=== PATIENT | male | born 1955 | race Caucasian/White ===

== ENCOUNTER 2017-08-03 10:38 | Emergency (ER) | payer MEDICARE ==
[2017-08-03] VITALS (7 sets, daily range): BP systolic 84–105; BP diastolic 52–64; PULSE 83–90; RESP 16–19; TEMP 98.4; O2SAT 90–99
[~2017-08-03] VITALS: Ht 177.8 cm; Wt 100.0 kg
[~2017-08-03 10:38] MED LIST: ALBU0.086 INH; ALBU17I INH; AMIT100T6 PO; ASPI81 PO; FISH300C2 PO; LASI20TA PO; LEVA750T PO; POTA-243 PO; PRED20 PO; PROT40TA PO; TAB-TAB PO; ULTR50TA PO
[2017-08-03] MEDS ORDERED: SODIUM CHLORIDE 0.9% FLUSH 10 ML FLUSH IVF PRN (11:15)
[2017-08-03] MEDS ORDERED: methylPREDNISolone SOD SUCC 125 MG/2 ML VIAL IV PUSH ONE (11:15)
[2017-08-03] MEDS ORDERED: SODIUM CHLORID 0.9% 500 ML INJ 500 ML IV ONE ×2 (11:15→12:30)
[2017-08-03] MEDS: RESP: ALBUTEROL 2.5 MG/IPRATROPIUM 0.5 MG NEB (SCH) INH (11:19)
[2017-08-03 11:30] LABS: AUTOMATED NEUTROPHIL # 9.1 TH/MM3 (1.8-7.7); BASOPHIL # 0.5 TH/MM3 (0-0.2); EOSINOPHIL # 0.1 TH/MM3 (0-0.4); EOSINOPHIL % 0.8 % (0.0-4.0); HEMATOCRIT 39.3 % (39.0-51.0); HEMO FLAGS DIFF FINAL; LYMPH % 7.1 % (9.0-44.0); LYMPHOCYTE # 0.8 TH/MM3 (1.0-4.8); MEAN CELL VOLUME 84.6 FL (80.0-100.0); MEAN CORPUSCULAR HGB CONC 31.9 % (32.0-36.0); MONO % 7.2 % (0.0-8.0); NEUT % 80.9 % (16.0-70.0); PLATELET COUNT 387 TH/MM3 (150-450); RED BLOOD COUNT 4.65 MIL/MM3 (4.50-5.90); RED CELL DISTRIBUTION WIDTH 15.5 % (11.6-17.2); WHITE BLOOD COUNT 11.3 TH/MM3 (4.0-11.0)
--- NOTE | 2017-08-03 11:50 | PD ---
HPI Chief Complaint: General Weakness Time Seen by Provider: 10:54 Travel History International Travel<30 days: No Contact w/Intl Traveler<30days: No Traveled to known affect area: No History of Present Illness HPI This is a 62-year-old male who presents to the emergency department with increasing shortness of breath that he says this been going on for months but has gotten worse over the past week associated with a productive cough with green and yellow sputum, constant, moderate severity, worse with exertion. The patient reports that he completed an antibiotic prescribed by his primary care provider one week ago but his symptoms have not improved. He has a history of significant lung infections that subsequently resulted in lobectomy. PFSH Past Medical History Cancer: No Cardiovascular Problems: Yes (DEXTROCARDIA) High Cholesterol: Yes COPD: Yes Diminished Hearing: No Endocrine: Yes Genitourinary: No Immune Disorder: No Implanted Vascular Access Dvce: Yes Musculoskeletal: Yes (back problems) Neurologic: Yes Psychiatric: No Reproductive: No Respiratory: Yes Immunizations Current: Yes Myocardial Infarction: Yes (1994) Pneumonia: Yes (2006) Seizures: Yes (X1 1993) Sleep Apnea: Yes Influenza Vaccination: Yes Past Surgical History Abdominal Surgery: No Cardiac Surgery: No Ear Surgery: No Endocrine Surgery: No Eye Surgery: Yes (BILATERAL CATARACTS) Genitourinary Surgery: No Gynecologic Surgery: No Joint Replacement: Yes (right knee) Neurologic Surgery: Yes (BRAIN ANEURYSM WITH SHUNT INFANT, 3 cervical spine surgeries) Oral Surgery: No Thoracic Surgery: Yes (BILATERAL LOBECTOMY) Other Surgery: Yes (BILAT CARPAL TUNNEL REPAIR) Social History Alcohol Use: No Tobacco Use: No Substance Use: No Allergies-Medications (Allergen,Severity, Reaction): Coded Allergies: No Known Allergies (Verified , 08/03/17) Reported Meds & Prescriptions Reported Meds & Active Scripts Active Deltasone 20 Mg Tab (Prednisone) 20 Mg Tab 20 Mg PO DAILY Deltasone 20 Mg Tab (Prednisone) 20 Mg Tab 20 Mg PO DAILY Reported Levaquin 750 Mg Tab (Levofloxacin) 750 Mg Tab 750 Mg PO DAILY Ultram (Tramadol HCl) 50 Mg Tab Unknown Dose PO Q4H PRN Proventil Ud 0.083% (2.5 Mg/3 Ml) (Albuterol Sulfate) 2.5 Mg/3 Ml Inha 2.5 Mg INH Q4HPRN Proventil Mdi (Albuterol Sulfate) 17 Gm Aero 2 Puff INH Q4HPRN Protonix (Pantoprazole Sodium) 40 Mg Tabdr 40 Mg PO BID Lasix (Furosemide) 20 Mg Tab 20 Mg PO DAILY K-Dur (Potassium Chloride) 10 Meq Tabcr 10 Meq PO DAILY Multivitamin (Multivitamins) 1 Tab Tab 1 Tab PO DAILY Fish Oil 300 Mg Cap 2 Gm PO BID Aspirin 81 Mg Tab 81 Mg PO DAILY Elavil (Amitriptyline HCl) 100 Mg Tab 100 Mg PO HS Review of Systems Except as stated in HPI: all other systems reviewed are Neg Physical Exam Narrative GENERAL:Well appearing, no acute distress SKIN: Focused skin assessment warm and dry. HEAD: Atraumatic. Normocephalic. EYES: Pupils equal and round. No injection or drainage. ENT: Moist mucous membranes NECK: Trachea midline. CARDIOVASCULAR: Regular rate and rhythm. No murmur appreciated. 2+ edema bilateral lower extremities. RESPIRATORY: Diffuse wheezing bilaterally. GASTROINTESTINAL: Abdomen soft, non-tender, nondistended. MUSCULOSKELETAL: No obvious deformities. NEUROLOGICAL: Awake and alert. No obvious cranial nerve deficits. Moving all extremities PSYCHIATRIC: Appropriate mood and affect; insight and judgment normal. Data Data Last Documented VS Vital Signs Date Time Temp Pulse Resp B/P (MAP) Pulse Ox O2 Delivery O2 Flow Rate FiO2 08/03/17 12:22 95 2.00 08/03/17 12:20 90 18 Room Air 08/03/17 10:48 98.4 Orders Orders Complete Blood Count With Diff (08/03/17 11:07) Comprehensive Metabolic Panel (08/03/17 11:07) B-Type Natriuretic Peptide (08/03/17 11:07) Troponin I (08/03/17 11:07) Iv Access Insert/Monitor (08/03/17 11:07) Electrocardiogram (08/03/17 11:07) Ecg Monitoring (08/03/17 11:07) Oximetry (08/03/17 11:07) Oxygen Administration (08/03/17 11:07) Chest, Pa & Lat (08/03/17 11:07) Sodium Chloride 0.9% Flush (Ns Flush) (08/03/17 11:15) Methylprednisolone So Succ Inj (Solumedr (08/03/17 11:15) Albuterol-Ipratropium Neb (Duoneb Neb) (08/03/17 11:15) Sodium Chlorid 0.9% 500 Ml Inj (Ns 500 M (08/03/17 11:15) Labs Laboratory Tests Test 08/03/17 11:15 White Blood Count 11.3 TH/MM3 Red Blood Count 4.65 MIL/MM3 Hemoglobin 12.6 GM/DL Hematocrit 39.3 % Mean Corpuscular Volume 84.6 FL Mean Corpuscular Hemoglobin 27.0 PG Mean Corpuscular Hemoglobin Concent 31.9 % Red Cell Distribution Width 15.5 % Platelet Count 387 TH/MM3 Mean Platelet Volume 6.6 FL Neutrophils (%) (Auto) 80.9 % Lymphocytes (%) (Auto) 7.1 % Monocytes (%) (Auto) 7.2 % Eosinophils (%) (Auto) 0.8 % Basophils (%) (Auto) 4.0 % Neutrophils # (Auto) 9.1 TH/MM3 Lymphocytes # (Auto) 0.8 TH/MM3 Monocytes # (Auto) 0.8 TH/MM3 Eosinophils # (Auto) 0.1 TH/MM3 Basophils # (Auto) 0.5 TH/MM3 CBC Comment DIFF FINAL Differential Comment Blood Urea Nitrogen 36 MG/DL Creatinine 1.50 MG/DL Random Glucose 112 MG/DL Total Protein 7.3 GM/DL Albumin 3.2 GM/DL Calcium Level 8.4 MG/DL Alkaline Phosphatase 160 U/L Aspartate Amino Transf (AST/SGOT) 22 U/L Alanine Aminotransferase (ALT/SGPT) 27 U/L Total Bilirubin 0.4 MG/DL Sodium Level 134 MEQ/L Potassium Level 2.8 MEQ/L Chloride Level 92 MEQ/L Carbon Dioxide Level 33.3 MEQ/L Anion Gap 9 MEQ/L Estimat Glomerular Filtration Rate 47 ML/MIN Troponin I LESS THAN 0.02 NG/ML B-Type Natriuretic Peptide 96 PG/ML [facility] Medical Decision Making Medical Screen Exam Complete: Yes Emergency Medical Condition: Yes Medical Record Reviewed: Yes (patient was admitted in 2009 and had empyema and a lobectomy) Interpretation(s) Mild leukocytosis Moderate hypokalemia Renal insufficiency Troponin is normal BNP is normal Chest x-ray: Mild compensated cardiomegaly Differential Diagnosis COPD exacerbation, empyema, pleural effusion, pneumonia Narrative Course This is a 62-year-old male who presents to the emergency department with trouble breathing that's been going on for months but has gotten worse over the past several days. He feels generally weak. He is placed in a monitor and an IV was established. Labs are obtained which demonstrate hypokalemia and renal insufficiency. He was mildly hypotensive here in the emergency Department which improved with IV fluids. I think the patient is volume depleted and overdiuresed. He was given a liter of IV fluid in the emergency department and potassium replacement. . Patient was advised to hold his Lasix for 3 days and to double his potassium for 3 days. In addition he was given steroids and bronchodilators and his breathing improved. I suspect this reflects a COPD exacerbation and electrolyte derangement. I think he is appropriate for outpatient management and he says he has a very responsive primary care physician is going to look into augmenting his home health care services. I think the patient can be discharged home. Diagnosis Primary Impression: COPD with acute exacerbation Additional Impression: Hypokalemia Patient Instructions: General Instructions Additional Instructions: If you develop severe shortness of breath, chest pain, or difficulty breathing return to the emergency department. Use albuterol every 4 hours for the next 2 days. Then use as needed for wheezing. Complete your course of steroids. Complete your course of antibiotics. DO NOT TAKE YOUR LASIX (FUROSEMIDE) FOR THE NEXT THREE DAYS. TAKE 40 mEq INSTEAD OF 20 mEQ (TWO TABLETS INSTEAD OF ONE TABLET) OF YOUR POTASSIUM FOR THE NEXT THREE DAYS. Follow up with your primary care physician in 2-3 days if your symptoms have not improved. Med/Other Pt SpecificInfo: Prescription(s) given Scripts Levofloxacin (Levaquin) 500 Mg Tablet 500 MG PO DAILY for Infection for 7 Days, #7 TAB 0 Refills Prov: Katelyn Reich MD 08/03/17 Prednisone (Prednisone) 20 Mg Tab 40 MG PO DAILY for 5 Days, #10 TAB 0 Refills Prov: Katelyn Reich MD 08/03/17 Disposition: 01 DISCHARGE HOME Condition: Stable Katelyn Reich MD Aug 03, 2017 11:50
--- NOTE | 2017-08-03 12:14 | RADRPT ---
EXAM DATE/TIME: 08/03/2017 11:20 [facility] COMPARISON: CHEST SINGLE AP, August 02, 2016, 3:28. INDICATIONS : Short of breath, dizziness, lower extremity swelling. Per prior CT report 11/24/2013, the patient demon strates situs inversus. MEDICAL HISTORY : Myocardial infarction. Hypercholesterolemia. Chronic obstructive pulmonary disease. Pneumonia. De xtrocardia. Sleep apnea.Seizures. Brain aneurysm. SURGICAL HISTORY : Lobectomy. Total knee replacement, right. Fusion, cervical. Cranial shunt as infant. Partial left kne e repalcement. Lumbar surgery. ENCOUNTER: Initial ACUITY: 1 week PAIN SCORE: 0/10 LOCATION: chest FINDINGS: Again seen is the dextrocardia with mild complete cardiomegaly. Lungs are clear. The portion of the bony skeleton visualized is unremarkable. CONCLUSION: Mild compensated cardiomegaly. Edis Navarro MD FACR on August 03, 2017 at 12:11 Board Certified Radiologist. This report was verified electronically.
[2017-08-03 12:15] LABS: ALKALINE PHOSPHATASE 160 U/L (45-117); ALT (GPT) 27 U/L (12-78); ANION GAP 9 MEQ/L (5-15); AST (GOT) 22 U/L (15-37); BICARBONATE 33.3 MEQ/L (21.0-32.0); BLOOD UREA NITROGEN 36 MG/DL (7-18); CHLORIDE 92 MEQ/L (98-107); GLOMERULAR FILTRATION RATE 47 ML/MIN (>89); SODIUM (NA) 134 MEQ/L (136-145); TOTAL BILIRUBIN ADULT 0.4 MG/DL (0.2-1.0)
[2017-08-03 12:16] LABS: POTASSIUM 2.8 MEQ/L (3.5-5.1)
[2017-08-03] MEDS ORDERED: POTASSIUM CHLORIDE 20 MEQ CONTROLLED RELEASE TAB PO ONE (12:30)
[2017-08-03] MEDS ORDERED: TRAM50TA PO (12:41)
[2017-08-03] MEDS ORDERED: PROT40TA PO (12:41)
[2017-08-03] MEDS ORDERED: ALBU.5I NEB (12:41)
[2017-08-03] MEDS ORDERED: LEVA500T20 PO (12:42)
[2017-08-03] MEDS ORDERED: PRED20 PO (12:42)
[2017-08-03] MEDS ORDERED: OMEGCAP PO (12:49)
[2017-08-03] MEDS ORDERED: FERR325T8 PO (12:49)
[2017-08-03] MEDS ORDERED: AMIT100T2 PO (12:49)
[2017-08-03] MEDS ORDERED: ASPI81CH CHEW (12:49)
[2017-08-03] MEDS ORDERED: PRED5TAB PO (12:49)
[2017-08-03] MEDS ORDERED: MULT-65 PO (12:49)
[2017-08-03] MEDS ORDERED: FURO1TAB62 PO (12:49)
[2017-08-03] MEDS ORDERED: ATOR40TA16 PO (12:50)
--- NOTE | 2017-08-04 13:42 | EKG ---
Date Performed: 08/03/2017 Time Performed: 11:38:20 PTAGE: 62 years EKG: Sinus rhythm ARM LEADS REVERSED LATERAL ST SEGMENT CHANGES ATYPICAL ECG Compared to PREVIOUS TRACING , the lateral ST segment changes are new. The prior tracing also suggest s that limb leads were reversed so it is not clear that there is a technical error in the tracings. I would advise a repeat tracing with careful attention to lead placement to establish the patients bas rosio EKG. The only serial change from the prior tracing is the developement of the lateral ST segmen t changes. PREVIOUS TRACIN08/02/2016 03.12 DOCTOR: Diane Martin Interpretating Date/Time 08/04/2017 13:42:04
== END 2017-08-03 13:40 | disposition home or self-care (01) ==
LOC: PHED 10:38
DX: J44.1 Chronic obstructive pulmonary disease with (acute) exacerbation (principal); E87.6 Hypokalemia; E78.00 Pure hypercholesterolemia, unspecified; I25.2 Old myocardial infarction; Q24.0 Dextrocardia
CPT/HCPCS: 71020; 80053; 83880; 84484; 85025; 93005; 94640; 94664; 96361; 96374; 99285; J2930; J7040

== ENCOUNTER → 2017-12-05 | Outpatient (CLI) | payer MEDICARE ==
[~2017-12-05] MED LIST changes: +ALBU.5I NEB; -ALBU0.086 INH; -ALBU17I INH; +AMIT100T2 PO; -AMIT100T6 PO; +ASPI-516 CHEW; -ASPI81 PO; +ATOR40TA16 PO; +ATOR80TA45 PO; +BUME2TAB PO; +DIAZ5TAB PO; +FERR325T18 PO; -FISH300C2 PO; +FURO1TAB62 PO; +FURO80TA PO; -LASI20TA PO; +LEVA500T33 PO; -LEVA750T PO; +METO5TAB3 PO; +MULT-65 PO; +OMEGCAP PO; -POTA-243 PO; +PRED5TAB PO; -TAB-TAB PO; +TRAM50TA PO; -ULTR50TA PO
--- NOTE | 2017-12-05 11:07 | RADRPT ---
EXAM DATE/TIME: 12/05/2017 10:16 [facility] COMPARISON: No previous studies available for comparison. INDICATIONS : Left leg edema and pain. MEDICAL HISTORY : Seizures. [place]. COPD. Hypercholesterol. Diabetic. SURGICAL HISTORY : Brain aneurysm with shunts as an . Neck and back surgery. Right and left lobectomy. Bilatera l carpal tunnel. ENCOUNTER: Initial ACUITY: >1 year PAIN SCORE: 10/10 LOCATION: Left leg. TECHNIQUE: Venous ultrasound of the leg was performed from the inguinal ligament to the proximal calf. Real-len e, color Doppler and spectral tracing, compression and augmentation techniques were used. FINDINGS: There is normal compressibility of the deep venous system from the inguinal region to the proximal ca lf. No echogenic clot is seen in the lumen of the common femoral, femoral, popliteal, and posterior tibial veins. There is a normal response of the venous system to proximal and distal augmentation an d respiration. CONCLUSION: Negative for deep venous thrombosis. . Edis Navarro MD FACR on December 05, 2017 at 11:05 Board Certified Radiologist. This report was verified electronically.
== END ==
LOC: HRAD 09:28
DX: I82.402 Acute embolism and thrombosis of unspecified deep veins of left lower extremity (principal)
CPT/HCPCS: 93971

== ENCOUNTER 2017-12-06 23:52 | Inpatient (IN) | payer MEDICARE, MEDICAID ==
[~2017-12-06] VITALS: Ht 177.8 cm; Wt 100.0 kg
[~2017-12-06 23:52] MED LIST changes: -ATOR80TA45 PO; -BUME2TAB PO; -DIAZ5TAB PO; -FURO80TA PO; -METO5TAB3 PO
[2017-12-06 23:59] VITALS: BP 132/60; PULSE 95; RESP 20; O2SAT 97
[2017-12-07] VITALS (13 sets, daily range): BP systolic 105–122; BP diastolic 60–68; PULSE 75–98; RESP 16–22; TEMP 97.6–99.5; O2SAT 92–100
--- NOTE | 2017-12-07 00:16 | PD ---
HPI Chief Complaint: Respiratory Symptoms Time Seen by Provider: 00:06 Travel History International Travel<30 days: No Contact w/Intl Traveler<30days: No Traveled to known affect area: No History of Present Illness HPI The patient is a 62 year old male who presents to the [facility] emergency department with a history of worsening shortness of breath that began today. He reports that he has chronic shortness of breath, however today his shortness of breath has been worse with rest and with lying flat. The patient also has lower extremity edema, however he reports that this is chronic and no worse than usual. He reports that he has had this for years. He reports that he does have a history of congestive heart failure. He is on a diuretic daily. He is unsure of the dose of his Lasix. The patient denies having any chest pain other than with coughing. He does report having a prior history of myocardial infarction in 1993. He cannot recall the name of his primary care physician. He reports that he does have a history of dextrocardia. He reports that he has a chronic cough that is productive of green sputum. He denies having any known recent fevers, neck pain, abdominal pain, vomiting, diarrhea, urinary symptoms, or neurologic symptoms. [facility] Past Medical History Narrative Medical The patient's past medical history is significant for dextrocardia, hyperlipidemia, obesity, iron deficiency, hypertension, congestive heart failure , coronary artery disease, history of bilateral lower extremity edema, history of seizure, history of pneumonia Cancer: No Cardiovascular Problems: Yes (DEXTROCARDIA; BLE edema) High Cholesterol: Yes COPD: Yes Diminished Hearing: No Endocrine: Yes Genitourinary: No Immune Disorder: No Implanted Vascular Access Dvce: Yes Musculoskeletal: Yes (back problems) Neurologic: Yes Psychiatric: No Reproductive: No Respiratory: Yes (Jose Rafael lower lobectomy ( & '); chronic cough w/green sputum ) Immunizations Current: Yes Myocardial Infarction: Yes (1994) Pneumonia: Yes (2006) Seizures: Yes (1993) Sleep Apnea: Yes Past Surgical History Narrative Surgical The patient's past surgical history is significant for four cervical spine surgeries, one lumbar spinal surgery, aneurysm surgery as a child, 3 knee surgeries, reported history of bilateral lower lobes of his lungs being removed related to "smoke and infection in his lungs". Abdominal Surgery: No Cardiac Surgery: No Ear Surgery: No Endocrine Surgery: No Eye Surgery: Yes (BILATERAL CATARACTS) Genitourinary Surgery: No Gynecologic Surgery: No Joint Replacement: Yes (right knee) Neurologic Surgery: Yes (BRAIN ANEURYSM WITH SHUNT INFANT, 3 cervical spine surgeries) Oral Surgery: No Thoracic Surgery: Yes (BILATERAL LOBECTOMY) Other Surgery: Yes (BILAT CARPAL TUNNEL REPAIR) Social History Alcohol Use: No Tobacco Use: No Substance Use: No Allergies-Medications (Allergen,Severity, Reaction): Coded Allergies: No Known Allergies (Verified Allergy, Unknown, 12/07/17) Reported Meds & Prescriptions Reported Meds & Active Scripts Active Reported Bumetanide 2 Mg Tab 1 Tab PO DAILY Furosemide 80 Mg Tab 1 Tab PO BID Metolazone 5 Mg Tab 1 Tab PO DAILY Diazepam 5 Mg Tab 1 Tab PO HS PRN Atorvastatin (Atorvastatin Calcium) 80 Mg Tab 80 Mg PO HS [place]-3 Fish Oil/Vitamin (Fish Oil-Cholecalciferol) 1,000-1,000 Mg Cap 1 Cap PO DAILY Ferrous Sulfate 325 Mg (65 Mg Iron) Tablet 325 Mg PO DAILY Aspirin 81 Mg Chew 81 Mg CHEW DAILY Multi-Vitamin Daily (Multiple Vitamin) 1 Tab Tab 1 Tab PO DAILY Amitriptyline (Amitriptyline HCl) 100 Mg Tab 100 Mg PO HS Protonix (Pantoprazole Sodium) 40 Mg Tab 40 Mg PO BID Albuterol Neb (Albuterol Sulfate) 2.5 Mg/0.5 Ml Neb 2.5 Mg NEB Q4HR NEB PRN Note: The Albuterol Sulfate Inhalation Solution is concentrated and must be diluted. Read complete instructions carefully before using. Review of Systems Except as stated in HPI: all other systems reviewed are Neg General / Constitutional: No: Fever Eyes: No: Visual changes HENT: Positive: Congestion, No: Headaches Cardiovascular: Positive: Chest Pain or Discomfort (With cough), Dyspnea on exertion, Edema Respiratory: Positive: Cough, Shortness of Breath Gastrointestinal: No: Nausea, Vomiting, Diarrhea, Abdominal Pain Genitourinary: No: Dysuria Musculoskeletal: No: Pain Skin: No Rash Neurologic: No: Weakness, Focal Abnormalities, Change in Mentation, Slurred Speech, Sensory Disturbance Psychiatric: No: Depression Endocrine: No: Polydipsia Hematologic/Lymphatic: No: Easy Bruising Physical Exam Narrative General: The patient is a well-developed well-nourished male in no acute distress, O2 saturation on room air is noted to be 91%. Head and Neck exam: Head is normocephalic atraumatic. Eyes: EOMI, pupils are equal round and reactive to light. Nose: Midline septum with pink mucous membranes Mouth: Dentition unremarkable. Moist mucus membranes. Posterior oropharynx is not erythematous. No tonsillar hypertrophy. Uvula midline. Airway patent. Neck: No palpable lymphadenopathy. No nuchal rigidity. No thyromegaly. Cardiovascular: Regular rate and rhythm without murmurs, gallops, or rubs. Lungs: The patient has decreased breath sounds in bilateral lung bases, worse on the left compared to the right, no wheezes, rhonchi, or crackles. Abdomen: Soft, without tenderness to palpation in all 4 quadrants of the abdomen. No guarding, rebound, or rigidity. Normal bowel sounds are audible. Extremities: No clubbing or cyanosis. The patient has 2+ edema bilateral lower extremities. No calf tenderness on palpation. 2+ pulses in all 4 extremities. Back: No spinous process tenderness to palpation. No costovertebral angle tenderness to palpation. Neurologic Exam: Grossly nonfocal. Skin Exam: No rash noted. Intact skin that is warm and dry. Data Data Last Documented VS Vital Signs Date Time Temp Pulse Resp B/P (MAP) Pulse Ox O2 Delivery O2 Flow Rate FiO2 12/07/17 02:30 87 20 120/65 (83) 100 Room Air 2.00 Orders Orders Electrocardiogram (12/07/17 00:06) Complete Blood Count With Diff (12/07/17 00:06) Comprehensive Metabolic Panel (12/07/17 00:06) Creatine Kinase (Cpk) (12/07/17 00:06) Ckmb (Isoenzyme) Profile (12/07/17 00:06) Troponin I (12/07/17 00:06) B-Type Natriuretic Peptide (12/07/17 00:06) Prothrombin Time / Inr (Pt) (12/07/17 00:06) Act Partial Throm Time (Ptt) (12/07/17 00:06) Blood Culture (12/07/17 00:06) C-Reactive Protein (Crp) (12/07/17 00:06) Lipase (12/07/17 00:06) Urinalysis - C+S If Indicated (12/07/17 00:06) Magnesium (Mg) (12/07/17 00:06) Influenzae A/B Antigen (12/07/17 00:06) Chest, Single Ap (12/07/17 00:06) Iv Access Insert/Monitor (12/07/17 00:06) Ecg Monitoring (12/07/17 00:06) Oximetry (12/07/17 00:06) Lactic Acid Sepsis Protocol (12/07/17 00:06) D-Dimer (12/07/17 00:06) CKMB (12/07/17 00:18) CKMB% (12/07/17 00:18) Sodium Chlorid 0.9% 500 Ml Inj (Ns 500 M (12/07/17 02:00) Ceftriaxone Inj (Rocephin Inj) (12/07/17 02:00) Azithromycin Inj (Zithromax Inj) (12/07/17 02:00) Ct Pulmonary Angiogram (12/07/17 01:56) Iohexol 350 Inj (Omnipaque 350 Inj) (12/07/17 02:15) Admit Order (Ed Use Only) (12/07/17 03:21) Labs Laboratory Tests Test 12/07/17 00:18 White Blood Count 10.9 TH/MM3 Red Blood Count 3.98 MIL/MM3 Hemoglobin 11.7 GM/DL Hematocrit 34.6 % Mean Corpuscular Volume 86.9 FL Mean Corpuscular Hemoglobin 29.5 PG Mean Corpuscular Hemoglobin Concent 34.0 % Red Cell Distribution Width 14.4 % Platelet Count 403 TH/MM3 Mean Platelet Volume 6.1 FL Neutrophils (%) (Auto) 80.5 % Lymphocytes (%) (Auto) 9.6 % Monocytes (%) (Auto) 8.6 % Eosinophils (%) (Auto) 0.8 % Basophils (%) (Auto) 0.5 % Neutrophils # (Auto) 8.7 TH/MM3 Lymphocytes # (Auto) 1.0 TH/MM3 Monocytes # (Auto) 0.9 TH/MM3 Eosinophils # (Auto) 0.1 TH/MM3 Basophils # (Auto) 0.1 TH/MM3 CBC Comment DIFF FINAL Differential Comment Prothrombin Time 10.2 SEC Prothromb Time International Ratio 1.0 RATIO Activated Partial Thromboplast Time 28.7 SEC D-Dimer Quantitative (PE/DVT) 2.20 MG/L FEU Blood Urea Nitrogen 19 MG/DL Creatinine 1.15 MG/DL Random Glucose 105 MG/DL Total Protein 7.3 GM/DL Albumin 2.9 GM/DL Calcium Level 8.4 MG/DL Magnesium Level 2.2 MG/DL Alkaline Phosphatase 104 U/L Aspartate Amino Transf (AST/SGOT) 15 U/L Alanine Aminotransferase (ALT/SGPT) 20 U/L Total Bilirubin 0.2 MG/DL Sodium Level 139 MEQ/L Potassium Level 4.1 MEQ/L Chloride Level 101 MEQ/L Carbon Dioxide Level 32.0 MEQ/L Anion Gap 6 MEQ/L Estimat Glomerular Filtration Rate 64 ML/MIN Lactic Acid Level 1.7 mmol/L Total Creatine Kinase 125 U/L Creatine Kinase MB 1.4 NG/ML Troponin I LESS THAN 0.02 NG/ML C-Reactive Protein 9.48 MG/DL B-Type Natriuretic Peptide 76 PG/ML Lipase 119 U/L [facility] Medical Decision Making Medical Screen Exam Complete: Yes Emergency Medical Condition: Yes Medical Record Reviewed: Yes Interpretation(s) Last Impressions CT Angiography 12/07/17 0156 Signed Impressions: Service Date/Time: Thursday, December 07, 2017 02:11 - CONCLUSION: There is no evidence for pulmonary embolism. Bronchiectasis, mucous plugging, consolidation and bilateral reticular nodular infiltrates are identified. There is also a cavitary focus of masslike consolidation in the right upper lobe. Atypical infectious processes, fungal or mycobacterial should be entertained. Followup is recommended after appropriate clinical therapy to ensure resolution of these findings particularly the cavitary right upper lobe focus. Jesus Taylor MD Chest X-Ray 12/07/17 [id number] Signed Impressions: Service Date/Time: Thursday, December 07, 2017 00:24 - CONCLUSION: Basilar airspace disease is identified. Jesus Taylor MD Differential Diagnosis Pulmonary embolism, versus congestive heart failure exacerbation, versus pneumonia Narrative Course During the course of the patient's emergency department visit, the patient's history, examination, and differential diagnosis were reviewed with the patient. The patient was placed on a battery vent plug inserter with oximetry and frequent blood pressure monitoring. The patient had IV access obtained and blood work sent for analysis. The patient has an EKG that was done on arrival that shows a sinus rhythm no acute ST segment elevation. QRS duration is 81 ms, QTC 386 ms. The patient's laboratory studies were reviewed and remarkable for a white count of 10.9, hemoglobin 11.7, platelets 403 with 80.5 neutrophils. CMP is remarkable for BUN of 19, GFR of 64, calcium 8.4, cardiac enzymes within normal limits, C-reactive protein elevated at 9.48 suggestive of infection, BNP 76 ruling out congestive heart failure, lipase 119. Due to a concern about pneumonia, the patient was given Rocephin 1 g IV, Zithromax 500 IV. Patient was also started on normal saline 500 mL bolus 1. PT 10.2, PTT 28.7, d-dimer 2.20 therefore a CTA to rule out PE was ordered. Urinalysis showed no acute abnormality. CTA showed evidence of bronchiectasis, infiltrates, cavitary-like mass. The patient's results were discussed with the patient, including the plan of care. I explained that further testing and/ or monitoring is indicated based on the patient's history, examination, and/ or laboratory findings. Therefore, I recommended admission for additional evaluation. The patient expressed understanding and was agreeable with this plan. The patient was admitted to the hospital in stable condition and [facility] Phys[facility] Communication Physician Communication The patient's case including history, pertinent physical examination findings, and laboratory studies were discussed with Dr. Dacosta. It was agreed that the patient would be admitted to the [facility] service. Diagnosis Primary Impression: Pneumonia Qualified Codes: J18.9 - Pneumonia, unspecified organism Additional Impressions: Cavitary lesion of lung Situs inversus Admitting Information Admitting Physician Requests: Admit Dena Beavers MD Dec 07, 2017 00:16
[2017-12-07 00:33] LABS: AUTOMATED NEUTROPHIL # 8.7 TH/MM3 (1.8-7.7); BASOPHIL # 0.1 TH/MM3 (0-0.2); BASOPHIL % 0.5 % (0.0-2.0); EOSINOPHIL # 0.1 TH/MM3 (0-0.4); EOSINOPHIL % 0.8 % (0.0-4.0); HEMATOCRIT 34.6 % (39.0-51.0); HEMOGLOBIN 11.7 GM/DL (13.0-17.0); LYMPH % 9.6 % (9.0-44.0); MEAN CELL VOLUME 86.9 FL (80.0-100.0); MEAN CORPUSCULAR HEMOGLOBIN 29.5 PG (27.0-34.0); MEAN PLATELET VOLUME 6.1 FL (7.0-11.0); MONO % 8.6 % (0.0-8.0); MONOCYTE # 0.9 TH/MM3 (0-0.9); NEUT % 80.5 % (16.0-70.0); PLATELET COUNT 403 TH/MM3 (150-450); RED BLOOD COUNT 3.98 MIL/MM3 (4.50-5.90); RED CELL DISTRIBUTION WIDTH 14.4 % (11.6-17.2); WHITE BLOOD COUNT 10.9 TH/MM3 (4.0-11.0)
--- NOTE | 2017-12-07 00:34 | RADRPT ---
EXAM DATE/TIME: 12/07/2017 00:24 [facility] COMPARISON: CHEST PA & LAT, August 03, 2017, 11:20. CHEST SINGLE AP, August 02, 2016, 3:28. INDICATIONS : Short of breath. MEDICAL HISTORY : Myocardial infarction. Hypercholesterolemia. Chronic obstructive pulmonary disease. SURGICAL HISTORY : Lobectomy. Total knee replacement, right. Fusion, cervical. Cranial shunt as infant. ENCOUNTER: Initial ACUITY: 1 day PAIN SCORE: 0/10 LOCATION: Bilateral chest FINDINGS: There is patchy bilateral basilar airspace disease and dextrocardia again noted. Osseous structures a re intact. CONCLUSION: Basilar airspace disease is identified. Jesus Taylor MD on December 07, 2017 at 0:31 Board Certified Radiologist. This report was verified electronically.
[2017-12-07 00:44] LABS: ALBUMIN 2.9 GM/DL (3.4-5.0); ALT (GPT) 20 U/L (12-78); AST (GOT) 15 U/L (15-37); BLOOD UREA NITROGEN 19 MG/DL (7-18); C-REACTIVE PROTEIN 9.48 MG/DL (0.00-0.30); CALCIUM 8.4 MG/DL (8.5-10.1); CHLORIDE 101 MEQ/L (98-107); CREATININE 1.15 MG/DL (0.60-1.30); D-DIMER 2.2 MG/L FEU (0.00-0.50); GLOMERULAR FILTRATION RATE 64 ML/MIN (>89); GLUCOSE,RANDOM 105 MG/DL (74-106); MAGNESIUM 2.2 MG/DL (1.5-2.5); PROTHROMBIN TIME - PATIENT 10.2 SEC (9.8-11.6); SODIUM (NA) 139 MEQ/L (136-145)
[2017-12-07 00:46] LABS: ALKALINE PHOSPHATASE 104 U/L (45-117); TOTAL BILIRUBIN ADULT 0.2 MG/DL (0.2-1.0); TOTAL PROTEIN 7.3 GM/DL (6.4-8.2); TROPONIN I LESS THAN 0.02 NG/ML (0.02-0.05)
[2017-12-07] MEDS ORDERED: FURO80TA PO (01:28)
[2017-12-07] MEDS ORDERED: METO5TAB3 PO (01:28)
[2017-12-07] MEDS ORDERED: ATOR80TA45 PO (01:28)
[2017-12-07] MEDS ORDERED: DIAZ5TAB PO (01:28)
[2017-12-07] MEDS ORDERED: BUME2TAB PO (01:28)
[2017-12-07] MEDS ORDERED: AZITHROMYCIN INJ 500 MG in SODIUM CHLOR 0.9% 250 ML INJ 250 ML IV ONE (02:00)
[2017-12-07] MEDS ORDERED: cefTRIAXone INJ 1,000 MG in SODIUM CHLORIDE 0.9% INJ 100 ML IV ONE (02:00)
[2017-12-07] MEDS ORDERED: SODIUM CHLORID 0.9% 500 ML INJ 500 ML IV ONE (02:00)
[2017-12-07] MEDS ORDERED: IOHEXOL 350 MG/ML 10 ML VIAL (for RAD DIAG) IVCONTRAST ONE (02:15)
--- NOTE | 2017-12-07 02:25 | RADRPT ---
EXAM DATE/TIME: 12/07/2017 02:11 [facility] COMPARISON: CHEST SINGLE AP, December 07, 2017, 0:24. INDICATIONS : Shortness of breath. IV CONTRAST: 75 cc Omnipaque 350 (iohexol) IV RADIATION DOSE: 9.8 CTDIvol (mGy) MEDICAL HISTORY : Myocardial infarction. Chronic obstructive pulmonary disease. Congestive heart failure. SURGICAL HISTORY : Bilateral lobectomy. ENCOUNTER: Initial ACUITY: 2 days PAIN SCALE: 0/10 LOCATION: chest TECHNIQUE: Volumetric scanning of the chest was performed using a pulmonary embolism protocol MIP images were re constructed. Using automated exposure control and adjustment of the mA and/or kV according to patien t size, radiation dose was kept as low as reasonably achievable to obtain optimal diagnostic quality images. DICOM format image data is available electronically for review and comparison. Follow-up recommendations for detected pulmonary nodules are based at a minimum on nodule size and pa tient risk factors according to Fleischner Society Guidelines. FINDINGS: There is focal bronchiectasis in the lingula with consolidative opacity seen, scattered nodular infil trates in the lower lobes with bilateral bronchiectasis and mucous plugging, consolidation and bronch iectasis within the right middle lobe, and a masslike area with cavitation in the right upper lobe me asuring 6 x 3.1 cm in transverse and AP dimension. Right sided aortic arch is noted. There is right h ilar adenopathy and subcarinal adenopathy up to 1.4 cm. Calcified left hilar lymph nodes are seen. Sm all pericardial effusion. 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 CONCLUSION: There is no evidence for pulmonary embolism. Bronchiectasis, mucous plugging, consolidation and bilat eral reticular nodular infiltrates are identified. There is also a cavitary focus of masslike consoli dation in the right upper lobe. Atypical infectious processes, fungal or mycobacterial should be ente rtained. Followup is recommended after appropriate clinical therapy to ensure resolution of these fin dings particularly the cavitary right upper lobe focus. Jesus Taylor MD on December 07, 2017 at 2:20 Board Certified Radiologist. This report was verified electronically.
[2017-12-07] MEDS ORDERED: NALOXONE HCL 0.4 MG/ML AMP IV PUSH PRN (04:00)
[2017-12-07] MEDS: RESP: ALBUTEROL 2.5 MG/IPRATROPIUM 0.5 MG NEB (SCH) NEB ×4 (04:10→20:03)
[2017-12-07] MEDS: SODIUM CHLORIDE 0.9% FLUSH 10 ML FLUSH IV FLUSH PRN (06:18)
[2017-12-07] MEDS: CLINDAMYCIN 900 MG/NS PREMIX 50 ML IV SCH ×3 (06:18→23:33)
[2017-12-07 07:34] LABS: BILIRUBIN, URINE NEG (NEG); BLOOD, URINE NEG (NEG); GLUCOSE,URINE NEG (NEG); KETONE, URINE NEG (NEG); NITRITE,URINE NEG (NEG); PH, URINE 6.5 (5.0-8.5); SQUAMOUS EPITHELIAL CELL URINE <1 /hpf (0-5); URINE COLOR YELLOW (YELLW/STRAW); URINE LEUKOCYTE ESTERASE NEG (NEG)
[2017-12-07] MEDS: LACTOBACILLUS ACIDOPHILUS TAB PO SCH ×3 (09:00→18:08)
[2017-12-07] MEDS: SODIUM CHLORIDE 0.9% FLUSH 10 ML FLUSH IV FLUSH SCH ×2 (09:15→23:34)
[2017-12-07] MEDS: RESP: ALBUTEROL 2.5 MG/IPRATROPIUM 0.5 MG NEB (PRN) NEB (13:45)
--- NOTE | 2017-12-07 15:39 | HHI.HP ---
[facility] Primary Care Physician Unknown Admission Diagnosis Pneumonia, Cavitary Lesion Diagnoses: (1) Pneumonia Travel History International Travel<30 Days: No Contact w/Intl Traveler <30 Da: No Traveled to Known Affected Are: No History of Present Illness 62M who was a poor historian during our visit due to an insistence that we should lift TB precautions after a cavitary lesion was seen on x-ray. He insisted that he did not have TB. I attempted to explain that we need records to show this, otherwise we could place staff and other patient's at risk. He threatened to leave AMA. I made an attempt to convince him to stay. By ER record, he presented overnight after a day of shortness of breath. He has COPD and takes scheduled nebulizer treatments at home, but the shortness of breath was out of the norm for him. Worse with recumbence. He also complained of Edema in his bilateral LE's, has a history of CHF, on daily diuretics. Work up, as described above, showed infectious appearing right upper lobe cavitary lesion on chest CT. Review of Systems Constitutional: COMPLAINS OF: Fatigue, DENIES: Diaphoretic episodes, Fever, Chills, Night Sweats Eyes: DENIES: Diplopia, Eye inflammation, Eye pain, Vision loss Respiratory: COMPLAINS OF: Cough, Sputum production, Shortness of breath, DENIES: Hemoptysis Cardiovascular: COMPLAINS OF: Dyspnea on Exertion, Lower Extremity Edema, Orthopnea, DENIES: Chest pain, Palpitations, Syncope Gastrointestinal: DENIES: Abdominal pain, Black stools, Bloody stools, Constipation, Diarrhea, Nausea, Vomiting, Difficulty Swallowing Musculoskeletal: DENIES: Joint pain, Muscle aches, Stiffness Neurologic: DENIES: Abnormal gait, Seizures, Speech Problems, Poor Balance Psychiatric: COMPLAINS OF: Agitation, DENIES: Confusion, Hallucinations Past Family Social History Past Medical History Dextrocardia CHF w/ BLE Edema COPD Dyslipidemia Lumbago Myocardial Infarction 1994 Seizure 1993 Obstructive sleep Apnea Pneumonia 2007 Past Surgical History Bilateral Lower Lobectomy Brain Aneurysm with shunt as infant Bilateral cataracts Bilateral carpal tunnel repair Allergies: Coded Allergies: No Known Allergies (Verified Allergy, Unknown, 12/07/17) Family History Unknown Social History No tobacco use, no alcohol use Physical Exam Vital Signs Vital Signs Date Time Temp Pulse Resp B/P (MAP) Pulse Ox O2 Delivery O2 Flow Rate FiO2 12/07/17 14:31 97.6 79 17 106/61 (76) 94 12/07/17 13:46 92 12/07/17 12:25 12/07/17 09:34 95 21 12/07/17 07:26 78 18 110/68 (82) 92 Room Air 12/07/17 05:00 98.3 80 20 105/60 (75) 97 Nasal Cannula 2.00 12/07/17 04:10 98 Nasal Cannula 2.00 12/07/17 02:30 87 20 120/65 (83) 100 Room Air 2.00 12/07/17 01:30 92 20 116/67 (83) 98 Room Air 2.00 12/07/17 00:35 98 20 115/67 (83) 97 Room Air 2.00 12/07/17 00:14 96 22 122/62 (82) 98 Nasal Cannula 2.00 12/07/17 00:06 95 98 Nasal Cannula 2.00 12/06/17 23:59 95 20 132/60 (84) 97 Physical Exam GENERAL: This is a well-nourished, well-developed patient, upset about isolation precautions SKIN: No rashes, ecchymoses or lesions. Cool and dry. HEAD: Atraumatic. Normocephalic. No temporal or scalp tenderness. EYES: Pupils equal round and reactive. Extraocular motions intact. No scleral icterus. No injection or drainage. ENT: Nose without bleeding, purulent drainage or septal hematoma. Throat without erythema, tonsillar hypertrophy or exudate. Uvula midline. Airway patent. NECK: Trachea midline. No JVD or lymphadenopathy. Supple, nontender, no meningeal signs. CARDIOVASCULAR: Regular rate and rhythm without murmurs, gallops, or rubs. RESPIRATORY: R>L basilar crackles with clear airways anteriorly, no obvious wheezing or ronchi GASTROINTESTINAL: Abdomen soft, non-tender, nondistended. No hepato-splenomegaly , or palpable masses. No guarding. MUSCULOSKELETAL: Extremities without clubbing, cyanosis, trace edema bilaterally. No joint tenderness, effusion, or edema noted. No calf tenderness. NEUROLOGICAL: Awake and alert. Cranial nerves II through XII intact. Motor and sensory grossly within normal limits. Normal speech. Laboratory Laboratory Tests Test 12/07/17 00:18 12/07/17 06:40 12/07/17 07:14 White Blood Count 10.9 Red Blood Count 3.98 Hemoglobin 11.7 Hematocrit 34.6 Mean Corpuscular Volume 86.9 Mean Corpuscular Hemoglobin 29.5 Mean Corpuscular Hemoglobin Concent 34.0 Red Cell Distribution Width 14.4 Platelet Count 403 Mean Platelet Volume 6.1 Neutrophils (%) (Auto) 80.5 Lymphocytes (%) (Auto) 9.6 Monocytes (%) (Auto) 8.6 Eosinophils (%) (Auto) 0.8 Basophils (%) (Auto) 0.5 Neutrophils # (Auto) 8.7 Lymphocytes # (Auto) 1.0 Monocytes # (Auto) 0.9 Eosinophils # (Auto) 0.1 Basophils # (Auto) 0.1 CBC Comment DIFF FINAL Differential Comment Prothrombin Time 10.2 Prothromb Time International Ratio 1.0 Activated Partial Thromboplast Time 28.7 D-Dimer Quantitative (PE/DVT) 2.20 Blood Urea Nitrogen 19 Creatinine 1.15 Random Glucose 105 Total Protein 7.3 Albumin 2.9 Calcium Level 8.4 Magnesium Level 2.2 Alkaline Phosphatase 104 Aspartate Amino Transf (AST/SGOT) 15 Alanine Aminotransferase (ALT/SGPT) 20 Total Bilirubin 0.2 Sodium Level 139 Potassium Level 4.1 Chloride Level 101 Carbon Dioxide Level 32.0 Anion Gap 6 Estimat Glomerular Filtration Rate 64 Lactic Acid Level 1.7 Total Creatine Kinase 125 Creatine Kinase MB 1.4 Troponin I LESS THAN 0.02 C-Reactive Protein 9.48 B-Type Natriuretic Peptide 76 Lipase 119 Urine Color YELLOW Urine Turbidity CLEAR Urine pH 6.5 Urine Specific [place] GREATER THAN 1.050 Urine Protein TRACE Urine Glucose (UA) NEG Urine Ketones NEG Urine Occult Blood NEG Urine Nitrite NEG Urine Bilirubin NEG Urine Urobilinogen LESS THAN 2.0 Urine Leukocyte Esterase NEG Urine RBC 2 Urine WBC 1 Urine Squamous Epithelial Cells <1 Microscopic Urinalysis Comment CULT NOT INDICATED Date/Time Source Procedure Growth Status 12/07/17 00:18 Blood Peripheral Aerobic Blood Culture Pending Received 12/07/17 00:18 Blood Peripheral Anaerobic Blood Culture Pending Received 12/07/17 00:18 Nasal Aspirate Influenza Types A,B Antigen (LILIANA) - Final NEGATIVE FOR FLU A AND B ANTIGEN.... Complete Result Diagram: 12/07/17 0018 12/07/17 0018 Imaging Last [address] Angiography 12/07/17 0156 Signed Impressions: Service Date/Time: Thursday, December 07, 2017 02:11 - CONCLUSION: There is no evidence for pulmonary embolism. Bronchiectasis, mucous plugging, consolidation and bilateral reticular nodular infiltrates are identified. There is also a cavitary focus of masslike consolidation in the right upper lobe. Atypical infectious processes, fungal or mycobacterial should be entertained. Followup is recommended after appropriate clinical therapy to ensure resolution of these findings particularly the cavitary right upper lobe focus. Jesus Taylor MD Chest X-Ray 12/07/17 0006 Signed Impressions: Service Date/Time: Thursday, December 07, 2017 00:24 - CONCLUSION: Basilar airspace disease is identified. Jesus Taylor MD Caprini VTE Risk Assessment Caprini VTE Risk Assessment: Mod/High Risk (score >= 2) Caprini Risk Assessment Model Point Value = 1 Point Value = 2 Point Value = 3 Point Value = 5 Age 41-60 Minor surgery BMI > 25 kg/m2 Swollen legs Varicose veins or History of unexplained or recurrent spontaneous Oral contraceptives or hormone replacement Sepsis (< 1 month) Serious lung disease, including pneumonia (< 1 month) Abnormal pulmonary function Acute myocardial infarction Congestive heart failure (< 1 month) History of inflammatory bowel disease Medical patient at bed rest Age 61-74 Arthroscopic surgery Major open surgery (> 45 min) Laparoscopic surgery (> 45 min) Malignancy Confined to bed (> 72 hours) Immobilizing plaster cast Central venous access Age >= 75 History of VTE Family history of VTE Factor V Leiden Prothrombin [id number] Lupus anticoagulant Anticardiolipin antibodies Elevated serum homocysteine Heparin-induced thrombocytopenia Other congenital or acquired thrombophilia Stroke (< 1 month) Elective arthroplasty Hip, pelvis, or leg fracture Acute spinal cord injury (< 1 month) Prophylaxis Regimen Total Risk Factor Score Risk Level Prophylaxis Regimen 0-1 Low Early ambulation 2 Moderate Order ONE of the following: *Sequential Compression Device (SCD) *Heparin 5000 units SQ BID 3-4 Higher Order ONE of the following medications: *Heparin 5000 units SQ TID *Enoxaparin/Lovenox 40 mg SQ daily (WT < 150 kg, CrCl > 30 mL/min) *Enoxaparin/Lovenox 30 mg SQ daily (WT < 150 kg, CrCl > 10-29 mL/min) *Enoxaparin/Lovenox 30 mg SQ BID (WT < 150 kg, CrCl > 30 mL/min) AND/OR *Sequential Compression Device (SCD) 5 or more Highest Order ONE of the following medications: *Heparin 5000 units SQ TID (Preferred with Epidurals) *Enoxaparin/Lovenox 40 mg SQ daily (WT < 150 kg, CrCl > 30 mL/min) *Enoxaparin/Lovenox 30 mg SQ daily (WT < 150 kg, CrCl > 10-29 mL/min) *Enoxaparin/Lovenox 30 mg SQ BID (WT < 150 kg, CrCl > 30 mL/min) AND *Sequential Compression Device (SCD) Assessment and Plan Problem List: (1) Cavitary lesion of lung ICD Code: J98.4 - Other disorders of lung (2) Dyspnea ICD Code: R06.00 - Dyspnea, unspecified Assessment and Plan Shortness of Breath Covered for infectious causes with IV antibiotics Continue Clindamycin Consider CHF and/or COPD as alternate causes of dyspnea (both in history) Follow CBC and level of edema Cavitary Lesion of Right upper lobe He staunchly denies TB, claims previous work up was negative Mycoplasma PCR ordered STAT to rule out TB Isolation can be lifted if PCR is negative Continue IV antibiotics for now and consider consulting Pulm or ID based on clinical progress h/o CHF Dyspnea, but level of edema is not very impressive Continue home meds h/o COPD Scheduled DuoNebs, plus home meds DVT Prophylaxis Lovenox Physician Certification 2 Midnight Certification Type: Admission for Inpatient Services Order for Inpatient Services The services are ordered in accordance with Medicare regulations or non- Medicare payer requirements, as applicable. In the case of services not specified as inpatient-only, they are appropriately provided as inpatient services in accordance with the 2-midnight benchmark. Estimated LOS (days): 3 days is the estimated time the patient will need to remain in the hospital, assuming treatment plan goals are met and no additional complications. Post-Hospital Plan: Home Antoine Rodas MD Dec 07, 2017 15:39
[2017-12-07] MEDS: BENZONATATE 100 MG CAP PO PRN (18:07)
[2017-12-07] MEDS: traMADol HCL 50 MG TAB PO PRN (18:07)
[2017-12-07] MEDS: FUROSEMIDE 40 MG/4 ML VIAL IV PUSH SCH (18:08)
--- NOTE | 2017-12-07 21:24 | EKG ---
Date Performed: 12/07/2017 Time Performed: 00:08:02 PTAGE: 62 years EKG: Sinus rhythm PREVIOUS TRACING : 08/03/2017 11.38 Since the prior tracing, there has been no significan t change DOCTOR: Naveen Cueto Interpretating Date/Time 12/07/2017 21:22:08
--- NOTE | 2017-12-07 22:37 | MB ---
cc: LEONA DELGADILLO DATE OF CONSULTATION: 12/07/2017 REASON FOR CONSULTATION: Cavitary density right upper lung. Patient with known COPD. HISTORY OF PRESENT ILLNESS Mr. Crockett is a 62-year-old male with known history of COPD, obstructive sleep apnea, noncompliant with C-PAP, congestive heart failure, who comes to the emergency room complaining of increasing shortness of breath, chest x-ray and CT scan of the chest done, underlying bronchiectatic change noted as well as a cavitary density, right upper lung of unknown significance, not seen by chest x-ray. The patient is improved as far as his shortness of breath is concerned. He tells me he did have previous CT scan of the chest done by his primary care physician, the name of which he does not recall and he was told previously that he does not have an infectious process. However, it is not possible to locate his previous records at this time. The patient has no hemoptysis, history of TB, or history of previous industrial exposure. PAST MEDICAL HISTORY: 1. COPD. 2. Congestive heart failure. 3. Dextrocardia. 4. Hyperlipidemia. 5. Coronary artery disease by previous myocardial infarction. 6. History of seizure disorder. 7. Previous bilateral lower lung lobectomies in 1993 and subsequently in 1995. 8. Cerebral aneurysm. 9. Bilateral cataract surgery. 10. Carpal tunnel surgery. ALLERGIES: None known to medication. FAMILY HISTORY: Noncontributory. PRESENT MEDICATIONS: 1. Lasix. 2. Tramadol. 3. Ipratropium Albuterol nebulizer. 4. Clindamycin. SYSTEM REVIEW: 12-point review of systems as per HPI and past history otherwise negative. PHYSICAL EXAMINATION: On exam temperature 99, pulse 75, respirations 18, blood pressure 110/64. Oxygen saturation 96% on room air. HEENT: Exam unremarkable. Eyes without icterus. Neck: Without adenopathy or thyroid enlargement. Central trachea. Chest: Few scattered rhonchi at bases. Cardiac exam: PMI not appreciated. S1-S2 audible. No murmur or rub. Abdomen: Lax, bowel sounds audible. Extremities: No clubbing, cyanosis, 3+ edema, suspect lymphedema as well. LABORATORY DATA: White count 10,000, hemoglobin 12, hematocrit 34, platelets are 403,000, sodium 139, potassium 4.1, BUN 19, creatinine 1.1. IMAGING STUDIES: CT scan of the chest without pulmonary embolization, bronchiectasis, bilateral reticular nodular infiltrate noted, cavitary focus in the right upper lung lobe is noted, suspicious for infectious process. IMPRESSION 1. Abnormal CT scan as described above with cavitary change and bronchiectasis. 2. COPD. 3. Congestive heart failure. 4. Chronic lower extremity edema. 5. Obstructive sleep apnea. PLAN: The patient's shortness of breath is improved. He is to continue bronchodilator therapy and antibiotic therapy. Will attempt to obtain previous CT scan of the chest would be appropriate to ascertain stability of the findings on CT scan. C-PAP therapy has been discussed with the patient, however, he is adamant about not using it. I do thank you for asking me to partake in Mr. Crockett's care. Leona Delgadillo MD WWW/AISHA /7:31 PM /10:23 PM
--- NOTE | 2017-12-07 23:08 | RADRPT ---
EXAM DATE/TIME: 12/07/2017 22:21 [facility] COMPARISON: No previous studies available for comparison. INDICATIONS : Right leg swelling. MEDICAL HISTORY : Chronic obstructive pulmonary disease. Myocardial infarction. Hypercholesterolemia. Dextrocardia. Pneumonia. Sleep apnea. Diabetes. Blood transfusion. SURGICAL HISTORY : Bilateral lobectomy. Brain aneurysm with shunt. Multiple cervical spine surgeries. Bilateral knee thiago geries. Bilateral carpal tunnel release. ENCOUNTER: Subsequent ACUITY: >1 year PAIN SCORE: 0/10 LOCATION: Right leg. TECHNIQUE: Venous ultrasound of the leg was performed from the inguinal ligament to the proximal calf. Real-len e, color Doppler and spectral tracing, compression and augmentation techniques were used. FINDINGS: There is normal compressibility of the deep venous system from the inguinal region to the proximal ca lf. No echogenic clot is seen in the lumen of the common femoral, femoral, popliteal, and posterior tibial veins. There is a normal response of the venous system to proximal and distal augmentation an d respiration. CONCLUSION: Normal examination. Jesus Taylor MD on December 07, 2017 at 23:06 Board Certified Radiologist. This report was verified electronically.
[2017-12-08] VITALS (8 sets, daily range): BP systolic 90–102; BP diastolic 52–57; PULSE 69–79; RESP 16–20; TEMP 96.1–100.3; O2SAT 92–97
[2017-12-08] MEDS: traMADol HCL 50 MG TAB PO PRN ×2 (02:06→21:59)
[2017-12-08] MEDS: BENZONATATE 100 MG CAP PO PRN ×2 (02:06→15:19)
[2017-12-08] MEDS: RESP: ALBUTEROL 2.5 MG/IPRATROPIUM 0.5 MG NEB (SCH) NEB ×4 (03:33→20:38)
[2017-12-08] MEDS: CLINDAMYCIN 900 MG/NS PREMIX 50 ML IV SCH ×3 (04:29→22:00)
[2017-12-08] MEDS: LACTOBACILLUS ACIDOPHILUS TAB PO SCH ×3 (09:01→18:33)
[2017-12-08] MEDS: FUROSEMIDE 40 MG/4 ML VIAL IV PUSH SCH ×3 (09:02→18:30)
[2017-12-08] MEDS: SODIUM CHLORIDE 0.9% FLUSH 10 ML FLUSH IV FLUSH SCH ×2 (09:02→22:00)
[2017-12-08 13:37] LABS: AUTOMATED NEUTROPHIL # 8.7 TH/MM3 (1.8-7.7); BASOPHIL % 0.3 % (0.0-2.0); EOSINOPHIL # 0.1 TH/MM3 (0-0.4); EOSINOPHIL % 1.2 % (0.0-4.0); HEMOGLOBIN 10.8 GM/DL (13.0-17.0); LYMPH % 7.8 % (9.0-44.0); LYMPHOCYTE # 0.8 TH/MM3 (1.0-4.8); MEAN CELL VOLUME 86.6 FL (80.0-100.0); MEAN CORPUSCULAR HEMOGLOBIN 30.2 PG (27.0-34.0); MEAN CORPUSCULAR HGB CONC 34.9 % (32.0-36.0); MEAN PLATELET VOLUME 6.1 FL (7.0-11.0); MONO % 9.3 % (0.0-8.0); NEUT % 81.4 % (16.0-70.0); PLATELET COUNT 376 TH/MM3 (150-450); RED BLOOD COUNT 3.58 MIL/MM3 (4.50-5.90); RED CELL DISTRIBUTION WIDTH 14.3 % (11.6-17.2); WHITE BLOOD COUNT 10.6 TH/MM3 (4.0-11.0)
[2017-12-08 13:49] LABS: BICARBONATE 29.9 MEQ/L (21.0-32.0); CALCIUM 8.7 MG/DL (8.5-10.1); CREATININE 1.23 MG/DL (0.60-1.30)
--- NOTE | 2017-12-08 15:03 | HHI.PR ---
Subjective Remarks Mr. Crockett is feeling slightly better today, he is happy to be off of isolation status. He still has some shortness of breath mostly related to the edema in his ankles it seems. He reports generous urination following iv doses of Lasix. Objective Vitals Vital Signs Date Time Temp Pulse Resp B/P (MAP) Pulse Ox O2 Delivery O2 Flow Rate FiO2 12/08/17 12:00 97.0 71 20 90/57 (68) 95 12/08/17 09:29 93 Nasal Cannula 2.00 12/08/17 08:00 97.2 70 18 97/54 (68) 96 12/08/17 04:00 96.1 79 16 98/54 (69) 95 12/08/17 00:00 100.3 77 16 98/52 (67) 95 12/07/17 20:06 96 Nasal Cannula 2.00 12/07/17 20:00 98.6 77 16 114/64 (81) 97 12/07/17 16:00 99.5 75 17 106/60 (75) 96 I/O 12/07/17 12/07/17 12/07/17 12/08/17 12/08/17 12/08/17 07:00 15:00 23:00 07:00 15:00 23:00 Intake Total 850 ml 500 ml 50 ml Balance 850 ml 500 ml 50 ml Intake Oral 500 ml IV Total 850 ml 50 ml # Voids 1 3 Result Diagram: 12/08/17 1235 12/08/17 1235 Objective Remarks GENERAL: Well-nourished, well-developed patient. SKIN: Warm and dry. HEAD: Normocephalic. EYES: No scleral icterus. No injection or drainage. NECK: Supple, trachea midline. No JVD or lymphadenopathy. CARDIOVASCULAR: Regular rate and rhythm without murmurs, gallops, or rubs. RESPIRATORY: Breath sounds absent in bilateral bases (history of bilateral lobectomy). No accessory muscle use. GASTROINTESTINAL: Abdomen soft, non-tender, nondistended. EXTREMITIES: 3+ edema to bilateral ankles (lymphedema) NEUROLOGICAL: Awake, alert, and oriented x 3. Non-focal. A/P Problem List: (1) Cavitary lesion of lung ICD Code: J98.4 - Other disorders of lung (2) Dyspnea ICD Code: R06.00 - Dyspnea, unspecified Assessment and Plan Shortness of Breath Continue IV clindamycin Consider CHF and/or COPD as alternate causes of dyspnea (both in history) Lasix increased to 40 mg IV 3 times daily We will follow BMP for potassium level Appreciate pulmonology consult Cavitary Lesion of Right upper lobe TB report is negative Pulmonology attempting to obtain and compare old CT h/o CHF Dyspnea, 3+ pitting edema of bilateral lower extremities Will obtain echocardiogram h/o COPD Scheduled DuoNebs, plus home meds DVT Prophylaxis Lovenox Antoine Rodas MD Dec 08, 2017 15:03
--- NOTE | 2017-12-08 17:18 | HHI.PR ---
Subjective Remarks ALERT NO SOB OOB Objective GENERAL: SKIN: Warm and dry. HEAD: Atraumatic. Normocephalic. EYES: Pupils equal and round. No scleral icterus. No injection or drainage. ENT: No nasal bleeding or discharge. Mucous membranes pink and moist. NECK: Trachea midline. No JVD. CARDIOVASCULAR: Regular rate and rhythm. RESPIRATORY: No accessory muscle use. Clear to auscultation. Breath sounds equal bilaterally. GASTROINTESTINAL: Abdomen soft, non-tender, nondistended. Hepatic and splenic margins not palpable. MUSCULOSKELETAL: Extremities without clubbing, cyanosis, or edema. No obvious deformities. NEUROLOGICAL: Awake and alert. No obvious cranial nerve deficits. Motor grossly within normal limits. Five out of 5 muscle strength in the arms and legs. Normal speech. PSYCHIATRIC: Appropriate mood and affect; insight and judgment normal. Vital Signs Date Time Temp Pulse Resp B/P (MAP) Pulse Ox O2 Delivery O2 Flow Rate FiO2 12/08/17 16:00 97.4 74 18 92/53 (66) 92 12/08/17 12:00 97.0 71 20 90/57 (68) 95 12/08/17 09:29 93 Nasal Cannula 2.00 12/08/17 08:00 97.2 70 18 97/54 (68) 96 12/08/17 04:00 96.1 79 16 98/54 (69) 95 12/08/17 00:00 100.3 77 16 98/52 (67) 95 12/07/17 20:06 96 Nasal Cannula 2.00 12/07/17 20:00 98.6 77 16 114/64 (81) 97 I/O 12/07/17 12/07/17 12/07/17 12/08/17 12/08/17 12/08/17 07:00 15:00 23:00 07:00 15:00 23:00 Intake Total 850 ml 500 ml 50 ml Balance 850 ml 500 ml 50 ml Intake Oral 500 ml IV Total 850 ml 50 ml # Voids 1 3 Result Diagram: 12/08/17 1235 12/08/17 1235 Objective Remarks GENERAL: SKIN: Warm and dry. HEAD: Atraumatic. Normocephalic. EYES: Pupils equal and round. No scleral icterus. No injection or drainage. ENT: No nasal bleeding or discharge. Mucous membranes pink and moist. NECK: Trachea midline. No JVD. CARDIOVASCULAR: Regular rate and rhythm. RESPIRATORY: No accessory muscle use. Clear to auscultation. Breath sounds equal bilaterally. GASTROINTESTINAL: Abdomen soft, non-tender, nondistended. Hepatic and splenic margins not palpable. MUSCULOSKELETAL: Extremities without clubbing, cyanosis, or edema. No obvious deformities. NEUROLOGICAL: Awake and alert. No obvious cranial nerve deficits. Motor grossly within normal limits. Five out of 5 muscle strength in the arms and legs. Normal speech. PSYCHIATRIC: Appropriate mood and affect; insight and judgment normal. Assessment and Plan Assessment and Plan ASSESSMENT COPD CHF ABNORMAL CHEST CT PLAN O2 NEEDED BRONCHODILATOR THERAPY ANTIBX OLD RECORDS IF POSSIBLE Leona Delgadillo MD Dec 08, 2017 17:18
[2017-12-08] MEDS: POTASSIUM CHLORIDE 10 MEQ CONTROLLED RELEASE TAB PO SCH (22:00)
[2017-12-09] VITALS (8 sets, daily range): BP systolic 90–105; BP diastolic 50–58; PULSE 60–73; RESP 18–20; TEMP 95.6–98.1; O2SAT 93–100
[2017-12-09] MEDS: SODIUM CHLORIDE 0.9% FLUSH 10 ML FLUSH IV FLUSH PRN (04:12)
[2017-12-09] MEDS: CLINDAMYCIN 900 MG/NS PREMIX 50 ML IV SCH ×2 (04:12→11:50)
[2017-12-09] MEDS: RESP: ALBUTEROL 2.5 MG/IPRATROPIUM 0.5 MG NEB (SCH) NEB ×4 (04:38→19:58)
[2017-12-09] MEDS ORDERED: ACETAMINOPHEN/HYDROcodone 325 MG/5 MG TAB PO ONE (05:15)
[2017-12-09] MEDS: BENZONATATE 100 MG CAP PO PRN (06:03)
[2017-12-09 07:22] LABS: AUTOMATED NEUTROPHIL # 8.8 TH/MM3 (1.8-7.7); BASOPHIL # 0.1 TH/MM3 (0-0.2); BASOPHIL % 0.6 % (0.0-2.0); EOSINOPHIL # 0.2 TH/MM3 (0-0.4); EOSINOPHIL % 2.2 % (0.0-4.0); HEMATOCRIT 33.4 % (39.0-51.0); HEMOGLOBIN 11.5 GM/DL (13.0-17.0); LYMPH % 7.9 % (9.0-44.0); LYMPHOCYTE # 0.9 TH/MM3 (1.0-4.8); MEAN CELL VOLUME 87.3 FL (80.0-100.0); MEAN CORPUSCULAR HEMOGLOBIN 30.2 PG (27.0-34.0); MEAN CORPUSCULAR HGB CONC 34.5 % (32.0-36.0); MEAN PLATELET VOLUME 6.1 FL (7.0-11.0); MONO % 7.8 % (0.0-8.0); MONOCYTE # 0.8 TH/MM3 (0-0.9); NEUT % 81.5 % (16.0-70.0); PLATELET COUNT 405 TH/MM3 (150-450); RED BLOOD COUNT 3.83 MIL/MM3 (4.50-5.90); RED CELL DISTRIBUTION WIDTH 13.9 % (11.6-17.2); WHITE BLOOD COUNT 10.8 TH/MM3 (4.0-11.0)
[2017-12-09 07:40] LABS: BICARBONATE 29.3 MEQ/L (21.0-32.0); CREATININE 1.21 MG/DL (0.60-1.30)
[2017-12-09] MEDS: FUROSEMIDE 40 MG/4 ML VIAL IV PUSH SCH ×3 (08:29→18:06)
[2017-12-09] MEDS: SODIUM CHLORIDE 0.9% FLUSH 10 ML FLUSH IV FLUSH SCH ×2 (08:31→22:54)
[2017-12-09] MEDS: POTASSIUM CHLORIDE 10 MEQ CONTROLLED RELEASE TAB PO SCH ×2 (08:31→22:49)
[2017-12-09] MEDS: LACTOBACILLUS ACIDOPHILUS TAB PO SCH ×3 (08:31→18:06)
--- NOTE | 2017-12-09 17:15 | HHI.PR ---
Subjective Remarks Patient's breathing has improved today he is up and ambulating the hallways. With only mild shortness of breath. He has no other complaints. Denies chest pain. Objective Vitals Vital Signs Date Time Temp Pulse Resp B/P (MAP) Pulse Ox O2 Delivery O2 Flow Rate FiO2 12/09/17 16:00 96.6 62 18 90/51 (64) 98 12/09/17 12:00 96.4 71 18 95/52 (66) 93 12/09/17 08:43 97 Nasal Cannula 2.00 12/09/17 08:00 95.6 64 19 91/51 (64) 95 12/09/17 04:00 96.3 63 20 96/58 (71) 100 12/09/17 00:00 97.1 62 20 94/50 (65) 97 12/08/17 20:39 97 2.00 12/08/17 20:00 98.2 69 20 102/57 (72) 94 I/O 12/08/17 12/08/17 12/08/17 12/09/17 12/09/17 12/09/17 07:00 15:00 23:00 07:00 15:00 23:00 Intake Total 50 ml 620 ml Balance 50 ml 620 ml Intake Oral 620 ml IV Total 50 ml # Voids 3 3 # Bowel Movements 1 Result Diagram: 12/09/17 0558 12/09/17 0558 Objective Remarks GENERAL: Well-nourished, well-developed patient with mild dyspnea SKIN: Warm and dry. HEAD: Normocephalic. EYES: No scleral icterus. No injection or drainage. NECK: Supple, trachea midline. No JVD or lymphadenopathy. CARDIOVASCULAR: Regular rate and rhythm without murmurs, gallops, or rubs. RESPIRATORY: Breath sounds absent in bilateral bases (history of bilateral lobectomy). No accessory muscle use. GASTROINTESTINAL: Abdomen soft, non-tender, nondistended. EXTREMITIES: 3+ edema to bilateral ankles (lymphedema) NEUROLOGICAL: Awake, alert, and oriented x 3. Non-focal. A/P Problem List: (1) Cavitary lesion of lung ICD Code: J98.4 - Other disorders of lung (2) Dyspnea ICD Code: R06.00 - Dyspnea, unspecified Assessment and Plan Shortness of Breath Continue IV clindamycin Consider CHF and/or COPD as alternate causes of dyspnea (both in history) Lasix increased to 40 mg IV 3 times daily as tolerated (hypotensive episodes) Echocardiogram is pending Appreciate cardiology consult Appreciate pulmonology consult Cavitary Lesion of Right upper lobe TB report is negative h/o CHF Dyspnea, 3+ pitting edema of bilateral lower extremities Echocardiogram report is pending h/o COPD Continue DuoNebs, plus home meds DVT Prophylaxis Lovenox Spoke with patient's at his request Antoine Rodas MD Dec 09, 2017 17:15
--- NOTE | 2017-12-09 18:40 | HHI.PR ---
Subjective Remarks ALERT NO SOB AT REST OOB Objective Vital Signs Date Time Temp Pulse Resp B/P (MAP) Pulse Ox O2 Delivery O2 Flow Rate FiO2 12/09/17 16:00 96.6 62 18 90/51 (64) 98 12/09/17 12:00 96.4 71 18 95/52 (66) 93 12/09/17 08:43 97 Nasal Cannula 2.00 12/09/17 08:00 95.6 64 19 91/51 (64) 95 12/09/17 04:00 96.3 63 20 96/58 (71) 100 12/09/17 00:00 97.1 62 20 94/50 (65) 97 12/08/17 20:39 97 2.00 12/08/17 20:00 98.2 69 20 102/57 (72) 94 I/O 12/08/17 12/08/17 12/08/17 12/09/17 12/09/17 12/09/17 07:00 15:00 23:00 07:00 15:00 23:00 Intake Total 50 ml 620 ml 960 ml Balance 50 ml 620 ml 960 ml Intake Oral 620 ml 960 ml IV Total 50 ml # Voids 3 3 3 # Bowel Movements 1 2 Result Diagram: 12/09/17 0558 12/09/17 0558 Objective Remarks GENERAL: SKIN: Warm and dry. HEAD: Atraumatic. Normocephalic. EYES: Pupils equal and round. No scleral icterus. No injection or drainage. ENT: No nasal bleeding or discharge. Mucous membranes pink and moist. NECK: Trachea midline. No JVD. CARDIOVASCULAR: Regular rate and rhythm. RESPIRATORY: No accessory muscle use. Clear to auscultation. Breath sounds equal bilaterally. GASTROINTESTINAL: Abdomen soft, non-tender, nondistended. Hepatic and splenic margins not palpable. MUSCULOSKELETAL: Extremities without clubbing, cyanosis, or edema. No obvious deformities. NEUROLOGICAL: Awake and alert. No obvious cranial nerve deficits. Motor grossly within normal limits. Five out of 5 muscle strength in the arms and legs. Normal speech. PSYCHIATRIC: Appropriate mood and affect; insight and judgment normal. Assessment and Plan Assessment and Plan ASSESSMENT COPD CHF ABNORMAL CHEST CT PLAN O2 NEEDED BRONCHODILATOR THERAPY ANTIBX OLD RECORDS IF POSSIBLE CHECK PFT Leona Delgadillo MD Dec 09, 2017 18:40
[2017-12-09] MEDS: traMADol HCL 50 MG TAB PO PRN (22:47)
[2017-12-10] VITALS (10 sets, daily range): BP systolic 93–107; BP diastolic 55–63; PULSE 60–82; RESP 17–20; TEMP 96.2–98.1; O2SAT 94–98
[2017-12-10] MEDS: CLINDAMYCIN 900 MG/NS PREMIX 50 ML IV SCH ×3 (00:08→12:27)
[2017-12-10] MEDS: RESP: ALBUTEROL 2.5 MG/IPRATROPIUM 0.5 MG NEB (SCH) NEB ×4 (03:08→21:23)
--- NOTE | 2017-12-10 08:44 | ECHRPT ---
Indication: HEART FAILURE CONCLUSIONS Pt has situs inversus Normal left ventricular size. Wall thickness is normal. The left ventricular systolic function is normal with an estimated ejection fraction of 55%. There is a small pericardial effusion present. BP: 96 / 58 HR: 63 Rhythm: MEASUREMENTS (Male / Female) Normal Values Technical Quality:Good 2D ECHO LV Diastolic Diameter PLAX 4.8 cm 4.2 - 5.9 / 3.9 - 5.3 cm LV Systolic Diameter PLAX 3.2 cm IVS Diastolic Thickness 0.9 cm 0.6 - 1.0 / 0.6 - 0.9 cm LVPW Diastolic Thickness 0.9 cm 0.6 - 1.0 / 0.6 - 0.9 cm LV Relative Wall Thickness 0.4 RV Internal Dim ED PLAX 3.6 cm LVOT Diameter 2.1 cm Aortic Root Diameter 3.5 cm M-MODE AV Cusp Separation MM 2.2 cm DOPPLER AV Peak Velocity 131.0 cm/s AV Peak Gradient 6.9 mmHg AV Mean Gradient 3.0 mmHg AV Velocity Time Integral 25.8 cm LVOT Peak Velocity 72.2 cm/s LVOT Peak Gradient 2.1 mmHg LVOT Velocity Time Integral 18.2 cm LVOT Cardiac Index 1756.1 cm/minm AV Area Cont Eq vti 2.4 cm AV Area Cont Eq pk 1.9 cm Mitral E Point Velocity 88.8 cm/s Mitral A Point Velocity 82.4 cm/s Mitral E to A Ratio 1.1 LV E' Lateral Velocity 13.4 cm/s Mitral E to LV E' Lateral Ratio 6.6 LV E' Septal Velocity 10.4 cm/s Mitral E to LV E' Septal Ratio 8.5 TR Peak Velocity 258.0 cm/s TR Peak Gradient 26.6 mmHg Right Atrial Pressure 10.0 mmHg Pulmonary Artery Systolic Pressu 36.6 mmHg Right Ventricular Systolic Press 36.6 mmHg PV Peak Velocity 65.4 cm/s PV Peak Gradient 1.7 mmHg FINDINGS LEFT VENTRICLE Pt has situs inversus Normal left ventricular size. Wall thickness is normal. The left ventricular systolic function is normal with an estimated ejection fraction of 55%. RIGHT VENTRICLE Normal right ventricular size and systolic function. LEFT ATRIUM The left atrial size is normal. RIGHT ATRIUM The right atrial size is normal. ATRIAL SEPTUM Normal atrial septal thickness without atrial level shunting by limited color doppler interrogation. AORTA The aortic root and proximal ascending aorta are normal in size on limited imaging. MITRAL VALVE Structurally normal mitral valve. No mitral valve stenosis or regurgitation. AORTIC VALVE Trileaflet aortic valve. No aortic valve stenosis or regurgitation. TRICUSPID VALVE Structurally normal tricuspid valve. No tricuspid valve stenosis or regurgitation. PULMONARY VALVE The pulmonary valve is not well visualized. VESSELS The inferior vena cava is normal in size. PERICARDIUM There is a small pericardial effusion present. Ramon Shanks MD, FACC (Electronically Signed) Final Date:10 December 2017 08:44
[2017-12-10] MEDS: LACTOBACILLUS ACIDOPHILUS TAB PO SCH ×3 (09:00→16:59)
[2017-12-10] MEDS: POTASSIUM CHLORIDE 10 MEQ CONTROLLED RELEASE TAB PO SCH ×2 (09:16→19:37)
[2017-12-10] MEDS: FUROSEMIDE 40 MG/4 ML VIAL IV PUSH SCH ×3 (09:16→16:56)
[2017-12-10] MEDS: SODIUM CHLORIDE 0.9% FLUSH 10 ML FLUSH IV FLUSH SCH ×2 (09:17→19:44)
--- NOTE | 2017-12-10 11:14 | MB ---
cc: PAT BANEGAS DATE OF CONSULTATION: 12/09/2017. HISTORY OF PRESENT ILLNESS: Mr. Crockett is a 62-year-old white male with a history of congestive heart failure, lower extremity edema and COPD. He presented with increased shortness of breath and lower extremity edema. He has not had any chest discomfort. He was found to have right upper lobe cavitary lesion on the chest CT. PAST MEDICAL HISTORY: His past medical history is positive for: 1. Dextrocardia. 2. Congestive heart failure. 3. Bilateral lower extremity edema. 4. COPD. 5. Dyslipidemia. 6. Myocardial infarction in 1994. 7. Seizure disorder. 8. Sleep apnea. 9. Pneumonia. 10. History of bilateral lower lobectomy. 11. Brain aneurysm with shunt as an . 12. Cataract surgery. 13. Carpal tunnel release surgery. MEDICATIONS: Medications at home include: 1. Albuterol. 2. Iron. 3. Atorvastatin. 4. Fish oil. 5. Cholecalciferol. 6. Aspirin. 7. Amitriptyline. 8. Diazepam. 9. Bumex. 10. Furosemide. 11. Metolazone. 12. Pantoprazole. 13. A multivitamin. ALLERGIES: NO KNOWN MEDICAL ALLERGIES. SOCIAL HISTORY: The patient does not smoke but has been exposed to secondary smoke. He does not drink alcohol. FAMILY HISTORY: Family history is negative for heart disease. REVIEW OF SYSTEMS: Review of systems is otherwise negative. PHYSICAL EXAMINATION: VITAL SIGNS: Blood pressure 90/51, pulse 62 and regular. HEAD, EYES, EARS, NOSE, THROAT: Negative. NECK: 2+ carotid upstrokes, no bruits. LUNGS: With a few rhonchi. HEART: Regular with no murmurs, rubs or gallops. ABDOMEN: Abdomen soft. No bruits. EXTREMITIES: With 3+ bilateral edema with minimal pitting. Diminished pulses. NEUROLOGIC: Grossly nonfocal. EKGS: EKG was reviewed and showed normal sinus rhythm, indeterminate axis. This can be consistent with dextrocardia. LABORATORY DATA: Hemoglobin 11.5. Potassium 3.8, creatinine 1.2. Troponin less than 0.02. C-reactive protein 9.5. BNP 76. DIAGNOSIS: 1. COPD. 2. Bronchiectasis and cavitary on the CT scan. 3. Congestive heart failure, chronic. 4. Chronic lower extremity edema. 5. Sleep apnea. DISPOSITION: Mr. Crockett will be monitored on telemetry. Will continue therapy for COPD. He is undergoing pulmonary evaluation for his cavitary lesion and bronchiectasis. His BNP is low and it is not consistent with acute congestive heart failure exacerbation. Recommend to continue diuresis for his lower extremity edema which is likely significant lymphedema. I will follow him for cardiology during his hospitalization. MD SYDNIE Curtis/STEPAN /8:21 PM /10:58 AM
--- NOTE | 2017-12-10 16:31 | HHI.PR ---
Subjective Remarks Pt seen and examined. AFVSS. No acute events overnight. Breathing has improved. Still c/o some shortness of breath with exertion along with productive cough of green-tinged sputum. Off of oxygen since this morning. No chest pain. Tolerating PO without nausea or vomiting. Ambulating with walker. Biggest concern is lymphedema in legs which has been ongoing for 10 years. is very concerned and doesn't want him coming back "without answers." Has been to lymphedema clinic once. Objective Vitals Vital Signs Date Time Temp Pulse Resp B/P (MAP) Pulse Ox O2 Delivery O2 Flow Rate FiO2 12/10/17 16:00 96.8 78 17 106/63 (77) 95 12/10/17 15:51 94 21 12/10/17 12:00 97.9 82 19 107/58 (74) 95 12/10/17 10:02 94 12/10/17 08:00 97.4 60 17 93/57 (69) 98 12/10/17 04:00 96.2 63 20 94/55 (68) 94 12/10/17 00:10 18 12/10/17 00:00 98.1 69 20 96/55 (69) 96 12/09/17 20:00 98.1 73 20 105/55 (72) 94 12/09/17 20:00 60 12/09/17 19:58 98 Nasal Cannula 2.00 I/O 12/09/17 12/09/17 12/09/17 12/10/17 12/10/17 12/10/17 07:00 15:00 23:00 07:00 15:00 23:00 Intake Total 960 ml 50 ml Balance 960 ml 50 ml Intake Oral 960 ml IV Total 50 ml # Voids 3 # Bowel Movements 2 Result Diagram: 12/09/17 0558 12/09/17 0558 Objective Remarks GENERAL: WN, WD male sitting up in chair. SKIN: Warm and dry. HEENT: Pupils equal and round. MMM. NECK: Supple no tender LAD or JVD. HEART: RRR no m/r/g. LUNGS: CTAB without wheezes or crackles. ABDOMEN: Soft, NT, ND. EXTREMITIES: Significant lymphedema in bilateral LE. NEURO: Awake and alert. PSYCH: Appropriate mood and affect. A/P Problem List: (1) Cavitary lesion of lung ICD Code: J98.4 - Other disorders of lung (2) Dyspnea ICD Code: R06.00 - Dyspnea, unspecified Assessment and Plan Shortness of Breath Likely secondary to COPD Lasix being held for hypotension Echocardiogram showing situs invertus with normal EF Appreciate cardiology consult Appreciate pulmonology consult DuoNeb Q6H Cavitary Lesion of Right upper lobe TB report is negative Change IV clindamycin to Augmentin for coverage of cavitary lesion by possible aspiration h/o COPD Continue DuoNebs, plus home meds DVT Prophylaxis Lovenox Discharge Planning Anticipate D/C tomorrow Dena Ahmadi MD Dec 10, 2017 16:31
[2017-12-10] MEDS: AMOXICILLIN/CLAVULANATE K 875 MG TAB PO SCH (19:36)
[2017-12-10] MEDS: BENZONATATE 100 MG CAP PO PRN (19:37)
--- NOTE | 2017-12-10 19:58 | PD.CARD.PN ---
Subjective Subjective Remarks No CP, SOB responds to nebulizers Objective Medications Current Medications Medications (Trade) Dose Ordered Sig/Al Route Start Time Stop Time Status Last Admin (NS Flush) 2 ml UNSCH PRN IV FLUSH 12/07/17 04:00 12/09/17 04:12 (NS Flush) 2 ml BID IV FLUSH 12/07/17 09:00 12/10/17 19:44 (Narcan Inj) 0.4 mg UNSCH PRN IV PUSH 12/07/17 04:00 (Duoneb Neb) 1 ampule Q6HR NEB NEB 12/07/17 04:00 12/10/17 15:51 (Duoneb Neb) 1 ampule Q2HR NEB PRN NEB 12/07/17 04:00 12/07/17 13:45 (Lactinex) 1 tab TID PO 12/07/17 09:00 12/10/17 16:59 (Ultram) 50 mg Q8H PRN PO 12/07/17 17:15 12/09/17 22:47 (Tessalon) 200 mg TID PRN PO 12/07/17 18:00 12/10/17 19:37 (Lasix Inj) 40 mg TIDPC IV PUSH 12/08/17 13:30 12/08/17 12:38 (KCl) 10 meq Q12HR PO 12/08/17 21:00 12/10/17 19:37 (Augmentin) 875 mg Q12HR PO 12/10/17 21:00 12/10/17 19:36 Vital Signs / I&O Vital Signs Date Time Temp Pulse Resp B/P (MAP) Pulse Ox O2 Delivery O2 Flow Rate FiO2 12/10/17 16:00 96.8 78 17 106/63 (77) 95 12/10/17 15:51 94 21 12/10/17 12:00 97.9 82 19 107/58 (74) 95 12/10/17 10:02 94 12/10/17 08:00 97.4 60 17 93/57 (69) 98 12/10/17 04:00 96.2 63 20 94/55 (68) 94 12/10/17 00:10 18 12/10/17 00:00 98.1 69 20 96/55 (69) 96 12/09/17 20:00 98.1 73 20 105/55 (72) 94 12/09/17 20:00 60 12/09/17 19:58 98 Nasal Cannula 2.00 I/O 12/09/17 12/09/17 12/09/17 12/10/17 12/10/17 12/10/17 07:00 15:00 23:00 07:00 15:00 23:00 Intake Total 960 ml 50 ml 720 ml Balance 960 ml 50 ml 720 ml Intake Oral 960 ml 720 ml IV Total 50 ml # Voids 3 4 # Bowel Movements 2 2 Physical Exam GENERAL: In NAD SKIN: Warm and dry. HEAD: Normocephalic. EYES: No scleral icterus. No injection or drainage. NECK: Supple, trachea midline. No JVD or lymphadenopathy. CARDIOVASCULAR: Regular rate and rhythm without murmurs, gallops, or rubs. RESPIRATORY: Breath sounds equal bilaterally. No accessory muscle use. Bilat rhonchi. GASTROINTESTINAL: Abdomen soft, non-tender, nondistended. MUSCULOSKELETAL: No cyanosis, or edema. 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 Continue tx for chronic CHF. Continue diuresis for LE edema. Increase activity, PT. Pulm derrick in progress. Ramon Shanks MD Dec 10, 2017 19:58
--- NOTE | 2017-12-10 22:52 | HHI.PR ---
Subjective Remarks ALERT NO SOB AT REST OOB Objective Vital Signs Date Time Temp Pulse Resp B/P (MAP) Pulse Ox O2 Delivery O2 Flow Rate FiO2 12/10/17 20:02 63 12/10/17 20:00 97.0 67 20 101/57 (72) 96 12/10/17 16:00 96.8 78 17 106/63 (77) 95 12/10/17 15:51 94 21 12/10/17 12:00 97.9 82 19 107/58 (74) 95 12/10/17 10:02 94 12/10/17 08:00 97.4 60 17 93/57 (69) 98 12/10/17 04:00 96.2 63 20 94/55 (68) 94 12/10/17 00:10 18 12/10/17 00:00 98.1 69 20 96/55 (69) 96 I/O 12/09/17 12/09/17 12/09/17 12/10/17 12/10/17 12/10/17 07:00 15:00 23:00 07:00 15:00 23:00 Intake Total 960 ml 50 ml 720 ml Balance 960 ml 50 ml 720 ml Intake Oral 960 ml 720 ml IV Total 50 ml # Voids 3 4 # Bowel Movements 2 2 Result Diagram: 12/09/17 0558 12/09/17 0558 Objective Remarks GENERAL: SKIN: Warm and dry. HEAD: Atraumatic. Normocephalic. EYES: Pupils equal and round. No scleral icterus. No injection or drainage. ENT: No nasal bleeding or discharge. Mucous membranes pink and moist. NECK: Trachea midline. No JVD. CARDIOVASCULAR: Regular rate and rhythm. RESPIRATORY: No accessory muscle use. Clear to auscultation. Breath sounds equal bilaterally. GASTROINTESTINAL: Abdomen soft, non-tender, nondistended. Hepatic and splenic margins not palpable. MUSCULOSKELETAL: Extremities without clubbing, cyanosis, or edema. No obvious deformities. NEUROLOGICAL: Awake and alert. No obvious cranial nerve deficits. Motor grossly within normal limits. Five out of 5 muscle strength in the arms and legs. Normal speech. PSYCHIATRIC: Appropriate mood and affect; insight and judgment normal. Assessment and Plan Assessment and Plan ASSESSMENT COPD CHF ABNORMAL CHEST CT PLAN O2 NEEDED BRONCHODILATOR THERAPY ANTIBX CHECK PFT Leona Delgadillo MD Dec 10, 2017 22:52
[2017-12-11] VITALS (7 sets, daily range): BP systolic 97–106; BP diastolic 55–73; PULSE 62–68; RESP 17–20; TEMP 96.4–97.9; O2SAT 94–96
[2017-12-11] MEDS: POTASSIUM CHLORIDE 10 MEQ CONTROLLED RELEASE TAB PO SCH ×2 (08:28→20:26)
[2017-12-11] MEDS: LACTOBACILLUS ACIDOPHILUS TAB PO SCH ×3 (08:28→18:10)
[2017-12-11] MEDS: AMOXICILLIN/CLAVULANATE K 875 MG TAB PO SCH ×2 (08:29→20:25)
[2017-12-11] MEDS: FUROSEMIDE 40 MG/4 ML VIAL IV PUSH SCH ×3 (08:29→18:10)
[2017-12-11] MEDS: SODIUM CHLORIDE 0.9% FLUSH 10 ML FLUSH IV FLUSH SCH ×2 (08:29→20:26)
--- NOTE | 2017-12-11 09:34 | RADRPT ---
EXAM DATE/TIME: 12/11/2017 08:44 [facility] COMPARISON: CHEST PA & LAT, August 03, 2017, 11:20. INDICATIONS : Shortness of breath. MEDICAL HISTORY : Myocardial infarction. Hypercholesterolemia. Chronic obstructive pulmonary disease. SURGICAL HISTORY : Lobectomy. Total knee replacement, right. Fusion, cervical. Cranial shunt as . ENCOUNTER: Subsequent ACUITY: 1 day PAIN SCORE: 0/10 LOCATION: Bilateral chest FINDINGS: Dextrocardia and cardiomegaly. There is a new focal ill-defined opacity in the lower right lung. Th e left lung is similar in appearance to prior examination with stable opacity about the anastomosis s uture in the left lower lung. The mid and upper lungs are clear. No evidence of pleural effusion. CONCLUSION: New small non-consolidative opacity. Chance Nunez MD on December 11, 2017 at 9:29 Board Certified Radiologist. This report was verified electronically.
--- NOTE | 2017-12-11 12:18 | HHI.PR ---
Subjective Remarks Pt seen and examined. AFVSS. No acute events overnight. Refusing labs. Patient upset because he feels like no one is doing anything about his bilateral LE lymphedema which he states has been ongoing for 10 years. Echo and BNP not suggestive of acute CHF. From a breathing standpoint he feels like he has improved and he is breathig much better. Not on O2. Ambulating with walker secondary to lymphedema. Voiding well. Tolerating PO. Objective Vitals Vital Signs Date Time Temp Pulse Resp B/P (MAP) Pulse Ox O2 Delivery O2 Flow Rate FiO2 12/11/17 12:00 96.8 65 17 103/73 (83) 96 12/11/17 11:43 95 12/11/17 08:00 97.9 62 17 97/57 (70) 95 12/11/17 03:42 96.4 64 18 100/55 (70) 94 12/11/17 00:00 97.1 67 20 103/59 (74) 94 12/10/17 23:59 64 12/10/17 20:02 63 12/10/17 20:00 97.0 67 20 101/57 (72) 96 12/10/17 16:00 96.8 78 17 106/63 (77) 95 12/10/17 15:51 94 21 I/O 12/10/17 12/10/17 12/10/17 12/11/17 12/11/17 12/11/17 07:00 15:00 23:00 07:00 15:00 23:00 Intake Total 50 ml 720 ml 480 ml Balance 50 ml 720 ml 480 ml Intake Oral 720 ml 480 ml IV Total 50 ml # Voids 4 3 # Bowel Movements 2 1 Result Diagram: 12/09/1758 12/09/17 0558 Objective Remarks GENERAL: WN, WD male sitting up in chair. SKIN: Warm and dry. HEENT: Pupils equal and round. MMM. NECK: Supple no tender LAD or JVD. HEART: RRR no m/r/g. LUNGS: CTAB without wheezes or crackles. ABDOMEN: Soft, NT, ND. EXTREMITIES: Significant lymphedema of bilateral LE. NEURO: Awake and alert. PSYCH: Appropriate mood and affect. A/P Problem List: (1) Cavitary lesion of lung ICD Code: J98.4 - Other disorders of lung (2) Dyspnea ICD Code: R06.00 - Dyspnea, unspecified Assessment and Plan Shortness of Breath Likely secondary to COPD Lasix being held for hypotension Echocardiogram showing situs invertus with normal EF Appreciate cardiology consult Appreciate pulmonology consult DuoNeb Q6H Cavitary Lesion of Right upper lobe TB report is negative Change IV clindamycin to Augmentin for coverage of cavitary lesion by possible aspiration ID consulted for further evaluation and abx reccs Repeat CXR ordered for tomorrow h/o COPD Continue DuoNebs, plus home meds DVT Prophylaxis Lovenox Discharge Planning Pending further evaluation from specialists Dena Ahmadi MD Dec 11, 2017 12:18
[2017-12-11] MEDS: RESP: ALBUTEROL 2.5 MG/IPRATROPIUM 0.5 MG NEB (PRN) NEB (14:29)
--- NOTE | 2017-12-11 14:39 | PD.CARD.PN ---
Subjective Subjective Remarks No CP, mild SOB, responds to nebulizers, wants to go home Objective Medications Current Medications Medications (Trade) Dose Ordered Sig/Al Route Start Time Stop Time Status Last Admin (NS Flush) 2 ml UNSCH PRN IV FLUSH 12/07/17 04:00 12/09/17 04:12 (NS Flush) 2 ml BID IV FLUSH 12/07/17 09:00 12/11/17 08:29 (Narcan Inj) 0.4 mg UNSCH PRN IV PUSH 12/07/17 04:00 (Duoneb Neb) 1 ampule Q2HR NEB PRN NEB 12/07/17 04:00 12/11/17 14:29 (Lactinex) 1 tab TID PO 12/07/17 09:00 12/11/17 13:00 (Ultram) 50 mg Q8H PRN PO 12/07/17 17:15 12/09/17 22:47 (Tessalon) 200 mg TID PRN PO 12/07/17 18:00 12/10/17 19:37 (Lasix Inj) 40 mg TIDPC IV PUSH 12/08/17 13:30 12/08/17 12:38 (KCl) 10 meq Q12HR PO 12/08/17 21:00 12/11/17 08:28 (Augmentin) 875 mg Q12HR PO 12/10/17 21:00 12/11/17 08:29 Vital Signs / I&O Vital Signs Date Time Temp Pulse Resp B/P (MAP) Pulse Ox O2 Delivery O2 Flow Rate FiO2 12/11/17 12:00 96.8 65 17 103/73 (83) 96 12/11/17 11:43 95 12/11/17 08:00 97.9 62 17 97/57 (70) 95 12/11/17 03:42 96.4 64 18 100/55 (70) 94 12/11/17 00:00 97.1 67 20 103/59 (74) 94 12/10/17 23:59 64 12/10/17 20:02 63 12/10/17 20:00 97.0 67 20 101/57 (72) 96 12/10/17 16:00 96.8 78 17 106/63 (77) 95 12/10/17 15:51 94 21 I/O 12/10/17 12/10/17 12/10/17 12/11/17 12/11/17 12/11/17 07:00 15:00 23:00 07:00 15:00 23:00 Intake Total 50 ml 720 ml 480 ml Balance 50 ml 720 ml 480 ml Intake Oral 720 ml 480 ml IV Total 50 ml # Voids 4 3 # Bowel Movements 2 1 Physical Exam GENERAL: In NAD SKIN: Warm and dry. HEAD: Normocephalic. EYES: No scleral icterus. No injection or drainage. NECK: Supple, trachea midline. No JVD or lymphadenopathy. CARDIOVASCULAR: Regular rate and rhythm without murmurs, gallops, or rubs. RESPIRATORY: Breath sounds equal bilaterally. No accessory muscle use. Bilat rhonchi. GASTROINTESTINAL: Abdomen soft, non-tender, nondistended. MUSCULOSKELETAL: No cyanosis, bilat LE lymphedema. Imaging Last 24 hours Impressions Chest X-Ray 12/11/17 0000 Signed Impressions: Service Date/Time: Monday, December 11, 2017 08:44 - CONCLUSION: New small non-consolidative opacity. 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 Continue tx for COPD exacerbation. Continue tx for chronic CHF. Continue diuresis for LE edema (mostly lymphedema). Increase activity, PT. Pulm and ID eval. Ramon Shanks MD Dec 11, 2017 14:39
[2017-12-11 15:01] LABS: AUTOMATED NEUTROPHIL # 5.1 TH/MM3 (1.8-7.7); BASOPHIL # 0.1 TH/MM3 (0-0.2); EOSINOPHIL # 0.2 TH/MM3 (0-0.4); EOSINOPHIL % 3.1 % (0.0-4.0); HEMATOCRIT 31.5 % (39.0-51.0); LYMPHOCYTE # 1.1 TH/MM3 (1.0-4.8); MEAN CELL VOLUME 86.3 FL (80.0-100.0); MEAN CORPUSCULAR HGB CONC 34.8 % (32.0-36.0); MONOCYTE # 0.6 TH/MM3 (0-0.9); NEUT % 72.9 % (16.0-70.0); PLATELET COUNT 426 TH/MM3 (150-450); RED BLOOD COUNT 3.65 MIL/MM3 (4.50-5.90); RED CELL DISTRIBUTION WIDTH 14.1 % (11.6-17.2)
[2017-12-11 15:30] LABS: BICARBONATE 26.7 MEQ/L (21.0-32.0); CALCIUM 8.3 MG/DL (8.5-10.1)
--- NOTE | 2017-12-11 16:36 | HHI.PR ---
Subjective Remarks ALERT NO SOB AT REST OOB Objective Vital Signs Date Time Temp Pulse Resp B/P (MAP) Pulse Ox O2 Delivery O2 Flow Rate FiO2 12/11/17 12:00 96.8 65 17 103/73 (83) 96 12/11/17 11:43 95 12/11/17 08:00 97.9 62 17 97/57 (70) 95 12/11/17 03:42 96.4 64 18 100/55 (70) 94 12/11/17 00:00 97.1 67 20 103/59 (74) 94 12/10/17 23:59 64 12/10/17 20:02 63 12/10/17 20:00 97.0 67 20 101/57 (72) 96 I/O 12/10/17 12/10/17 12/10/17 12/11/17 12/11/17 12/11/17 07:00 15:00 23:00 07:00 15:00 23:00 Intake Total 50 ml 720 ml 480 ml Balance 50 ml 720 ml 480 ml Intake Oral 720 ml 480 ml IV Total 50 ml # Voids 4 3 # Bowel Movements 2 1 Result Diagram: 12/11/17 1445 12/11/17 1445 Objective Remarks GENERAL: SKIN: Warm and dry. HEAD: Atraumatic. Normocephalic. EYES: Pupils equal and round. No scleral icterus. No injection or drainage. ENT: No nasal bleeding or discharge. Mucous membranes pink and moist. NECK: Trachea midline. No JVD. CARDIOVASCULAR: Regular rate and rhythm. RESPIRATORY: No accessory muscle use. Clear to auscultation. Breath sounds equal bilaterally. GASTROINTESTINAL: Abdomen soft, non-tender, nondistended. Hepatic and splenic margins not palpable. MUSCULOSKELETAL: Extremities without clubbing, cyanosis, or edema. No obvious deformities. NEUROLOGICAL: Awake and alert. No obvious cranial nerve deficits. Motor grossly within normal limits. Five out of 5 muscle strength in the arms and legs. Normal speech. PSYCHIATRIC: Appropriate mood and affect; insight and judgment normal. Assessment and Plan Assessment and Plan ASSESSMENT COPD CHF ABNORMAL CHEST CT PLAN O2 NEEDED BRONCHODILATOR THERAPY ANTIBX F/U CXRAY Leona Delgadillo MD Dec 11, 2017 16:35
[2017-12-11] MEDS: BENZONATATE 100 MG CAP PO PRN (20:26)
--- NOTE | 2017-12-11 23:07 | PD.ID.CON ---
History of Present Illness Service ID Consult Requested By Dr Solis Reason for Consult cavitary PNA Primary Care Physician Unknown Diagnoses: History of Present Illness 62 yo male presented with cough, productive with yellow sputum, BLE edema x 10 days Afebrile, except 1 occasdion up to 100 WBC normal, lymphocytes slightluy ow CT showed Bronchiectasis, mucous plugging, consolidation and bilateral reticular nodular infiltrates are identified. There is also a cavitary focus of masslike consolidation in the right upper lobe. Atypical infectious processes, fungal or mycobacterial should be entertained. Followup is recommended after appropriate clinical therapy to ensure resolution of these findings particularly the cavitary right upper lobe focus FLu negative TB PCR negative Qunatiferron P Past Family Social History Allergies: Coded Allergies: No Known Allergies (Verified Allergy, Unknown, 12/07/17) Active Ordered Medications Medications where reviewed in EMR Antibiotics Include: Am/clav Physical Exam Vital Signs Vital Signs Date Time Temp Pulse Resp B/P (MAP) Pulse Ox O2 Delivery O2 Flow Rate FiO2 12/11/17 20:00 97.9 64 20 106/56 (73) 95 12/11/17 19:59 68 12/11/17 12:00 96.8 65 17 103/73 (83) 96 12/11/17 11:43 95 12/11/17 08:00 97.9 62 17 97/57 (70) 95 12/11/17 03:42 96.4 64 18 100/55 (70) 94 12/11/17 00:00 97.1 67 20 103/59 (74) 94 12/10/17 23:59 64 Physical Exam CONSTITUTIONAL/GENERAL: This is an adequately nourished patient, in no apparent distress. TUBES/LINES/DRAINS: SKIN: No jaundice, rashes, or lesions. Skin temperature appropriate. Not diaphoretic. HEAD: Atraumatic. Normocephalic. EYES: Pupils equal and round and reactive. Extraocular motions intact. No scleral icterus. No injection or drainage. Fundi not examined. ENT: Hearing grossly normal. Nose without bleeding or purulent drainage. Throat without visible erythema, exudates, masses, or lesions. NECK: Trachea midline. Supple, nontender. No palpable thyroid enlargement or nodularity. CARDIOVASCULAR: Regular rate and rhythm without murmurs, gallops, or rubs. No JVD. Peripheral pulses symmetric. RESPIRATORY/CHEST: Symmetric, unlabored respirations. Clear to auscultation. Breath sounds equal bilaterally. No wheezes, rales, or rhonchi. GASTROINTESTINAL: Abdomen soft, non-tender, nondistended. No hepato-splenomegaly , or palpable masses. No guarding. Bowel sounds present. GENITOURINARY: Without palpable bladder distension. MUSCULOSKELETAL: Extremities without clubbing, cyanosis, 4+ pitting BLE edema. No joint tenderness or effusion noted. No calf tenderness. No mottling or clubbing. LYMPHATICS: No palpable cervical or supraclavicular adenopathy. NEUROLOGICAL: Awake and alert. Motor and sensory grossly within normal limits. Follows commands. Colear speechp. Moves all extremities. PSYCHIATRIC: No obvious anxiety/depression. no apparent hallucinations or other psychotic thought process. Laboratory Laboratory Tests Test 12/11/17 14:45 White Blood Count 7.0 Red Blood Count 3.65 Hemoglobin 11.0 Hematocrit 31.5 Mean Corpuscular Volume 86.3 Mean Corpuscular Hemoglobin 30.0 Mean Corpuscular Hemoglobin Concent 34.8 Red Cell Distribution Width 14.1 Platelet Count 426 Mean Platelet Volume 6.0 Neutrophils (%) (Auto) 72.9 Lymphocytes (%) (Auto) 15.0 Monocytes (%) (Auto) 8.0 Eosinophils (%) (Auto) 3.1 Basophils (%) (Auto) 1.0 Neutrophils # (Auto) 5.1 Lymphocytes # (Auto) 1.1 Monocytes # (Auto) 0.6 Eosinophils # (Auto) 0.2 Basophils # (Auto) 0.1 CBC Comment DIFF FINAL Differential Comment Blood Urea Nitrogen 14 Creatinine 1.00 Random Glucose 113 Calcium Level 8.3 Sodium Level 133 Potassium Level 4.1 Chloride Level 100 Carbon Dioxide Level 26.7 Anion Gap 6 Estimat Glomerular Filtration Rate 76 Date/Time Source Procedure Growth Status 12/07/17 00:18 Blood Peripheral Aerobic Blood Culture - Preliminary NO GROWTH IN 4 DAYS Resulted 12/07/17 00:18 Blood Peripheral Anaerobic Blood Culture - Preliminary NO GROWTH IN 4 DAYS Resulted 12/07/17 14:42 Sputum Expectorated Sputum Acid Fast Stain - Final NO ACID FAST BACILLI SEEN Resulted 12/07/17 14:42 Sputum Expectorated Sputum Mycobacterial Culture Pending Resulted Result Diagram: 12/11/17 1445 12/11/17 1445 Imaging Last Impressions Chest X-Ray 12/11/17 0000 Signed Impressions: Service Date/Time: Monday, December 11, 2017 08:44 - CONCLUSION: New small non-consolidative opacity. Chance Nunez MD CT Angiography 12/07/17 0156 Signed Impressions: Service Date/Time: Thursday, December 07, 2017 02:11 - CONCLUSION: There is no evidence for pulmonary embolism. Bronchiectasis, mucous plugging, consolidation and bilateral reticular nodular infiltrates are identified. There is also a cavitary focus of masslike consolidation in the right upper lobe. Atypical infectious processes, fungal or mycobacterial should be entertained. Followup is recommended after appropriate clinical therapy to ensure resolution of these findings particularly the cavitary right upper lobe focus. Jesus Taylor MD Lower Extremity Ultrasound 12/07/17 0000 Signed Impressions: Service Date/Time: Thursday, December 07, 2017 22:21 - CONCLUSION: Normal examination. Jesus Taylor MD Assessment and Plan Assessment and Plan Atypical cavitary PNA. Differential include bacterial vs mycobacterial vs fungal ethiology cont current abx fu routin [employer], fungal clx Felicity Jones MD Dec 11, 2017 23:07
[2017-12-12] VITALS (9 sets, daily range): BP systolic 96–115; BP diastolic 55–65; PULSE 56–70; RESP 18–20; TEMP 96.9–97.8; O2SAT 94–97
[2017-12-12] MEDS: traMADol HCL 50 MG TAB PO PRN (01:44)
[2017-12-12] MEDS: RESP: ALBUTEROL 2.5 MG/IPRATROPIUM 0.5 MG NEB (PRN) NEB ×3 (01:53→19:38)
[2017-12-12] MEDS: AMOXICILLIN/CLAVULANATE K 875 MG TAB PO SCH ×2 (08:34→22:21)
[2017-12-12] MEDS: LACTOBACILLUS ACIDOPHILUS TAB PO SCH ×3 (08:34→16:47)
[2017-12-12] MEDS: SODIUM CHLORIDE 0.9% FLUSH 10 ML FLUSH IV FLUSH SCH ×2 (08:34→21:00)
[2017-12-12] MEDS: FUROSEMIDE 40 MG/4 ML VIAL IV PUSH SCH (08:34)
[2017-12-12] MEDS: POTASSIUM CHLORIDE 10 MEQ CONTROLLED RELEASE TAB PO SCH ×2 (08:34→22:21)
--- NOTE | 2017-12-12 09:52 | RADRPT ---
EXAM DATE/TIME: 12/12/2017 09:37 [facility] COMPARISON: CHEST PA & LAT, December 11, 2017, 8:44. INDICATIONS : Dyspnea. MEDICAL HISTORY : Chronic obstructive pulmonary disease. Myocardial infarction. SURGICAL HISTORY : Bilateral lobectomy. Brain aneurysm with shunt. Multiple cervical spine ENCOUNTER: Subsequent ACUITY: 4 - 6 days PAIN SCORE: 0/10 LOCATION: Bilateral upper chest FINDINGS: Persistent, slightly larger CT of the lower right lung characteristic of a consolidative infiltrate. Left lung is clear. Remaining findings are stable including dextrocardia, cardiomegaly, and surgica l anastomosis in the left lower chest. CONCLUSION: Mild increase size in right lower lung infiltrate. Chance Nunez MD on December 12, 2017 at 9:48 Board Certified Radiologist. This report was verified electronically.
--- NOTE | 2017-12-12 11:29 | HHI.PR ---
Subjective Remarks Pt seen and examined. AFVSS. No acute events overnight. Reports he is feeling well. Breathing has much improved and he has been off oxygen. Denies CP, SOB, or significant coughing. Tolerating PO without N/V. Requests referral on discharge to lymphedema clinic in [place]. Objective Vitals Vital Signs Date Time Temp Pulse Resp B/P (MAP) Pulse Ox O2 Delivery O2 Flow Rate FiO2 12/12/17 08:00 96.9 58 19 110/62 (78) 95 12/12/17 03:53 97.0 66 18 102/59 (73) 95 12/12/17 01:56 96 12/12/17 00:00 97.7 56 20 96/55 (69) 97 12/11/17 20:00 97.9 64 20 106/56 (73) 95 12/11/17 19:59 68 12/11/17 12:00 96.8 65 17 103/73 (83) 96 12/11/17 11:43 95 I/O 12/11/17 12/11/17 12/11/17 12/12/17 12/12/17 12/12/17 07:00 15:00 23:00 07:00 15:00 23:00 Intake Total 480 ml 480 ml 720 ml 240 ml Balance 480 ml 480 ml 720 ml 240 ml Intake Oral 480 ml 480 ml 720 ml 240 ml # Voids 3 7 4 # Bowel Movements 1 2 2 Result Diagram: 12/11/17 1445 12/11/17 1445 Imaging Last 72 hours Impressions Chest X-Ray 12/12/17 0000 Signed Impressions: Service Date/Time: Tuesday, December 12, 2017 09:37 - CONCLUSION: Mild increase size in right lower lung infiltrate. Chance Nunez MD Chest X-Ray 12/11/17 0000 Signed Impressions: Service Date/Time: Monday, December 11, 2017 08:44 - CONCLUSION: New small non-consolidative opacity. Chance Nunez MD Objective Remarks GENERAL: WN, WD male sitting up in chair. SKIN: Warm and dry. HEENT: Pupils equal and round. MMM. NECK: Supple no tender LAD or JVD. HEART: RRR no m/r/g. LUNGS: Bibasilar crackles otherwise clear with normal respiratory effort. ABDOMEN: Soft, NT, ND. EXTREMITIES: Significant lymphedema of bilateral LE. NEURO: Awake and alert. PSYCH: Appropriate mood and affect. A/P Problem List: (1) Cavitary lesion of lung ICD Code: J98.4 - Other disorders of lung (2) Dyspnea ICD Code: R06.00 - Dyspnea, unspecified Assessment and Plan 62 YOWM presented with shortness of breath and found to have a right upper lobe cavitary lesion on CTA. Cavitary Lesion of right upper lobe/atypical PNA TB PCR negative; QF pending On Augmentin for anaerobic coverage of possible PNA secondary to aspiration given cavitary lesion Sputum cultures pending for mycobacteria ID consulted for further evaluation and abx reccs; recommend awaiting final culture Pulm also following and monitoring daily CXRs; today there is a mild increase in size int he right lower lung infiltrate Dyspnea Improved and patient off oxygen for few days now CTA on admission negative for PE See plans above Lymphedema Lasix 20 mg PO BID Echocardiogram showing situs invertus with normal EF Appreciate cardiology consult To f/u as outpatient in lymphedema clinic COPD Continue DuoNebs, plus home meds DVT Prophylaxis Lovenox Discharge Planning Likely discharge once all cultures are negative Dena Ahmadi MD Dec 12, 2017 11:29
--- NOTE | 2017-12-12 15:38 | PD.CARD.PN ---
Subjective Subjective Remarks No CP, SOB improved, feels better Objective Medications Current Medications Medications (Trade) Dose Ordered Sig/Al Route Start Time Stop Time Status Last Admin (NS Flush) 2 ml UNSCH PRN IV FLUSH 12/07/17 04:00 12/09/17 04:12 (NS Flush) 2 ml BID IV FLUSH 12/07/17 09:00 12/12/17 08:34 (Narcan Inj) 0.4 mg UNSCH PRN IV PUSH 12/07/17 04:00 (Duoneb Neb) 1 ampule Q2HR NEB PRN NEB 12/07/17 04:00 12/12/17 12:08 (Lactinex) 1 tab TID PO 12/07/17 09:00 12/12/17 08:34 (Ultram) 50 mg Q8H PRN PO 12/07/17 17:15 12/12/17 01:44 (Tessalon) 200 mg TID PRN PO 12/07/17 18:00 12/11/17 20:26 (KCl) 10 meq Q12HR PO 12/08/17 21:00 12/12/17 08:34 (Augmentin) 875 mg Q12HR PO 12/10/17 21:00 12/12/17 08:34 (Lasix) 20 mg BID@09,18 PO 12/12/17 18:00 Vital Signs / I&O Vital Signs Date Time Temp Pulse Resp B/P (MAP) Pulse Ox O2 Delivery O2 Flow Rate FiO2 12/12/17 12:08 94 12/12/17 12:00 96.9 61 20 104/62 (76) 95 12/12/17 08:00 96.9 58 19 110/62 (78) 95 12/12/17 03:53 97.0 66 18 102/59 (73) 95 12/12/17 01:56 96 12/12/17 00:00 97.7 56 20 96/55 (69) 97 12/11/17 20:00 97.9 64 20 106/56 (73) 95 12/11/17 19:59 68 I/O 12/11/17 12/11/17 12/11/17 12/12/17 12/12/17 12/12/17 06:59 14:59 22:59 06:59 14:59 22:59 Intake Total 480 ml 480 ml 720 ml 240 ml Balance 480 ml 480 ml 720 ml 240 ml Intake Oral 480 ml 480 ml 720 ml 240 ml # Voids 3 7 4 # Bowel Movements 1 2 2 Physical Exam GENERAL: In NAD SKIN: Warm and dry. HEAD: Normocephalic. EYES: No scleral icterus. No injection or drainage. NECK: Supple, trachea midline. No JVD or lymphadenopathy. CARDIOVASCULAR: Regular rate and rhythm without murmurs, gallops, or rubs. RESPIRATORY: Breath sounds equal bilaterally. No accessory muscle use. Bilat rhonchi. GASTROINTESTINAL: Abdomen soft, non-tender, nondistended. MUSCULOSKELETAL: No cyanosis, bilat LE lymphedema. Imaging Last 24 hours Impressions Chest X-Ray 12/12/17 0000 Signed Impressions: Service Date/Time: Tuesday, December 12, 2017 09:37 - CONCLUSION: Mild increase size in right lower lung infiltrate. 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 Overall improvement. Continue tx for COPD exacerbation. Continue tx for chronic CHF. Continue diuresis for LE edema (mostly lymphedema, seen in LE clinic in the past). Increase activity, PT. Pulm and ID eval in progress. Ramon Shanks MD Dec 12, 2017 15:38
--- NOTE | 2017-12-12 16:31 | HHI.PR ---
Subjective Remarks ALERT NO SOB AT REST OOB Objective Vital Signs Date Time Temp Pulse Resp B/P (MAP) Pulse Ox O2 Delivery O2 Flow Rate FiO2 12/12/17 12:08 94 12/12/17 12:00 96.9 61 20 104/62 (76) 95 12/12/17 08:00 96.9 58 19 110/62 (78) 95 12/12/17 03:53 97.0 66 18 102/59 (73) 95 12/12/17 01:56 96 12/12/17 00:00 97.7 56 20 96/55 (69) 97 12/11/17 20:00 97.9 64 20 106/56 (73) 95 12/11/17 19:59 68 I/O 12/11/17 12/11/17 12/11/17 12/12/17 12/12/17 12/12/17 07:00 15:00 23:00 07:00 15:00 23:00 Intake Total 480 ml 480 ml 720 ml 240 ml Balance 480 ml 480 ml 720 ml 240 ml Intake Oral 480 ml 480 ml 720 ml 240 ml # Voids 3 7 4 # Bowel Movements 1 2 2 Result Diagram: 12/11/17 1445 12/11/17 1445 Objective Remarks GENERAL: SKIN: Warm and dry. HEAD: Atraumatic. Normocephalic. EYES: Pupils equal and round. No scleral icterus. No injection or drainage. ENT: No nasal bleeding or discharge. Mucous membranes pink and moist. NECK: Trachea midline. No JVD. CARDIOVASCULAR: Regular rate and rhythm. RESPIRATORY: No accessory muscle use. Clear to auscultation. Breath sounds equal bilaterally. GASTROINTESTINAL: Abdomen soft, non-tender, nondistended. Hepatic and splenic margins not palpable. MUSCULOSKELETAL: Extremities without clubbing, cyanosis, or edema. No obvious deformities. NEUROLOGICAL: Awake and alert. No obvious cranial nerve deficits. Motor grossly within normal limits. Five out of 5 muscle strength in the arms and legs. Normal speech. PSYCHIATRIC: Appropriate mood and affect; insight and judgment normal. Assessment and Plan Assessment and Plan ASSESSMENT COPD CHF PLAN O2 NEEDED BRONCHODILATOR THERAPY ANTIBX F/U CXRAY Leona Delgadillo MD Dec 12, 2017 16:31
[2017-12-12] MEDS: FUROSEMIDE 20 MG TAB PO SCH (16:47)
--- NOTE | 2017-12-12 17:13 | HHI.IDPN ---
Subjective Subjective Remarks no new co Antibiotics augmentin Allergies: Coded Allergies: No Known Allergies (Verified Allergy, Unknown, 12/07/17) Objective . Vital Signs Date Time Temp Pulse Resp B/P (MAP) Pulse Ox O2 Delivery O2 Flow Rate FiO2 12/12/17 16:00 97.8 61 19 102/59 (73) 96 12/12/17 12:08 94 12/12/17 12:00 96.9 61 20 104/62 (76) 95 12/12/17 08:00 96.9 58 19 110/62 (78) 95 12/12/17 03:53 97.0 66 18 102/59 (73) 95 12/12/17 01:56 96 12/12/17 00:00 97.7 56 20 96/55 (69) 97 12/11/17 20:00 97.9 64 20 106/56 (73) 95 12/11/17 19:59 68 12/12/17 12/12/17 12/13/17 15:00 23:00 07:00 Intake Total 240 ml Balance 240 ml Intake Oral 240 ml . Laboratory Tests Test 12/11/17 14:45 White Blood Count 7.0 TH/MM3 Red Blood Count 3.65 MIL/MM3 Hemoglobin 11.0 GM/DL Hematocrit 31.5 % Mean Corpuscular Volume 86.3 FL Mean Corpuscular Hemoglobin 30.0 PG Mean Corpuscular Hemoglobin Concent 34.8 % Red Cell Distribution Width 14.1 % Platelet Count 426 TH/MM3 Mean Platelet Volume 6.0 FL Neutrophils (%) (Auto) 72.9 % Lymphocytes (%) (Auto) 15.0 % Monocytes (%) (Auto) 8.0 % Eosinophils (%) (Auto) 3.1 % Basophils (%) (Auto) 1.0 % Neutrophils # (Auto) 5.1 TH/MM3 Lymphocytes # (Auto) 1.1 TH/MM3 Monocytes # (Auto) 0.6 TH/MM3 Eosinophils # (Auto) 0.2 TH/MM3 Basophils # (Auto) 0.1 TH/MM3 CBC Comment DIFF FINAL Differential Comment Laboratory Tests Test 12/11/17 14:45 Blood Urea Nitrogen 14 MG/DL Creatinine 1.00 MG/DL Random Glucose 113 MG/DL Calcium Level 8.3 MG/DL Sodium Level 133 MEQ/L Potassium Level 4.1 MEQ/L Chloride Level 100 MEQ/L Carbon Dioxide Level 26.7 MEQ/L Anion Gap 6 MEQ/L Estimat Glomerular Filtration Rate 76 ML/MIN Imaging Last Impressions Chest X-Ray 12/12/17 0000 Signed Impressions: Service Date/Time: Tuesday, December 12, 2017 09:37 - CONCLUSION: Mild increase size in right lower lung infiltrate. Chance Nunez MD CT Angiography 12/07/17 0156 Signed Impressions: Service Date/Time: Thursday, December 07, 2017 02:11 - CONCLUSION: There is no evidence for pulmonary embolism. Bronchiectasis, mucous plugging, consolidation and bilateral reticular nodular infiltrates are identified. There is also a cavitary focus of masslike consolidation in the right upper lobe. Atypical infectious processes, fungal or mycobacterial should be entertained. Followup is recommended after appropriate clinical therapy to ensure resolution of these findings particularly the cavitary right upper lobe focus. Jesus Taylor MD Lower Extremity Ultrasound 12/07/17 0000 Signed Impressions: Service Date/Time: Thursday, December 07, 2017 22:21 - CONCLUSION: Normal examination. Jesus Taylor MD Physical Exam CONSTITUTIONAL/GENERAL: This is an adequately nourished patient, in no apparent distress. SKIN: No jaundice, rashes, or lesions. Skin temperature appropriate. Not diaphoretic. CARDIOVASCULAR: Regular rate and rhythm without murmurs, gallops, or rubs. No JVD. Peripheral pulses symmetric. RESPIRATORY/CHEST: Symmetric, unlabored respirations. Clear to auscultation. Breath sounds equal bilaterally. No wheezes, rales, or rhonchi. GASTROINTESTINAL: Abdomen soft, non-tender, nondistended. No hepato-splenomegaly , or palpable masses. No guarding. Bowel sounds present. MUSCULOSKELETAL: Extremities without clubbing, cyanosis, 4+ pitting BLE edema. No joint tenderness or effusion noted. No calf tenderness. No mottling or clubbing. NEUROLOGICAL: Awake and alert. Motor and sensory grossly within normal limits. Follows commands. Colear speechp. Moves all extremities. PSYCHIATRIC: No obvious anxiety/depression. no apparent hallucinations or other psychotic thought process. Assessment & Plan Remarks Assessment and Plan Assessment and Plan Atypical cavitary PNA. Differential include bacterial vs mycobacterial vs fungal ethiology cont current abx fu routin AFB, fungal clx repeat AFB If negative cultures will need bronch case was dw Dr Delgadillo. Apparently he has the lung lesion for years. - per pt. Felicity Jones MD Dec 12, 2017 17:13
[2017-12-12] MEDS: BENZONATATE 100 MG CAP PO PRN (22:21)
[2017-12-13] VITALS (7 sets, daily range): BP systolic 107–120; BP diastolic 64–69; PULSE 57–72; RESP 19–20; TEMP 96.9–98.1; O2SAT 93–98
[2017-12-13] MEDS: RESP: ALBUTEROL 2.5 MG/IPRATROPIUM 0.5 MG NEB (PRN) NEB ×2 (03:55→20:58)
[2017-12-13] MEDS: traMADol HCL 50 MG TAB PO PRN (06:41)
[2017-12-13] MEDS: SODIUM CHLORIDE 0.9% FLUSH 10 ML FLUSH IV FLUSH SCH ×2 (09:00→22:32)
--- NOTE | 2017-12-13 09:17 | HHI.PR ---
Subjective Remarks ALERT NO SOB AT REST OOB Objective Vital Signs Date Time Temp Pulse Resp B/P (MAP) Pulse Ox O2 Delivery O2 Flow Rate FiO2 12/13/17 08:00 96.9 72 20 110/66 (81) 95 12/13/17 04:00 97.2 64 20 113/65 (81) 98 12/13/17 00:00 65 12/13/17 00:00 98.1 66 20 107/64 (78) 93 12/12/17 20:00 97.3 65 18 115/65 (82) 95 12/12/17 20:00 70 12/12/17 19:38 95 Nasal Cannula 21 12/12/17 16:00 97.8 61 19 102/59 (73) 96 12/12/17 12:08 94 12/12/17 12:00 96.9 61 20 104/62 (76) 95 I/O 12/12/17 12/12/17 12/12/17 12/13/17 12/13/17 12/13/17 07:00 15:00 23:00 07:00 15:00 23:00 Intake Total 720 ml 240 ml 900 ml 240 ml Output Total 800 ml Balance 720 ml 240 ml 100 ml 240 ml Intake Oral 720 ml 240 ml 900 ml 240 ml Output Urine Total 800 ml # Voids 4 # Bowel Movements 2 1 Result Diagram: 12/11/17 1445 12/11/17 1445 Objective Remarks GENERAL: SKIN: Warm and dry. HEAD: Atraumatic. Normocephalic. EYES: Pupils equal and round. No scleral icterus. No injection or drainage. ENT: No nasal bleeding or discharge. Mucous membranes pink and moist. NECK: Trachea midline. No JVD. CARDIOVASCULAR: Regular rate and rhythm. RESPIRATORY: No accessory muscle use. Clear to auscultation. Breath sounds equal bilaterally. GASTROINTESTINAL: Abdomen soft, non-tender, nondistended. Hepatic and splenic margins not palpable. MUSCULOSKELETAL: Extremities without clubbing, cyanosis, or edema. No obvious deformities. NEUROLOGICAL: Awake and alert. No obvious cranial nerve deficits. Motor grossly within normal limits. Five out of 5 muscle strength in the arms and legs. Normal speech. PSYCHIATRIC: Appropriate mood and affect; insight and judgment normal. Assessment and Plan Assessment and Plan ASSESSMENT COPD CHF PLAN O2 NEEDED BRONCHODILATOR THERAPY ANTIBXHAD CT CHEST 2009 AND WILL ASK RADIOLOGY FOR COMPARISON Leona Delgadillo MD Dec 13, 2017 09:17
[2017-12-13 09:55] LABS: MITOGEN MINUS NIL RESULT 8.88; NIL RESULT 0.01; QUANTIFERON TB GOLD + RESULT NEGATIVE
[2017-12-13] MEDS: LACTOBACILLUS ACIDOPHILUS TAB PO SCH ×3 (10:54→17:42)
[2017-12-13] MEDS: POTASSIUM CHLORIDE 10 MEQ CONTROLLED RELEASE TAB PO SCH ×2 (10:54→22:29)
[2017-12-13] MEDS: AMOXICILLIN/CLAVULANATE K 875 MG TAB PO SCH ×2 (10:54→22:27)
[2017-12-13] MEDS: FUROSEMIDE 20 MG TAB PO SCH ×2 (10:54→17:42)
--- NOTE | 2017-12-13 11:56 | PD.CARD.PN ---
Subjective Subjective Remarks No CP, SOB improved, no c/o Objective Medications Current Medications Medications (Trade) Dose Ordered Sig/Al Route Start Time Stop Time Status Last Admin (NS Flush) 2 ml UNSCH PRN IV FLUSH 12/07/17 04:00 12/09/17 04:12 (NS Flush) 2 ml BID IV FLUSH 12/07/17 09:00 12/13/17 09:00 (Narcan Inj) 0.4 mg UNSCH PRN IV PUSH 12/07/17 04:00 (Duoneb Neb) 1 ampule Q2HR NEB PRN NEB 12/07/17 04:00 12/13/17 03:55 (Lactinex) 1 tab TID PO 12/07/17 09:00 12/13/17 10:54 (Ultram) 50 mg Q8H PRN PO 12/07/17 17:15 12/13/17 06:41 (Tessalon) 200 mg TID PRN PO 12/07/17 18:00 12/12/17 22:21 (KCl) 10 meq Q12HR PO 12/08/17 21:00 12/13/17 10:54 (Augmentin) 875 mg Q12HR PO 12/10/17 21:00 12/13/17 10:54 (Lasix) 20 mg BID@18 PO 12/12/17 18:00 12/13/17 10:54 Vital Signs / I&O Vital Signs Date Time Temp Pulse Resp B/P (MAP) Pulse Ox O2 Delivery O2 Flow Rate FiO2 12/13/17 11:50 95 12/13/17 08:00 96.9 72 20 110/66 (81) 95 12/13/17 04:00 97.2 64 20 113/65 (81) 98 12/13/17 00:00 65 12/13/17 00:00 98.1 66 20 107/64 (78) 93 12/12/17 20:00 97.3 65 18 115/65 (82) 95 12/12/17 20:00 70 12/12/17 19:38 95 Nasal Cannula 21 12/12/17 16:00 97.8 61 19 102/59 (73) 96 12/12/17 12:08 94 12/12/17 12:00 96.9 61 20 104/62 (76) 95 I/O 12/12/17 12/12/17 12/12/17 12/13/17 12/13/17 12/13/17 07:00 15:00 23:00 07:00 15:00 23:00 Intake Total 720 ml 240 ml 900 ml 240 ml Output Total 800 ml Balance 720 ml 240 ml 100 ml 240 ml Intake Oral 720 ml 240 ml 900 ml 240 ml Output Urine Total 800 ml # Voids 4 # Bowel Movements 2 1 Physical Exam GENERAL: In NAD SKIN: Warm and dry. HEAD: Normocephalic. EYES: No scleral icterus. No injection or drainage. NECK: Supple, trachea midline. No JVD or lymphadenopathy. CARDIOVASCULAR: Regular rate and rhythm without murmurs, gallops, or rubs. RESPIRATORY: Breath sounds equal bilaterally. No accessory muscle use. Bilat rhonchi. GASTROINTESTINAL: Abdomen soft, non-tender, nondistended. MUSCULOSKELETAL: No cyanosis, bilat LE lymphedema. Assessment and Plan Problem List: (1) COPD with acute exacerbation ICD Codes: J44.1 - Chronic obstructive pulmonary disease with (acute) exacerbation Status: Acute (2) Cavitary lesion of lung ICD Codes: J98.4 - Other disorders of lung (3) Edema ICD Codes: R60.9 - Edema, unspecified (4) CHF (congestive heart failure) ICD Codes: I50.9 - Heart failure, unspecified (5) Situs inversus ICD Codes: Q89.3 - Situs inversus Status: Chronic Assessment and Plan Remains stable from cardiac standpoint. Continue tx for COPD exacerbation. Continue tx for chronic CHF. Continue diuresis for LE lymphedema. Increase activity, PT. Anticipate discharge soon. Ramon Shanks MD Dec 13, 2017 11:56
--- NOTE | 2017-12-13 16:25 | HHI.PR ---
Subjective Remarks Patient denies cp/sob. Patient has a good oxygen saturation on 2 L nasal cannula. 98% Afebrile. Objective Vitals Vital Signs Date Time Temp Pulse Resp B/P (MAP) Pulse Ox O2 Delivery O2 Flow Rate FiO2 12/13/17 16:00 96.9 57 19 120/69 (86) 98 12/13/17 12:00 96.9 62 19 107/64 (78) 97 12/13/17 11:50 95 12/13/17 08:00 96.9 72 20 110/66 (81) 95 12/13/17 04:00 97.2 64 20 113/65 (81) 98 12/13/17 00:00 65 12/13/17 00:00 98.1 66 20 107/64 (78) 93 12/12/17 20:00 97.3 65 18 115/65 (82) 95 12/12/17 20:00 70 12/12/17 19:38 95 Nasal Cannula 21 I/O 12/12/17 12/12/17 12/12/17 12/13/17 12/13/17 12/13/17 07:00 15:00 23:00 07:00 15:00 23:00 Intake Total 720 ml 240 ml 900 ml 240 ml Output Total 800 ml Balance 720 ml 240 ml 100 ml 240 ml Intake Oral 720 ml 240 ml 900 ml 240 ml Output Urine Total 800 ml # Voids 4 # Bowel Movements 2 1 Result Diagram: 12/11/17 1445 12/11/17 1445 Imaging Last Impressions Chest X-Ray 12/12/17 0000 Signed Impressions: Service Date/Time: Tuesday, December 12, 2017 09:37 - CONCLUSION: Mild increase size in right lower lung infiltrate. Chance Nunez MD CT Angiography 12/07/17 0156 Signed Impressions: Service Date/Time: Thursday, December 07, 2017 02:11 - CONCLUSION: There is no evidence for pulmonary embolism. Bronchiectasis, mucous plugging, consolidation and bilateral reticular nodular infiltrates are identified. There is also a cavitary focus of masslike consolidation in the right upper lobe. Atypical infectious processes, fungal or mycobacterial should be entertained. Followup is recommended after appropriate clinical therapy to ensure resolution of these findings particularly the cavitary right upper lobe focus. Jesus Taylor MD Lower Extremity Ultrasound 12/07/17 0000 Signed Impressions: Service Date/Time: Thursday, December 07, 2017 22:21 - CONCLUSION: Normal examination. Jesus Taylor MD Objective Remarks GENERAL: male sitting up in chair, NAD. SKIN: Warm and dry. HEENT: Pupils equal and round. MMM. NECK: Supple no tender LAD or JVD. HEART: RRR no m/r/g. LUNGS:Clear to auscultation BL. No wheezing, rhonchi or rales auscultated. ABDOMEN: Soft, NT, ND. EXTREMITIES: Significant lymphedema of bilateral LE. NEURO: Awake and alert. PSYCH: Appropriate mood and affect. Medications and IVs Current Medications Medications (Trade) Dose Ordered Sig/Al Route Start Time Stop Time Status Last Admin (NS Flush) 2 ml UNSCH PRN IV FLUSH 12/07/17 04:00 12/09/17 04:12 (NS Flush) 2 ml BID IV FLUSH 12/07/17 09:00 12/13/17 09:00 (Narcan Inj) 0.4 mg UNSCH PRN IV PUSH 12/07/17 04:00 (Duoneb Neb) 1 ampule Q2HR NEB PRN NEB 12/07/17 04:00 12/13/17 03:55 (Lactinex) 1 tab TID PO 12/07/17 09:00 12/13/17 13:00 (Ultram) 50 mg Q8H PRN PO 12/07/17 17:15 12/13/17 06:41 (Tessalon) 200 mg TID PRN PO 12/07/17 18:00 12/12/17 22:21 (KCl) 10 meq Q12HR PO 12/08/17 21:00 12/13/17 10:54 (Augmentin) 875 mg Q12HR PO 12/10/17 21:00 12/13/17 10:54 (Lasix) 20 mg BID@18 PO 12/12/17 18:00 12/13/17 10:54 A/P Problem List: (1) Cavitary lesion of lung ICD Code: J98.4 - Other disorders of lung (2) Dyspnea ICD Code: R06.00 - Dyspnea, unspecified (3) 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 Cavitary Lesion of right upper lobe/atypical PNA TB PCR negative; QF pending On Augmentin for anaerobic coverage of possible PNA secondary to aspiration given cavitary lesion Sputum cultures pending for mycobacteria ID consulted for further evaluation and abx reccs; recommend awaiting final culture Pulm also following and monitoring daily CXRs; today there is a mild increase in size int he right lower lung infiltrate 2/[address] Veliz is planning to do a bronchoscopy. Dyspnea Improved and patient off oxygen for few days now CTA on admission negative for PE See plans above Lymphedema Lasix 20 mg PO BID Echocardiogram showing situs invertus with normal EF Appreciate cardiology consult To f/u as outpatient in lymphedema clinic Patient had a 2D echo recently on December 09, 2017 which showed a normal ejection fraction 55% and situs inversus. Small pericardial effusion was present. COPD Continue DuoNebs, plus home meds Acute on chronic diastolic heart failure. Cardiology consulted. Echocardiogram as mentioned above. Continue diuresis. DVT Prophylaxis Lovenox Discharge Planning Pending cultures, ID and pulmonary clearance. Pulmonary to do bronchoscopy. Problem Qualifiers (1) CHF (congestive heart failure): Qualified Codes: I50.33 - Acute on chronic diastolic (congestive) heart failure (2) Edema: Qualified Codes: R60.9 - Edema, unspecified Joe Owens MD Dec 13, 2017 16:25
--- NOTE | 2017-12-13 16:36 | HHI.IDPN ---
Subjective Subjective Remarks no new co pt wants to go home dw pt dw Dr Delgadillo Pt has the lung lesion for years Pt [presented to hospital co BLE edema Antibiotics augmentin Allergies: Coded Allergies: No Known Allergies (Verified Allergy, Unknown, 12/07/17) Objective . Vital Signs Date Time Temp Pulse Resp B/P (MAP) Pulse Ox O2 Delivery O2 Flow Rate FiO2 12/13/17 16:00 96.9 57 19 120/69 (86) 98 12/13/17 12:00 96.9 62 19 107/64 (78) 97 12/13/17 11:50 95 12/13/17 08:00 96.9 72 20 110/66 (81) 95 12/13/17 04:00 97.2 64 20 113/65 (81) 98 12/13/17 00:00 65 12/13/17 00:00 98.1 66 20 107/64 (78) 93 12/12/17 20:00 97.3 65 18 115/65 (82) 95 12/12/17 20:00 70 12/12/17 19:38 95 Nasal Cannula 21 12/13/17 12/13/17 12/14/17 15:00 23:00 07:00 Intake Total 240 ml Balance 240 ml Intake Oral 240 ml . Microbiology Date/Time Source Procedure Growth Status 12/12/17 23:00 Sputum Expectorated Sputum Fungal Smear - Final NO FUNGAL ELEMENTS SEEN. Resulted 12/12/17 23:00 Sputum Expectorated Sputum Fungal Culture Pending Resulted 12/12/17 23:00 Sputum Expectorated Sputum Acid Fast Stain Pending Received 12/12/17 23:00 Sputum Expectorated Sputum Mycobacterial Culture Pending Received 12/12/17 23:00 Sputum Expectorated Sputum Gram Stain - Final Resulted 12/12/17 23:00 Sputum Expectorated Sputum Sputum Culture - Preliminary IMMATURE GROWTH - REINCUBATE Resulted Imaging Last Impressions Chest X-Ray 12/12/17 0000 Signed Impressions: Service Date/Time: Tuesday, December 12, 2017 09:37 - CONCLUSION: Mild increase size in right lower lung infiltrate. Chance Nunez MD CT Angiography 12/07/17 0156 Signed Impressions: Service Date/Time: Thursday, December 07, 2017 02:11 - CONCLUSION: There is no evidence for pulmonary embolism. Bronchiectasis, mucous plugging, consolidation and bilateral reticular nodular infiltrates are identified. There is also a cavitary focus of masslike consolidation in the right upper lobe. Atypical infectious processes, fungal or mycobacterial should be entertained. Followup is recommended after appropriate clinical therapy to ensure resolution of these findings particularly the cavitary right upper lobe focus. Jesus Taylor MD Lower Extremity Ultrasound 12/07/17 0000 Signed Impressions: Service Date/Time: Thursday, December 07, 2017 22:21 - CONCLUSION: Normal examination. Jesus Taylor MD Physical Exam CONSTITUTIONAL/GENERAL: This is an adequately nourished patient, in no apparent distress. SKIN: No jaundice, rashes, or lesions. Skin temperature appropriate. Not diaphoretic. CARDIOVASCULAR: Regular rate and rhythm without murmurs, gallops, or rubs. No JVD. Peripheral pulses symmetric. RESPIRATORY/CHEST: Symmetric, unlabored respirations. Clear to auscultation. Breath sounds equal bilaterally. No wheezes, rales, or rhonchi. GASTROINTESTINAL: Abdomen soft, non-tender, nondistended. No hepato-splenomegaly , or palpable masses. No guarding. Bowel sounds present. MUSCULOSKELETAL: Extremities without clubbing, cyanosis, 4+ pitting BLE edema. No joint tenderness or effusion noted. No calf tenderness. No mottling or clubbing. NEUROLOGICAL: Awake and alert. Motor and sensory grossly within normal limits. Follows commands. Colear speechp. Moves all extremities. PSYCHIATRIC: No obvious anxiety/depression. no apparent hallucinations or other psychotic thought process. Assessment & Plan Remarks Assessment and Plan Assessment and Plan Atypical cavitary PNA. Differential include bacterial vs mycobacterial vs fungal ethiology MTB probe and quantiferron negative CT from 2013 and 2017 compares: L lung changes appear chronic, RUL lesion is definetely new cont current abx fu routin [employer], fungal clx dw Dr Delgadillo: he is planning to do bronchoscopy Felicity Joens MD Dec 13, 2017 16:36
[2017-12-13] MEDS ORDERED: PANTOPRAZOLE SOD 40 MG DELAYED RELEASE TAB PO ONE (18:00)
[2017-12-13] MEDS: ALUMINUM/MAGNESIUM/SIMETH 30 ML CUP PO PRN (18:30)
[2017-12-14] VITALS (8 sets, daily range): BP systolic 100–122; BP diastolic 55–69; PULSE 53–75; RESP 14–20; TEMP 95.8–97.4; O2SAT 95–98
--- NOTE | 2017-12-14 08:34 | HHI.PR ---
Subjective Remarks ALERT NO SOB AT REST OOB Objective Vital Signs Date Time Temp Pulse Resp B/P (MAP) Pulse Ox O2 Delivery O2 Flow Rate FiO2 12/14/17 04:00 95.8 57 20 106/57 (73) 97 12/13/17 20:58 94 21 12/13/17 16:00 96.9 57 19 120/69 (86) 98 12/13/17 12:00 96.9 62 19 107/64 (78) 97 12/13/17 11:50 95 I/O 12/13/17 12/13/17 12/13/17 12/14/17 12/14/17 12/14/17 06:59 14:59 22:59 06:59 14:59 22:59 Intake Total 240 ml 900 ml 240 ml Output Total 1000 ml Balance 240 ml -100 ml 240 ml Intake Oral 240 ml 900 ml 240 ml Output Urine Total 1000 ml # Bowel Movements 1 Result Diagram: 12/11/17 1445 12/11/17 1445 Objective Remarks GENERAL: SKIN: Warm and dry. HEAD: Atraumatic. Normocephalic. EYES: Pupils equal and round. No scleral icterus. No injection or drainage. ENT: No nasal bleeding or discharge. Mucous membranes pink and moist. NECK: Trachea midline. No JVD. CARDIOVASCULAR: Regular rate and rhythm. RESPIRATORY: No accessory muscle use. Clear to auscultation. Breath sounds equal bilaterally. GASTROINTESTINAL: Abdomen soft, non-tender, nondistended. Hepatic and splenic margins not palpable. MUSCULOSKELETAL: Extremities without clubbing, cyanosis, or edema. No obvious deformities. NEUROLOGICAL: Awake and alert. No obvious cranial nerve deficits. Motor grossly within normal limits. Five out of 5 muscle strength in the arms and legs. Normal speech. PSYCHIATRIC: Appropriate mood and affect; insight and judgment normal. Assessment and Plan Assessment and Plan ASSESSMENT COPD CHF CAVITARY LESION RUL , NOT PRESENT IN OLD FILMS PLAN O2 NEEDED BRONCHODILATOR THERAPY ANTIBX HAD CT CHEST 2009 AND 14 WILL ASK RADIOLOGY FOR COMPARISON NEEDLE BX RUL LESION Leona Delgadillo MD Dec 14, 2017 08:33
[2017-12-14] MEDS: PANTOPRAZOLE SOD 40 MG DELAYED RELEASE TAB PO SCH (09:21)
[2017-12-14] MEDS: LACTOBACILLUS ACIDOPHILUS TAB PO SCH ×3 (09:21→17:47)
[2017-12-14] MEDS: AMOXICILLIN/CLAVULANATE K 875 MG TAB PO SCH ×2 (09:21→22:26)
[2017-12-14] MEDS: POTASSIUM CHLORIDE 10 MEQ CONTROLLED RELEASE TAB PO SCH ×2 (09:21→22:27)
[2017-12-14] MEDS: SODIUM CHLORIDE 0.9% FLUSH 10 ML FLUSH IV FLUSH SCH ×2 (09:21→22:27)
[2017-12-14] MEDS: FUROSEMIDE 20 MG TAB PO SCH ×2 (09:22→17:47)
[2017-12-14] MEDS: RESP: ALBUTEROL 2.5 MG/IPRATROPIUM 0.5 MG NEB (PRN) NEB ×2 (10:07→22:13)
--- NOTE | 2017-12-14 11:23 | PD.CARD.PN ---
Subjective Subjective Remarks No CP, minimal sob, feels better Objective Medications Current Medications Medications (Trade) Dose Ordered Sig/Al Route Start Time Stop Time Status Last Admin (NS Flush) 2 ml UNSCH PRN IV FLUSH 12/07/17 04:00 12/09/17 04:12 (NS Flush) 2 ml BID IV FLUSH 12/07/17 09:00 12/14/17 09:21 (Narcan Inj) 0.4 mg UNSCH PRN IV PUSH 12/07/17 04:00 (Duoneb Neb) 1 ampule Q2HR NEB PRN NEB 12/07/17 04:00 12/14/17 10:07 (Lactinex) 1 tab TID PO 12/07/17 09:00 12/14/17 09:21 (Ultram) 50 mg Q8H PRN PO 12/07/17 17:15 12/13/17 06:41 (Tessalon) 200 mg TID PRN PO 12/07/17 18:00 12/12/17 22:21 (KCl) 10 meq Q12HR PO 12/08/17 21:00 12/14/17 09:21 (Augmentin) 875 mg Q12HR PO 12/10/17 21:00 12/14/17 09:21 (Lasix) 20 mg BID@18 PO 12/12/17 18:00 12/14/17 09:22 (Protonix) 40 mg DAILY PO 12/14/17 09:00 12/14/17 09:21 (Mag-Al Plus Susp Liq) 30 ml Q6H PRN PO 12/13/17 18:00 12/13/17 18:30 Vital Signs / I&O Vital Signs Date Time Temp Pulse Resp B/P (MAP) Pulse Ox O2 Delivery O2 Flow Rate FiO2 12/14/17 08:00 53 12/14/17 08:00 97.4 61 18 114/69 (84) 96 12/14/17 04:00 95.8 57 20 106/57 (73) 97 12/13/17 20:58 94 21 12/13/17 16:00 96.9 57 19 120/69 (86) 98 12/13/17 12:00 96.9 62 19 107/64 (78) 97 12/13/17 11:50 95 I/O 12/13/17 12/13/17 12/13/17 12/14/17 12/14/17 12/14/17 07:00 15:00 23:00 07:00 15:00 23:00 Intake Total 240 ml 900 ml 240 ml Output Total 1000 ml Balance 240 ml -100 ml 240 ml Intake Oral 240 ml 900 ml 240 ml Output Urine Total 1000 ml # Bowel Movements 1 Physical Exam GENERAL: In NAD SKIN: Warm and dry. HEAD: Normocephalic. EYES: No scleral icterus. No injection or drainage. NECK: Supple, trachea midline. No JVD or lymphadenopathy. CARDIOVASCULAR: Regular rate and rhythm without murmurs, gallops, or rubs. RESPIRATORY: Breath sounds equal bilaterally. No accessory muscle use. Bilat rhonchi. GASTROINTESTINAL: Abdomen soft, non-tender, nondistended. MUSCULOSKELETAL: No cyanosis, bilat LE lymphedema. Assessment and Plan Problem List: (1) COPD with acute exacerbation ICD Codes: J44.1 - Chronic obstructive pulmonary disease with (acute) exacerbation Status: Acute (2) Cavitary lesion of lung ICD Codes: J98.4 - Other disorders of lung (3) Edema ICD Codes: R60.9 - Edema, unspecified Status: Acute (4) CHF (congestive heart failure) ICD Codes: I50.9 - Heart failure, unspecified Status: Chronic (5) Situs inversus ICD Codes: Q89.3 - Situs inversus Status: Chronic Assessment and Plan No new cardiac issues. Continue tx for COPD exacerbation. Continue tx for chronic CHF. Continue diuresis for LE lymphedema. Increase activity, PT. Lung bx today. Problem Qualifiers (1) Edema: Qualified Codes: R60.9 - Edema, unspecified (2) CHF (congestive heart failure): Qualified Codes: I50.33 - Acute on chronic diastolic (congestive) heart failure Ramon Shanks MD Dec 14, 2017 11:23
[2017-12-14 12:06] LABS: BASOPHIL # 0.2 TH/MM3 (0-0.2); BASOPHIL % 1.2 % (0.0-2.0); EOSINOPHIL # 0.6 TH/MM3 (0-0.4); EOSINOPHIL % 3.9 % (0.0-4.0); HEMATOCRIT 33.3 % (39.0-51.0); HEMOGLOBIN 11.4 GM/DL (13.0-17.0); LYMPH % 17.7 % (9.0-44.0); LYMPHOCYTE # 2.6 TH/MM3 (1.0-4.8); MEAN CELL VOLUME 86.6 FL (80.0-100.0); MEAN CORPUSCULAR HEMOGLOBIN 29.7 PG (27.0-34.0); MEAN CORPUSCULAR HGB CONC 34.3 % (32.0-36.0); MEAN PLATELET VOLUME 7.1 FL (7.0-11.0); MONO % 8.9 % (0.0-8.0); MONOCYTE # 1.3 TH/MM3 (0-0.9); NEUT % 68.3 % (16.0-70.0); PLATELET COUNT 538 TH/MM3 (150-450); RED BLOOD COUNT 3.85 MIL/MM3 (4.50-5.90); RED CELL DISTRIBUTION WIDTH 14.2 % (11.6-17.2); WHITE BLOOD COUNT 14.6 TH/MM3 (4.0-11.0)
[2017-12-14 12:41] LABS: BANDS 3 % (0-6); BASOPHILS 3 % (0-2); LYMPHOCYTES 18 % (9-44); MONOCYTES 6 % (0-8); NEUTROPHIL # MANUAL DIFF 10.2 TH/MM3 (1.8-7.7); POLYS (SEG NEUTROPHILS) 67 % (16-70)
[2017-12-14] MEDS ORDERED: fentaNYL CITRATE 250 MCG/5 ML AMP ONE (13:34)
[2017-12-14] MEDS ORDERED: MIDAZOLAM HCL 2 MG/2 ML VIAL ONE ×2 (13:34→14:08)
[2017-12-14] MEDS ORDERED: LIDOCAINE HCL 1% 20 ML VIAL ONE (13:35)
--- NOTE | 2017-12-14 14:32 | PD.RAD ---
Post Procedure Progress Note Pre Procedure Diagnosis: (1) Mass of right lung Post Procedure Diagnosis: (1) Mass of right lung Procedure Date: Dec 14, 2017 Supervising Radiologist: Juan Navarro Estimated blood loss: none Anesthesia: Local, Conscious Sedation Plan of Activity Patient to Unit: [facility] Patient Condition: Fair Additional Comments: CT guided biopsy of the right lung completed. Full dictated report to follow See PACS Report for procedural detail/treatment Juan Navarro MD Dec 14, 2017 14:32
[2017-12-14] MEDS: oxyCODONE/ACETAMINOPHEN 5 MG/325 MG TAB PO PRN (15:00)
--- NOTE | 2017-12-14 15:17 | RADRPT ---
EXAM DATE/TIME: 12/14/2017 13:59 [facility] COMPARISON: CT PULMONARY ANGIOGRAM, December 07, 2017, 2:11. INDICATIONS : Right lung lesion. SEDATION TIME: 30 minutes BIOPSY SITE: Right lung MEDICATION(S): 1.) 4 mg midazolam (Versed) IV 2.) 250 mcg fentanyl (Sublimaze) IV DEVICE(S): 1.) 18 gauge Olivera blunt needle 10cm 2.) 20 gauge Temno core biopsy needle 15cm MEDICAL HISTORY : Situs inversus SURGICAL HISTORY : Bilateral lobectomy ENCOUNTER: Initial ACUITY: 1 day PAIN SCORE: 0/10 LOCATION: Right chest A total of two core specimen(s) were obtained and sent to the laboratory for pathologic evaluation. PROCEDURE: 1. CT guided lung biopsy. 2. Conscious sedation with continuous EKG and oximetry monitoring. Prior to the procedure informed consent was obtained. Any appropriate prior imaging studies were rev iewed. Using automated exposure control and adjustment of the mA and/or kV according to patient size, radiation dose was kept as low as reasonably achievable to obtain optimal diagnostic quality images. DICOM format image data is available electronically for review and comparison. The site was prepped in a sterile fashion. Full sterile technique was used, including cap, mask, flip rile gloves and gown and a large sterile sheet. Hand hygiene and 2% chlorhexidine and/or betadine/al cohol prep was utilized per protocol for cutaneous antisepsis. The skin and subcutaneous tissues wer e infiltrated with local anesthetic solution. With CT guidance the previously identified target was localized. Biopsy was performed using the presc ribed needle as above. Adequate hemostasis was obtained with compression at the puncture site. Samples were sent for pathology as well as culture and sensitivity. Follow-up CT scan reveals no pneumothorax. Conscious sedation was performed with the prescribed dosages and duration as above in the presence of an independent trained radiology nurse to assist in the monitoring of the patient. EKG and oximetry remained stable throughout the procedure. The patient tolerated the procedure well and there were no complications. The patient was sent to Radiology Outpatient Unit in stable condition. CONCLUSION: Uncomplicated CT guided biopsy. Juan Navarro MD on December 14, 2017 at 15:15 Board Certified Radiologist. This report was verified electronically.
--- NOTE | 2017-12-14 15:52 | RADRPT ---
EXAM DATE/TIME: 12/14/2017 15:24 [facility] COMPARISON: CHEST PA & LAT, December 12, 2017, 9:37. INDICATIONS : Evaluate for pneumothorax. MEDICAL HISTORY : Chronic obstructive pulmonary disease. Myocardial infarction. SURGICAL HISTORY : Bilateral lobectomy. Brain aneurysm with shunt. Multiple cervical spine ENCOUNTER: Initial ACUITY: 1 day PAIN SCORE: 0/10 LOCATION: Bilateral chest FINDINGS: Expiratory view of the chest status post right lung biopsy demonstrates no evidence of pneumothorax. A new opacity in the lateral right midlung stable. Mild atelectasis at the right base, stable. Dex trocardia. CONCLUSION: No evidence of pneumothorax status post right lung biopsy. Chance Nunez MD on December 14, 2017 at 15:49 Board Certified Radiologist. This report was verified electronically.
--- NOTE | 2017-12-14 22:48 | HHI.PR ---
Subjective Remarks Deferred entry - patient seen earlier at 11 am Denies cp/sob. Afebrile Objective Vitals Vital Signs Date Time Temp Pulse Resp B/P (MAP) Pulse Ox O2 Delivery O2 Flow Rate FiO2 12/14/17 20:00 96.6 75 14 105/60 (75) 95 12/14/17 16:00 96.9 71 17 106/58 (74) 95 12/14/17 15:45 60 18 109/63 (78) 97 12/14/17 15:15 61 18 100/55 (70) 98 12/14/17 14:45 97.3 67 18 122/67 (85) 97 12/14/17 12:00 96.5 66 17 108/58 (75) 96 12/14/17 08:00 53 12/14/17 08:00 97.4 61 18 114/69 (84) 96 12/14/17 04:00 95.8 57 20 106/57 (73) 97 I/O 12/13/17 12/13/17 12/13/17 12/14/17 12/14/17 12/14/17 07:00 15:00 23:00 07:00 15:00 23:00 Intake Total 240 ml 900 ml 240 ml 1200 ml Output Total 1000 ml Balance 240 ml -100 ml 240 ml 1200 ml Intake Oral 240 ml 900 ml 240 ml 1200 ml Output Urine Total 1000 ml # Voids 9 # Bowel Movements 1 2 Result Diagram: 12/14/17 1125 12/11/17 1445 Objective Remarks GENERAL: male sitting up in chair, NAD. SKIN: Warm and dry. HEENT: Pupils equal and round. MMM. NECK: Supple no tender LAD or JVD. HEART: RRR no m/r/g. LUNGS:Clear to auscultation BL. No wheezing, rhonchi or rales auscultated. ABDOMEN: Soft, NT, ND. EXTREMITIES: Significant lymphedema of bilateral LE. NEURO: Awake and alert. PSYCH: Appropriate mood and affect. 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 Cavitary Lesion of right upper lobe/atypical PNA TB PCR negative; QF pending On Augmentin for anaerobic coverage of possible PNA secondary to aspiration given cavitary lesion Sputum cultures pending for mycobacteria ID consulted for further evaluation and abx reccs; recommend awaiting final culture Pulm also following and monitoring daily CXRs; today there is a mild increase in size int he right lower lung infiltrate 12/14 for lung biopsy later today. Antibiotics per ID. Dyspnea Improved and patient off oxygen for few days now CTA on admission negative for PE See plans above Lymphedema Lasix 20 mg PO BID Echocardiogram showing situs invertus with normal EF Appreciate cardiology consult To f/u as outpatient in lymphedema clinic Patient had a 2D echo recently on December 09, 2017 which showed a normal ejection fraction 55% and situs inversus. Small pericardial effusion was present. COPD Continue DuoNebs, plus home meds Acute on chronic diastolic heart failure. Cardiology consulted. Echocardiogram as mentioned above. Continue diuresis. DVT Prophylaxis Lovenox Discharge Planning Pending cultures, ID and pulmonary clearance. Pulmonary to do bronchoscopy. Problem Qualifiers (1) CHF (congestive heart failure): Qualified Codes: I50.33 - Acute on chronic diastolic (congestive) heart failure (2) Edema: Qualified Codes: R60.9 - Edema, unspecified Joe Owens MD Dec 14, 2017 22:48
[2017-12-15] VITALS (8 sets, daily range): BP systolic 101–114; BP diastolic 57–64; PULSE 55–88; RESP 14–20; TEMP 96.5–98.7; O2SAT 92–97
[2017-12-15] MEDS: RESP: ALBUTEROL 2.5 MG/IPRATROPIUM 0.5 MG NEB (PRN) NEB ×3 (09:02→20:09)
[2017-12-15] MEDS: POTASSIUM CHLORIDE 10 MEQ CONTROLLED RELEASE TAB PO SCH ×2 (09:29→23:04)
[2017-12-15] MEDS: AMOXICILLIN/CLAVULANATE K 875 MG TAB PO SCH ×2 (09:29→23:04)
[2017-12-15] MEDS: PANTOPRAZOLE SOD 40 MG DELAYED RELEASE TAB PO SCH (09:29)
[2017-12-15] MEDS: FUROSEMIDE 20 MG TAB PO SCH ×2 (09:29→17:50)
[2017-12-15] MEDS: LACTOBACILLUS ACIDOPHILUS TAB PO SCH ×3 (09:30→17:49)
[2017-12-15] MEDS: SODIUM CHLORIDE 0.9% FLUSH 10 ML FLUSH IV FLUSH SCH ×2 (09:30→23:04)
--- NOTE | 2017-12-15 13:20 | PD.CARD.PN ---
Subjective Subjective Remarks No CP, SOB this AM, had lung bx yest Objective Medications Current Medications Medications (Trade) Dose Ordered Sig/Al Route Start Time Stop Time Status Last Admin (NS Flush) 2 ml UNSCH PRN IV FLUSH 12/07/17 04:00 12/09/17 04:12 (NS Flush) 2 ml BID IV FLUSH 12/07/17 09:00 12/15/17 09:30 (Narcan Inj) 0.4 mg UNSCH PRN IV PUSH 12/07/17 04:00 (Duoneb Neb) 1 ampule Q2HR NEB PRN NEB 12/07/17 04:00 12/15/17 13:15 (Lactinex) 1 tab TID PO 12/07/17 09:00 12/15/17 12:15 (Ultram) 50 mg Q8H PRN PO 12/07/17 17:15 12/13/17 06:41 (Tessalon) 200 mg TID PRN PO 12/07/17 18:00 12/12/17 22:21 (KCl) 10 meq Q12HR PO 12/08/17 21:00 12/15/17 09:29 (Augmentin) 875 mg Q12HR PO 12/10/17 21:00 12/15/17 09:29 (Lasix) 20 mg BID@18 PO 12/12/17 18:00 12/15/17 09:29 (Protonix) 40 mg DAILY PO 12/14/17 09:00 12/15/17 09:29 (Mag-Al Plus Susp Liq) 30 ml Q6H PRN PO 12/13/17 18:00 12/13/17 18:30 (Percocet 5-325 Mg) 1 tab Q4H PRN PO 12/14/17 14:30 12/14/17 15:00 Vital Signs / I&O Vital Signs Date Time Temp Pulse Resp B/P (MAP) Pulse Ox O2 Delivery O2 Flow Rate FiO2 12/15/17 12:00 97.5 67 18 112/58 (76) 96 12/15/17 07:53 97.0 61 20 114/57 (76) 96 12/15/17 06:17 55 12/15/17 04:00 96.5 74 14 110/60 (77) 92 2/22/18 00:00 64 12/15/17 00:00 98.7 68 19 101/58 (72) 94 12/14/17 20:00 67 12/14/17 20:00 96.6 75 14 105/60 (75) 95 12/14/17 16:00 96.9 71 17 106/58 (74) 95 12/14/17 15:45 60 18 109/63 (78) 97 12/14/17 15:15 61 18 100/55 (70) 98 12/14/17 14:45 97.3 67 18 122/67 (85) 97 I/O 12/14/17 12/14/17 12/14/17 12/15/17 12/15/17 12/15/17 07:00 15:00 23:00 07:00 15:00 23:00 Intake Total 240 ml 1200 ml 240 ml Balance 240 ml 1200 ml 240 ml Intake Oral 240 ml 1200 ml 240 ml # Voids 9 2 # Bowel Movements 2 0 Physical Exam GENERAL: In NAD SKIN: Warm and dry. HEAD: Normocephalic. EYES: No scleral icterus. No injection or drainage. NECK: Supple, trachea midline. No JVD or lymphadenopathy. CARDIOVASCULAR: Regular rate and rhythm without murmurs, gallops, or rubs. RESPIRATORY: Breath sounds equal bilaterally. No accessory muscle use. Bilat rhonchi. GASTROINTESTINAL: Abdomen soft, non-tender, nondistended. MUSCULOSKELETAL: No cyanosis, bilat LE lymphedema. Assessment and Plan Problem List: (1) COPD with acute exacerbation ICD Codes: J44.1 - Chronic obstructive pulmonary disease with (acute) exacerbation Status: Acute (2) Cavitary lesion of lung ICD Codes: J98.4 - Other disorders of lung (3) Edema ICD Codes: R60.9 - Edema, unspecified Status: Acute (4) CHF (congestive heart failure) ICD Codes: I50.9 - Heart failure, unspecified Status: Chronic (5) Situs inversus ICD Codes: Q89.3 - Situs inversus Status: Chronic Assessment and Plan Remains stable from cardiac standpoint. Still SOB, continue tx for COPD exacerbation. Continue tx for chronic CHF. Continue diuresis for LE lymphedema, will need f/u in lymphedema clinic as outpt. Increase activity, PT. Problem Qualifiers (1) Edema: Qualified Codes: R60.9 - Edema, unspecified (2) CHF (congestive heart failure): Qualified Codes: I50.33 - Acute on chronic diastolic (congestive) heart failure Ramon Shanks MD Dec 15, 2017 13:20
--- NOTE | 2017-12-15 14:54 | HHI.PR ---
Subjective Remarks Denies cp/sob. Objective Vitals Vital Signs Date Time Temp Pulse Resp B/P (MAP) Pulse Ox O2 Delivery O2 Flow Rate FiO2 12/15/17 12:00 97.5 67 18 112/58 (76) 96 12/15/17 07:53 97.0 61 20 114/57 (76) 96 12/15/17 06:17 55 12/15/17 04:00 96.5 74 14 110/60 (77) 92 12/15/17 00:00 64 12/15/17 00:00 98.7 68 19 101/58 (72) 94 12/14/17 20:00 67 12/14/17 20:00 96.6 75 14 105/60 (75) 95 12/14/17 16:00 96.9 71 17 106/58 (74) 95 12/14/17 15:45 60 18 109/63 (78) 97 12/14/17 15:15 61 18 100/55 (70) 98 I/O 12/14/17 12/14/17 12/14/17 12/15/17 12/15/17 12/15/17 06:59 14:59 22:59 06:59 14:59 22:59 Intake Total 240 ml 1200 ml 240 ml Balance 240 ml 1200 ml 240 ml Intake Oral 240 ml 1200 ml 240 ml # Voids 9 2 # Bowel Movements 2 0 Result Diagram: 12/14/17 1125 12/11/17 1445 Imaging Last 72 hours Impressions Lung Biopsy CT 12/14/17 0000 Signed Impressions: Service Date/Time: Thursday, December 14, 2017 13:59 - CONCLUSION: Uncomplicated CT guided biopsy. Juan Navarro MD Chest X-Ray 12/14/17 0000 Signed Impressions: Service Date/Time: Thursday, December 14, 2017 15:24 - CONCLUSION: No evidence of pneumothorax status post right lung biopsy. Chance Nunez MD Objective Remarks GENERAL: male sitting up in chair, NAD. SKIN: Warm and dry. HEENT: Pupils equal and round. MMM. NECK: Supple no tender LAD or JVD. HEART: RRR no m/r/g. LUNGS:Clear to auscultation BL. No wheezing, rhonchi or rales auscultated. ABDOMEN: Soft, NT, ND. EXTREMITIES: Significant lymphedema of bilateral LE. NEURO: Awake and alert. PSYCH: Appropriate mood and affect. 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 Cavitary Lesion of right upper lobe/atypical PNA TB PCR negative; QF pending On Augmentin for anaerobic coverage of possible PNA secondary to aspiration given cavitary lesion Sputum cultures pending for mycobacteria ID consulted for further evaluation and abx reccs; recommend awaiting final culture Pulm also following and monitoring daily CXRs; today there is a mild increase in size int he right lower lung infiltrate 12/14 for lung biopsy later today. Antibiotics per ID. 12/15 sp RUL lung biopsy results pending. Dyspnea Improved and patient off oxygen for few days now CTA on admission negative for PE See plans above Lymphedema Lasix 20 mg PO BID Echocardiogram showing situs invertus with normal EF Appreciate cardiology consult To f/u as outpatient in lymphedema clinic Patient had a 2D echo recently on December 09, 2017 which showed a normal ejection fraction 55% and situs inversus. Small pericardial effusion was present. COPD Continue DuoNebs, plus home meds Acute on chronic diastolic heart failure. Cardiology consulted. Echocardiogram as mentioned above. Continue diuresis. DVT Prophylaxis Lovenox Discharge Planning Pending cultures, ID and pulmonary clearance. Pulmonary to do bronchoscopy. Problem Qualifiers (1) CHF (congestive heart failure): Qualified Codes: I50.33 - Acute on chronic diastolic (congestive) heart failure (2) Edema: Qualified Codes: R60.9 - Edema, unspecified Joe Owens MD Dec 15, 2017 14:53
[2017-12-15 15:18] LABS: BASOPHIL # 0.1 TH/MM3 (0-0.2); BASOPHIL % 1.1 % (0.0-2.0); EOSINOPHIL # 0.2 TH/MM3 (0-0.4); EOSINOPHIL % 2.7 % (0.0-4.0); HEMATOCRIT 35.3 % (39.0-51.0); HEMOGLOBIN 11.8 GM/DL (13.0-17.0); LYMPHOCYTE # 1.2 TH/MM3 (1.0-4.8); MEAN CELL VOLUME 85.9 FL (80.0-100.0); MEAN CORPUSCULAR HEMOGLOBIN 28.8 PG (27.0-34.0); MEAN CORPUSCULAR HGB CONC 33.5 % (32.0-36.0); MEAN PLATELET VOLUME 6.1 FL (7.0-11.0); MONO % 8.5 % (0.0-8.0); MONOCYTE # 0.7 TH/MM3 (0-0.9); NEUT % 72.7 % (16.0-70.0); PLATELET COUNT 475 TH/MM3 (150-450); RED BLOOD COUNT 4.11 MIL/MM3 (4.50-5.90); RED CELL DISTRIBUTION WIDTH 14.1 % (11.6-17.2); WHITE BLOOD COUNT 8.2 TH/MM3 (4.0-11.0)
[2017-12-15 15:44] LABS: ALBUMIN 3.2 GM/DL (3.4-5.0); ALT (GPT) 26 U/L (12-78); AST (GOT) 17 U/L (15-37); BLOOD UREA NITROGEN 17 MG/DL (7-18); CALCIUM 8.8 MG/DL (8.5-10.1); CHLORIDE 99 MEQ/L (98-107); CREATININE 1.17 MG/DL (0.60-1.30); GLOMERULAR FILTRATION RATE 63 ML/MIN (>89); GLUCOSE,RANDOM 79 MG/DL (74-106); SODIUM (NA) 134 MEQ/L (136-145)
[2017-12-15 15:47] LABS: ALKALINE PHOSPHATASE 118 U/L (45-117); TOTAL BILIRUBIN ADULT 0.2 MG/DL (0.2-1.0); TOTAL PROTEIN 7.8 GM/DL (6.4-8.2)
--- NOTE | 2017-12-15 17:02 | HHI.PR ---
Subjective Remarks ALERT NO SOB AT REST OOB Objective Vital Signs Date Time Temp Pulse Resp B/P (MAP) Pulse Ox O2 Delivery O2 Flow Rate FiO2 12/15/17 16:00 97.0 88 20 107/64 (78) 97 12/15/17 12:00 97.5 67 18 112/58 (76) 96 12/15/17 07:53 97.0 61 20 114/57 (76) 96 12/15/17 06:17 55 12/15/17 04:00 96.5 74 14 110/60 (77) 92 12/15/17 00:00 64 12/15/17 00:00 98.7 68 19 101/58 (72) 94 12/14/17 20:00 67 12/14/17 20:00 96.6 75 14 105/60 (75) 95 I/O 12/14/17 12/14/17 12/14/17 12/15/17 12/15/17 12/15/17 07:00 15:00 23:00 07:00 15:00 23:00 Intake Total 240 ml 1200 ml 240 ml 840 ml Balance 240 ml 1200 ml 240 ml 840 ml Intake Oral 240 ml 1200 ml 240 ml 840 ml # Voids 9 2 3 # Bowel Movements 2 0 1 Result Diagram: 12/15/17 1455 12/15/17 1455 Objective Remarks GENERAL: SKIN: Warm and dry. HEAD: Atraumatic. Normocephalic. EYES: Pupils equal and round. No scleral icterus. No injection or drainage. ENT: No nasal bleeding or discharge. Mucous membranes pink and moist. NECK: Trachea midline. No JVD. CARDIOVASCULAR: Regular rate and rhythm. RESPIRATORY: No accessory muscle use. Clear to auscultation. Breath sounds equal bilaterally. GASTROINTESTINAL: Abdomen soft, non-tender, nondistended. Hepatic and splenic margins not palpable. MUSCULOSKELETAL: Extremities without clubbing, cyanosis, or edema. No obvious deformities. NEUROLOGICAL: Awake and alert. No obvious cranial nerve deficits. Motor grossly within normal limits. Five out of 5 muscle strength in the arms and legs. Normal speech. PSYCHIATRIC: Appropriate mood and affect; insight and judgment normal. Assessment and Plan Assessment and Plan ASSESSMENT COPD CHF CAVITARY LESION RUL , NOT PRESENT IN OLD FILMS PLAN O2 NEEDED BRONCHODILATOR THERAPY ANTIBX HAD CT CHEST 2009 AND 14 WILL ASK RADIOLOGY FOR COMPARISON NEEDLE BX RUL DONE RESULTS PENDING Leona Delgadillo MD Dec 15, 2017 17:02
[2017-12-15] MEDS: oxyCODONE/ACETAMINOPHEN 5 MG/325 MG TAB PO PRN (23:10)
[2017-12-16] VITALS: BP 116/62; PULSE 76; RESP 20; TEMP 97; O2SAT 95
[2017-12-16] MEDS: ALUMINUM/MAGNESIUM/SIMETH 30 ML CUP PO PRN (01:29)
[2017-12-16 04:00] VITALS: BP 100/58; PULSE 62; RESP 18; TEMP 96.5; O2SAT 96
[2017-12-16 08:00] VITALS: BP 106/64; PULSE 63; RESP 18; TEMP 96.9; O2SAT 92
[2017-12-16] MEDS: LACTOBACILLUS ACIDOPHILUS TAB PO SCH ×3 (09:40→17:41)
[2017-12-16] MEDS: AMOXICILLIN/CLAVULANATE K 875 MG TAB PO SCH ×2 (09:40→19:27)
[2017-12-16] MEDS: PANTOPRAZOLE SOD 40 MG DELAYED RELEASE TAB PO SCH (09:40)
[2017-12-16] MEDS: FUROSEMIDE 20 MG TAB PO SCH ×2 (09:41→17:41)
[2017-12-16] MEDS: POTASSIUM CHLORIDE 10 MEQ CONTROLLED RELEASE TAB PO SCH ×2 (09:41→19:27)
[2017-12-16] MEDS: SODIUM CHLORIDE 0.9% FLUSH 10 ML FLUSH IV FLUSH SCH ×2 (09:41→19:28)
[2017-12-16 12:00] VITALS: BP 116/64; PULSE 65; RESP 19; TEMP 97.4; O2SAT 95
--- NOTE | 2017-12-16 14:39 | HHI.PR ---
Subjective Remarks ALERT NO SOB AT REST OOB Objective Vital Signs Date Time Temp Pulse Resp B/P (MAP) Pulse Ox O2 Delivery O2 Flow Rate FiO2 12/16/17 08:00 96.9 63 18 106/64 (78) 92 12/16/17 04:00 96.5 62 18 100/58 (72) 96 12/16/17 00:00 97.0 76 20 116/62 (80) 95 12/15/17 20:00 98.1 73 20 111/59 (76) 96 12/15/17 16:00 97.0 88 20 107/64 (78) 97 I/O 12/15/17 12/15/17 12/15/17 12/16/17 12/16/17 12/16/17 07:00 15:00 23:00 07:00 15:00 23:00 Intake Total 240 ml 840 ml 360 ml Balance 240 ml 840 ml 360 ml Intake Oral 240 ml 840 ml 360 ml # Voids 2 3 4 # Bowel Movements 0 1 1 Result Diagram: 12/15/17 1455 12/15/17 1455 Objective Remarks GENERAL: SKIN: Warm and dry. HEAD: Atraumatic. Normocephalic. EYES: Pupils equal and round. No scleral icterus. No injection or drainage. ENT: No nasal bleeding or discharge. Mucous membranes pink and moist. NECK: Trachea midline. No JVD. CARDIOVASCULAR: Regular rate and rhythm. RESPIRATORY: No accessory muscle use. Clear to auscultation. Breath sounds equal bilaterally. GASTROINTESTINAL: Abdomen soft, non-tender, nondistended. Hepatic and splenic margins not palpable. MUSCULOSKELETAL: Extremities without clubbing, cyanosis, or edema. No obvious deformities. NEUROLOGICAL: Awake and alert. No obvious cranial nerve deficits. Motor grossly within normal limits. Five out of 5 muscle strength in the arms and legs. Normal speech. PSYCHIATRIC: Appropriate mood and affect; insight and judgment normal. Assessment and Plan Assessment and Plan ASSESSMENT path benign , acte + chroni PNA COPD CHF CAVITARY LESION RUL , NOT PRESENT IN OLD FILMS PLAN O2 NEEDED BRONCHODILATOR THERAPY ANTIBX HAD CT CHEST 2009 WILL ASK RADIOLOGY FOR COMPARISON OK FOR D/C ON PO ANTIBX 2 WEEKS , SEE IN OFFICE 3 WEEKS+CXRAY WILL SIGN OFF, THANK YOU Leona Delgadillo MD Dec 16, 2017 14:39
--- NOTE | 2017-12-16 15:37 | HHI.PR ---
Subjective Remarks ALERT NO SOB AT REST OOB Objective Vital Signs Date Time Temp Pulse Resp B/P (MAP) Pulse Ox O2 Delivery O2 Flow Rate FiO2 12/16/17 12:00 97.4 65 19 116/64 (81) 95 12/16/17 08:00 96.9 63 18 106/64 (78) 92 12/16/17 04:00 96.5 62 18 100/58 (72) 96 12/16/17 00:00 97.0 76 20 116/62 (80) 95 12/15/17 20:00 98.1 73 20 111/59 (76) 96 12/15/17 16:00 97.0 88 20 107/64 (78) 97 I/O 12/15/17 12/15/17 12/15/17 12/16/17 12/16/17 12/16/17 07:00 15:00 23:00 07:00 15:00 23:00 Intake Total 240 ml 840 ml 360 ml Balance 240 ml 840 ml 360 ml Intake Oral 240 ml 840 ml 360 ml # Voids 2 3 4 # Bowel Movements 0 1 1 Result Diagram: 12/15/17 1455 12/15/17 1455 Objective Remarks GENERAL: SKIN: Warm and dry. HEAD: Atraumatic. Normocephalic. EYES: Pupils equal and round. No scleral icterus. No injection or drainage. ENT: No nasal bleeding or discharge. Mucous membranes pink and moist. NECK: Trachea midline. No JVD. CARDIOVASCULAR: Regular rate and rhythm. RESPIRATORY: No accessory muscle use. Clear to auscultation. Breath sounds equal bilaterally. GASTROINTESTINAL: Abdomen soft, non-tender, nondistended. Hepatic and splenic margins not palpable. MUSCULOSKELETAL: Extremities without clubbing, cyanosis, or edema. No obvious deformities. NEUROLOGICAL: Awake and alert. No obvious cranial nerve deficits. Motor grossly within normal limits. Five out of 5 muscle strength in the arms and legs. Normal speech. PSYCHIATRIC: Appropriate mood and affect; insight and judgment normal. Assessment and Plan Assessment and Plan ASSESSMENT path benign , acte + chroni PNA COPD CHF PLAN O2 NEEDED BRONCHODILATOR THERAPY ANTIBX FOR D/C ON PO ANTIBX 2 WEEKS , SEE IN OFFICE 3 WEEKS+CXRAY WILL SIGN OFF, THANK YOU Leona Delgadillo MD Dec 16, 2017 15:37
[2017-12-16 16:00] VITALS: BP 113/64; PULSE 62; RESP 18; TEMP 96.8; O2SAT 98
--- NOTE | 2017-12-16 16:05 | PD.CARD.PN ---
Subjective Subjective Remarks No CP, intermittent dyspnea, relieved with nebulizers Objective Medications Current Medications Medications (Trade) Dose Ordered Sig/Al Route Start Time Stop Time Status Last Admin (NS Flush) 2 ml UNSCH PRN IV FLUSH 12/07/17 04:00 12/09/17 04:12 (NS Flush) 2 ml BID IV FLUSH 12/07/17 09:00 12/16/17 09:41 (Narcan Inj) 0.4 mg UNSCH PRN IV PUSH 12/07/17 04:00 (Duoneb Neb) 1 ampule Q2HR NEB PRN NEB 12/07/17 04:00 12/15/17 20:09 (Lactinex) 1 tab TID PO 12/07/17 09:00 12/16/17 13:41 (Ultram) 50 mg Q8H PRN PO 12/07/17 17:15 12/13/17 06:41 (Tessalon) 200 mg TID PRN PO 12/07/17 18:00 12/12/17 22:21 (KCl) 10 meq Q12HR PO 12/08/17 21:00 12/16/17 09:41 (Augmentin) 875 mg Q12HR PO 12/10/17 21:00 12/16/17 09:40 (Lasix) 20 mg BID@18 PO 12/12/17 18:00 12/16/17 09:41 (Protonix) 40 mg DAILY PO 12/14/17 09:00 12/16/17 09:40 (Mag-Al Plus Susp Liq) 30 ml Q6H PRN PO 12/13/17 18:00 12/16/17 01:29 (Percocet 5-325 Mg) 1 tab Q4H PRN PO 12/14/17 14:30 12/15/17 23:10 Vital Signs / I&O Vital Signs Date Time Temp Pulse Resp B/P (MAP) Pulse Ox O2 Delivery O2 Flow Rate FiO2 12/16/17 12:00 97.4 65 19 116/64 (81) 95 12/16/17 08:00 96.9 63 18 106/64 (78) 92 12/16/17 04:00 96.5 62 18 100/58 (72) 96 12/16/17 00:00 97.0 76 20 116/62 (80) 95 12/15/17 20:00 98.1 73 20 111/59 (76) 96 I/O 12/15/17 12/15/17 12/15/17 12/16/17 12/16/17 12/16/17 07:00 15:00 23:00 07:00 15:00 23:00 Intake Total 240 ml 840 ml 360 ml Balance 240 ml 840 ml 360 ml Intake Oral 240 ml 840 ml 360 ml # Voids 2 3 4 # Bowel Movements 0 1 1 Physical Exam GENERAL: In NAD SKIN: Warm and dry. HEAD: Normocephalic. EYES: No scleral icterus. No injection or drainage. NECK: Supple, trachea midline. No JVD or lymphadenopathy. CARDIOVASCULAR: Regular rate and rhythm without murmurs, gallops, or rubs. RESPIRATORY: Breath sounds equal bilaterally. No accessory muscle use. Bilat rhonchi. GASTROINTESTINAL: Abdomen soft, non-tender, nondistended. MUSCULOSKELETAL: No cyanosis, bilat LE lymphedema. Assessment and Plan Problem List: (1) COPD with acute exacerbation ICD Codes: J44.1 - Chronic obstructive pulmonary disease with (acute) exacerbation Status: Acute (2) Cavitary lesion of lung ICD Codes: J98.4 - Other disorders of lung (3) Edema ICD Codes: R60.9 - Edema, unspecified Status: Acute (4) CHF (congestive heart failure) ICD Codes: I50.9 - Heart failure, unspecified Status: Chronic (5) Situs inversus ICD Codes: Q89.3 - Situs inversus Status: Chronic Assessment and Plan No new cardiac issues. Still SOB, continue tx for COPD exacerbation. Continue tx for chronic CHF. Continue and titrate diuresis for LE lymphedema, will need f /u in lymphedema clinic as outpt. Increase activity, PT. Await results of lung bx. Problem Qualifiers (1) Edema: Qualified Codes: R60.9 - Edema, unspecified (2) CHF (congestive heart failure): Qualified Codes: I50.33 - Acute on chronic diastolic (congestive) heart failure Ramon Shanks MD Dec 16, 2017 16:05
[2017-12-16] MEDS: RESP: ALBUTEROL 2.5 MG/IPRATROPIUM 0.5 MG NEB (PRN) NEB (17:31)
--- NOTE | 2017-12-16 18:41 | HHI.PR ---
Subjective Remarks Patient denies cp/sob. Denies cough. Afebrile Objective Vitals Vital Signs Date Time Temp Pulse Resp B/P (MAP) Pulse Ox O2 Delivery O2 Flow Rate FiO2 12/16/17 16:00 96.8 62 18 113/64 (80) 98 12/16/17 12:00 97.4 65 19 116/64 (81) 95 12/16/17 08:00 96.9 63 18 106/64 (78) 92 12/16/17 04:00 96.5 62 18 100/58 (72) 96 12/16/17 00:00 97.0 76 20 116/62 (80) 95 12/15/17 20:00 98.1 73 20 111/59 (76) 96 I/O 12/15/17 12/15/17 12/15/17 12/16/17 12/16/17 12/16/17 06:59 14:59 22:59 06:59 14:59 22:59 Intake Total 240 ml 840 ml 360 ml Balance 240 ml 840 ml 360 ml Intake Oral 240 ml 840 ml 360 ml # Voids 2 3 4 # Bowel Movements 0 1 1 Result Diagram: 12/15/17 1455 12/15/17 1455 Imaging Last Impressions Lung Biopsy CT 12/14/17 0000 Signed Impressions: Service Date/Time: Thursday, December 14, 2017 13:59 - CONCLUSION: Uncomplicated CT guided biopsy. Juan Navarro MD Chest X-Ray 12/14/17 0000 Signed Impressions: Service Date/Time: Thursday, December 14, 2017 15:24 - CONCLUSION: No evidence of pneumothorax status post right lung biopsy. Chance Nunez MD CT Angiography 12/07/17 0156 Signed Impressions: Service Date/Time: Thursday, December 07, 2017 02:11 - CONCLUSION: There is no evidence for pulmonary embolism. Bronchiectasis, mucous plugging, consolidation and bilateral reticular nodular infiltrates are identified. There is also a cavitary focus of masslike consolidation in the right upper lobe. Atypical infectious processes, fungal or mycobacterial should be entertained. Followup is recommended after appropriate clinical therapy to ensure resolution of these findings particularly the cavitary right upper lobe focus. Jesus Taylor MD Lower Extremity Ultrasound 12/07/17 0000 Signed Impressions: Service Date/Time: Thursday, December 07, 2017 22:21 - CONCLUSION: Normal examination. Jesus Taylor MD Objective Remarks GENERAL: male sitting up in chair, NAD. SKIN: Warm and dry. HEENT: Pupils equal and round. MMM. NECK: Supple no tender LAD or JVD. HEART: RRR no m/r/g. LUNGS:Clear to auscultation BL. No wheezing, rhonchi or rales auscultated. ABDOMEN: Soft, NT, ND. EXTREMITIES: Significant lymphedema of bilateral LE. NEURO: Awake and alert. PSYCH: Appropriate mood and affect. Medications and IVs Current Medications Medications (Trade) Dose Ordered Sig/Al Route Start Time Stop Time Status Last Admin (NS Flush) 2 ml UNSCH PRN IV FLUSH 12/07/17 04:00 12/09/17 04:12 (NS Flush) 2 ml BID IV FLUSH 12/07/17 09:00 12/16/17 09:41 (Narcan Inj) 0.4 mg UNSCH PRN IV PUSH 12/07/17 04:00 (Duoneb Neb) 1 ampule Q2HR NEB PRN NEB 12/07/17 04:00 12/16/17 17:31 (Lactinex) 1 tab TID PO 12/07/17 09:00 12/16/17 17:41 (Ultram) 50 mg Q8H PRN PO 12/07/17 17:15 12/13/17 06:41 (Tessalon) 200 mg TID PRN PO 12/07/17 18:00 12/12/17 22:21 (KCl) 10 meq Q12HR PO 12/08/17 21:00 12/16/17 09:41 (Augmentin) 875 mg Q12HR PO 12/10/17 21:00 12/16/17 09:40 (Lasix) 20 mg BID@18 PO 12/12/17 18:00 12/16/17 17:41 (Protonix) 40 mg DAILY PO 12/14/17 09:00 12/16/17 09:40 (Mag-Al Plus Susp Liq) 30 ml Q6H PRN PO 12/13/17 18:00 12/16/17 01:29 (Percocet 5-325 Mg) 1 tab Q4H PRN PO 12/14/17 14:30 12/15/17 23:10 A/P Problem List: (1) Cavitary lesion of lung ICD Code: J98.4 - Other disorders of lung (2) Dyspnea ICD Code: R06.00 - Dyspnea, unspecified (3) 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 Cavitary Lesion of right upper lobe/atypical PNA TB PCR negative; QF pending On Augmentin for anaerobic coverage of possible PNA secondary to aspiration given cavitary lesion Sputum cultures pending for mycobacteria ID consulted for further evaluation and abx reccs; recommend awaiting final culture Pulm also following and monitoring daily CXRs; today there is a mild increase in size int he right lower lung infiltrate 12/14 for lung biopsy later today. Antibiotics per ID. 12/16 lung biopsy showed chronic organizing pneumonia. Pulmonology has cleared patient to be discharged on p.o. antibiotics. Pending recommendations from ID regarding oral antibiotics for the patient to be discharged on. Continue Augmentin. Dyspnea Improved and patient off oxygen for few days now CTA on admission negative for PE See plans above Lymphedema Lasix 20 mg PO BID Echocardiogram showing situs invertus with normal EF Appreciate cardiology consult To f/u as outpatient in lymphedema clinic Patient had a 2D echo recently on December 09, 2017 which showed a normal ejection fraction 55% and situs inversus. Small pericardial effusion was present. COPD Continue DuoNebs, plus home meds Acute on chronic diastolic heart failure. Cardiology consulted. Echocardiogram as mentioned above. Continue diuresis. DVT Prophylaxis Lovenox Discharge Planning Dc pending ID recommendations. Anticipate DC in am. Problem Qualifiers (1) CHF (congestive heart failure): Qualified Codes: I50.33 - Acute on chronic diastolic (congestive) heart failure (2) Edema: Qualified Codes: R60.9 - Edema, unspecified Joe Owens MD Dec 16, 2017 18:41
--- NOTE | 2017-12-16 18:43 | HHI.IDPN ---
Subjective Subjective Remarks no new co pt wants to go home pt's path cw PNA, no malignancy no growth on sputum clx Antibiotics augmentin Allergies: Coded Allergies: No Known Allergies (Verified Allergy, Unknown, 12/07/17) Objective . Vital Signs Date Time Temp Pulse Resp B/P (MAP) Pulse Ox O2 Delivery O2 Flow Rate FiO2 12/16/17 16:00 96.8 62 18 113/64 (80) 98 12/16/17 12:00 97.4 65 19 116/64 (81) 95 12/16/17 08:00 96.9 63 18 106/64 (78) 92 12/16/17 04:00 96.5 62 18 100/58 (72) 96 12/16/17 00:00 97.0 76 20 116/62 (80) 95 12/15/17 20:00 98.1 73 20 111/59 (76) 96 . Laboratory Tests Test 12/15/17 14:55 White Blood Count 8.2 TH/MM3 Red Blood Count 4.11 MIL/MM3 Hemoglobin 11.8 GM/DL Hematocrit 35.3 % Mean Corpuscular Volume 85.9 FL Mean Corpuscular Hemoglobin 28.8 PG Mean Corpuscular Hemoglobin Concent 33.5 % Red Cell Distribution Width 14.1 % Platelet Count 475 TH/MM3 Mean Platelet Volume 6.1 FL Neutrophils (%) (Auto) 72.7 % Lymphocytes (%) (Auto) 15.0 % Monocytes (%) (Auto) 8.5 % Eosinophils (%) (Auto) 2.7 % Basophils (%) (Auto) 1.1 % Neutrophils # (Auto) 6.0 TH/MM3 Lymphocytes # (Auto) 1.2 TH/MM3 Monocytes # (Auto) 0.7 TH/MM3 Eosinophils # (Auto) 0.2 TH/MM3 Basophils # (Auto) 0.1 TH/MM3 CBC Comment DIFF FINAL Differential Comment Laboratory Tests Test 12/15/17 14:55 Blood Urea Nitrogen 17 MG/DL Creatinine 1.17 MG/DL Random Glucose 79 MG/DL Total Protein 7.8 GM/DL Albumin 3.2 GM/DL Calcium Level 8.8 MG/DL Alkaline Phosphatase 118 U/L Aspartate Amino Transf (AST/SGOT) 17 U/L Alanine Aminotransferase (ALT/SGPT) 26 U/L Total Bilirubin 0.2 MG/DL Sodium Level 134 MEQ/L Potassium Level 4.1 MEQ/L Chloride Level 99 MEQ/L Carbon Dioxide Level 28.0 MEQ/L Anion Gap 7 MEQ/L Estimat Glomerular Filtration Rate 63 ML/MIN Microbiology Date/Time Source Procedure Growth Status 12/14/17 14:15 Wound Lung Fungal Smear - Final NO FUNGAL ELEMENTS SEEN. Resulted 12/14/17 14:15 Wound Lung Fungal Culture Pending Resulted 12/14/17 14:15 Wound Lung Acid Fast Stain - Final NO ACID FAST BACILLI SEEN Resulted 12/14/17 14:15 Wound Lung Mycobacterial Culture Pending Resulted 12/14/17 14:15 Wound Lung Gram Stain - Final Resulted 12/14/17 14:15 Wound Lung Wound Culture - Preliminary NO GROWTH IN 48 HOURS. Resulted Imaging Last Impressions Lung Biopsy CT 12/14/17 0000 Signed Impressions: Service Date/Time: Thursday, December 14, 2017 13:59 - CONCLUSION: Uncomplicated CT guided biopsy. Juan Navarro MD Chest X-Ray 12/14/17 0000 Signed Impressions: Service Date/Time: Thursday, December 14, 2017 15:24 - CONCLUSION: No evidence of pneumothorax status post right lung biopsy. Chance Nunez MD CT Angiography 12/07/17 0156 Signed Impressions: Service Date/Time: Thursday, December 07, 2017 02:11 - CONCLUSION: There is no evidence for pulmonary embolism. Bronchiectasis, mucous plugging, consolidation and bilateral reticular nodular infiltrates are identified. There is also a cavitary focus of masslike consolidation in the right upper lobe. Atypical infectious processes, fungal or mycobacterial should be entertained. Followup is recommended after appropriate clinical therapy to ensure resolution of these findings particularly the cavitary right upper lobe focus. Jesus Taylor MD Lower Extremity Ultrasound 12/07/17 0000 Signed Impressions: Service Date/Time: Thursday, December 07, 2017 22:21 - CONCLUSION: Normal examination. Jesus Taylor MD Physical Exam CONSTITUTIONAL/GENERAL: This is an adequately nourished patient, in no apparent distress. SKIN: No jaundice, rashes, or lesions. Skin temperature appropriate. Not diaphoretic. RESPIRATORY/CHEST: Symmetric, unlabored respirations. MUSCULOSKELETAL: Extremities without clubbing, cyanosis, Improved edema. NEUROLOGICAL: Awake and alert. non focal Assessment & Plan Remarks Assessment and Plan Assessment and Plan Atypical cavitary PNA. Differential include bacterial vs mycobacterial vs fungal ethiology MTB probe and quantiferron negative CT from 2013 and 2018 compares: L lung changes appear chronic, RUL lesion is definetely new cont augmentin x 2 more weeks then f/u with Dr Delgadillo repeat CT in 2 weeks fu routin [employer], fungal clx dw Felicity Fabian MD Dec 16, 2017 18:43
[2017-12-16 20:00] VITALS: BP 111/57; PULSE 64; RESP 22; TEMP 97.8; O2SAT 97
[2017-12-17] VITALS: BP 109/60; PULSE 68; RESP 20; TEMP 99; O2SAT 95
[2017-12-17 04:00] VITALS: BP 104/56; PULSE 62; RESP 20; TEMP 96.2; O2SAT 95
[2017-12-17] MEDS: RESP: ALBUTEROL 2.5 MG/IPRATROPIUM 0.5 MG NEB (PRN) NEB (06:17)
[2017-12-17 08:00] VITALS: BP 119/62; PULSE 78; RESP 20; TEMP 97.6; O2SAT 93
[2017-12-17] MEDS: AMOXICILLIN/CLAVULANATE K 875 MG TAB PO SCH ×2 (09:39→20:05)
[2017-12-17] MEDS: POTASSIUM CHLORIDE 10 MEQ CONTROLLED RELEASE TAB PO SCH ×2 (09:39→20:05)
[2017-12-17] MEDS: LACTOBACILLUS ACIDOPHILUS TAB PO SCH ×3 (09:39→18:21)
[2017-12-17] MEDS: PANTOPRAZOLE SOD 40 MG DELAYED RELEASE TAB PO SCH (09:39)
[2017-12-17] MEDS: FUROSEMIDE 20 MG TAB PO SCH (09:39)
[2017-12-17] MEDS: SODIUM CHLORIDE 0.9% FLUSH 10 ML FLUSH IV FLUSH SCH ×2 (09:40→20:05)
[2017-12-17] MEDS ORDERED: METO5TAB3 PO (10:28)
[2017-12-17 12:00] VITALS: BP 110/56; PULSE 62; RESP 18; TEMP 96.9; O2SAT 96
--- NOTE | 2017-12-17 12:16 | HHI.PR ---
Subjective Remarks Patient denies any CP, SOB, reports edema of lower extremities b/l. Objective Vital Signs Vital Signs Date Time Temp Pulse Resp B/P (MAP) Pulse Ox O2 Delivery O2 Flow Rate FiO2 12/17/17 08:00 97.6 78 20 119/62 (81) 93 12/17/17 04:00 96.2 62 20 104/56 (72) 95 12/17/17 00:00 99.0 68 20 109/60 (76) 95 12/16/17 20:00 97.8 64 22 111/57 (75) 97 12/16/17 16:00 96.8 62 18 113/64 (80) 98 I/O 12/16/17 12/16/17 12/16/17 12/17/17 12/17/17 12/17/17 07:00 15:00 23:00 07:00 15:00 23:00 Intake Total 360 ml 720 ml 360 ml Balance 360 ml 720 ml 360 ml Intake Oral 360 ml 720 ml 360 ml # Voids 4 7 3 # Bowel Movements 1 2 1 Result Diagram: 12/15/17 1455 12/15/17 1455 Other Results Last Impressions Lung Biopsy CT 12/14/17 0000 Signed Impressions: Service Date/Time: Thursday, December 14, 2017 13:59 - CONCLUSION: Uncomplicated CT guided biopsy. Juan Navarro MD Chest X-Ray 12/14/17 0000 Signed Impressions: Service Date/Time: Thursday, December 14, 2017 15:24 - CONCLUSION: No evidence of pneumothorax status post right lung biopsy. Chance Nunez MD CT Angiography 12/07/17 0156 Signed Impressions: Service Date/Time: Thursday, December 07, 2017 02:11 - CONCLUSION: There is no evidence for pulmonary embolism. Bronchiectasis, mucous plugging, consolidation and bilateral reticular nodular infiltrates are identified. There is also a cavitary focus of masslike consolidation in the right upper lobe. Atypical infectious processes, fungal or mycobacterial should be entertained. Followup is recommended after appropriate clinical therapy to ensure resolution of these findings particularly the cavitary right upper lobe focus. Jesus Taylor MD Lower Extremity Ultrasound 12/07/17 0000 Signed Impressions: Service Date/Time: Thursday, December 07, 2017 22:21 - CONCLUSION: Normal examination. Jesus Taylor MD Objective Remarks GENERAL: Patient is sitting in chair in NAD SKIN: Warm and dry. HEAD: Normocephalic. EYES: No scleral icterus. No injection or drainage. NECK: Supple, trachea midline. No JVD or lymphadenopathy. CARDIOVASCULAR: Regular rate and rhythm without murmurs, gallops, or rubs. RESPIRATORY: Breath sounds equal bilaterally. No accessory muscle use. GASTROINTESTINAL: Abdomen soft, non-tender, nondistended. MUSCULOSKELETAL: No cyanosis,+ 4edema with erythema Neuro: Awake and alert A/P Assessment and Plan 1)Mass like consolidation RUL 2)s/p CT guided lung biopsy Path: Chronic organizing pneumonia 3)Bronchiectasis 4)Cellulites LE 5)CHF Plan Oxygen PRN keep sat >92% Bronchodilators Will need repeat CT chest in 6 weeks as outpatient will follow up with Leona Mosher per ID. GI/DVT prophylaxis Continue treatment plan Lydia Nowak MD Dec 17, 2017 12:16
[2017-12-17] MEDS: METOLAZONE 5 MG TAB PO SCH (13:55)
--- NOTE | 2017-12-17 15:43 | HHI.PR ---
Subjective Remarks Patient complaints of erythema and tenderness which has worsened on the left lower extremity. Denies fevers or chills. Denies of worsening edema in bilateral extremities. Objective Vitals Vital Signs Date Time Temp Pulse Resp B/P (MAP) Pulse Ox O2 Delivery O2 Flow Rate FiO2 12/17/17 12:00 96.9 62 18 110/56 (74) 96 12/17/17 08:00 97.6 78 20 119/62 (81) 93 12/17/17 04:00 96.2 62 20 104/56 (72) 95 12/17/17 00:00 99.0 68 20 109/60 (76) 95 12/16/17 20:00 97.8 64 22 111/57 (75) 97 12/16/17 16:00 96.8 62 18 113/64 (80) 98 I/O 12/16/17 12/16/17 12/16/17 12/17/17 12/17/17 12/17/17 07:00 15:00 23:00 07:00 15:00 23:00 Intake Total 360 ml 720 ml 360 ml Balance 360 ml 720 ml 360 ml Intake Oral 360 ml 720 ml 360 ml # Voids 4 7 3 # Bowel Movements 1 2 1 Result Diagram: 12/15/17 1455 12/15/17 1455 Imaging Last Impressions Lung Biopsy CT 12/14/17 0000 Signed Impressions: Service Date/Time: Thursday, December 14, 2017 13:59 - CONCLUSION: Uncomplicated CT guided biopsy. Juan Navarro MD Chest X-Ray 12/14/17 0000 Signed Impressions: Service Date/Time: Thursday, December 14, 2017 15:24 - CONCLUSION: No evidence of pneumothorax status post right lung biopsy. Chance Nunez MD CT Angiography 12/07/17 0156 Signed Impressions: Service Date/Time: Thursday, December 07, 2017 02:11 - CONCLUSION: There is no evidence for pulmonary embolism. Bronchiectasis, mucous plugging, consolidation and bilateral reticular nodular infiltrates are identified. There is also a cavitary focus of masslike consolidation in the right upper lobe. Atypical infectious processes, fungal or mycobacterial should be entertained. Followup is recommended after appropriate clinical therapy to ensure resolution of these findings particularly the cavitary right upper lobe focus. Jesus Taylor MD Lower Extremity Ultrasound 12/07/17 0000 Signed Impressions: Service Date/Time: Thursday, December 07, 2017 22:21 - CONCLUSION: Normal examination. Jesus Taylor MD Objective Remarks GENERAL: male sitting up in chair, NAD. SKIN: Warm and dry. HEENT: Pupils equal and round. MMM. NECK: Supple no tender LAD or JVD. HEART: RRR no m/r/g. LUNGS:Clear to auscultation BL. No wheezing, rhonchi or rales auscultated. ABDOMEN: Soft, NT, ND. EXTREMITIES: Significant lymphedema of bilateral LE. NEURO: Awake and alert. PSYCH: Appropriate mood and affect. Medications and IVs Current Medications Medications (Trade) Dose Ordered Sig/Al Route Start Time Stop Time Status Last Admin (NS Flush) 2 ml UNSCH PRN IV FLUSH 12/07/17 04:00 12/09/17 04:12 (NS Flush) 2 ml BID IV FLUSH 12/07/17 09:00 12/17/17 09:40 (Narcan Inj) 0.4 mg UNSCH PRN IV PUSH 12/07/17 04:00 (Duoneb Neb) 1 ampule Q2HR NEB PRN NEB 12/07/17 04:00 12/17/17 06:17 (Lactinex) 1 tab TID PO 12/07/17 09:00 12/17/17 13:00 (Ultram) 50 mg Q8H PRN PO 12/07/17 17:15 12/13/17 06:41 (Tessalon) 200 mg TID PRN PO 12/07/17 18:00 12/12/17 22:21 (KCl) 10 meq Q12HR PO 12/08/17 21:00 12/17/17 09:39 (Augmentin) 875 mg Q12HR PO 12/10/17 21:00 12/17/17 09:39 (Protonix) 40 mg DAILY PO 12/14/17 09:00 12/17/17 09:39 (Mag-Al Plus Susp Liq) 30 ml Q6H PRN PO 12/13/17 18:00 12/16/17 01:29 (Percocet 5-325 Mg) 1 tab Q4H PRN PO 12/14/17 14:30 12/15/17 23:10 (Lasix) 80 mg BID PO 12/17/17 21:00 (Zaroxolyn) 5 mg DAILY PO 12/17/17 11:00 12/17/17 13:55 (Duoneb Neb) 1 ampule Q6HR NEB PRN NEB 12/17/17 12:15 A/P Problem List: (1) Cavitary lesion of lung ICD Code: J98.4 - Other disorders of lung (2) Dyspnea ICD Code: R06.00 - Dyspnea, unspecified (3) Situs inversus ICD Code: Q89.3 - Situs inversus Status: Chronic (4) CHF (congestive heart failure) ICD Code: I50.9 - Heart failure, unspecified Status: Chronic (5) Edema ICD Code: R60.9 - Edema, unspecified Status: Acute (6) Cellulitis of left lower extremity ICD Code: L03.116 - Cellulitis of left lower limb Status: Acute Assessment and Plan 62 YOWM presented with shortness of breath and found to have a right upper lobe cavitary lesion on CTA. Cavitary Lesion of right upper lobe/atypical PNA TB PCR negative; QF pending On Augmentin for anaerobic coverage of possible PNA secondary to aspiration given cavitary lesion Sputum cultures pending for mycobacteria ID consulted for further evaluation and abx reccs; recommend awaiting final culture Pulm also following and monitoring daily CXRs; today there is a mild increase in size int he right lower lung infiltrate 12/16 lung biopsy showed chronic organizing pneumonia. Pulmonology has cleared patient to be discharged on p.o. antibiotics. Pending recommendations from ID regarding oral antibiotics for the patient to be discharged on. Continue Augmentin x 2 weeks. Dyspnea Improved and patient off oxygen for few days now CTA on admission negative for PE See plans above Lymphedema Lasix 20 mg PO BID Echocardiogram showing situs invertus with normal EF Appreciate cardiology consult To f/u as outpatient in lymphedema clinic Patient had a 2D echo recently on December 09, 2017 which showed a normal ejection fraction 55% and situs inversus. Small pericardial effusion was present. 12/17 Resume Metolazone, DC IV furosemide. start Lasix 80 mg p.o. twice daily. If patient does not have a negative balance in a.m. then will consider nephrology consultation to help with diuretic regimen that would effectively diurese patient. COPD Continue DuoNebs, plus home meds Acute on chronic diastolic heart failure. Cardiology consulted. Echocardiogram as mentioned above. Continue diuresis. Cellulitis of the left lower extremity. Left lower extremity is very tender, erythematous and edematous. Discussed the case with Dr. Jones from infectious disease. Antibiotics as per ID recommendations. DVT Prophylaxis Lovenox Discharge Planning Pending improvement of left lower extremity cellulitis and improvement of edema. Problem Qualifiers (1) CHF (congestive heart failure): Qualified Codes: I50.33 - Acute on chronic diastolic (congestive) heart failure (2) Edema: Qualified Codes: R60.9 - Edema, unspecified Joe Owens MD Dec 17, 2017 15:43
[2017-12-17 16:00] VITALS: BP 113/62; PULSE 66; RESP 20; TEMP 96.4; O2SAT 98
--- NOTE | 2017-12-17 16:51 | HHI.IDPN ---
Subjective Subjective Remarks co worsening edema, pain and redness of his BLE He refuses to comly with leg elevation citing back pain aw it and sits in the miky with legs down all day He also told me that he will nnot fu with lymphedema clinic because its on 2nd floor and elevtor is broken each toim e he comes there No fever Breathing OK Path neg, clx with NRF Antibiotics augmentin Allergies: Coded Allergies: No Known Allergies (Verified Allergy, Unknown, 12/07/17) Objective . Vital Signs Date Time Temp Pulse Resp B/P (MAP) Pulse Ox O2 Delivery O2 Flow Rate FiO2 12/17/17 12:00 96.9 62 18 110/56 (74) 96 12/17/17 08:00 97.6 78 20 119/62 (81) 93 12/17/17 04:00 96.2 62 20 104/56 (72) 95 12/17/17 00:00 99.0 68 20 109/60 (76) 95 12/16/17 20:00 97.8 64 22 111/57 (75) 97 Imaging Last Impressions Lung Biopsy CT 12/14/17 0000 Signed Impressions: Service Date/Time: Thursday, December 14, 2017 13:59 - CONCLUSION: Uncomplicated CT guided biopsy. Juan Navarro MD Chest X-Ray 12/14/17 0000 Signed Impressions: Service Date/Time: Thursday, December 14, 2017 15:24 - CONCLUSION: No evidence of pneumothorax status post right lung biopsy. Chance Nunez MD CT Angiography 12/07/17 0156 Signed Impressions: Service Date/Time: Thursday, December 07, 2017 02:11 - CONCLUSION: There is no evidence for pulmonary embolism. Bronchiectasis, mucous plugging, consolidation and bilateral reticular nodular infiltrates are identified. There is also a cavitary focus of masslike consolidation in the right upper lobe. Atypical infectious processes, fungal or mycobacterial should be entertained. Followup is recommended after appropriate clinical therapy to ensure resolution of these findings particularly the cavitary right upper lobe focus. Jesus Taylor MD Lower Extremity Ultrasound 12/07/17 0000 Signed Impressions: Service Date/Time: Thursday, December 07, 2017 22:21 - CONCLUSION: Normal examination. Jesus Taylor MD Physical Exam CONSTITUTIONAL/GENERAL: This is an adequately nourished patient, in no apparent distress. SKIN: No jaundice, rashes, or lesions. Skin temperature appropriate. Not diaphoretic. CARDIOVASCULAR: Regular rate and rhythm without murmurs, gallops, or rubs. No JVD. Peripheral pulses symmetric. RESPIRATORY/CHEST: Symmetric, unlabored respirations. Clear to auscultation. Breath sounds equal bilaterally. No wheezes, rales, or rhonchi. GASTROINTESTINAL: Abdomen soft, non-tender, nondistended. No hepato-splenomegaly , or palpable masses. No guarding. Bowel sounds present. MUSCULOSKELETAL: Extremities without clubbing, cyanosis, Again massive pitting BLE edema now with diffuse erythema on LLE and small degree on the RLE . No joint tenderness or effusion noted. No calf tenderness. No mottling or clubbing. NEUROLOGICAL: Awake and alert. Motor and sensory grossly within normal limits. Follows commands. Clear speech. Moves all extremities. PSYCHIATRIC: No obvious anxiety/depression. no apparent hallucinations or other psychotic thought process. Assessment & Plan Remarks Assessment and Plan Assessment and Plan Atypical cavitary PNA. Differential include bacterial vs mycobacterial vs fungal ethiology MTB probe and quantiferron negative CT from 2013 and 2017 compares: L lung changes appear chronic, RUL lesion is definetely new New problem: BLE cellulitis more prominet on the LLE cont augmentin x 2 more weeks then f/u with Dr Delgadillo repeat CT in 2 weeks start vancomycin fu routine AFB, fungal clx dw Felicity Fabian MD Dec 17, 2017 16:51
[2017-12-17] MEDS ORDERED: Vancomycin Consult Pharmacy 1 EA OTHER SCH (17:00)
[2017-12-17] MEDS: VANCOMYCIN INJ 1,500 MG in SODIUM CHLORID 0.9% 500 ML INJ 500 ML IV SCH (18:50)
[2017-12-17] MEDS: FUROSEMIDE 80 MG TAB PO SCH (20:05)
[2017-12-17 21:53] VITALS: BP 105/58; PULSE 67; RESP 20; TEMP 96.4; O2SAT 98
[2017-12-18] VITALS (8 sets, daily range): BP systolic 102–123; BP diastolic 55–61; PULSE 64–79; RESP 18–20; TEMP 95.6–97.6; O2SAT 94–97
[2017-12-18] MEDS: RESP: ALBUTEROL 2.5 MG/IPRATROPIUM 0.5 MG NEB (PRN) NEB (01:00)
[2017-12-18] MEDS: VANCOMYCIN INJ 1,500 MG in SODIUM CHLORID 0.9% 500 ML INJ 500 ML IV SCH ×2 (05:15→17:52)
[2017-12-18 05:59] LABS: AUTOMATED NEUTROPHIL # 5.7 TH/MM3 (1.8-7.7); BASOPHIL # 0.1 TH/MM3 (0-0.2); EOSINOPHIL # 0.2 TH/MM3 (0-0.4); EOSINOPHIL % 2.9 % (0.0-4.0); HEMATOCRIT 33.3 % (39.0-51.0); HEMOGLOBIN 11.5 GM/DL (13.0-17.0); LYMPH % 14.5 % (9.0-44.0); LYMPHOCYTE # 1.1 TH/MM3 (1.0-4.8); MEAN CELL VOLUME 86.1 FL (80.0-100.0); MEAN CORPUSCULAR HEMOGLOBIN 29.8 PG (27.0-34.0); MEAN CORPUSCULAR HGB CONC 34.6 % (32.0-36.0); MEAN PLATELET VOLUME 6.2 FL (7.0-11.0); MONO % 8.5 % (0.0-8.0); MONOCYTE # 0.7 TH/MM3 (0-0.9); NEUT % 73.1 % (16.0-70.0); PLATELET COUNT 407 TH/MM3 (150-450); RED BLOOD COUNT 3.87 MIL/MM3 (4.50-5.90); RED CELL DISTRIBUTION WIDTH 14.5 % (11.6-17.2); WHITE BLOOD COUNT 7.8 TH/MM3 (4.0-11.0)
[2017-12-18 06:30] LABS: CALCIUM 8.9 MG/DL (8.5-10.1); CREATININE 1.25 MG/DL (0.60-1.30)
[2017-12-18] MEDS: AMOXICILLIN/CLAVULANATE K 875 MG TAB PO SCH ×2 (09:16→21:46)
[2017-12-18] MEDS: PANTOPRAZOLE SOD 40 MG DELAYED RELEASE TAB PO SCH (09:16)
[2017-12-18] MEDS: SODIUM CHLORIDE 0.9% FLUSH 10 ML FLUSH IV FLUSH SCH ×2 (09:16→21:46)
[2017-12-18] MEDS: FUROSEMIDE 80 MG TAB PO SCH (09:17)
[2017-12-18] MEDS: LACTOBACILLUS ACIDOPHILUS TAB PO SCH ×3 (09:17→18:37)
[2017-12-18] MEDS: METOLAZONE 5 MG TAB PO SCH (09:17)
[2017-12-18] MEDS: POTASSIUM CHLORIDE 10 MEQ CONTROLLED RELEASE TAB PO SCH ×2 (09:17→21:47)
--- NOTE | 2017-12-18 10:42 | HHI.PR ---
Subjective Remarks No events overnight. On room air oxygen. Objective Vital Signs Vital Signs Date Time Temp Pulse Resp B/P (MAP) Pulse Ox O2 Delivery O2 Flow Rate FiO2 12/18/17 08:00 97.6 69 18 107/60 (76) 94 12/18/17 04:00 95.8 79 20 110/55 (73) 94 12/18/17 01:00 94 12/18/17 00:12 95.6 75 20 109/56 (73) 94 12/17/17 21:53 96.4 67 20 105/58 (74) 98 12/17/17 16:00 96.4 66 20 113/62 (79) 98 12/17/17 12:00 96.9 62 18 110/56 (74) 96 I/O 12/17/17 12/17/17 12/17/17 12/18/17 12/18/17 12/18/17 07:00 15:00 23:00 07:00 15:00 23:00 Intake Total 360 ml 2315 ml 620 ml Balance 360 ml 2315 ml 620 ml Intake Oral 360 ml 1800 ml 620 ml IV Total 515 ml # Voids 3 5 6 # Bowel Movements 1 2 Result Diagram: 12/18/17 0500 12/18/17 0500 Other Results Last Impressions Lung Biopsy CT 12/14/17 0000 Signed Impressions: Service Date/Time: Thursday, December 14, 2017 13:59 - CONCLUSION: Uncomplicated CT guided biopsy. Juan Navarro MD Chest X-Ray 12/14/17 0000 Signed Impressions: Service Date/Time: Thursday, December 14, 2017 15:24 - CONCLUSION: No evidence of pneumothorax status post right lung biopsy. Chance Nunez MD CT Angiography 12/07/17 0156 Signed Impressions: Service Date/Time: Thursday, December 07, 2017 02:11 - CONCLUSION: There is no evidence for pulmonary embolism. Bronchiectasis, mucous plugging, consolidation and bilateral reticular nodular infiltrates are identified. There is also a cavitary focus of masslike consolidation in the right upper lobe. Atypical infectious processes, fungal or mycobacterial should be entertained. Followup is recommended after appropriate clinical therapy to ensure resolution of these findings particularly the cavitary right upper lobe focus. Jesus Taylor MD Lower Extremity Ultrasound 12/07/17 0000 Signed Impressions: Service Date/Time: Thursday, December 07, 2017 22:21 - CONCLUSION: Normal examination. Jesus Taylor MD Objective Remarks GENERAL: Patient is sitting in chair in NAD SKIN: Warm and dry. HEAD: Normocephalic. EYES: No scleral icterus. No injection or drainage. NECK: Supple, trachea midline. No JVD or lymphadenopathy. CARDIOVASCULAR: Regular rate and rhythm without murmurs, gallops, or rubs. RESPIRATORY: Breath sounds equal bilaterally. No accessory muscle use. GASTROINTESTINAL: Abdomen soft, non-tender, nondistended. MUSCULOSKELETAL: No cyanosis,+ 4edema with erythema Neuro: Awake and alert A/P Assessment and Plan 1)Mass like consolidation RUL 2)s/p CT guided lung biopsy Path: Chronic organizing pneumonia 3)Bronchiectasis 4)Cellulites LE B/L 5)Hx CHF Plan Oxygen PRN keep sat >92% Bronchodilators Will need repeat CT chest in 4- 6 weeks as outpatient and follow up with Leona Mosher per ID( On Vanco and Augmentin) monitor for signs of infections ( Fever, WBC ). GI/DVT prophylaxis Continue treatment plan Lydia Nowak MD Dec 18, 2017 10:42
--- NOTE | 2017-12-18 13:18 | HHI.PR ---
Subjective Remarks Perfect entry, the patient was seen earlier at 11:40 AM. Patient states he is bilateral extremities are very swollen but not as tender. Patient is afebrile. The patient denies chest pain or shortness of breath. Objective Vitals Vital Signs Date Time Temp Pulse Resp B/P (MAP) Pulse Ox O2 Delivery O2 Flow Rate FiO2 12/18/17 08:00 97.6 69 18 107/60 (76) 94 12/18/17 04:00 95.8 79 20 110/55 (73) 94 12/18/17 01:00 94 12/18/17 00:12 95.6 75 20 109/56 (73) 94 12/17/17 21:53 96.4 67 20 105/58 (74) 98 12/17/17 16:00 96.4 66 20 113/62 (79) 98 I/O 12/17/17 12/17/17 12/17/17 12/18/17 12/18/17 12/18/17 07:00 15:00 23:00 07:00 15:00 23:00 Intake Total 360 ml 2315 ml 620 ml Balance 360 ml 2315 ml 620 ml Intake Oral 360 ml 1800 ml 620 ml IV Total 515 ml # Voids 3 5 6 # Bowel Movements 1 2 Result Diagram: 12/18/17 0500 12/18/17 0500 Imaging Last Impressions Lung Biopsy CT 12/14/17 0000 Signed Impressions: Service Date/Time: Thursday, December 14, 2017 13:59 - CONCLUSION: Uncomplicated CT guided biopsy. Juan Navarro MD Chest X-Ray 12/14/17 0000 Signed Impressions: Service Date/Time: Thursday, December 14, 2017 15:24 - CONCLUSION: No evidence of pneumothorax status post right lung biopsy. Chance Nunez MD CT Angiography 12/07/17 0156 Signed Impressions: Service Date/Time: Thursday, December 07, 2017 02:11 - CONCLUSION: There is no evidence for pulmonary embolism. Bronchiectasis, mucous plugging, consolidation and bilateral reticular nodular infiltrates are identified. There is also a cavitary focus of masslike consolidation in the right upper lobe. Atypical infectious processes, fungal or mycobacterial should be entertained. Followup is recommended after appropriate clinical therapy to ensure resolution of these findings particularly the cavitary right upper lobe focus. Jesus Taylor MD Lower Extremity Ultrasound 12/07/17 0000 Signed Impressions: Service Date/Time: Thursday, December 07, 2017 22:21 - CONCLUSION: Normal examination. Jesus Taylor MD Objective Remarks GENERAL: male sitting up in chair, NAD. SKIN: Warm and dry. HEENT: Pupils equal and round. MMM. NECK: Supple no tender LAD or JVD. HEART: RRR no m/r/g. LUNGS:Clear to auscultation BL. No wheezing, rhonchi or rales auscultated. ABDOMEN: Soft, NT, ND. EXTREMITIES: Significant lymphedema of bilateral LE. NEURO: Awake and alert. PSYCH: Appropriate mood and affect. Medications and IVs Current Medications Medications (Trade) Dose Ordered Sig/Al Route Start Time Stop Time Status Last Admin (NS Flush) 2 ml UNSCH PRN IV FLUSH 12/07/17 04:00 12/09/17 04:12 (NS Flush) 2 ml BID IV FLUSH 12/07/17 09:00 12/18/17 09:16 (Narcan Inj) 0.4 mg UNSCH PRN IV PUSH 12/07/17 04:00 (Duoneb Neb) 1 ampule Q2HR NEB PRN NEB 12/07/17 04:00 12/17/17 06:17 (Lactinex) 1 tab TID PO 12/07/17 09:00 12/18/17 09:17 (Ultram) 50 mg Q8H PRN PO 12/07/17 17:15 12/13/17 06:41 (Tessalon) 200 mg TID PRN PO 12/07/17 18:00 12/12/17 22:21 (KCl) 10 meq Q12HR PO 12/08/17 21:00 12/18/17 09:17 (Augmentin) 875 mg Q12HR PO 12/10/17 21:00 12/18/17 09:16 (Protonix) 40 mg DAILY PO 12/14/17 09:00 12/18/17 09:16 (Mag-Al Plus Susp Liq) 30 ml Q6H PRN PO 12/13/17 18:00 12/16/17 01:29 (Percocet 5-325 Mg) 1 tab Q4H PRN PO 12/14/17 14:30 12/15/17 23:10 (Lasix) 80 mg BID PO 12/17/17 21:00 12/18/17 09:17 (Zaroxolyn) 5 mg DAILY PO 12/17/17 11:00 12/18/17 09:17 (Duoneb Neb) 1 ampule Q6HR NEB PRN NEB 12/17/17 12:15 12/18/17 01:00 Pharmacy Profile Note 0 ml @ 0 mls/hr UNSCH OTHER 12/17/17 17:00 Vancomycin HCl 1500 mg/Sodium Chloride 515 ml @ 250 mls/hr Q12H IV 12/17/17 18:00 12/18/17 05:15 Miscellaneous Information SPECIFIC LAB TO BE [facility]... 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 Cavitary Lesion of right upper lobe/atypical PNA TB PCR negative; QF pending On Augmentin for anaerobic coverage of possible PNA secondary to aspiration given cavitary lesion Sputum cultures pending for mycobacteria ID consulted for further evaluation and abx reccs; recommend awaiting final culture Pulm also following and monitoring daily CXRs; today there is a mild increase in size int he right lower lung infiltrate 12/16 lung biopsy showed chronic organizing pneumonia. Pulmonology has cleared patient to be discharged on p.o. antibiotics. Pending recommendations from ID regarding oral antibiotics for the patient to be discharged on. Continue Augmentin x 2 weeks. Dyspnea Improved and patient off oxygen for few days now CTA on admission negative for PE See plans above Lymphedema Lasix 20 mg PO BID Echocardiogram showing situs invertus with normal EF Appreciate cardiology consult To f/u as outpatient in lymphedema clinic Patient had a 2D echo recently on December 09, 2017 which showed a normal ejection fraction 55% and situs inversus. Small pericardial effusion was present. 12/17 Resume Metolazone, DC IV furosemide. start Lasix 80 mg p.o. twice daily. If patient does not have a negative balance in a.m. then will consider nephrology consultation to help with diuretic regimen that would effectively diurese patient. 12/18 will consult nephrology to help on there is inpatient. Patient has a total cumulative balance of fluids of about [address] on fluid restriction at 1250 mL's per day. COPD Continue DuoNebs, plus home meds Seems to be stable Acute on chronic diastolic heart failure. Cardiology consulted. Echocardiogram as mentioned above. Continue diuresis. Cellulitis of the left lower extremity. Left lower extremity is very tender, erythematous and edematous. Discussed the case with Dr. Jones from infectious disease. Antibiotics as per ID recommendations. 12/18 started on IV vancomycin as per infectious disease recommendations. Patient's cellulitis seems to be slightly improved compared to previously. DVT Prophylaxis Lovenox Discharge Planning Pending improvement of left lower extremity cellulitis and improvement of edema. Problem Qualifiers (1) CHF (congestive heart failure): Qualified Codes: I50.33 - Acute on chronic diastolic (congestive) heart failure (2) Edema: Qualified Codes: R60.9 - Edema, unspecified Joe Owens MD Dec 18, 2017 13:18
[2017-12-18] MEDS ORDERED: BUMETANIDE INJ 100 ML IV SCH (16:00)
--- NOTE | 2017-12-18 16:27 | MB ---
cc: HELIO RACHEL MD DATE OF CONSULTATION: 12/18/2017. REASON FOR CONSULTATION: Diuretic management. HISTORY OF PRESENT ILLNESS: This is a 62-year-old male who was admitted originally on December 07 with complaints of apparent findings of shortness of breath. The patient had extensive workup here and was found to have a right upper lobe pneumonia. This was actually biopsied with concerns of a cavitary lesion and he was found to have organized pneumonia. The patient was being treated with vancomycin as well as Augmentin here. The patient also has a history of diastolic congestive heart failure, COPD and now has cellulitis which is being treated with vancomycin. The patient apparently has had chronic ongoing lymphedema. He has had challenges going to the lymphedema clinic in the past because he reports that it is on the second-floor the building where the elevator has been consistently broken and he has been unable to follow up with the lymphedema clinic there. He has had ongoing persistent lower extremity edema herer. He was initially given IV Lasix and given metolazone for diuretics. The Lasix was attempted be weaned down to p.o. dosing; however, the patient had ongoing positive fluid balance and ongoing lower extremity edema with lymphedema. Given issues with diuresis, nephrology was consulted for further evaluation. Of note, the patient's creatinine has been stable here with a level that has ranged between 1.0 and 1.2 and the creatinine is 1.2 today. REVIEW OF SYSTEMS: The patient reports ongoing lower extremity edema which he reports has had little improvement since his admission here. No fevers, no chills. No current shortness of breath. No diarrhea. No constipation. No dizziness or loss of consciousness. Otherwise review of systems negative. PAST MEDICAL HISTORY: His past medical history includes: 1. Dextrocardia. 2. Congestive heart failure with bilateral lower extremity edema. 3. COPD. 4. Dyslipidemia. 5. Lumbago. 6. Myocardial infarction in 1994. 7. Seizure in 1993. 8. Sleep apnea and pneumonia in 1996. PAST SURGICAL HISTORY: 1. Bilateral lower lobectomy in 1993 and 1995. 2. Brain aneurysm with shunt. 3. Bilateral cataracts. 4. Bilateral carpal tunnel repair. ALLERGIES: NO KNOWN DRUG ALLERGIES. FAMILY HISTORY: Unknown. SOCIAL HISTORY: No tobacco, alcohol or drug use. PHYSICAL EXAMINATION: VITAL SIGNS: At the time of evaluation, temperature 95.6, pulse 66, respiratory rate 18, blood pressure 102/58 with pulse oximetry of 97%. GENERAL: Awake, alert and oriented and in no apparent distress. HEAD, EYES, EARS, NOSE, THROAT: Neck soft supple. CARDIAC: Regular rate and rhythm. PULMONARY: Lungs clear to auscultation. Decreased breath sounds at the bases. ABDOMEN: The abdomen is soft, nontender and nondistended. EXTREMITIES: 3+ lower extremity edema at the sites of lymphedema. Some mild excoriations of the left lower leg with apparent findings of cellulitis. LABORATORY FINDINGS: Sodium 133, potassium 4.4, chloride 97, bicarb 27, BUN 19, creatinine 1.2 with glucose of 79. White count 7.8, hemoglobin 11.5, hematocrit 33.3 with platelet count of 407,000. Urinalysis with trace protein, albumin level of 3.2. ASSESSMENT AND PLAN: 1. Lymphedema and lower extremity edema: The patient has lymphedema presumably secondary to diastolic congestive heart failure. This has been chronic for the patient. Apparently per the primary notes, the patient has had over 12 liters of positive fluid since his admission here. The patient has extensive lower extremity chronic lymphedema. This will not respond adequately with diuresis given the longstanding edema and the best treatment for this would be lower extremity lymphedema wraps. The patient has noted in the past he has challenges going to the lymphedema clinic because they have had issues with their elevator. At this point, the patient has been on diuretics here with inadequate response. He was on Lasix 80 milligrams p.o. twice a day and had previously been treated with IV Lasix. He also continues on metolazone. At this point, I will stop the Lasix and start a Bumex drip at 0.5 milligrams per hour and continue to closely monitor creatinine and renal function. Should the creatinine rise, we may need to back off on the diuretics; however. The patient had some mild hyponatremia with a serum sodium of 133 consistent with fluid overload. Should he have a good response to Bumex, may be changed to p.o. Bumex at some point. Will continue to monitor. Of note, there are no signs of any nephrotic syndrome. The urinalysis showed only trace proteinuria and the patient is voiding well otherwise. 2. COPD: Continue with diuresis. The patient's pulmonary symptoms are stable. 3. Diastolic congestive heart failure: Continue with medical management. Continue with diuresis. 4. Cellulitis: The patient is on vancomycin per infectious disease. Continue to follow levels. 5. Hyponatremia. The patient with mild hyponatremia with a serum sodium of 133, this is likely secondary to volume overload. Continue with diuresis. 6. Right upper lobe pneumonia. The patient had a CT-guided biopsy diagnosing the right upper lobe pneumonia. Continue with antibiotics for infectious disease. MD JENNIFFER Paula/JCCindy /3:05 PM /4:10 PM MTDD
[2017-12-19] VITALS (8 sets, daily range): BP systolic 102–124; BP diastolic 59–72; PULSE 73–102; RESP 18–22; TEMP 96.5–97.7; O2SAT 94–99
[2017-12-19] MEDS: RESP: ALBUTEROL 2.5 MG/IPRATROPIUM 0.5 MG NEB (PRN) NEB (01:06)
[2017-12-19] MEDS ORDERED: PHARMACY ORDERED LAB ONE ×2 (05:45→17:45)
[2017-12-19] MEDS: VANCOMYCIN INJ 1,500 MG in SODIUM CHLORID 0.9% 500 ML INJ 500 ML IV SCH (06:07)
[2017-12-19 08:56] LABS: BICARBONATE 31.8 MEQ/L (21.0-32.0); CREATININE 1.49 MG/DL (0.60-1.30)
[2017-12-19] MEDS: SODIUM CHLORIDE 0.9% FLUSH 10 ML FLUSH IV FLUSH SCH ×2 (09:00→21:59)
[2017-12-19] MEDS ORDERED: POTASSIUM CHLORIDE 10 MEQ CONTROLLED RELEASE TAB PO ONE (10:00)
--- NOTE | 2017-12-19 10:37 | HHI.NPPN ---
Subjective General Problems: Edema Renal Failure: Acute Interval History On Bumex gtt at 0.5 mg/hr. Renal function is worse. He is wanting to be discharged. (Soco Steinberg) Review of Systems General Constitutional: Fatigue (Soco Steinberg) Objective Data Data Vital Signs Date Time Temp Pulse Resp B/P (MAP) Pulse Ox O2 Delivery O2 Flow Rate FiO2 12/19/17 08:00 97.7 78 18 115/59 (77) 95 12/19/17 04:00 97.6 81 18 102/62 (75) 95 12/19/17 00:00 96.8 89 18 114/65 (81) 96 12/18/17 20:00 96.5 75 18 123/61 (81) 94 12/18/17 19:58 97 12/18/17 16:00 96.8 64 18 122/56 (78) 97 12/18/17 12:00 95.6 66 18 102/58 (73) 97 (Soco Steinberg) -: 12/18/17 0500 12/19/17 0732 Physical Exam General Appearance: Well Developed, Comfortable (Soco Steinberg) Eyes Eye Exam: Pupils Equal (Soco Steinberg) Throat Throat Exam: Oral Mucosa [place] & Moist (Soco Steinberg) Pulmonary Resp Exam: Clear Bilaterally, Breath Sounds Equal (Soco Steinberg) Cardiology CV Exam: Regular, Normal Sinus Rhythm (Soco Steinberg) Gastrointestinal/Abdomen GI Exam: Soft, Non-Tender, Bowel Sounds Present (Soco Steinberg) Musculoskeletal MS Exam: Joints Intact, Normal Tone (Soco Steinberg) Integumentary Skin Exam: Warm, Dry Skin Remarks cellulitis bilateral lower ext (Soco Steinberg) Extremeties Extremities Exam: Moderate Edema, Dependent Edema (Soco Steinberg) Neurologic Neuro Exam: Alert, Awake, Oriented, Speech Clear, Moving All Extremities (Soco Steinberg) Psychiatric Psych Exam: Appropriate Responses (Soco Steinberg) Assessment/Plan Discussed Condition With: Patient Problem List: (1) Edema ICD Codes: R60.9 - Edema, unspecified Status: Acute Plan: Secondary to lymphedema. Not improving with Bumex gtt, renal function is worse. Stop Bumex IV and PO Zaroxolyn. Start Bumex 2 mg po daily. Aggressive diuresis most likely contributing to ANUP. Needs to go to lymphedema clinic. Apparently having issues with elevator in facility therefore has not gone for treatment. (2) Cellulitis of left lower extremity ICD Codes: L03.116 - Cellulitis of left lower limb Status: Acute Plan: On vancomycin IV and PO Augmentin ID to assist with Antibiotic management (Soco Steinberg) Plan patient was seen and examined. Renal function is worse with Bumex drip. Weight has been stable, I/O charting likely not accurate. Aggressive diuresis in cases of lymphedema is not recommended, will worsen renal function. Stop Bumex drip. Needs lymphedema clinic. (Raúl Newman MD) Problem Qualifiers (1) Edema: Qualified Codes: R60.9 - Edema, unspecified Soco Steinberg Dec 19, 2017 10:37 Raúl Newman MD Dec 19, 2017 12:44
[2017-12-19] MEDS: POTASSIUM CHLORIDE 10 MEQ CONTROLLED RELEASE TAB PO SCH ×2 (10:42→21:56)
[2017-12-19] MEDS: AMOXICILLIN/CLAVULANATE K 875 MG TAB PO SCH ×2 (10:42→21:57)
[2017-12-19] MEDS: PANTOPRAZOLE SOD 40 MG DELAYED RELEASE TAB PO SCH (10:42)
[2017-12-19] MEDS: LACTOBACILLUS ACIDOPHILUS TAB PO SCH ×3 (10:42→22:00)
--- NOTE | 2017-12-19 14:38 | RSPPFT ---
DATE OF PROCEDURE: 12/14/17 COMMENTS: Spirometry with FVC of 2.1, FEV1 of 1.1 and FEV1/FVC ratio at 50%. A positive and significant response to acutely inhaled bronchodilator noted. IMPRESSION: 1. Moderately severe airways obstruction. 2. Positive and significant response to inhaled bronchodilator.
--- NOTE | 2017-12-19 16:02 | HHI.PR ---
Subjective Remarks ALERT NO SOB AT REST OOB Objective Vital Signs Date Time Temp Pulse Resp B/P (MAP) Pulse Ox O2 Delivery O2 Flow Rate FiO2 12/19/17 12:00 97.2 102 22 124/68 (86) 99 12/19/17 11:12 95 12/19/17 08:00 97.7 78 18 115/59 (77) 95 12/19/17 04:00 97.6 81 18 102/62 (75) 95 12/19/17 00:00 96.8 89 18 114/65 (81) 96 12/18/17 20:00 96.5 75 18 123/61 (81) 94 12/18/17 19:58 97 I/O 12/18/17 12/18/17 12/18/17 12/19/17 12/19/17 12/19/17 07:00 15:00 23:00 07:00 15:00 23:00 Intake Total 620 ml 2115 ml Balance 620 ml 2115 ml Intake Oral 620 ml 1600 ml IV Total 515 ml # Voids 6 5 3 # Bowel Movements 0 Result Diagram: 12/18/17 0500 12/19/17 0732 Objective Remarks GENERAL: SKIN: Warm and dry. HEAD: Atraumatic. Normocephalic. EYES: Pupils equal and round. No scleral icterus. No injection or drainage. ENT: No nasal bleeding or discharge. Mucous membranes pink and moist. NECK: Trachea midline. No JVD. CARDIOVASCULAR: Regular rate and rhythm. RESPIRATORY: No accessory muscle use. Clear to auscultation. Breath sounds equal bilaterally. GASTROINTESTINAL: Abdomen soft, non-tender, nondistended. Hepatic and splenic margins not palpable. MUSCULOSKELETAL: Extremities without clubbing, cyanosis, or edema. No obvious deformities. NEUROLOGICAL: Awake and alert. No obvious cranial nerve deficits. Motor grossly within normal limits. Five out of 5 muscle strength in the arms and legs. Normal speech. PSYCHIATRIC: Appropriate mood and affect; insight and judgment normal. Assessment and Plan Assessment and Plan ASSESSMENT path benign , acte + chroni PNA COPD CHF PLAN O2 NEEDED BRONCHODILATOR THERAPY ANTIBX FOR D/C ON PO ANTIBX 2 WEEKS , SEE IN OFFICE 3 WEEKS+CXRAY WILL SIGN OFF, THANK YOU Leona Delgadillo MD Dec 19, 2017 16:02
[2017-12-19] MEDS ORDERED: CEPHALEXIN MONOHYDRATE 500 MG CAP PO SCH (18:00)
--- NOTE | 2017-12-19 18:40 | HHI.PR ---
Subjective Remarks The patient wants to go home. Chief complaint of bilateral extremity edema. Denies fevers or chills. Creatinine trending up. Objective Vitals Vital Signs Date Time Temp Pulse Resp B/P (MAP) Pulse Ox O2 Delivery O2 Flow Rate FiO2 12/19/17 16:00 97.4 98 20 114/72 (86) 99 12/19/17 12:00 97.2 102 22 124/68 (86) 99 12/19/17 11:12 95 12/19/17 08:00 97.7 78 18 115/59 (77) 95 12/19/17 04:00 97.6 81 18 102/62 (75) 95 12/19/17 00:00 96.8 89 18 114/65 (81) 96 12/18/17 20:00 96.5 75 18 123/61 (81) 94 12/18/17 19:58 97 I/O 12/18/17 12/18/17 12/18/17 12/19/17 12/19/17 12/19/17 06:59 14:59 22:59 06:59 14:59 22:59 Intake Total 620 ml 2115 ml 1600 ml Balance 620 ml 2115 ml 1600 ml Intake Oral 620 ml 1600 ml 1600 ml IV Total 515 ml # Voids 6 5 3 5 # Bowel Movements 0 1 Result Diagram: 12/18/17 0500 12/19/17 0732 Imaging Last Impressions Lung Biopsy CT 12/14/17 0000 Signed Impressions: Service Date/Time: Thursday, December 14, 2017 13:59 - CONCLUSION: Uncomplicated CT guided biopsy. Jaun Navarro MD Chest X-Ray 12/14/17 0000 Signed Impressions: Service Date/Time: Thursday, December 14, 2017 15:24 - CONCLUSION: No evidence of pneumothorax status post right lung biopsy. Chance Nunez MD CT Angiography 12/07/17 0156 Signed Impressions: Service Date/Time: Thursday, December 07, 2017 02:11 - CONCLUSION: There is no evidence for pulmonary embolism. Bronchiectasis, mucous plugging, consolidation and bilateral reticular nodular infiltrates are identified. There is also a cavitary focus of masslike consolidation in the right upper lobe. Atypical infectious processes, fungal or mycobacterial should be entertained. Followup is recommended after appropriate clinical therapy to ensure resolution of these findings particularly the cavitary right upper lobe focus. Jesus Taylor MD Lower Extremity Ultrasound 12/07/17 0000 Signed Impressions: Service Date/Time: Thursday, December 07, 2017 22:21 - CONCLUSION: Normal examination. Jesus Taylor MD Objective Remarks GENERAL: male sitting up in chair, NAD. SKIN: Warm and dry. HEENT: Pupils equal and round. MMM. NECK: Supple no tender LAD or JVD. HEART: RRR no m/r/g. LUNGS:Clear to auscultation BL. No wheezing, rhonchi or rales auscultated. ABDOMEN: Soft, NT, ND. EXTREMITIES: Significant lymphedema of bilateral LE. NEURO: Awake and alert. PSYCH: Appropriate mood and affect. Medications and IVs Current Medications Medications (Trade) Dose Ordered Sig/Al Route Start Time Stop Time Status Last Admin (NS Flush) 2 ml UNSCH PRN IV FLUSH 12/07/17 04:00 12/09/17 04:12 (NS Flush) 2 ml BID IV FLUSH 12/07/17 09:00 12/18/17 21:46 (Narcan Inj) 0.4 mg UNSCH PRN IV PUSH 12/07/17 04:00 (Duoneb Neb) 1 ampule Q2HR NEB PRN NEB 12/07/17 04:00 12/17/17 06:17 (Lactinex) 1 tab TID PO 12/07/17 09:00 12/19/17 10:42 (Ultram) 50 mg Q8H PRN PO 12/07/17 17:15 12/13/17 06:41 (Tessalon) 200 mg TID PRN PO 12/07/17 18:00 12/12/17 22:21 (KCl) 10 meq Q12HR PO 12/08/17 21:00 12/19/17 10:42 (Augmentin) 875 mg Q12HR PO 12/10/17 21:00 12/19/17 10:42 (Protonix) 40 mg DAILY PO 12/14/17 09:00 12/19/17 10:42 (Mag-Al Plus Susp Liq) 30 ml Q6H PRN PO 12/13/17 18:00 12/16/17 01:29 (Percocet 5-325 Mg) 1 tab Q4H PRN PO 12/14/17 14:30 12/15/17 23:10 (Duoneb Neb) 1 ampule Q6HR NEB PRN NEB 12/17/17 12:15 12/19/17 01:06 (Bumetanide) 1 mg DAILY PO 12/20/17 09:00 (Keflex) 500 mg Q6HR PO 12/19/17 18:00 (Vibratab) 100 mg Q12HR PO 12/19/17 21:00 A/P Problem List: (1) Cavitary lesion of lung ICD Code: J98.4 - Other disorders of lung (2) Dyspnea ICD Code: R06.00 - Dyspnea, unspecified (3) Situs inversus ICD Code: Q89.3 - Situs inversus Status: Chronic (4) CHF (congestive heart failure) ICD Code: I50.9 - Heart failure, unspecified Status: Chronic (5) Edema ICD Code: R60.9 - Edema, unspecified Status: Acute (6) Cellulitis of left lower extremity ICD Code: L03.116 - Cellulitis of left lower limb Status: Acute Assessment and Plan 62 YOWM presented with shortness of breath and found to have a right upper lobe cavitary lesion on CTA. Cavitary Lesion of right upper lobe/atypical PNA TB PCR negative; QF pending On Augmentin for anaerobic coverage of possible PNA secondary to aspiration given cavitary lesion Sputum cultures pending for mycobacteria ID consulted for further evaluation and abx reccs; recommend awaiting final culture Pulm also following and monitoring daily CXRs; today there is a mild increase in size int he right lower lung infiltrate 12/16 lung biopsy showed chronic organizing pneumonia. Pulmonology has cleared patient to be discharged on p.o. antibiotics. Pending recommendations from ID regarding oral antibiotics for the patient to be discharged on. Continue Augmentin x 2 weeks. Dyspnea Improved and patient off oxygen for few days now CTA on admission negative for PE See plans above Lymphedema Lasix 20 mg PO BID Echocardiogram showing situs invertus with normal EF Appreciate cardiology consult To f/u as outpatient in lymphedema clinic Patient had a 2D echo recently on December 09, 2017 which showed a normal ejection fraction 55% and situs inversus. Small pericardial effusion was present. 12/17 Resume Metolazone, DC IV furosemide. start Lasix 80 mg p.o. twice daily. If patient does not have a negative balance in a.m. then will consider nephrology consultation to help with diuretic regimen that would effectively diurese patient. 12/19 nephrology consulted. Patient was on a Bumex drip and Lasix discontinued. Discussed the case with nephrology the same. Patient's creatinine trending up to 1.49, likely secondary to diuresis. IV Bumex discontinued as per nephrology recommendations on the patient was started on oral Bumex. Continue with fluid restriction. COPD Continue DuoNebs, plus home meds Seems to be stable Acute on chronic diastolic heart failure. Cardiology consulted. Echocardiogram as mentioned above. Continue diuresis. Cellulitis of the left lower extremity. Left lower extremity is very tender, erythematous and edematous. Discussed the case with Dr. Jones from infectious disease. Antibiotics as per ID recommendations. 12/18 started on IV vancomycin as per infectious disease recommendations. Patient's cellulitis seems to be slightly improved compared to previously. 12/19 the patient still has some erythema in bilateral extremities. It seems to be improving. Discussed the case with Dr. Miranda will switch the patient to oral antibiotics. Acute kidney injury Creatinine trending up to 1.49. Likely secondary to prerenal azotemia secondary to overdiuresis. Bumex drip discontinued. Will monitor BMP and discharge in a.m. if creatinine stable and trending down. DVT Prophylaxis Lovenox Discharge Planning Possible discharge in a.m. pending stabilization of creatinine. Problem Qualifiers (1) CHF (congestive heart failure): Qualified Codes: I50.33 - Acute on chronic diastolic (congestive) heart failure (2) Edema: Qualified Codes: R60.9 - Edema, unspecified Joe Owens MD Dec 19, 2017 18:40
--- NOTE | 2017-12-19 19:05 | HHI.IDPN ---
Subjective Subjective Remarks No fever doing well growing yeast from 12/12 clx Creatinine went up to 1.49 Antibiotics augmentin vanco Allergies: Coded Allergies: No Known Allergies (Verified Allergy, Unknown, 12/07/17) Objective . Vital Signs Date Time Temp Pulse Resp B/P (MAP) Pulse Ox O2 Delivery O2 Flow Rate FiO2 12/19/17 16:00 97.4 98 20 114/72 (86) 99 12/19/17 12:00 97.2 102 22 124/68 (86) 99 12/19/17 11:12 95 12/19/17 08:00 97.7 78 18 115/59 (77) 95 12/19/17 04:00 97.6 81 18 102/62 (75) 95 12/19/17 00:00 96.8 89 18 114/65 (81) 96 12/18/17 20:00 96.5 75 18 123/61 (81) 94 12/18/17 19:58 97 12/19/17 12/19/17 12/20/17 15:00 23:00 07:00 Intake Total 1600 ml Balance 1600 ml Intake Oral 1600 ml # Voids 5 # Bowel Movements 1 . Laboratory Tests Test 12/18/17 05:00 White Blood Count 7.8 TH/MM3 Red Blood Count 3.87 MIL/MM3 Hemoglobin 11.5 GM/DL Hematocrit 33.3 % Mean Corpuscular Volume 86.1 FL Mean Corpuscular Hemoglobin 29.8 PG Mean Corpuscular Hemoglobin Concent 34.6 % Red Cell Distribution Width 14.5 % Platelet Count 407 TH/MM3 Mean Platelet Volume 6.2 FL Neutrophils (%) (Auto) 73.1 % Lymphocytes (%) (Auto) 14.5 % Monocytes (%) (Auto) 8.5 % Eosinophils (%) (Auto) 2.9 % Basophils (%) (Auto) 1.0 % Neutrophils # (Auto) 5.7 TH/MM3 Lymphocytes # (Auto) 1.1 TH/MM3 Monocytes # (Auto) 0.7 TH/MM3 Eosinophils # (Auto) 0.2 TH/MM3 Basophils # (Auto) 0.1 TH/MM3 CBC Comment DIFF FINAL Differential Comment Laboratory Tests Test 12/18/17 05:00 12/19/17 07:32 Blood Urea Nitrogen 19 MG/DL 26 MG/DL Creatinine 1.25 MG/DL 1.49 MG/DL Random Glucose 79 MG/DL 78 MG/DL Calcium Level 8.9 MG/DL 9.0 MG/DL Sodium Level 133 MEQ/L 134 MEQ/L Potassium Level 4.4 MEQ/L 3.3 MEQ/L Chloride Level 97 MEQ/L 94 MEQ/L Carbon Dioxide Level 27.0 MEQ/L 31.8 MEQ/L Anion Gap 9 MEQ/L 8 MEQ/L Estimat Glomerular Filtration Rate 59 ML/MIN 48 ML/MIN Imaging Last Impressions Lung Biopsy CT 12/14/17 0000 Signed Impressions: Service Date/Time: Thursday, December 14, 2017 13:59 - CONCLUSION: Uncomplicated CT guided biopsy. Juan Navarro MD Chest X-Ray 12/14/17 0000 Signed Impressions: Service Date/Time: Thursday, December 14, 2017 15:24 - CONCLUSION: No evidence of pneumothorax status post right lung biopsy. Chance Nunez MD CT Angiography 12/07/17 0156 Signed Impressions: Service Date/Time: Thursday, December 07, 2017 02:11 - CONCLUSION: There is no evidence for pulmonary embolism. Bronchiectasis, mucous plugging, consolidation and bilateral reticular nodular infiltrates are identified. There is also a cavitary focus of masslike consolidation in the right upper lobe. Atypical infectious processes, fungal or mycobacterial should be entertained. Followup is recommended after appropriate clinical therapy to ensure resolution of these findings particularly the cavitary right upper lobe focus. Jesus Taylor MD Lower Extremity Ultrasound 12/07/17 0000 Signed Impressions: Service Date/Time: Thursday, December 07, 2017 22:21 - CONCLUSION: Normal examination. Jesus Taylor MD Physical Exam CONSTITUTIONAL/GENERAL: This is an adequately nourished patient, in no apparent distress. SKIN: No jaundice, rashes, or lesions. Skin temperature appropriate. Not diaphoretic. CARDIOVASCULAR: Regular rate and rhythm without murmurs, gallops, or rubs. No JVD. Peripheral pulses symmetric. RESPIRATORY/CHEST: Symmetric, unlabored respirations. Clear to auscultation. Breath sounds equal bilaterally. No wheezes, rales, or rhonchi. GASTROINTESTINAL: Abdomen soft, non-tender, nondistended. No hepato-splenomegaly , or palpable masses. No guarding. Bowel sounds present. MUSCULOSKELETAL: Extremities without clubbing, cyanosis, Again massive pitting BLE edema improved erythema on LLE . No joint tenderness or effusion noted. No calf tenderness. No mottling or clubbing. NEUROLOGICAL: Awake and alert. Motor and sensory grossly within normal limits. Follows commands. Clear speech. Moves all extremities. PSYCHIATRIC: No obvious anxiety/depression. no apparent hallucinations or other psychotic thought process. Assessment & Plan Remarks Assessment and Plan Assessment and Plan Atypical cavitary PNA. Differential include bacterial vs mycobacterial vs fungal ethiology MTB probe and quantiferron negative CT from 2013 and 2017 compares: L lung changes appear chronic, RUL lesion is definetely new New problem: BLE cellulitis more prominet on the LLE - improved ANUP , vanco levels 42 ? vanco cont augmentin x 2 more weeks then f/u with Dr Delgadillo repeat CT in 2 weeks dc vancomycin doxycylinr cont augementin fu routine AFB, fungal clx fu ID on yeast dw Dr Lui OK to dc tomorrow if ceratinine will improve Dx medx will incliude augmentin and doxycyline x 10 days Felicity Jones MD Dec 19, 2017 19:05
[2017-12-19] MEDS: DOXYCYCLINE HYCLATE 100 MG TAB PO SCH (21:56)
[2017-12-20] VITALS: BP 103/58; PULSE 70; RESP 20; TEMP 98.5; O2SAT 94
[2017-12-20 04:00] VITALS: BP 100/60; PULSE 91; RESP 18; TEMP 98.6; O2SAT 97
[2017-12-20] MEDS: oxyCODONE/ACETAMINOPHEN 5 MG/325 MG TAB PO PRN (04:42)
[2017-12-20] MEDS: RESP: ALBUTEROL 2.5 MG/IPRATROPIUM 0.5 MG NEB (PRN) NEB (07:44)
[2017-12-20 07:45] VITALS: O2SAT 92
[2017-12-20 08:00] VITALS: BP 109/61; PULSE 69; RESP 17; TEMP 97.1; O2SAT 94
[2017-12-20] MEDS ORDERED: BUMETANIDE 1 MG TAB PO SCH ×2 (09:00)
[2017-12-20] MEDS ORDERED: POTASSIUM CHLORIDE 10 MEQ CONTROLLED RELEASE TAB PO ONE (09:15)
[2017-12-20] MEDS: SODIUM CHLORIDE 0.9% FLUSH 10 ML FLUSH IV FLUSH SCH (09:25)
[2017-12-20] MEDS: POTASSIUM CHLORIDE 10 MEQ CONTROLLED RELEASE TAB PO SCH (09:26)
[2017-12-20] MEDS: AMOXICILLIN/CLAVULANATE K 875 MG TAB PO SCH (09:26)
[2017-12-20] MEDS: DOXYCYCLINE HYCLATE 100 MG TAB PO SCH (09:27)
[2017-12-20] MEDS: PANTOPRAZOLE SOD 40 MG DELAYED RELEASE TAB PO SCH (09:27)
[2017-12-20] MEDS: LACTOBACILLUS ACIDOPHILUS TAB PO SCH (09:27)
[2017-12-20 10:33] LABS: BICARBONATE 29.9 MEQ/L (21.0-32.0); CALCIUM 8.4 MG/DL (8.5-10.1); CREATININE 1.48 MG/DL (0.60-1.30)
[2017-12-20 12:00] VITALS: BP 106/65; PULSE 72; RESP 18; TEMP 97.9; O2SAT 95
--- NOTE | 2017-12-20 15:47 | HHI.PR ---
Objective Vitals Vital Signs Date Time Temp Pulse Resp B/P (MAP) Pulse Ox O2 Delivery O2 Flow Rate FiO2 12/20/17 12:00 97.9 72 18 106/65 (79) 95 12/20/17 08:00 97.1 69 17 109/61 (77) 94 12/20/17 07:45 92 21 12/20/17 06:37 20 12/20/17 04:00 98.6 91 18 100/60 (73) 97 12/20/17 00:00 98.5 70 20 103/58 (73) 94 12/19/17 21:00 73 12/19/17 20:00 96.5 73 22 106/67 (80) 94 12/19/17 16:00 97.4 98 20 114/72 (86) 99 I/O 12/19/17 12/19/17 12/19/17 12/20/17 12/20/17 12/20/17 07:00 15:00 23:00 07:00 15:00 23:00 Intake Total 1600 ml 520 ml Balance 1600 ml 520 ml Intake Oral 1600 ml 520 ml # Voids 3 5 2 # Bowel Movements 1 0 Result Diagram: 12/18/17 0500 12/20/17 1000 Objective Remarks GENERAL: male sitting up in chair, NAD. SKIN: Warm and dry. HEENT: Pupils equal and round. MMM. NECK: Supple no tender LAD or JVD. HEART: RRR no m/r/g. LUNGS:Clear to auscultation BL. No wheezing, rhonchi or rales auscultated. ABDOMEN: Soft, NT, ND. EXTREMITIES: Significant lymphedema of bilateral LE. NEURO: Awake and alert. PSYCH: Appropriate mood and affect. 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 Cavitary Lesion of right upper lobe/atypical PNA TB PCR negative; QF pending On Augmentin for anaerobic coverage of possible PNA secondary to aspiration given cavitary lesion Sputum cultures pending for mycobacteria ID consulted for further evaluation and abx reccs; recommend awaiting final culture Pulm also following and monitoring daily CXRs; today there is a mild increase in size int he right lower lung infiltrate 12/16 lung biopsy showed chronic organizing pneumonia. Pulmonology has cleared patient to be discharged on p.o. antibiotics. Pending recommendations from ID regarding oral antibiotics for the patient to be discharged on. Continue Augmentin x 2 weeks. Dyspnea Improved and patient off oxygen for few days now CTA on admission negative for PE See plans above Lymphedema Lasix 20 mg PO BID Echocardiogram showing situs invertus with normal EF Appreciate cardiology consult To f/u as outpatient in lymphedema clinic Patient had a 2D echo recently on December 09, 2017 which showed a normal ejection fraction 55% and situs inversus. Small pericardial effusion was present. 12/17 Resume Metolazone, DC IV furosemide. start Lasix 80 mg p.o. twice daily. If patient does not have a negative balance in a.m. then will consider nephrology consultation to help with diuretic regimen that would effectively diurese patient. 12/19 nephrology consulted. Patient was on a Bumex drip and Lasix discontinued. Discussed the case with nephrology the same. Patient's creatinine trending up to 1.49, likely secondary to diuresis. IV Bumex discontinued as per nephrology recommendations on the patient was started on oral Bumex. Continue with fluid restriction. COPD Continue DuoNebs, plus home meds Seems to be stable Acute on chronic diastolic heart failure. Cardiology consulted. Echocardiogram as mentioned above. Continue diuresis. Cellulitis of the left lower extremity. Left lower extremity is very tender, erythematous and edematous. Discussed the case with Dr. Jones from infectious disease. Antibiotics as per ID recommendations. 12/18 started on IV vancomycin as per infectious disease recommendations. Patient's cellulitis seems to be slightly improved compared to previously. 12/19 the patient still has some erythema in bilateral extremities. It seems to be improving. Discussed the case with Dr. Miranda will switch the patient to oral antibiotics. Acute kidney injury Creatinine trending up to 1.49. Likely secondary to prerenal azotemia secondary to overdiuresis. Bumex drip discontinued. Will monitor BMP and discharge in a.m. if creatinine stable and trending down. DVT Prophylaxis Lovenox Discharge Planning Possible discharge in a.m. pending stabilization of creatinine. Problem Qualifiers (1) CHF (congestive heart failure): Qualified Codes: I50.33 - Acute on chronic diastolic (congestive) heart failure (2) Edema: Qualified Codes: R60.9 - Edema, unspecified Joe Owens MD Dec 20, 2017 15:47
[2017-12-20 16:00] VITALS: BP 108/76; PULSE 75; RESP 18; TEMP 96.8; O2SAT 96
--- NOTE | 2017-12-20 16:23 | HHI.DCPOC ---
Discharge Care Plan Diagnosis: (1) Cellulitis (2) ANUP (acute kidney injury) (3) Lymphedema (4) Cavitary lesion of lung (5) Situs inversus (6) COPD with acute exacerbation (7) Edema (8) CHF (congestive heart failure) (9) Mass of right lung (10) Cellulitis of left lower extremity (11) Dyspnea (12) Pneumonia Goals to Promote Your Health * To prevent worsening of your condition and complications * To maintain your health at the optimal level Directions to Meet Your Goals Take your medications as prescribed Follow your dietary instruction Follow activity as directed Keep your appointments as scheduled Take your immunizations and boosters as scheduled If your symptoms worsen call your PCP, if no PCP go to Urgent Care Center or Emergency Room Smoking is Dangerous to Your Health. Avoid second hand smoke Call the 24-hour hour crisis hotline for domestic abuse at Joe Owens MD Dec 20, 2017 16:23
[2017-12-20] MEDS ORDERED: AMOX875T2 PO (16:32)
[2017-12-20] MEDS ORDERED: DOXY100T PO (16:32)
[2017-12-20] MEDS ORDERED: LACT PO (16:32)
[2017-12-20] MEDS ORDERED: BUME1TAB PO (16:32)
--- NOTE | 2017-12-20 16:34 | HHI.DS ---
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 He insisted that he did not have TB. I attempted to explain that we need records to show this, otherwise we could place staff and other patient's at risk. He threatened to leave AMA. I made an attempt to convince him to stay. By ER record, he presented overnight after a day of shortness of breath. He has COPD and takes scheduled nebulizer treatments at home, but the shortness of breath was out of the norm for him. Worse with recumbence. He also complained of Edema in his bilateral LE's, has a history of CHF, on daily diuretics. Work up, as described above, showed infectious appearing right upper lobe cavitary lesion on chest CT. CBC/BMP: 12/18/17 0500 12/20/17 1000 Significant Findings Laboratory Tests Test 12/18/17 05:00 12/19/17 07:32 12/20/17 10:00 Red Blood Count 3.87 MIL/MM3 (4.50-5.90) Hemoglobin 11.5 GM/DL (13.0-17.0) Hematocrit 33.3 % (39.0-51.0) Mean Platelet Volume 6.2 FL (7.0-11.0) Neutrophils (%) (Auto) 73.1 % (16.0-70.0) Monocytes (%) (Auto) 8.5 % (0.0-8.0) Blood Urea Nitrogen 19 MG/DL (7-18) 26 MG/DL (7-18) 28 MG/DL (7-18) Sodium Level 133 MEQ/L (136-145) 134 MEQ/L (136-145) 131 MEQ/L (136-145) Chloride Level 97 MEQ/L (98-107) 94 MEQ/L (98-107) 93 MEQ/L (98-107) Estimat Glomerular Filtration Rate 59 ML/MIN (>89) 48 ML/MIN (>89) 48 ML/MIN (>89) Creatinine 1.49 MG/DL (0.60-1.30) 1.48 MG/DL (0.60-1.30) Potassium Level 3.3 MEQ/L (3.5-5.1) 3.3 MEQ/L (3.5-5.1) Vancomycin Level Trough 42.6 MCG/ML (5.0-10.0) Random Glucose 123 MG/DL (74-106) Calcium Level 8.4 MG/DL (8.5-10.1) Imaging Last Impressions Lung Biopsy CT 12/14/17 0000 Signed Impressions: Service Date/Time: Thursday, December 14, 2017 13:59 - CONCLUSION: Uncomplicated CT guided biopsy. Juan Navarro MD Chest X-Ray 12/14/17 0000 Signed Impressions: Service Date/Time: Thursday, December 14, 2017 15:24 - CONCLUSION: No evidence of pneumothorax status post right lung biopsy. Chance Nunez MD CT Angiography 12/07/17 0156 Signed Impressions: Service Date/Time: Thursday, December 07, 2017 02:11 - CONCLUSION: There is no evidence for pulmonary embolism. Bronchiectasis, mucous plugging, consolidation and bilateral reticular nodular infiltrates are identified. There is also a cavitary focus of masslike consolidation in the right upper lobe. Atypical infectious processes, fungal or mycobacterial should be entertained. Followup is recommended after appropriate clinical therapy to ensure resolution of these findings particularly the cavitary right upper lobe focus. Jesus Taylor MD Lower Extremity Ultrasound 12/07/17 0000 Signed Impressions: Service Date/Time: Thursday, December 07, 2017 22:21 - CONCLUSION: Normal examination. Jesus Taylor MD PE at Discharge GENERAL: male sitting up in chair, NAD. SKIN: Warm and dry. HEENT: Pupils equal and round. MMM. NECK: Supple no tender LAD or JVD. HEART: RRR no m/r/g. LUNGS:Clear to auscultation BL. No wheezing, rhonchi or rales auscultated. ABDOMEN: Soft, NT, ND. EXTREMITIES: Significant lymphedema of bilateral LE. NEURO: Awake and alert. PSYCH: Appropriate mood and affect. Pt update on day of discharge The patient denies chest pain or shortness of breath. Patient is afebrile. Edema still present in lower extremities however erythema is much improved. Patient wants to be discharged home. Pt Condition on Discharge: Stable Discharge Disposition: Discharge Home Discharge Time: > 30 minutes Discharge Instructions DIET: Follow Instructions for: As Tolerated, No Restrictions Activities you can perform: Regular-No Restrictions Follow up Referrals: PCP Follow-up - 2 Weeks Pulmonology - 2 Weeks with Leona Delgadillo MD New Medications: Amoxicillin-Clavulanate (Amoxicillin-Clavulanate) 875-125 mg Tab 875 MG PO Q12HR for Infection, #20 TAB not for use in CrCl <30 mL/minute Bumetanide (Bumetanide) 1 Mg Tab 1 MG PO DAILY for edema, #30 TAB Doxycycline Hyclate (Doxycycline Hyclate) 100 Mg Tab 100 MG PO Q12HR for Infection, #20 TAB Lactobacillus Acidophilus (Acidophilus/l-Sporogenes) 35 Million Cell-25 Million Cell Tab 1 TAB PO TID for Infection, #30 TAB Continued Medications: Albuterol Neb (Albuterol Neb) 2.5 Mg/0.5 Ml Neb 2.5 MG NEB Q4HR NEB PRN for SHORTNESS OF BREATH, EA Note: The Albuterol Sulfate Inhalation Solution is concentrated and must be diluted. Read complete instructions carefully before using. Amitriptyline (Amitriptyline) 100 Mg Tab 100 MG PO HS, TAB Aspirin (Aspirin) 81 Mg Chew 81 MG CHEW DAILY, TAB 0 Refills Atorvastatin (Atorvastatin) 80 Mg Tab 80 MG PO HS Diazepam (Diazepam) 5 Mg Tab 1 TAB PO HS PRN for INSOMNIA Ferrous Sulfate (Ferrous Sulfate) 325 Mg (65 Mg Iron) Tablet 325 MG PO DAILY for Nutritional Supplement, #30 TAB 0 Refills Fish Oil-Cholecalciferol (Bab[place]-3 Fish Oil/Vitamin) 1,000-1,000 Mg Cap 1 CAP PO DAILY for Nutritional Supplement, CAP 0 Refills Metolazone (Metolazone) 5 Mg Tab 1 TAB PO DAILY for edema, #30 TAB (This prescription has been renewed) Multiple Vitamin (Multi-Vitamin Daily) 1 Tab Tab 1 TAB PO DAILY for Nutritional Supplement, TAB 0 Refills Pantoprazole (Protonix) 40 Mg Tab 40 MG PO BID for Reflux, #30 TAB 0 Refills Discontinued Medications: Bumetanide (Bumetanide) 2 Mg Tab 1 TAB PO DAILY Furosemide (Furosemide) 80 Mg Tab 1 TAB PO BID Joe Owens MD Dec 20, 2017 16:34
--- NOTE | 2017-12-20 17:49 | HHI.PR ---
Addendum to Inpatient Note Additional Information growing [employer] @ 1 week - rapid grower charisma Knowles: no e/o granulematous inflamation to suggest mycobacterial infx CTA in the othe rhand was sugg of NTM - OK to dc p[t home since decision on further w/u and tx can be done as o/p by his pulmonoilogist FU with Felicity Rabago DR, MD Dec 20, 2017 17:49
== END 2017-12-20 17:50 | disposition home or self-care (01) | DRG 196 ==
LOC: NEPE 23:52 → NEDA 12-07 03:23 → N07B 12-07 12:22
PROVIDERS: ADMIT Hospitalist; ATTEND Hospitalist
PROC: 0BBK3ZX Excision of Right Lung, Percutaneous Approach, Diagnostic (ICD-10-PCS; principal; 2017-12-14)
DX: J84.89 Other specified interstitial pulmonary diseases (principal); I50.33 Acute on chronic diastolic (congestive) heart failure; N17.9 Acute kidney failure, unspecified; I82.402 Acute embolism and thrombosis of unspecified deep veins of left lower extremity; J44.0 Chronic obstructive pulmonary disease with (acute) lower respiratory infection; I31.3 Pericardial effusion (noninflammatory); Q89.3 Situs inversus; I11.0 Hypertensive heart disease with heart failure; I95.9 Hypotension, unspecified; E87.1 Hypo-osmolality and hyponatremia; L03.116 Cellulitis of left lower limb; J44.1 Chronic obstructive pulmonary disease with (acute) exacerbation; L03.115 Cellulitis of right lower limb; E78.5 Hyperlipidemia, unspecified; M54.5 Low back pain; G47.33 Obstructive sleep apnea (adult) (pediatric); J98.4 Other disorders of lung; I25.10 Atherosclerotic heart disease of native coronary artery without angina pectoris; E66.9 Obesity, unspecified; I89.0 Lymphedema, not elsewhere classified; E78.00 Pure hypercholesterolemia, unspecified; E87.6 Hypokalemia; Z68.31 Body mass index [BMI] 31.0-31.9, adult; Z79.82 Long term (current) use of aspirin; I25.2 Old myocardial infarction; Z87.01 Personal history of pneumonia (recurrent); Z91.19 Patient's noncompliance with other medical treatment and regimen; T50.2X5A Adverse effect of carbonic-anhydrase inhibitors, benzothiadiazides and other diuretics, initial encounter
CPT/HCPCS: 32405; 71045; 71046; 71275; 76937; 77012; 80048; 80053; 80202; 81001; 82550; 82552; 83605; 83690; 83735; 83880; 84484; 85007; 85025; 85027; 85379; 85610; 85730; 86140; 86480; 87015; 87040; 87070; 87102; 87116; 87176; 87205; 87206; 87556; 87798; 87804; 88305; 88312; 93005; 93306; 93971; 94060; 94640; 94664; 96365; 96368; 99285; J0456; J0696; J1940; J2250; J3010; J3370; J7040; J7050; Q9967

== ENCOUNTER 2018-02-06 10:27 | Inpatient (IN) | payer MEDICARE, MEDICAID ==
[~2018-02-06] VITALS: Ht 177.8 cm; Wt 97.5 kg
[~2018-02-06 10:27] MED LIST changes: +AMOX875T2 PO; -ATOR40TA16 PO; +ATOR80TA45 PO; +BUME1TAB PO; +DIAZ5TAB PO; +DOXY100T PO; -FURO1TAB62 PO; +LACT PO; -LEVA500T33 PO; +METO5TAB3 PO; -PRED20 PO; -PRED5TAB PO; -TRAM50TA PO
[2018-02-06 10:45] VITALS: BP 110/52; PULSE 95; RESP 20; TEMP 98.4; O2SAT 94
[2018-02-06] MEDS ORDERED: SODIUM CHLORIDE 0.9% FLUSH 10 ML FLUSH IVF PRN (11:30)
--- NOTE | 2018-02-06 11:31 | PD ---
HPI Chief Complaint: GI Complaint Time Seen by Provider: 11:04 Travel History International Travel<30 days: No Contact w/Intl Traveler<30days: No Traveled to known affect area: No History of Present Illness HPI This is a 62-year-old male who presents complaining of just not feeling good. He says that for the past year he has had fatigue and just generalized malaise. He reports over the past few weeks he has had cough with productive yellow- green sputum. He has also had lightheadedness for the past few weeks. He describes it as a sensation of feeling like he is going to pass out which is worse when he is standing and walking. Reports a slight headache as well as nausea. He denies any chest pain or acute shortness of breath. He denies any vomiting, abdominal pain, diarrhea or constipation. He reports chronic lower extremity edema which has been worse over the past several weeks since someone discontinued his diuretics. He is a poor historian. According to chart review he has a history of CHF, situs inversus, COPD, [place], sleep apnea. PFSH Past Medical History Cancer: No Cardiovascular Problems: Yes (DEXTROCARDIA (insitus inversus totalis); BLE edema) High Cholesterol: Yes COPD: Yes Diabetes: No (BORDER LINE) Diminished Hearing: No Endocrine: Yes Genitourinary: No Immune Disorder: No Implanted Vascular Access Dvce: Yes Musculoskeletal: Yes (back problems) Neurologic: Yes Psychiatric: No Reproductive: No Respiratory: Yes (Jose Rafael lower lobectomy ('94 & '96); chronic cough w/green sputum ) Immunizations Current: Yes Myocardial Infarction: Yes (1994) Pneumonia: Yes (2006) Seizures: Yes (X1 1993) Sleep Apnea: Yes Tetanus Vaccination: < 5 Years Influenza Vaccination: Yes Past Surgical History Abdominal Surgery: No Cardiac Surgery: No Ear Surgery: No Endocrine Surgery: No Eye Surgery: Yes (BILATERAL CATARACTS) Genitourinary Surgery: No Gynecologic Surgery: No Joint Replacement: Yes (right knee) Neurologic Surgery: Yes (BRAIN ANEURYSM WITH SHUNT INFANT, 3 cervical spine surgeries) Oral Surgery: No Thoracic Surgery: Yes (BILATERAL LOBECTOMY) Other Surgery: Yes (BILAT CARPAL TUNNEL REPAIR) Social History Alcohol Use: No Tobacco Use: No Substance Use: No Allergies-Medications (Allergen,Severity, Reaction): Coded Allergies: No Known Allergies (Verified Allergy, Unknown, 02/06/18) Reported Meds & Prescriptions Reported Meds & Active Scripts Active Bumetanide 1 Mg Tab 1 Mg PO DAILY Metolazone 5 Mg Tab 1 Tab PO DAILY Reported Diazepam 5 Mg Tab 1 Tab PO HS PRN Atorvastatin (Atorvastatin Calcium) 80 Mg Tab 80 Mg PO HS Avery-3 Fish Oil/Vitamin (Fish Oil-Cholecalciferol) 1,000-1,000 Mg Cap 1 Cap PO DAILY Ferrous Sulfate 325 Mg (65 Mg Iron) Tablet 325 Mg PO DAILY Aspirin 81 Mg Chew 81 Mg CHEW DAILY Multi-Vitamin Daily (Multiple Vitamin) 1 Tab Tab 1 Tab PO DAILY Amitriptyline (Amitriptyline HCl) 100 Mg Tab 100 Mg PO HS Protonix (Pantoprazole Sodium) 40 Mg Tab 40 Mg PO BID Albuterol Neb (Albuterol Sulfate) 2.5 Mg/0.5 Ml Neb 2.5 Mg NEB Q4HR NEB PRN Note: The Albuterol Sulfate Inhalation Solution is concentrated and must be diluted. Read complete instructions carefully before using. Review of Systems Except as stated in HPI: all other systems reviewed are Neg Physical Exam Narrative GENERAL: Well-developed well-nourished male in no acute distress SKIN: Warm and dry. HEAD: Atraumatic. Normocephalic. EYES: Pupils equal and round. No scleral icterus. No injection or drainage. ENT: No nasal bleeding or discharge. Mucous membranes pink and moist. NECK: Trachea midline. No JVD. CARDIOVASCULAR: Regular rate and rhythm. No murmur appreciated. RESPIRATORY: No accessory muscle use. Clear to auscultation. Breath sounds equal bilaterally. GASTROINTESTINAL: Abdomen soft, non-tender, nondistended. Hepatic and splenic margins not palpable. MUSCULOSKELETAL: No obvious deformities. Bilateral lower extremity nonpitting edema. NEUROLOGICAL: Awake and alert. No obvious cranial nerve deficits. Motor grossly within normal limits. Normal speech. PSYCHIATRIC: Appropriate mood and affect; insight and judgment normal. Data Data Last Documented VS Vital Signs Date Time Temp Pulse Resp B/P (MAP) Pulse Ox O2 Delivery O2 Flow Rate FiO2 02/06/18 11:06 18 02/06/18 10:45 98.4 95 110/52 (71) 94 Orders Orders Complete Blood Count With Diff (02/06/18 11:26) Comprehensive Metabolic Panel (02/06/18 11:26) B-Type Natriuretic Peptide (02/06/18 11:26) Magnesium (Mg) (02/06/18 11:26) Ckmb (Isoenzyme) Profile (02/06/18 11:26) Troponin I (02/06/18 11:26) Iv Access Insert/Monitor (02/06/18 11:26) Electrocardiogram (02/06/18 11:26) Ecg Monitoring (02/06/18 11:26) Oximetry (02/06/18 11:26) Oxygen Administration (02/06/18 11:26) Chest, Pa & Lat (02/06/18 11:26) Sodium Chloride 0.9% Flush (Ns Flush) (02/06/18 11:30) Thyroid Stimulating Hormone (02/06/18 11:26) Ct Brain W/O Iv Contrast(Rout) (02/06/18 ) Ondansetron Inj (Zofran Inj) (02/06/18 12:15) Sodium Chlor 0.9% 1000 Ml Inj (Ns 1000 M (02/06/18 12:29) CKMB (02/06/18 11:30) CKMB% (02/06/18 11:30) Admit Order (Ed Use Only) (02/06/18 13:57) Labs Laboratory Tests Test 02/06/18 11:30 White Blood Count 11.0 TH/MM3 Red Blood Count 3.96 MIL/MM3 Hemoglobin 11.6 GM/DL Hematocrit 33.1 % Mean Corpuscular Volume 83.5 FL Mean Corpuscular Hemoglobin 29.2 PG Mean Corpuscular Hemoglobin Concent 35.0 % Red Cell Distribution Width 15.4 % Platelet Count 409 TH/MM3 Mean Platelet Volume 6.3 FL Neutrophils (%) (Auto) 81.7 % Lymphocytes (%) (Auto) 9.3 % Monocytes (%) (Auto) 7.3 % Eosinophils (%) (Auto) 0.9 % Basophils (%) (Auto) 0.8 % Neutrophils # (Auto) 8.9 TH/MM3 Lymphocytes # (Auto) 1.0 TH/MM3 Monocytes # (Auto) 0.8 TH/MM3 Eosinophils # (Auto) 0.1 TH/MM3 Basophils # (Auto) 0.1 TH/MM3 CBC Comment DIFF FINAL Differential Comment Blood Urea Nitrogen 42 MG/DL Creatinine 2.27 MG/DL Random Glucose 92 MG/DL Total Protein 8.4 GM/DL Albumin 3.5 GM/DL Calcium Level 9.5 MG/DL Magnesium Level 2.1 MG/DL Alkaline Phosphatase 104 U/L Aspartate Amino Transf (AST/SGOT) 20 U/L Alanine Aminotransferase (ALT/SGPT) 21 U/L Total Bilirubin 0.6 MG/DL Sodium Level 128 MEQ/L Potassium Level 3.8 MEQ/L Chloride Level 89 MEQ/L Carbon Dioxide Level 28.2 MEQ/L Anion Gap 11 MEQ/L Estimat Glomerular Filtration Rate 29 ML/MIN Total Creatine Kinase 240 U/L Creatine Kinase MB 2.0 NG/ML Troponin I LESS THAN 0.02 NG/ML B-Type Natriuretic Peptide 21 PG/ML Thyroid Stimulating Hormone 3rd Gen 0.372 uIU/ML MDM Medical Decision Making Medical Screen Exam Complete: Yes Emergency Medical Condition: Yes Medical Record Reviewed: Yes Differential Diagnosis Dehydration, electrolyte abnormality, vertigo, arrhythmia, COPD exacerbation, pneumonia Narrative Course 62-year-old male who has felt fatigued for 1 year and now presents with lightheadedness, mild headache and nausea and cough for 2 weeks. Lab work and EKG, chest x-ray, CT brain ordered. CBC reveals a hemoglobin of 11.6 otherwise unremarkable. CMP reveals a sodium of 128, chloride 89, BUN 42, creatinine 2.27, GFR 29 which is decreased from his baseline kidney function of 48-76 during his last hospitalization in November 2017. He had an echocardiogram in November which revealed an ejection fraction of 55%. According to cardiology notes from his November 2017 hospitalization his lower extremity edema is primarily secondary to lymphedema and on examination it is nonpitting. IV liter normal saline bolus has been ordered. Discussed with the resident team who will admit. Diagnosis Primary Impression: ANUP (acute kidney injury) Additional Impression: Hyponatremia Admitting Information Admitting Physician Requests: Observation Valerio Bolaños Feb 06, 2018 11:31
--- NOTE | 2018-02-06 12:01 | RADRPT ---
EXAM DATE/TIME: 02/06/2018 11:45 [facility] COMPARISON: CHEST PA & LAT, December 11, 2017, 8:44. POC ULTRASOUND VASCULAR ACCESS TEAM, December 08, 2017, 17: 17. CT NEEDLE BIOPSY LUNG, RIGHT, December 14, 2017, 13:59. CHEST EXPIRATION ONLY, December 14 8, 15:24. CT PULMONARY ANGIOGRAM, December 07, 2017, 2:11. CHEST PA & LAT, December 12, 2017, 9:37. INDICATIONS : Short of breath and cough. MEDICAL HISTORY : Chronic obstructive pulmonary disease. Diabetes mellitus type I. Myocardial infarction. Dextroc ardia. SURGICAL HISTORY : Bilateral lobectomy. Brain aneurysm with shunt. Multiple cervical spine ENCOUNTER: Initial ACUITY: 1 day PAIN SCORE: 0/10 LOCATION: Bilateral chest FINDINGS: Redemonstration of situs inversus. No new focal pleural or parenchymal opacities. Redemonstration of ill-defined opacity in the right midlung zone. This was previously biopsied. Cardiomediastinal contou rs are otherwise stable. Remainder of the exam is unchanged. CONCLUSION: 1. No acute abnormality or significant interval change. Fredy Waldrop MD on February 06, 2018 at 11:55 Board Certified Radiologist. This report was verified electronically.
[2018-02-06 12:07] LABS: AUTOMATED NEUTROPHIL # 8.9 TH/MM3 (1.8-7.7); BASOPHIL # 0.1 TH/MM3 (0-0.2); BASOPHIL % 0.8 % (0.0-2.0); EOSINOPHIL # 0.1 TH/MM3 (0-0.4); EOSINOPHIL % 0.9 % (0.0-4.0); HEMATOCRIT 33.1 % (39.0-51.0); HEMOGLOBIN 11.6 GM/DL (13.0-17.0); LYMPH % 9.3 % (9.0-44.0); MEAN CELL VOLUME 83.5 FL (80.0-100.0); MEAN CORPUSCULAR HEMOGLOBIN 29.2 PG (27.0-34.0); MEAN PLATELET VOLUME 6.3 FL (7.0-11.0); MONO % 7.3 % (0.0-8.0); MONOCYTE # 0.8 TH/MM3 (0-0.9); NEUT % 81.7 % (16.0-70.0); PLATELET COUNT 409 TH/MM3 (150-450); RED BLOOD COUNT 3.96 MIL/MM3 (4.50-5.90); RED CELL DISTRIBUTION WIDTH 15.4 % (11.6-17.2)
[2018-02-06] MEDS ORDERED: ONDANSETRON HCL 4 MG/2 ML VIAL IV PUSH ONE (12:15)
[2018-02-06 12:26] LABS: ALBUMIN 3.5 GM/DL (3.4-5.0); AST (GOT) 20 U/L (15-37); BICARBONATE 28.2 MEQ/L (21.0-32.0); BLOOD UREA NITROGEN 42 MG/DL (7-18); CALCIUM 9.5 MG/DL (8.5-10.1); CHLORIDE 89 MEQ/L (98-107); CREATININE 2.27 MG/DL (0.60-1.30); GLOMERULAR FILTRATION RATE 29 ML/MIN (>89); GLUCOSE,RANDOM 92 MG/DL (74-106); MAGNESIUM 2.1 MG/DL (1.5-2.5); SODIUM (NA) 128 MEQ/L (136-145)
--- NOTE | 2018-02-06 12:26 | RADRPT ---
EXAM DATE/TIME: 02/06/2018 11:56 [facility] COMPARISON: CT BRAIN W/O CONTRAST, August 16, 2013, 14:47. INDICATIONS : Weakness, coughing RADIATION DOSE: 33.35 CTDIvol (mGy) MEDICAL HISTORY : Chronic obstructive pulmonary disease. Cardiovascular disease Diabetes mellitus type 1. SURGICAL HISTORY : Craniotomy. ENCOUNTER: Initial ACUITY: 1 month PAIN SCALE: 10/10 LOCATION: cranial TECHNIQUE: Multiple contiguous axial images were obtained of the head. Using automated exposure control and adj ustment of the mA and/or kV according to patient size, radiation dose was kept as low as reasonably a chievable to obtain optimal diagnostic quality images. DICOM format image data is available electro nically for review and comparison. FINDINGS: Ventricles are prominent. Calcifications are present suggesting previous shunt placement. Minimal extra-axial fluid collections appreciated Evidence of previous surgery is present in the posterior fossa. Posterior fossa appears normal. There is no evidence for acute infarction. There is no parenchymal hemorrhage. CONCLUSION: Prominent ventricles, stable in interval. Edis Navarro MD FACR on February 06, 2018 at 12:17 Board Certified Radiologist. This report was verified electronically.
[2018-02-06 12:27] LABS: ALT (GPT) 21 U/L (12-78)
[2018-02-06] MEDS ORDERED: SODIUM CHLOR 0.9% 1000 ML INJ 1,000 ML IV SCH (12:29)
[2018-02-06 12:37] LABS: ALKALINE PHOSPHATASE 104 U/L (45-117); TOTAL BILIRUBIN ADULT 0.6 MG/DL (0.2-1.0); TOTAL PROTEIN 8.4 GM/DL (6.4-8.2); TROPONIN I LESS THAN 0.02 NG/ML (0.02-0.05)
--- NOTE | 2018-02-06 13:58 | HHI.HP ---
[facility] Service Family Medicine Primary Care Physician Alea Shepard MD Admission Diagnosis Acute kidney injury, hyponatremia Diagnoses: International Travel<30 Days: No Contact w/Intl Traveler<30days: No Known Affected Area: No History of Present Illness Patient is a 62 year old male with a past medical history significant of situs inversus, COPD and CHF who presents to the ED because he "just [doesn't] feel good." He reports body aches and weakness. He reports a constant, productive cough with green sputum and worsening shortness of breath. He has used his nebulizer x4 per day; breathing treatments provide some relief. He reports hoarseness but denies sore throat. He denies headache, fever and chills. He denies nausea, vomiting, diarrhea and constipation. He reports increased lower extremity swelling. These symptoms have been present for approximately two weeks. Of note, patient was hospitalized in November 2017 with a cavitary lesion of the right upper lobe; TB negative. Review of Systems Constitutional: COMPLAINS OF: Fatigue, Dizziness, DENIES: Diaphoretic episodes , Fever, Weight gain, Weight loss, Chills, Change in appetite Eyes: DENIES: Blurred vision, Vision loss, Double Vision Ears, nose, mouth, throat: COMPLAINS OF: Hoarseness, DENIES: Nasal discharge, Throat pain, Ear Pain, Running Nose Respiratory: COMPLAINS OF: Cough, Wheezing, Sputum production (Green), Shortness of breath, DENIES: Hemoptysis Cardiovascular: COMPLAINS OF: Chest pain (Occasionally ), Lower Extremity Edema , DENIES: Palpitations Gastrointestinal: DENIES: Abdominal pain, Black stools, Bloody stools, Constipation, Diarrhea, Nausea, Vomiting Genitourinary: COMPLAINS OF: Urinary frequency (Associated with medication ) Musculoskeletal: DENIES: Joint pain, Muscle aches, Stiffness, Back pain, Neck pain Integumentary: DENIES: Abnormal pigmentation, Rash Hematologic/lymphatic: DENIES: Bruising Neurologic: DENIES: Headache Psychiatric: DENIES: Anxiety, Confusion, Depression Past Family Social History Past Medical History Seizure - used to take Dilantin; over 10 years ago COPD CHF DE Pre-diabetes Past Surgical History Brain aneurysm with shunt placement - when patient was 6 months old Cervical spine surgery x4 Lumbar spine surgery x1 Knee surgeries x2 right, x1 left Reported Medications Bumetanide 1 Mg Tab 1 Mg PO DAILY Metolazone 5 Mg Tab 1 Tab PO DAILY Diazepam 5 Mg Tab 1 Tab PO HS PRN Atorvastatin (Atorvastatin Calcium) 80 Mg Tab 80 Mg PO HS [place]-3 Fish Oil/Vitamin (Fish Oil-Cholecalciferol) 1,000-1,000 Mg Cap 1 Cap PO DAILY Ferrous Sulfate 325 Mg (65 Mg Iron) Tablet 325 Mg PO DAILY Aspirin 81 Mg Chew 81 Mg CHEW DAILY Multi-Vitamin Daily (Multiple Vitamin) 1 Tab Tab 1 Tab PO DAILY Amitriptyline (Amitriptyline HCl) 100 Mg Tab 100 Mg PO HS Protonix (Pantoprazole Sodium) 40 Mg Tab 40 Mg PO BID Albuterol Neb (Albuterol Sulfate) 2.5 Mg/0.5 Ml Neb 2.5 Mg NEB Q4HR NEB PRN Allergies: Coded Allergies: No Known Allergies (Verified Allergy, Unknown, 02/06/18) Active Ordered Medications Current Medications Medications (Trade) Dose Ordered Sig/Al Route Start Time Stop Time Status Last Admin (NS Flush) 2 ml UNSCH PRN IVF 02/06/18 11:30 (Albuterol Neb) 2.5 mg Q4HR NEB PRN NEB 02/06/18 14:45 (Aspirin Chew) 81 mg DAILY CHEW 02/07/18 09:00 (Lipitor) 80 mg HS PO 02/06/18 21:00 (Bumetanide) 1 mg DAILY PO 02/06/18 14:30 02/06/18 16:18 (Ferrous Sulfate) 325 mg DAILY PO 02/06/18 14:30 (Protonix) 40 mg BID PO 02/06/18 14:30 02/06/18 16:18 (Vitamin D3) 1,000 units DAILY PO 02/07/18 09:00 (Theragran) 1 tab DAILY PO 02/07/18 09:00 (NS Flush) 2 ml UNSCH PRN IV FLUSH 02/06/18 15:15 (NS Flush) 2 ml BID IV FLUSH 02/06/18 21:00 (Narcan Inj) 0.4 mg UNSCH PRN IV PUSH 02/06/18 15:15 (Alexa-Colace) 1 tab BID PO 02/06/18 21:00 (Milk Of Magnesia Liq) 30 ml Q12H PRN PO 02/06/18 15:15 (Senokot) 17.2 mg Q12H PRN PO 02/06/18 15:15 (Dulcolax Supp) 10 mg DAILY PRN RECTAL 02/06/18 15:15 (Lactulose Liq) 30 ml DAILY PRN PO 02/06/18 15:15 Sodium Chloride 1,000 ml @ 75 mls/hr [id number] IV 02/06/18 18:35 UNV (Zofran Inj) 4 mg Q6H PRN IVP 02/06/18 18:45 UNV (Heparin Inj) 5,000 units Q8H SQ 02/06/18 18:45 UNV (Tylenol) 650 mg Q6H PRN PO 02/06/18 18:45 UNV Family History Mother - cancer (unknown) Father - COPD, cancer (unknown) Social History Lives with and two cats. Alcohol: Denies. Tobacco: Denies. Drug use: Denies. Physical Exam Vital Signs Vital Signs Date Time Temp Pulse Resp B/P (MAP) Pulse Ox O2 Delivery O2 Flow Rate FiO2 02/06/18 11:06 18 02/06/18 10:45 98.4 95 20 110/52 (71) 94 Physical Exam GENERAL: This is a well-nourished, well-developed patient, in no apparent respiratory distress. Patient appears grouchy. SKIN: Warm and dry. HEAD: Atraumatic. Normocephalic. No temporal or scalp tenderness. EYES: Pupils equal round and reactive. Extraocular motions intact. No scleral icterus. No injection or drainage. ENT: Tympanic membranes without evidence of perforation or infection. Nose without bleeding, purulent drainage or septal hematoma. Throat without erythema , tonsillar hypertrophy or exudate. Uvula midline. Airway patent. NECK: Trachea midline. Cervical lymphadenopathy noted on right. Supple, nontender, no meningeal signs. CARDIOVASCULAR: Regular rate and rhythm without murmurs, gallops, or rubs. Situs inversus. RESPIRATORY: Clear to auscultation. Breath sounds equal bilaterally. No wheezes , rales, or rhonchi. GASTROINTESTINAL: Abdomen soft, mild but diffusely tender, nondistended. No hepato-splenomegaly, or palpable masses. No guarding. MUSCULOSKELETAL: Lower extremities with significant lymphedema to below the knee as well as pitting edema of the feet. No calf tenderness. NEUROLOGICAL: Awake and alert. Cranial nerves II through XII intact. Motor and sensory grossly within normal limits. Five out of 5 muscle strength in all muscle groups. Normal speech. Laboratory Laboratory Tests Test 02/06/18 11:30 White Blood Count 11.0 Red Blood Count 3.96 Hemoglobin 11.6 Hematocrit 33.1 Mean Corpuscular Volume 83.5 Mean Corpuscular Hemoglobin 29.2 Mean Corpuscular Hemoglobin Concent 35.0 Red Cell Distribution Width 15.4 Platelet Count 409 Mean Platelet Volume 6.3 Neutrophils (%) (Auto) 81.7 Lymphocytes (%) (Auto) 9.3 Monocytes (%) (Auto) 7.3 Eosinophils (%) (Auto) 0.9 Basophils (%) (Auto) 0.8 Neutrophils # (Auto) 8.9 Lymphocytes # (Auto) 1.0 Monocytes # (Auto) 0.8 Eosinophils # (Auto) 0.1 Basophils # (Auto) 0.1 CBC Comment DIFF FINAL Differential Comment Blood Urea Nitrogen 42 Creatinine 2.27 Random Glucose 92 Total Protein 8.4 Albumin 3.5 Calcium Level 9.5 Magnesium Level 2.1 Alkaline Phosphatase 104 Aspartate Amino Transf (AST/SGOT) 20 Alanine Aminotransferase (ALT/SGPT) 21 Total Bilirubin 0.6 Sodium Level 128 Potassium Level 3.8 Chloride Level 89 Carbon Dioxide Level 28.2 Anion Gap 11 Estimat Glomerular Filtration Rate 29 Total Creatine Kinase 240 Creatine Kinase MB 2.0 Troponin I LESS THAN 0.02 B-Type Natriuretic Peptide 21 Thyroid Stimulating Hormone 3rd Gen 0.372 Result Diagram: 02/06/18 1130 02/06/18 1130 Imaging Last 72 hours Impressions Chest X-Ray 02/06/18 1126 Signed Impressions: Service Date/Time: Tuesday, February 06, 2018 11:45 - CONCLUSION: 1. No acute abnormality or significant interval change. Fredy Waldrop MD Head CT 02/06/18 0000 Signed Impressions: Service Date/Time: Tuesday, February 06, 2018 11:56 - CONCLUSION: Prominent ventricles, stable in interval. Edis Navarro MD FACR Capmarciai VTE Risk Assessment Caprini VTE Risk Assessment: Mod/High Risk (score >= 2) Caprini Risk Assessment Model Point Value = 1 Point Value = 2 Point Value = 3 Point Value = 5 Age 41-60 Minor surgery BMI > 25 kg/m2 Swollen legs Varicose veins or History of unexplained or recurrent spontaneous Oral contraceptives or hormone replacement Sepsis (< 1 month) Serious lung disease, including pneumonia (< 1 month) Abnormal pulmonary function Acute myocardial infarction Congestive heart failure (< 1 month) History of inflammatory bowel disease Medical patient at bed rest Age 61-74 Arthroscopic surgery Major open surgery (> 45 min) Laparoscopic surgery (> 45 min) Malignancy Confined to bed (> 72 hours) Immobilizing plaster cast Central venous access Age >= 75 History of VTE Family history of VTE Factor V Leiden Prothrombin [id number] Lupus anticoagulant Anticardiolipin antibodies Elevated serum homocysteine Heparin-induced thrombocytopenia Other congenital or acquired thrombophilia Stroke (< 1 month) Elective arthroplasty Hip, pelvis, or leg fracture Acute spinal cord injury (< 1 month) Prophylaxis Regimen Total Risk Factor Score Risk Level Prophylaxis Regimen 0-1 Low Early ambulation 2 Moderate Order ONE of the following: *Sequential Compression Device (SCD) *Heparin 5000 units SQ BID 3-4 Higher Order ONE of the following medications: *Heparin 5000 units SQ TID *Enoxaparin/Lovenox 40 mg SQ daily (WT < 150 kg, CrCl > 30 mL/min) *Enoxaparin/Lovenox 30 mg SQ daily (WT < 150 kg, CrCl > 10-29 mL/min) *Enoxaparin/Lovenox 30 mg SQ BID (WT < 150 kg, CrCl > 30 mL/min) AND/OR *Sequential Compression Device (SCD) 5 or more Highest Order ONE of the following medications: *Heparin 5000 units SQ TID (Preferred with Epidurals) *Enoxaparin/Lovenox 40 mg SQ daily (WT < 150 kg, CrCl > 30 mL/min) *Enoxaparin/Lovenox 30 mg SQ daily (WT < 150 kg, CrCl > 10-29 mL/min) *Enoxaparin/Lovenox 30 mg SQ BID (WT < 150 kg, CrCl > 30 mL/min) AND *Sequential Compression Device (SCD) Assessment and Plan Assessment and Plan Patient is a 62 year old male with a past medical history significant of situs inversus, COPD and CHF who presents to the ED because he "just [doesn't] feel good." Admitted for evaluation and treatment of hyponatremia and ANUP. Code Status Full Code. Discussed Condition With Dr. Chiu. Problem List: (1) URI (upper respiratory infection) ICD Codes: J06.9 - Acute upper respiratory infection, unspecified Status: Acute Plan: Patient "just [doesn't] feel good." He reports body aches and weakness. He reports a constant, productive cough with green sputum and worsening shortness of breath. He has used his nebulizer x4 per day; breathing treatments provide some relief. He reports hoarseness but denies sore throat. He denies headache, fever and chills. He denies nausea, vomiting, diarrhea and constipation. He reports increased lower extremity swelling. These symptoms have been present for approximately two weeks. CXR: No acute abnormality or significant interval change. Influenza A/B pending. Group A strep pending. Respiratory panel pending. Medications: * Duoneb 1 ampule q6hr. * Albuterol 2.5mh q2hr PRN Shortness of breath. * Tessalon 100mg PO TID PRN Cough. (2) Hyponatremia ICD Codes: E87.1 - Hypo-osmolality and hyponatremia Status: Acute Plan: Na 02/06: 128. Cause unknown. May be due to thiazide use. Urine sodium pending. Urine creatinine pending. Urine and serum osmolality pending. (3) ANUP (acute kidney injury) ICD Codes: N17.9 - Acute kidney failure, unspecified Status: Acute Plan: Cr 02/06: 2.27. Baseline is 1.1-1.25. BUN 02/06: 42. Renal US pending. Medications: * NS 75ml/hr. Fluid management difficult due to CHF. (4) Lymphedema ICD Codes: I89.0 - Lymphedema, not elsewhere classified Status: Chronic Plan: Patient with history of lymphedema. Not currently treated. Non- compliance. (5) COPD (chronic obstructive pulmonary disease) ICD Codes: J44.9 - Chronic obstructive pulmonary disease, unspecified Status: Chronic Plan: Patient with history of COPD. May be contributing to shortness of breath. * Duoneb 1 ampule q6hr. * Albuterol 2.5mh q2hr PRN Shortness of breath. * Levaquin 750mg PO q48hr - renally dosed. (6) CHF (congestive heart failure) ICD Codes: I50.9 - Heart failure, unspecified Status: Chronic Plan: Patient with history of CHF. BNP 21. Unlikely cause of shortness of breath. ECHO 12/09: Pt has situs inversus. Normal left ventricular size. Wall thickness is normal. The left ventricular systolic function is normal with an estimated ejection fraction of 55%. There is a small pericardial effusion present. Medications: * Continue Bumetanide 1mg PO daily. * Hold thiazide diuretic. (7) Situs inversus ICD Codes: Q89.3 - Situs inversus Status: Chronic Plan: Patient with history of situs inversus. See ECHO findings above. (8) Fluid, Electrolyte, Nutrition, and Prophylaxis Status: Acute Plan: Fluid: * NS 75ml/hr. Electrolyte: * Monitor and replete as necessary. * See Plan for Hyponatremia. Nutrition: * Regular diet. Prophylaxis: * Heparin 5,000 units q8hr. Tatiana Clark MD R1 Feb 06, 2018 13:58
--- NOTE | 2018-02-06 14:17 | PD ---
Data Data Last Documented VS Vital Signs Date Time Temp Pulse Resp B/P (MAP) Pulse Ox O2 Delivery O2 Flow Rate FiO2 02/06/18 11:06 18 02/06/18 10:45 98.4 95 110/52 (71) 94 Orders Orders Complete Blood Count With Diff (02/06/18 11:26) Comprehensive Metabolic Panel (02/06/18 11:26) B-Type Natriuretic Peptide (02/06/18 11:26) Magnesium (Mg) (02/06/18 11:26) Ckmb (Isoenzyme) Profile (02/06/18 11:26) Troponin I (02/06/18 11:26) Iv Access Insert/Monitor (02/06/18 11:26) Electrocardiogram (02/06/18 11:26) Ecg Monitoring (02/06/18:) Oximetry (02/06/18 11:26) Oxygen Administration (02/06/18 11:26) Chest, Pa & Lat (02/06/18 11:26) Sodium Chloride 0.9% Flush (Ns Flush) (02/06/18 11:30) Thyroid Stimulating Hormone (02/06/18 11:26) Ct Brain W/O Iv Contrast(Rout) (02/06/18 ) Ondansetron Inj (Zofran Inj) (02/06/18 12:15) Sodium Chlor 0.9% 1000 Ml Inj (Ns 1000 M (02/06/18 12:29) CKMB (02/06/18 11:30) CKMB% (02/06/18 11:30) Admit Order (Ed Use Only) (02/06/18 13:57) Labs Laboratory Tests Test 02/06/18 11:30 White Blood Count 11.0 TH/MM3 Red Blood Count 3.96 MIL/MM3 Hemoglobin 11.6 GM/DL Hematocrit 33.1 % Mean Corpuscular Volume 83.5 FL Mean Corpuscular Hemoglobin 29.2 PG Mean Corpuscular Hemoglobin Concent 35.0 % Red Cell Distribution Width 15.4 % Platelet Count 409 TH/MM3 Mean Platelet Volume 6.3 FL Neutrophils (%) (Auto) 81.7 % Lymphocytes (%) (Auto) 9.3 % Monocytes (%) (Auto) 7.3 % Eosinophils (%) (Auto) 0.9 % Basophils (%) (Auto) 0.8 % Neutrophils # (Auto) 8.9 TH/MM3 Lymphocytes # (Auto) 1.0 TH/MM3 Monocytes # (Auto) 0.8 TH/MM3 Eosinophils # (Auto) 0.1 TH/MM3 Basophils # (Auto) 0.1 TH/MM3 CBC Comment DIFF FINAL Differential Comment Blood Urea Nitrogen 42 MG/DL Creatinine 2.27 MG/DL Random Glucose 92 MG/DL Total Protein 8.4 GM/DL Albumin 3.5 GM/DL Calcium Level 9.5 MG/DL Magnesium Level 2.1 MG/DL Alkaline Phosphatase 104 U/L Aspartate Amino Transf (AST/SGOT) 20 U/L Alanine Aminotransferase (ALT/SGPT) 21 U/L Total Bilirubin 0.6 MG/DL Sodium Level 128 MEQ/L Potassium Level 3.8 MEQ/L Chloride Level 89 MEQ/L Carbon Dioxide Level 28.2 MEQ/L Anion Gap 11 MEQ/L Estimat Glomerular Filtration Rate 29 ML/MIN Total Creatine Kinase 240 U/L Creatine Kinase MB 2.0 NG/ML Troponin I LESS THAN 0.02 NG/ML B-Type Natriuretic Peptide 21 PG/ML Thyroid Stimulating Hormone 3rd Gen 0.372 uIU/ML MDM Supervised Visit with DIMAS: Yes Narrative Course I, Dr. Brothers, have reviewed the advance practice practitioner's documentation and am in agreement, met with the patient face to face, made the diagnosis, and the medical decision making was done by me. *My assessment and Findings: Met with the patient. I reviewed his workup in detail. He does have hyponatremia and acute on chronic kidney disease. He has significant bilateral lower extremity edema. Options were reviewed. He will be a 23 hour observation in the hospital to the medical residents. Diagnosis Primary Impression: ANUP (acute kidney injury) Additional Impression: Hyponatremia Admitting Information Admitting Physician Requests: Observation Migue Brothers MD Feb 06, 2018 14:17
[2018-02-06] MEDS: FERROUS SULFATE 325 MG (65 MG ELEMENTAL IRON) TAB PO SCH (14:30)
[2018-02-06] MEDS ORDERED: RESP: ALBUTEROL 2.5 MG/3 ML NEB (PRN) NEB (14:45)
[2018-02-06 15:12] VITALS: O2SAT 94
[2018-02-06] MEDS ORDERED: SENNOSIDES 8.6 MG TAB PO PRN (15:15)
[2018-02-06] MEDS ORDERED: LACTULOSE SYRUP 20 GM/30 ML CUP PO PRN (15:15)
[2018-02-06] MEDS ORDERED: NALOXONE HCL 0.4 MG/ML AMP IV PUSH PRN (15:15)
[2018-02-06] MEDS ORDERED: SODIUM CHLORIDE 0.9% FLUSH 10 ML FLUSH IV FLUSH PRN (15:15)
[2018-02-06] MEDS ORDERED: BISACODYL 10 MG SUPP RECTAL PRN (15:15)
[2018-02-06] MEDS ORDERED: MAGNESIUM HYDROXIDE SUSP 30 ML CUP PO PRN (15:15)
[2018-02-06 16:00] VITALS: BP 104/60; PULSE 77; RESP 16; TEMP 97.5; O2SAT 95
[2018-02-06] MEDS: BUMETANIDE 1 MG TAB PO SCH (16:18)
[2018-02-06] MEDS: PANTOPRAZOLE SOD 40 MG DELAYED RELEASE TAB PO SCH ×2 (16:18→21:00)
[2018-02-06] MEDS ORDERED: ONDANSETRON HCL 4 MG/2 ML VIAL IVP PRN (18:45)
[2018-02-06] MEDS ORDERED: ACETAMINOPHEN 325 MG TAB PO PRN (18:45)
[2018-02-06] MEDS ORDERED: BENZONATATE 100 MG CAP PO PRN (19:00)
[2018-02-06] MEDS: RESP: ALBUTEROL 2.5 MG/IPRATROPIUM 0.5 MG NEB (SCH) INH (19:38)
[2018-02-06 19:41] VITALS: O2SAT 95
[2018-02-06 19:58] VITALS: BP 106/62; PULSE 82; RESP 18; TEMP 98.2; O2SAT 92
[2018-02-06] MEDS: HEPARIN SODIUM - SQ 10,000 UNITS/ML VIAL SQ SCH (20:00)
[2018-02-06] MEDS: SODIUM CHLOR 0.45% 1000 ML INJ 1,000 ML IV SCH (20:00)
[2018-02-06 20:20] VITALS: PULSE 80
[2018-02-06] MEDS: SODIUM CHLORIDE 0.9% FLUSH 10 ML FLUSH IV FLUSH SCH (21:00)
[2018-02-06] MEDS: ATORVASTATIN 80 MG TAB PO SCH (21:00)
[2018-02-06] MEDS ORDERED: LEVOFLOXACIN 750 MG TAB PO SCH (21:00)
[2018-02-06] MEDS: DOCUSATE SODIUM 50 MG/SENNA 8.6 MG TAB PO SCH (21:00)
--- NOTE | 2018-02-06 21:11 | RADRPT ---
EXAM DATE/TIME: 02/06/2018 20:28 [facility] COMPARISON: CHEST PA & LAT, February 06, 2018, 11:45. INDICATIONS : Increased BUN and Creatinine. MEDICAL HISTORY : Chronic obstructive pulmonary disease. Congestive heart failure. Myocardial infarction. Situs Inversu s. Seizure. SURGICAL HISTORY : Bilateral Cataracts. Brain aneurysm with shunt placement. Cervical spine surgery x 4. Lumbar spine surgery x 1. Knee surgeries x2 right, x1 left. ENCOUNTER: Initial ACUITY: 3 days PAIN SCORE: 1/10 LOCATION: Bilateral flank MEASUREMENTS: RIGHT KIDNEY: 10.6 x 4.2 x 4.9 cm LEFT KIDNEY: 11.9 x 4.4 x 5.5 cm FINDINGS: RIGHT KIDNEY: Renal cortex is normal in thickness and echotexture. No hydronephrosis, stone, or mass. LEFT KIDNEY: Renal cortex is normal in thickness and echotexture. No hydronephrosis, stone, or mass. BLADDER: Within normal limits given the degree of distension. CONCLUSION: No acute disease. Jack Perez MD on February 06, 2018 at 21:06 Board Certified Radiologist. This report was verified electronically.
[2018-02-06 22:50] LABS: CREATININE, RANDOM URINE 41.1 MG/DL
[2018-02-06 22:54] LABS: BILIRUBIN, URINE NEG (NEG); BLOOD, URINE NEG (NEG); GLUCOSE,URINE NEG (NEG); KETONE, URINE NEG (NEG); MUCUS URINE FEW /lpf (OCC); NITRITE,URINE NEG (NEG); SQUAMOUS EPITHELIAL CELL URINE <1 /hpf (0-5); URINE COLOR LIGHT-YELLOW (YELLW/STRAW); URINE LEUKOCYTE ESTERASE NEG (NEG)
[2018-02-07] VITALS (10 sets, daily range): BP systolic 100–112; BP diastolic 53–64; PULSE 70–101; RESP 18; TEMP 97.8–98.7; O2SAT 92–95
[2018-02-07] MEDS: RESP: ALBUTEROL 2.5 MG/IPRATROPIUM 0.5 MG NEB (SCH) INH ×4 (03:37→19:39)
[2018-02-07] MEDS: HEPARIN SODIUM - SQ 10,000 UNITS/ML VIAL SQ SCH ×3 (04:15→20:18)
[2018-02-07 07:51] LABS: AUTOMATED NEUTROPHIL # 5.2 TH/MM3 (1.8-7.7); BASOPHIL # 0.1 TH/MM3 (0-0.2); BASOPHIL % 0.7 % (0.0-2.0); EOSINOPHIL # 0.2 TH/MM3 (0-0.4); EOSINOPHIL % 2.3 % (0.0-4.0); HEMOGLOBIN 10.7 GM/DL (13.0-17.0); LYMPH % 14.6 % (9.0-44.0); MEAN CELL VOLUME 83.8 FL (80.0-100.0); MEAN CORPUSCULAR HGB CONC 34.6 % (32.0-36.0); MEAN PLATELET VOLUME 6.3 FL (7.0-11.0); MONO % 10.6 % (0.0-8.0); MONOCYTE # 0.8 TH/MM3 (0-0.9); NEUT % 71.8 % (16.0-70.0); PLATELET COUNT 404 TH/MM3 (150-450); RED BLOOD COUNT 3.71 MIL/MM3 (4.50-5.90); RED CELL DISTRIBUTION WIDTH 15.3 % (11.6-17.2); WHITE BLOOD COUNT 7.2 TH/MM3 (4.0-11.0)
[2018-02-07 08:09] LABS: CALCIUM 9.1 MG/DL (8.5-10.1); CREATININE 2.48 MG/DL (0.60-1.30)
[2018-02-07] MEDS: FERROUS SULFATE 325 MG (65 MG ELEMENTAL IRON) TAB PO SCH (09:07)
[2018-02-07] MEDS: ASPIRIN 81 MG CHEW TAB CHEW SCH (09:07)
[2018-02-07] MEDS: DOCUSATE SODIUM 50 MG/SENNA 8.6 MG TAB PO SCH ×2 (09:08→20:18)
[2018-02-07] MEDS: MULTIVITAMIN TAB PO SCH (09:08)
[2018-02-07] MEDS: BUMETANIDE 1 MG TAB PO SCH (09:08)
[2018-02-07] MEDS: CHOLECALCIFEROL (VIT D3) 1000 UNIT TAB PO SCH (09:08)
[2018-02-07] MEDS: PANTOPRAZOLE SOD 40 MG DELAYED RELEASE TAB PO SCH ×2 (09:08→20:18)
[2018-02-07] MEDS: SODIUM CHLORIDE 0.9% FLUSH 10 ML FLUSH IV FLUSH SCH ×2 (09:08→20:19)
[2018-02-07] MEDS: SODIUM CHLOR 0.45% 1000 ML INJ 1,000 ML IV SCH ×3 (09:20→23:15)
--- NOTE | 2018-02-07 14:45 | HHI.FPPN ---
Subjective Remarks Patient was seen and evaluated this morning. He reports minimal improvement of his symptoms. He complains about back pain and lack of comfort that his hospital bed and chair provide. He denies chest pain, shortness of breath, nausea, vomiting, diarrhea and constipation. All questions were answered. (Tatiana Clark MD R1) Objective Vitals Vital Signs Date Time Temp Pulse Resp B/P (MAP) Pulse Ox O2 Delivery O2 Flow Rate FiO2 02/07/18 11:45 98.7 78 18 107/64 (78) 95 02/07/18 07:49 95 21 02/07/18 07:34 98.7 71 18 112/58 (76) 95 02/07/18 05:00 97.8 73 18 100/59 (73) 92 02/07/18 04:12 101 02/07/18 00:00 77 02/06/18 20:20 80 02/06/18 19:58 98.2 82 18 106/62 (77) 92 02/06/18 19:41 95 21 02/06/18 16:00 97.5 77 16 104/60 (75) 95 02/06/18 15:12 94 21 I/O 02/06/18 02/06/18 02/06/18 02/07/18 02/07/18 02/07/18 06:59 14:59 22:59 06:59 14:59 22:59 Intake Total 1000 ml Output Total 300 ml Balance 1000 ml -300 ml Intake IV Total 1000 ml Output Urine Total 300 ml # Bowel Movements 1 (Tatiana Clark MD R1) Result Diagram: 02/07/18 0711 02/07/18 0711 Imaging Last 72 hours Impressions Chest X-Ray 02/06/18 1126 Signed Impressions: Service Date/Time: Tuesday, February 06, 2018 11:45 - CONCLUSION: 1. No acute abnormality or significant interval change. Fredy Waldrop MD Renal Ultrasound 02/06/18 0000 Signed Impressions: Service Date/Time: Tuesday, February 06, 2018 20:28 - CONCLUSION: No acute disease. Jack Perez MD Head CT 02/06/18 0000 Signed Impressions: Service Date/Time: Tuesday, February 06, 2018 11:56 - CONCLUSION: Prominent ventricles, stable in interval. Edis Navarro MD FACR Objective Remarks GENERAL: This is a well-nourished, well-developed patient, in no apparent respiratory distress. SKIN: Warm and dry. HEAD: Atraumatic. Normocephalic. EYES: Pupils equal round. Extraocular motions intact. No scleral icterus. No injection or drainage. ENT: Nose without bleeding, purulent drainage or septal hematoma. Airway patent. NECK: Trachea midline. Cervical lymphadenopathy noted on right. Supple, nontender, no meningeal signs. CARDIOVASCULAR: Regular rate and rhythm without murmurs, gallops, or rubs. Situs inversus. RESPIRATORY: Clear to auscultation. Breath sounds equal bilaterally. No wheezes , rales, or rhonchi. GASTROINTESTINAL: Positive bowel sounds. Abdomen soft, mild but diffusely tender , nondistended. MUSCULOSKELETAL: Lower extremities with significant lymphedema to below the knee as well as pitting edema of the feet. No calf tenderness. NEUROLOGICAL: Awake and alert. Cranial nerves II through XII intact. Motor and sensory grossly within normal limits. Normal speech. Medications and IVs Current Medications Medications (Trade) Dose Ordered Sig/Al Route Start Time Stop Time Status Last Admin (Aspirin Chew) 81 mg DAILY CHEW 02/07/18 09:00 02/07/18 09:07 (Lipitor) 80 mg HS PO 02/06/18 21:00 (Bumetanide) 1 mg DAILY PO 02/06/18 14:30 02/07/18 09:08 (Ferrous Sulfate) 325 mg DAILY PO 02/06/18 14:30 02/07/18 09:07 (Protonix) 40 mg BID PO 02/06/18 14:30 02/07/18 09:08 (Vitamin D3) 1,000 units DAILY PO 02/07/18 09:00 02/07/18 09:08 (Theragran) 1 tab DAILY PO 02/07/18 09:00 02/07/18 09:08 (NS Flush) 2 ml UNSCH PRN IV FLUSH 02/06/18 15:15 (NS Flush) 2 ml BID IV FLUSH 02/06/18 21:00 02/07/18 09:08 (Narcan Inj) 0.4 mg UNSCH PRN IV PUSH 02/06/18 15:15 (Alexa-Colace) 1 tab BID PO 02/06/18 21:00 02/07/18 09:08 (Milk Of Magnesia Liq) 30 ml Q12H PRN PO 02/06/18 15:15 (Senokot) 17.2 mg Q12H PRN PO 02/06/18 15:15 (Dulcolax Supp) 10 mg DAILY PRN RECTAL 02/06/18 15:15 (Lactulose Liq) 30 ml DAILY PRN PO 02/06/18 15:15 Sodium Chloride 1,000 ml @ 140 mls/hr Q7H9M IV 02/06/18 20:00 02/06/18 20:00 (Zofran Inj) 4 mg Q6H PRN IVP 02/06/18 18:45 (Heparin Inj) 5,000 units Q8H SQ 02/06/18 20:00 02/07/18 14:29 (Tylenol) 650 mg Q6H PRN PO 02/06/18 18:45 (Tessalon) 100 mg TID PRN PO 02/06/18 19:00 (Duoneb Neb) 1 ampule Q6HR NEB INH 02/06/18 22:00 02/07/18 07:49 (Albuterol Neb) 2.5 mg Q2HR NEB PRN INH 02/06/18 19:30 (Levaquin) 750 mg Q48H PO 02/06/18 21:00 02/06/18 21:00 (Tatiana Clark MD R1) Urinary Catheter: No (Tatiana Clark MD R1) Vascular Central Line Catheter: No (Tatiana Clark MD R1) A/P Assessment and Plan Patient is a 62 year old male with a past medical history significant of situs inversus, COPD and CHF who presents to the ED because he "just [doesn't] feel good." Admitted for evaluation and treatment of hyponatremia and ANUP. Discharge Planning Pending clinical improvement. (Tatiana Clark MD R1) Attending Attestation Patient seen and examined, discussed with resident team. I agree with assessment and management as documented and discussed with me. This note / attestation is written in conjunction with H&P dated 02/06/2018. Jakc Crockett is a 62yo gentleman admitted for hyponatremia and acute kidney injury. This morning, he reports no significant concerns. He says urine is yellow, not cloudy. No dysuria. Kidney function is slightly worse since yesterday; increase IV fluid rate. Monitor Is/Os. Record review from 11/2017 hospitalization indicates sputum culture with mycobacterium species; he had been prescribed doxycycline at discharge. Check CT scan to follow up cavitary pneumonia on 11/2017. (Gloria Chiu MD) Problem List: (1) URI (upper respiratory infection) ICD Codes: J06.9 - Acute upper respiratory infection, unspecified Status: Acute Plan: Patient "just [doesn't] feel good." He reports body aches and weakness. He reports a constant, productive cough with green sputum and worsening shortness of breath. He has used his nebulizer x4 per day; breathing treatments provide some relief. He reports hoarseness but denies sore throat. He denies headache, fever and chills. He denies nausea, vomiting, diarrhea and constipation. He reports increased lower extremity swelling. These symptoms have been present for approximately two weeks. Patient hospitalized for similar set of symptoms in November 2017. Treated for atypical cavitary pneumonia; MTB probe and Quantiferon negative. Discharged on Augmentin and Doxycycline x10 days. Patient asked to follow-up with pulmonology , Dr. Delgadillo. Uncertain of management compliance. CXR 02/07: No acute abnormality or significant interval change. Influenza A/B negative. Group A strep negative. Respiratory panel pending. Medications: * Duoneb 1 ampule q6hr. * Albuterol 2.5mh q2hr PRN Shortness of breath. * Tessalon 100mg PO TID PRN Cough. (2) COPD (chronic obstructive pulmonary disease) ICD Codes: J44.9 - Chronic obstructive pulmonary disease, unspecified Status: Chronic Plan: Patient with history of COPD. May be contributing to shortness of breath. * Duoneb 1 ampule q6hr. * Albuterol 2.5mh q2hr PRN Shortness of breath. * Levaquin 750mg PO q48hr - renally dosed. (3) Hyponatremia ICD Codes: E87.1 - Hypo-osmolality and hyponatremia Status: Acute Plan: Na 02/07: 130. Improving. Cause unknown. May be due to thiazide use. Urine sodium 113. Urine creatinine 41.1. Urine osmolality 355. Serum osmolality 292. TSH 0.372. May consider AM cortisol and ACTH stimulation test. (4) ANUP (acute kidney injury) ICD Codes: N17.9 - Acute kidney failure, unspecified Status: Acute Plan: Cr 02/06: 2.48. Baseline is 1.1-1.25. BUN 02/06: 44. Renal US 02/06: No acute disease. FENa = 4.9%; Post-renal/Obstructive. Urine Eosinophils pending. Medications: * NS 140ml/hr. (5) Lymphedema ICD Codes: I89.0 - Lymphedema, not elsewhere classified Status: Chronic Plan: Patient with history of lymphedema. Not currently treated. Non- compliance. * PT provided patient with resources for lymphedema treatment. (6) CHF (congestive heart failure) ICD Codes: I50.9 - Heart failure, unspecified Status: Chronic Plan: Patient with history of CHF. BNP 21. Unlikely cause of shortness of breath. ECHO 12/09: Pt has situs inversus. Normal left ventricular size. Wall thickness is normal. The left ventricular systolic function is normal with an estimated ejection fraction of 55%. There is a small pericardial effusion present. Medications: * Continue Bumetanide 1mg PO daily. * Hold thiazide diuretic. (7) Situs inversus ICD Codes: Q89.3 - Situs inversus Status: Chronic Plan: Patient with history of situs inversus. See ECHO findings above. (8) Fluid, Electrolyte, Nutrition, and Prophylaxis Status: Acute Plan: Fluid: * NS 140ml/hr. Electrolyte: * Monitor and replete as necessary. * See Plan for Hyponatremia. Nutrition: * Regular diet. Prophylaxis: * Heparin 5,000 units q8hr. (Tatiana Clark MD R1) Tatiana Clark MD R1 Feb 07, 2018 14:45 Gloria Chiu MD Feb 07, 2018 21:41
--- NOTE | 2018-02-07 15:20 | EKG ---
Date Performed: 02/06/2018 Time Performed: 12:29:48 PTAGE: 62 years EKG: Sinus rhythm NORMAL ECG Since the PREVIOUS TRACING , no significant change noted PREVIOUS TRACIN12/07/2017 0008 DOCTOR: Trevor Jones Interpretating Date/Time 02/07/2018 15:17:42
[2018-02-07] MEDS: ATORVASTATIN 80 MG TAB PO SCH (20:18)
--- NOTE | 2018-02-07 20:43 | RADRPT ---
EXAM DATE/TIME: 02/07/2018 20:27 [facility] COMPARISON: No previous studies available for comparison. INDICATIONS : Shortness of breath and cough. RADIATION DOSE: 11.97 CTDIvol (mGy) MEDICAL HISTORY : Cardiovascular disease. Chronic obstructive pulmonary disease. Congestive heart failure. Diabetes. Si tus inversus. DC. SURGICAL HISTORY : Lobectomy. ENCOUNTER: Initial ACUITY: 1 day PAIN SCALE: 0/10 LOCATION: chest TECHNIQUE: Volumetric scanning of the chest was performed. Using automated exposure control and adjustment of t he mA and/or kV according to patient size, radiation dose was kept as low as reasonably achievable to obtain optimal diagnostic quality images. DICOM format image data is available electronically for r eview and comparison. Follow-up recommendations for detected pulmonary nodules are based at a minimum on nodule size and pa tient risk factors according to Fleischner Society Guidelines. FINDINGS: LUNGS: There is consolidation of right middle lobe, lingula and to lesser degree both lower lobes. Bronchiec tasis. Scattered ill-defined parenchymal densities in the lower lobes, right middle lobe and lingula. PLEURAE: There is no pleural thickening or pleural effusion. MEDIASTINUM: The heart and great vessels demonstrate no acute abnormality. There is no mediastinal or hilar lymph adenopathy. Dextrocardia and right sided arch. AXILLAE: Within normal limits. No lymphadenopathy. MUSCULOSKELETAL: Within normal limits for patient age. MISCELLANEOUS: The visualized upper abdominal organs demonstrate situs inversus the talus. CONCLUSION: 1. 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 Jason Aguirre MD on February 07, 2018 at 20:38 Board Certified Radiologist. This report was verified electronically.
[2018-02-08] VITALS (9 sets, daily range): BP systolic 100–115; BP diastolic 56–65; PULSE 66–86; RESP 17–18; TEMP 97.8–98.7; O2SAT 92–97
[2018-02-08] MEDS: RESP: ALBUTEROL 2.5 MG/IPRATROPIUM 0.5 MG NEB (SCH) INH ×3 (03:56→12:42)
[2018-02-08] MEDS: HEPARIN SODIUM - SQ 10,000 UNITS/ML VIAL SQ SCH ×3 (04:23→20:35)
[2018-02-08 06:43] LABS: HEMATOCRIT 32.2 % (39.0-51.0); HEMOGLOBIN 11.1 GM/DL (13.0-17.0); MEAN CELL VOLUME 84.2 FL (80.0-100.0); MEAN CORPUSCULAR HEMOGLOBIN 29.1 PG (27.0-34.0); MEAN CORPUSCULAR HGB CONC 34.5 % (32.0-36.0); MEAN PLATELET VOLUME 6.4 FL (7.0-11.0); PLATELET COUNT 413 TH/MM3 (150-450); RED BLOOD COUNT 3.82 MIL/MM3 (4.50-5.90); WHITE BLOOD COUNT 9.8 TH/MM3 (4.0-11.0)
[2018-02-08] MEDS: SODIUM CHLOR 0.45% 1000 ML INJ 1,000 ML IV SCH ×3 (06:52→20:36)
[2018-02-08 07:15] LABS: BICARBONATE 29.1 MEQ/L (21.0-32.0); CALCIUM 9.2 MG/DL (8.5-10.1); CREATININE 2.24 MG/DL (0.60-1.30)
[2018-02-08] MEDS: SODIUM CHLORIDE 0.9% FLUSH 10 ML FLUSH IV FLUSH SCH ×2 (08:49→20:35)
[2018-02-08] MEDS: ASPIRIN 81 MG CHEW TAB CHEW SCH (08:49)
[2018-02-08] MEDS: PANTOPRAZOLE SOD 40 MG DELAYED RELEASE TAB PO SCH ×2 (08:49→20:35)
[2018-02-08] MEDS: FERROUS SULFATE 325 MG (65 MG ELEMENTAL IRON) TAB PO SCH (08:49)
[2018-02-08] MEDS: BUMETANIDE 1 MG TAB PO SCH (08:49)
[2018-02-08] MEDS: CHOLECALCIFEROL (VIT D3) 1000 UNIT TAB PO SCH (08:49)
[2018-02-08] MEDS: MULTIVITAMIN TAB PO SCH (08:49)
[2018-02-08] MEDS: DOCUSATE SODIUM 50 MG/SENNA 8.6 MG TAB PO SCH ×2 (08:49→20:35)
--- NOTE | 2018-02-08 11:56 | HHI.FPPN ---
Subjective Remarks Patient was seen and evaluated this morning. He reports some improvement of his symptoms; he is breathing comfortably today. He denies chest pain, shortness of breath, nausea, vomiting, diarrhea and constipation. All questions were answered. (Tatiana Clark MD R1) Objective Vitals Vital Signs Date Time Temp Pulse Resp B/P (MAP) Pulse Ox O2 Delivery O2 Flow Rate FiO2 02/08/18 07:59 97 21 02/08/18 07:41 98.0 74 18 115/61 (79) 95 02/08/18 03:25 86 02/08/18 02:05 98.1 75 18 114/59 (77) 94 02/07/18 19:41 94 21 02/07/18 15:48 98.6 74 18 103/53 (70) 92 02/07/18 15:45 70 02/07/18 11:45 98.7 78 18 107/64 (78) 95 I/O 02/07/18 02/07/18 02/07/18 02/08/18 02/08/18 02/08/18 07:00 15:00 23:00 07:00 15:00 23:00 Intake Total 480 ml Output Total 300 ml Balance -300 ml 480 ml Intake Oral 480 ml Output Urine Total 300 ml # Voids 8 # Bowel Movements 1 2 (Tatiana Clark MD R1) Result Diagram: 02/08/18 0545 02/08/18 0545 Imaging Last [address] 02/07/18 1751 Signed Impressions: Service Date/Time: Wednesday, February 07, 2018 20:27 - CONCLUSION: 1. 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 Jason Aguirre MD Chest X-Ray 02/06/18 1126 Signed Impressions: Service Date/Time: Tuesday, February 06, 2018 11:45 - CONCLUSION: 1. No acute abnormality or significant interval change. Fredy Waldrop MD Renal Ultrasound 02/06/18 0000 Signed Impressions: Service Date/Time: Tuesday, February 06, 2018 20:28 - CONCLUSION: No acute disease. Jack Perez MD Head CT 02/06/18 0000 Signed Impressions: Service Date/Time: Tuesday, February 06, 2018 11:56 - CONCLUSION: Prominent ventricles, stable in interval. Edis Navarro MD FACR Objective Remarks GENERAL: This is a well-nourished, well-developed patient, in no apparent respiratory distress. SKIN: Warm and dry. HEAD: Atraumatic. Normocephalic. EYES: Pupils equal round. Extraocular motions intact. No scleral icterus. No injection or drainage. ENT: Nose without bleeding, purulent drainage or septal hematoma. Airway patent. NECK: Supple, nontender, no meningeal signs. CARDIOVASCULAR: Regular rate and rhythm without murmurs, gallops, or rubs. Situs inversus. RESPIRATORY: Clear to auscultation. Breath sounds equal bilaterally. No wheezes , rales, or rhonchi. GASTROINTESTINAL: Positive bowel sounds. Abdomen soft, mild but diffusely tender , nondistended. MUSCULOSKELETAL: Lower extremities with significant lymphedema to below the knee as well as pitting edema of the feet. No calf tenderness. NEUROLOGICAL: Awake and alert. Cranial nerves II through XII intact. Motor and sensory grossly within normal limits. Normal speech. Medications and IVs Current Medications Medications (Trade) Dose Ordered Sig/Al Route Start Time Stop Time Status Last Admin (Aspirin Chew) 81 mg DAILY CHEW 02/07/18 09:00 02/08/18 08:49 (Lipitor) 80 mg HS PO 02/06/18 21:00 02/07/18 20:18 (Bumetanide) 1 mg DAILY PO 02/06/18 14:30 02/08/18 08:49 (Ferrous Sulfate) 325 mg DAILY PO 02/06/18 14:30 02/08/18 08:49 (Protonix) 40 mg BID PO 02/06/18 14:30 02/08/18 08:49 (Vitamin D3) 1,000 units DAILY PO 02/07/18 09:00 02/08/18 08:49 (Theragran) 1 tab DAILY PO 02/07/18 09:00 02/08/18 08:49 (NS Flush) 2 ml UNSCH PRN IV FLUSH 02/06/18 15:15 (NS Flush) 2 ml BID IV FLUSH 02/06/18 21:00 02/08/18 08:49 (Narcan Inj) 0.4 mg UNSCH PRN IV PUSH 02/06/18 15:15 (Alexa-Colace) 1 tab BID PO 02/06/18 21:00 02/08/18 08:49 (Milk Of Magnesia Liq) 30 ml Q12H PRN PO 02/06/18 15:15 02/07/18 20:17 (Senokot) 17.2 mg Q12H PRN PO 02/06/18 15:15 (Dulcolax Supp) 10 mg DAILY PRN RECTAL 02/06/18 15:15 (Lactulose Liq) 30 ml DAILY PRN PO 02/06/18 15:15 Sodium Chloride 1,000 ml @ 140 mls/hr Q7H9M IV 02/06/18 20:00 02/07/18 16:53 (Zofran Inj) 4 mg Q6H PRN IVP 02/06/18 18:45 02/08/18 07:11 (Heparin Inj) 5,000 units Q8H SQ 02/06/18 20:00 02/08/18 04:23 (Tylenol) 650 mg Q6H PRN PO 02/06/18 18:45 (Tessalon) 100 mg TID PRN PO 02/06/18 19:00 (Duoneb Neb) 1 ampule Q6HR NEB INH 02/06/18 22:00 02/08/18 07:57 (Albuterol Neb) 2.5 mg Q2HR NEB PRN INH 02/06/18 19:30 (Levaquin) 750 mg Q48H PO 02/06/18 21:00 02/06/18 21:00 (Tatiana Clark MD R1) Urinary Catheter: No (Tatiana Clark MD R1) Vascular Central Line Catheter: No (Tatiana Clark MD R1) A/P Assessment and Plan Patient is a 62 year old male with a past medical history significant of situs inversus, COPD and CHF who presents to the ED because he "just [doesn't] feel good." Admitted for evaluation and treatment of hyponatremia and ANUP. 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 Discharge Planning Pending clinical improvement. (Tatiana Clark MD R1) Attending Attestation Jack Crockett is a 62yo gentleman with COPD, CAD, CHF and 11/2017 hospitalization for cavitary pneumonia admitted under observation 02/06/2018 for hyponatremia and acute renal insufficiency. He is admitted to inpatient today due to continued stay and for definitive treatment of mycobacterial infection of his lungs, based on sputum cultures from 11/[address] chest performed yesterday afternoon demonstrating continued mycobacterial infection. The patient has been seen and examined. The chart and all resident notes have been reviewed. I agree that inpatient care is appropriate and that a two midnight stay is expected for the reasons documented in the resident history and physical. I have discussed this with the resident and certify the resident s order for inpatient admission. Pt reports taking antibiotics as prescribed at discharge from last hospitalization, including 10 days of doxycycline. However, he continued to have SOB and was easily winded. Prior to November hospitalization, he reports being able to ambulate without any symptoms. ROS: + SOB, dyspnea on exertion. No dysuria, no hematuria. All other systems reviewed are negative. PMH/PSxH/SocHx/FamHx: Significant for: Seizure disorder (currently off medications x 10 years); COPD, CHF, CAD, impaired glucose tolerance, situs inversus. Recent mycobacterial pneumonia 11/2017. Brain aneurysm and shunt at 6 months old. Spinal surgeries. Mother and father had cancer of unknown type. Lives with . Ambulates with a wheeled walker. No current tobacco use. (Gloria Chiu MD) Problem List: (1) Mycobacterial disease, pulmonary ICD Codes: A31.0 - Pulmonary mycobacterial infection Status: Acute Plan: Patient was hospitalized in November 2017. He was treated for atypical cavitary pneumonia; MTB probe and Quantiferon negative. Discharged on Augmentin and Doxycycline x10 days. Patient asked to follow-up with pulmonology, Dr. Delgadillo. An AFB Culture from the patient's previous hospitalization resulted on 12/28/17, growing MYCOBACTERIUM FORTUITUM. Patient was not contacted by [facility]. CXR 02/06: No new focal pleural or parenchymal opacities. Redemonstration of ill- defined opacity in the right midlung zone. 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 ID consulted. Awaiting recommendations. Medications: * Levaquin 750mg PO q48hr - renally dosed. (2) URI (upper respiratory infection) ICD Codes: J06.9 - Acute upper respiratory infection, unspecified Status: Acute Plan: Improved symptoms. On admission, patient "just [doesn't] feel good." He reports body aches and weakness. He reports a constant, productive cough with green sputum and worsening shortness of breath. He has used his nebulizer x4 per day; breathing treatments provide some relief. He reports hoarseness but denies sore throat. He denies headache, fever and chills. He denies nausea, vomiting, diarrhea and constipation. He reports increased lower extremity swelling. These symptoms have been present for approximately two weeks. Influenza A/B negative. Group A strep negative. Respiratory panel pending. Medications: * Duoneb 1 ampule q6hr. * Albuterol 2.5mh q2hr PRN Shortness of breath. * Tessalon 100mg PO TID PRN Cough. (3) COPD (chronic obstructive pulmonary disease) ICD Codes: J44.9 - Chronic obstructive pulmonary disease, unspecified Status: Chronic Plan: Patient with history of COPD. May be contributing to shortness of breath. * Duoneb 1 ampule q6hr. * Albuterol 2.5mh q2hr PRN Shortness of breath. * Levaquin 750mg PO q48hr - renally dosed. (4) Hyponatremia ICD Codes: E87.1 - Hypo-osmolality and hyponatremia Status: Acute Plan: Na 02/08: 133. Improving. Cause unknown. May be due to thiazide use. Urine sodium 113. Urine creatinine 41.1. Urine osmolality 355. Serum osmolality 292. TSH 0.372 - wnl. Random Cortisol 22.2 - wnl. (5) ANUP (acute kidney injury) ICD Codes: N17.9 - Acute kidney failure, unspecified Status: Acute Plan: Cr 02/06: 2.24. Baseline is 1.1-1.25. BUN 02/06: 43. Renal US 02/06: No acute disease. FENa = 4.9%; Post-renal/Obstructive. Urine Eosinophils pending. Medications: * NS 140ml/hr. Held overnight due to patient refusal. (6) Lymphedema ICD Codes: I89.0 - Lymphedema, not elsewhere classified Status: Chronic Plan: Patient with history of lymphedema. Not currently treated. Non- compliance. * PT provided patient with resources for lymphedema treatment. (7) CHF (congestive heart failure) ICD Codes: I50.9 - Heart failure, unspecified Status: Chronic Plan: Patient with history of CHF. BNP 21. Unlikely cause of shortness of breath. ECHO 12/09: Pt has situs inversus. Normal left ventricular size. Wall thickness is normal. The left ventricular systolic function is normal with an estimated ejection fraction of 55%. There is a small pericardial effusion present. Medications: * Continue Bumetanide 1mg PO daily. * Hold thiazide diuretic. (8) Situs inversus ICD Codes: Q89.3 - Situs inversus Status: Chronic Plan: Patient with history of situs inversus. See ECHO findings above. (9) Fluid, Electrolyte, Nutrition, and Prophylaxis Status: Acute Plan: Fluid: * NS 140ml/hr. Electrolyte: * Monitor and replete as necessary. * See Plan for Hyponatremia. Nutrition: * Regular diet. Prophylaxis: * Heparin 5,000 units q8hr. (Tatiana Clark MD R1) Tatiana Clark MD R1 Feb 08, 2018 11:56 Gloria Chiu MD Feb 08, 2018 16:43
--- NOTE | 2018-02-08 15:40 | PD.ID.CON ---
History of Present Illness Service Infectious disease Consult Requested By Medicine service Reason for Consult Evaluation and management of cavitary lung lesion, culture positive for M fortuitum Primary Care Physician Alea Shepard MD Diagnoses: History of Present Illness Patient seen and examined with Dr. Neves This is a 62-year-old male with a past medical history significant for situs inversus, coronary artery disease, chronic lymphedema, CHF and history of aneurysm repair at the age of 6 who presented to [facility] ED on 02/06/18 with complaints of chronic constant cough and shortness of breath. Patient was admitted in November of this year with complaints of cough and productive sputum production secondary to atypical cavitary pneumonia. CT done at that time showed bronchiectasis and mucous plugging consolidation in bilateral reticulonodular infiltrates. There was also a cavitary focus of masslike consolidation in the right upper lobe. Patient was seen in consultation by Dr. Jones infectious disease at that time. Comparison of CT imaging studies from [id number] showed the left lung changes appeared chronic and right upper lung lesion was new. Patient's TB PCR was negative. Patient's sputum culture positive for Mycobacterium. Dr. Jones discussed culture results with Dr. Knowles an attempt home there is no evidence of granulomatous inflammation to suggest mycobacterial infection. Patient also underwent a lung biopsy which was negative for AFB. Patient was discharged on oral Augmentin and doxycycline. Of note, patient had a lung biopsy in 2009 which was negative for AFB and fungi. Ultimately, sputum culture from 12/12/17 grew M fortuitum. Blood cultures from admission failed to show any growth. Patient was to follow- up with education officer at time of discharge. Patient was to follow up with Dr. Medeiros as outpatient but did not. Infectious disease consultation has been requested for evaluation and management of cavitary lung lesion and previous sputum culture positive for Mycobacterium fortuitum. Patient seen and examined. His white count is within normal limits. He is afebrile. Blood culture has failed to show any growth in 2 days. He is noted to be in acute renal failure with a creatinine of 2.27. Patient states that he has been hospitalized 3 times this year and 7 times in the year prior. Patient complains of constant chronic cough as well as shortness of breath. He also reports chronic light greenish sputum production which is basically been unchanged for the past 2 years. Patient states he is unable to lie flat due to worsening shortness of breath and usually spends majority of his time sitting up in a chair. He does not use oxygen at home. He denies any complaints of associated fever, chills, night sweats or weight loss. He denies any nausea or vomiting. He does report headache but states is chronic. He also endorses chronic lymphedema and has an appointment to be seen in the clinic in the near future. Patient denies any recent travel. CT of the chest obtained this admission shows scattered parenchymal densities, bronchiectasis and consolidative changes probably in the right middle lobe, lingula and both lower lobes likely atypical Mycobacterium infection. He states since his admission, his breathing is 50-60% better. (Terra León) Review of Systems Except as stated in HPI: all other systems reviewed are Neg (Terra León) Past Family Social History Allergies: Coded Allergies: No Known Allergies (Verified Allergy, Unknown, 02/06/18) Past Medical History Coronary artery disease, history of ID 1994 Dextrocardia CHF COPD Dyslipidemia Seizure disorder, previously on Dilantin over 10 years ago Sleep apnea Brain aneurysm with shunt as a child Bilateral lower extremity lymphedema Past Surgical History Cervical spine surgery 4 with instrumentation Lumbar spine surgery 1 with instrumentation Brain aneurysm with shunt as a child Cataract surgery Carpal tunnel release 3 Reported Medications Bumetanide 1 Mg Tab 1 Mg PO DAILY Metolazone 5 Mg Tab 1 Tab PO DAILY Diazepam 5 Mg Tab 1 Tab PO HS PRN Atorvastatin (Atorvastatin Calcium) 80 Mg Tab 80 Mg PO HS [place]-3 Fish Oil/Vitamin (Fish Oil-Cholecalciferol) 1,000-1,000 Mg Cap 1 Cap PO DAILY Ferrous Sulfate 325 Mg (65 Mg Iron) Tablet 325 Mg PO DAILY Aspirin 81 Mg Chew 81 Mg CHEW DAILY Multi-Vitamin Daily (Multiple Vitamin) 1 Tab Tab 1 Tab PO DAILY Amitriptyline (Amitriptyline HCl) 100 Mg Tab 100 Mg PO HS Protonix (Pantoprazole Sodium) 40 Mg Tab 40 Mg PO BID Albuterol Neb (Albuterol Sulfate) 2.5 Mg/0.5 Ml Neb 2.5 Mg NEB Q4HR NEB PRN Note: The Albuterol Sulfate Inhalation Solution is concentrated and must be diluted. Read complete instructions carefully before using. Active Ordered Medications Current Medications Medications (Trade) Dose Ordered Sig/Al Route Start Time Stop Time Status Last Admin (Aspirin Chew) 81 mg DAILY CHEW 02/07/18 09:00 02/08/18 08:49 (Lipitor) 80 mg HS PO 02/06/18 21:00 02/07/18 20:18 (Bumetanide) 1 mg DAILY PO 02/06/18 14:30 02/08/18 08:49 (Ferrous Sulfate) 325 mg DAILY PO 02/06/18 14:30 02/08/18 08:49 (Protonix) 40 mg BID PO 02/06/18 14:30 02/08/18 08:49 (Vitamin D3) 1,000 units DAILY PO 02/07/18 09:00 02/08/18 08:49 (Theragran) 1 tab DAILY PO 02/07/18 09:00 02/08/18 08:49 (NS Flush) 2 ml UNSCH PRN IV FLUSH 02/06/18 15:15 (NS Flush) 2 ml BID IV FLUSH 02/06/18 21:00 02/08/18 08:49 (Narcan Inj) 0.4 mg UNSCH PRN IV PUSH 02/06/18 15:15 (Alexa-Colace) 1 tab BID PO 02/06/18 21:00 02/08/18 08:49 (Milk Of Magnesia Liq) 30 ml Q12H PRN PO 02/06/18 15:15 02/07/18 20:17 (Senokot) 17.2 mg Q12H PRN PO 02/06/18 15:15 (Dulcolax Supp) 10 mg DAILY PRN RECTAL 02/06/18 15:15 (Lactulose Liq) 30 ml DAILY PRN PO 02/06/18 15:15 Sodium Chloride 1,000 ml @ 140 mls/hr Q7H9M IV 02/06/18 20:00 02/08/18 13:12 (Zofran Inj) 4 mg Q6H PRN IVP 02/06/18 18:45 02/08/18 07:11 (Heparin Inj) 5,000 units Q8H SQ 02/06/18 20:00 02/08/18 13:11 (Tylenol) 650 mg Q6H PRN PO 02/06/18 18:45 (Tessalon) 100 mg TID PRN PO 02/06/18 19:00 (Duoneb Neb) 1 ampule Q6HR NEB INH 02/06/18 22:00 02/08/18 12:42 (Albuterol Neb) 2.5 mg Q2HR NEB PRN INH 02/06/18 19:30 (Levaquin) 750 mg Q48H PO 02/06/18 21:00 02/06/18 21:00 Family History Family history reviewed with patient, noncontributory Social History Patient is lives with his and 2 cats. He denies any previous history of personal tobacco use but states he was exposed to secondhand smoke his whole life. He does not drink alcohol and denies any illicit drug use. (Terra León) Physical Exam Vital Signs Vital Signs Date Time Temp Pulse Resp B/P (MAP) Pulse Ox O2 Delivery O2 Flow Rate FiO2 02/08/18 11:39 97.8 77 18 102/65 (77) 93 02/08/18 07:59 97 21 02/08/18 07:41 98.0 74 18 115/61 (79) 95 02/08/18 03:25 86 02/08/18 02:05 98.1 75 18 114/59 (77) 94 02/07/18 19:41 94 21 02/07/18 15:48 98.6 74 18 103/53 (70) 92 02/07/18 15:45 70 Physical Exam GENERAL: This is a well-nourished, well-developed male patient, in no apparent distress. Awake and alert. Sitting up in bedside chair. SKIN: No rashes, ecchymoses or lesions. Cool and dry. HEAD: Atraumatic. Normocephalic. No temporal or scalp tenderness. EYES: Pupils equal round and reactive. Extraocular motions intact. No scleral icterus. No injection or drainage. ENT: Nose without bleeding or purulent drainage. Throat without erythema, tonsillar hypertrophy or exudate. Uvula midline. Airway patent. NECK: Trachea midline. No JVD or lymphadenopathy. Supple, nontender, no meningeal signs. CARDIOVASCULAR: Regular rate and rhythm without murmurs, gallops, or rubs. RESPIRATORY: Clear to auscultation. Breath sounds equal bilaterally. No wheezes , rales, or rhonchi. GASTROINTESTINAL: Abdomen soft, non-tender, nondistended. No hepato-splenomegaly , or palpable masses. No guarding. MUSCULOSKELETAL: Extremities without clubbing or cyanosis. (+) Bilateral lower extremity pitting edema edema. No joint tenderness, effusion, or edema noted. No calf tenderness. NEUROLOGICAL: Awake and alert. Cranial nerves II through XII grossly intact. Motor and sensory grossly within normal limits. No focal neurologic finding appreciated. Normal speech. Laboratory Laboratory Tests Test 02/08/18 05:45 White Blood Count 9.8 Red Blood Count 3.82 Hemoglobin 11.1 Hematocrit 32.2 Mean Corpuscular Volume 84.2 Mean Corpuscular Hemoglobin 29.1 Mean Corpuscular Hemoglobin Concent 34.5 Red Cell Distribution Width 15.0 Platelet Count 413 Mean Platelet Volume 6.4 Blood Urea Nitrogen 43 Creatinine 2.24 Random Glucose 99 Calcium Level 9.2 Sodium Level 133 Potassium Level 3.7 Chloride Level 93 Carbon Dioxide Level 29.1 Anion Gap 11 Estimat Glomerular Filtration Rate 30 Random Cortisol 22.2 Date/Time Source Procedure Growth Status 02/06/18 22:07 Blood Peripheral Aerobic Blood Culture - Preliminary NO GROWTH IN 2 DAYS Resulted 02/06/18 22:07 Blood Peripheral Anaerobic Blood Culture - Preliminary NO GROWTH IN 2 DAYS Resulted 02/06/18 22:30 Throat Group A Streptococcus Screen - Final NO GP A BETA STREP ISOLATED. Complete (Terra León) Result Diagram: 02/08/18 0545 02/08/18 0545 Imaging Last Impressions Chest CT 02/07/18 1751 Signed Impressions: Service Date/Time: Wednesday, February 07, 2018 20:27 - CONCLUSION: 1. 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 Jason Aguirre MD Chest X-Ray 02/06/18 1126 Signed Impressions: Service Date/Time: Tuesday, February 06, 2018 11:45 - CONCLUSION: 1. No acute abnormality or significant interval change. Fredy Waldrop MD Renal Ultrasound 02/06/18 0000 Signed Impressions: Service Date/Time: Tuesday, February 06, 2018 20:28 - CONCLUSION: No acute disease. Jack Perez MD Head CT 02/06/18 0000 Signed Impressions: Service Date/Time: Tuesday, February 06, 2018 11:56 - CONCLUSION: Prominent ventricles, stable in interval. Edis Navarro MD FACR (Terra León) Assessment and Plan Assessment and Plan Cavitary PNA, Mycobacterium fortuitum History of previous negative lung biopsy 2 negative for AFB s/p left lung fluid drainage 2009 negative for malignancy -CT of the chest obtained this admission shows scattered parenchymal densities, bronchiectasis and consolidative changes probably in the right middle lobe, lingula and both lower lobes likely atypical Mycobacterium infection. -sputum cx 12/12/17 grew Mycobacterium fortuitum -Blood cultures with no growth 2 days -previous M tuberculosis DNA not detected, QFT negative Acute renal failure CAD, status post previous ID CHF COPD Bilateral lower extremity lymphedema RECOMMENDATIONS: Discontinue po Levaquin Begin po Doxycycline and Clarithromycin Repeat sputum culture Follow-up on final blood culture results Continue to monitor clinically Further recommendations to follow (Terra León) Assessment and Plan The exam, history, and the medical decision-making described in the above note were completed with the assistance of the mid-level provider. I reviewed and agree with the findings presented. I attest that I had a [id number] encounter with the patient on the same day, and personally performed and documented my assessment and findings in the medical record. Case dw . Patient has not followed up with her. Patient has a positive culture for Mycobacterium fortuitum which appears to be new finding. Discussed with Dr. Medeiros given the patient's long-standing symptoms would go ahead and treat with an oral regimen which would be empiric at the present time. Patient reports chronically abnormal chest x-rays and CTs. patient reports yellow-green sputum for the last 2 years. Which does not improve with any bacterial treatment. Patient currently admitted for worsening shortness of breath. On examination Bilateral wheezing Air entry decreased at bases. Obese Bilateral lower extremity lymphedema Assessment: Mycobacterium fortuitum lung infection(CT the cavitary lesions as well as chronic infiltrate) COPD with acute exacerbation Chronic lymphedema Recs: Start doxycycline oral Start clarithromycin oral Monitor QT interval while on clarithromycin If able to tolerate this regimen and clinically doing okay possibly discharge soon. Discussed with patient plan about and also about the organism explained the need for long-term approximately 1 year of treatment and possibly repeat sputum cultures. Repeat sputum culture as well as sputum for AFB. (Brenda Neves MD) Terra León Feb 08, 2018 15:40 Brenda Neves MD Feb 08, 2018 18:01
[2018-02-08] MEDS: RESP: ALBUTEROL 2.5 MG/3 ML NEB (PRN) INH (16:09)
[2018-02-08] MEDS: CLARITHROMYCIN 500 MG TAB PO SCH (20:35)
[2018-02-08] MEDS: ATORVASTATIN 80 MG TAB PO SCH (20:35)
[2018-02-08] MEDS: DOXYCYCLINE HYCLATE 100 MG TAB PO SCH (20:35)
[2018-02-09 00:10] VITALS: O2SAT 98
[2018-02-09] MEDS: RESP: ALBUTEROL 2.5 MG/IPRATROPIUM 0.5 MG NEB (SCH) INH ×3 (00:10→10:00)
[2018-02-09] MEDS: SODIUM CHLOR 0.45% 1000 ML INJ 1,000 ML IV SCH ×2 (03:44→12:46)
[2018-02-09] MEDS: HEPARIN SODIUM - SQ 10,000 UNITS/ML VIAL SQ SCH ×2 (03:44→12:47)
[2018-02-09 03:59] VITALS: BP 101/66; PULSE 74; RESP 18; TEMP 98.3; O2SAT 100
[2018-02-09 07:25] VITALS: BP 110/63; PULSE 71; RESP 20; TEMP 97.8; O2SAT 92
[2018-02-09 08:30] VITALS: PULSE 84
[2018-02-09] MEDS: MULTIVITAMIN TAB PO SCH (08:44)
[2018-02-09] MEDS: SODIUM CHLORIDE 0.9% FLUSH 10 ML FLUSH IV FLUSH SCH (08:44)
[2018-02-09] MEDS: FERROUS SULFATE 325 MG (65 MG ELEMENTAL IRON) TAB PO SCH (08:44)
[2018-02-09] MEDS: DOXYCYCLINE HYCLATE 100 MG TAB PO SCH (08:44)
[2018-02-09] MEDS: BUMETANIDE 1 MG TAB PO SCH (08:45)
[2018-02-09] MEDS: PANTOPRAZOLE SOD 40 MG DELAYED RELEASE TAB PO SCH (08:45)
[2018-02-09] MEDS: ASPIRIN 81 MG CHEW TAB CHEW SCH (08:45)
[2018-02-09] MEDS: CHOLECALCIFEROL (VIT D3) 1000 UNIT TAB PO SCH (08:46)
[2018-02-09] MEDS: CLARITHROMYCIN 500 MG TAB PO SCH (08:46)
[2018-02-09] MEDS: DOCUSATE SODIUM 50 MG/SENNA 8.6 MG TAB PO SCH (08:46)
--- NOTE | 2018-02-09 09:18 | HHI.FPPN ---
Subjective Remarks Patient was seen and evaluated this morning. He reports continued improvement of his symptoms; he is breathing comfortably today. He denies chest pain, shortness of breath, nausea, vomiting, diarrhea and constipation. All questions were answered. (Tatiana Clark MD R1) Objective Vitals Vital Signs Date Time Temp Pulse Resp B/P (MAP) Pulse Ox O2 Delivery O2 Flow Rate FiO2 02/09/18 07:25 97.8 71 20 110/63 (79) 92 02/09/18 03:59 98.3 74 18 101/66 (78) 100 02/09/18 01:03 20 02/09/18 00:10 98 02/08/18 23:48 98.5 66 17 100/56 (71) 94 02/08/18 21:18 98.3 72 17 102/59 (73) 94 02/08/18 15:45 98.7 75 18 105/60 (75) 92 02/08/18 11:39 97.8 77 18 102/65 (77) 93 I/O 02/08/18 02/08/18 02/08/18 02/09/18 02/09/18 02/09/18 07:00 15:00 23:00 07:00 15:00 23:00 Intake Total 480 ml 1620 ml Output Total 1040 ml Balance 480 ml 580 ml Intake Oral 480 ml 240 ml IV Total 1380 ml Output Urine Total 1040 ml # Voids 8 # Bowel Movements 2 (Tatiana Clark MD R1) Result Diagram: 02/08/18 0545 02/08/18 0545 Imaging Last [address] 02/07/18 1751 Signed Impressions: Service Date/Time: Wednesday, February 07, 2018 20:27 - CONCLUSION: 1. 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 Jason Aguirre MD Chest X-Ray 02/06/18 1126 Signed Impressions: Service Date/Time: Tuesday, February 06, 2018 11:45 - CONCLUSION: 1. No acute abnormality or significant interval change. Fredy Waldrop MD Objective Remarks GENERAL: This is a well-nourished, well-developed patient, in no apparent respiratory distress. SKIN: Warm and dry. HEAD: Atraumatic. Normocephalic. EYES: Pupils equal round. Extraocular motions intact. No scleral icterus. No injection or drainage. ENT: Nose without bleeding, purulent drainage or septal hematoma. Airway patent. NECK: Supple, nontender, no meningeal signs. CARDIOVASCULAR: Regular rate and rhythm without murmurs, gallops, or rubs. Situs inversus. RESPIRATORY: Breath sounds equal bilaterally. Crackles noted in bilateral lung bases. No wheezes, rales, or rhonchi. GASTROINTESTINAL: Positive bowel sounds. Abdomen soft, mild but diffusely tender , nondistended. MUSCULOSKELETAL: Lower extremities with significant lymphedema to below the knee as well as pitting edema of the feet. No calf tenderness. NEUROLOGICAL: Awake and alert. Cranial nerves II through XII intact. Motor and sensory grossly within normal limits. Normal speech. Medications and IVs Current Medications Medications (Trade) Dose Ordered Sig/Al Route Start Time Stop Time Status Last Admin (Aspirin Chew) 81 mg DAILY CHEW 02/07/18 09:00 02/09/18 08:45 (Lipitor) 80 mg HS PO 02/06/18 21:00 02/08/18 20:35 (Bumetanide) 1 mg DAILY PO 02/06/18 14:30 02/09/18 08:45 (Ferrous Sulfate) 325 mg DAILY PO 02/06/18 14:30 02/09/18 08:44 (Protonix) 40 mg BID PO 02/06/18 14:30 02/09/18 08:45 (Vitamin D3) 1,000 units DAILY PO 02/07/18 09:00 02/09/18 08:46 (Theragran) 1 tab DAILY PO 02/07/18 09:00 02/09/18 08:44 (NS Flush) 2 ml UNSCH PRN IV FLUSH 02/06/18 15:15 (NS Flush) 2 ml BID IV FLUSH 02/06/18 21:00 02/09/18 08:44 (Narcan Inj) 0.4 mg UNSCH PRN IV PUSH 02/06/18 15:15 (Alexa-Colace) 1 tab BID PO 02/06/18 21:00 02/09/18 08:46 (Milk Of Magnesia Liq) 30 ml Q12H PRN PO 02/06/18 15:15 02/07/18 20:17 (Senokot) 17.2 mg Q12H PRN PO 02/06/18 15:15 (Dulcolax Supp) 10 mg DAILY PRN RECTAL 02/06/18 15:15 (Lactulose Liq) 30 ml DAILY PRN PO 02/06/18 15:15 Sodium Chloride 1,000 ml @ 140 mls/hr Q7H9M IV 02/06/18 20:00 02/09/18 03:44 (Zofran Inj) 4 mg Q6H PRN IVP 02/06/18 18:45 02/08/18 07:11 (Heparin Inj) 5,000 units Q8H SQ 02/06/18 20:00 02/09/18 03:44 (Tylenol) 650 mg Q6H PRN PO 02/06/18 18:45 02/09/18 00:03 (Tessalon) 100 mg TID PRN PO 02/06/18 19:00 (Duoneb Neb) 1 ampule Q6HR NEB INH 02/06/18 22:00 02/09/18 03:33 (Albuterol Neb) 2.5 mg Q2HR NEB PRN INH 02/06/18 19:30 02/08/18 16:09 (Vibratab) 100 mg Q12HR PO 02/08/18 21:00 02/09/18 08:44 (Biaxin) 500 mg Q12HR PO 02/08/18 21:00 02/09/18 08:46 (Tatiana Clark MD R1) Urinary Catheter: No (Tatiana Clark MD R1) Vascular Central Line Catheter: No (Tatiana Clark MD R1) A/P Assessment and Plan Patient is a 62 year old male with a past medical history significant of situs inversus, COPD and CHF who presents to the ED because he "just [doesn't] feel good." Admitted for evaluation and treatment of hyponatremia and ANUP. 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 Discharge Planning Pending clinical improvement. (Tatiana Clark MD R1) Attending Attestation Patient seen and examined, discussed with resident team. I agree with assessment and management as documented with me. Pt seen with his at his bedside. He reports that breathing is slightly improved. Creatinine is improving. Discussed case with ID, who has recommended a plan or discharge. Discharge home today as pt is tolerating antibiotic regimen. Greater than 30 minutes spent personally counselling and coordinating care at discharge. (Gloria Chiu MD) Problem List: (1) Mycobacterial disease, pulmonary ICD Codes: A31.0 - Pulmonary mycobacterial infection Status: Acute Plan: Patient was hospitalized in November 2017. He was treated for atypical cavitary pneumonia; MTB probe and Quantiferon negative. Discharged on Augmentin and Doxycycline x10 days. Patient asked to follow-up with pulmonology, Dr. Delgadillo. An AFB Culture from the patient's previous hospitalization resulted on 12/28/17, growing MYCOBACTERIUM FORTUITUM. Patient was not contacted by Health Department. CXR 02/06: No new focal pleural or parenchymal opacities. Redemonstration of ill- defined opacity in the right midlung zone. 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 ID consulted. Recommendations: * Start doxycycline oral. * Start clarithromycin oral. Monitor QT interval while on clarithromycin. * If able to tolerate this regimen and clinically doing okay possibly discharge soon. * Discussed with patient plan about and also about the organism explained the need for long-term approximately 1 year of treatment and possibly repeat sputum cultures. * Repeat sputum culture as well as sputum for AFB. Medications: * Doxycycline 100mg PO q12hr. * Clarithromycin 500mg PO q12hr. (2) URI (upper respiratory infection) ICD Codes: J06.9 - Acute upper respiratory infection, unspecified Status: Acute Plan: Improved symptoms. On admission, patient "just [doesn't] feel good." He reports body aches and weakness. He reports a constant, productive cough with green sputum and worsening shortness of breath. He has used his nebulizer x4 per day; breathing treatments provide some relief. He reports hoarseness but denies sore throat. He denies headache, fever and chills. He denies nausea, vomiting, diarrhea and constipation. He reports increased lower extremity swelling. These symptoms have been present for approximately two weeks. Influenza A/B negative. Group A strep negative. Respiratory panel pending. Medications: * Duoneb 1 ampule q6hr. * Albuterol 2.5mh q2hr PRN Shortness of breath. * Tessalon 100mg PO TID PRN Cough. (3) COPD (chronic obstructive pulmonary disease) ICD Codes: J44.9 - Chronic obstructive pulmonary disease, unspecified Status: Chronic Plan: Patient with history of COPD. May be contributing to shortness of breath. * Duoneb 1 ampule q6hr. * Albuterol 2.5mh q2hr PRN Shortness of breath. (4) Hyponatremia ICD Codes: E87.1 - Hypo-osmolality and hyponatremia Status: Acute Plan: Na 02/08: 133. New labs not yet available for 02/09. Improving. Cause unknown. May be due to thiazide use. Urine sodium 113. Urine creatinine 41.1. Urine osmolality 355. Serum osmolality 292. TSH 0.372 - wnl. Random Cortisol 22.2 - wnl. (5) ANUP (acute kidney injury) ICD Codes: N17.9 - Acute kidney failure, unspecified Status: Acute Plan: Cr 02/08: 2.24. New labs not yet available for 02/09. Baseline is 1.1- 1.25. BUN 02/08: 43. New labs not yet available for 02/09. Renal US 02/06: No acute disease. FENa = 4.9%; Post-renal/Obstructive. Urine Eosinophils none seen. Medications: * NS 140ml/hr. (6) Lymphedema ICD Codes: I89.0 - Lymphedema, not elsewhere classified Status: Chronic Plan: Patient with history of lymphedema. Not currently treated. Non- compliance. * PT provided patient with resources for lymphedema treatment. (7) CHF (congestive heart failure) ICD Codes: I50.9 - Heart failure, unspecified Status: Chronic Plan: Patient with history of CHF. BNP 21. Unlikely cause of shortness of breath. ECHO 12/09: Pt has situs inversus. Normal left ventricular size. Wall thickness is normal. The left ventricular systolic function is normal with an estimated ejection fraction of 55%. There is a small pericardial effusion present. Medications: * Continue Bumetanide 1mg PO daily. * Hold thiazide diuretic. (8) Situs inversus ICD Codes: Q89.3 - Situs inversus Status: Chronic Plan: Patient with history of situs inversus. See ECHO findings above. (9) Fluid, Electrolyte, Nutrition, and Prophylaxis Status: Acute Plan: Fluid: * NS 140ml/hr. Electrolyte: * Monitor and replete as necessary. * See Plan for Hyponatremia. Nutrition: * Regular diet. Prophylaxis: * Heparin 5,000 units q8hr. (Tatiana Clark MD R1) Tatiana Clark MD R1 Feb 09, 2018 09:18 Gloria Chiu MD Feb 09, 2018 21:14
[2018-02-09 10:32] LABS: AUTOMATED NEUTROPHIL # 7.5 TH/MM3 (1.8-7.7); BASOPHIL # 0.1 TH/MM3 (0-0.2); BASOPHIL % 0.7 % (0.0-2.0); EOSINOPHIL # 0.2 TH/MM3 (0-0.4); EOSINOPHIL % 1.9 % (0.0-4.0); HEMATOCRIT 29.9 % (39.0-51.0); HEMOGLOBIN 10.4 GM/DL (13.0-17.0); LYMPH % 11.5 % (9.0-44.0); LYMPHOCYTE # 1.1 TH/MM3 (1.0-4.8); MEAN CELL VOLUME 83.9 FL (80.0-100.0); MEAN CORPUSCULAR HEMOGLOBIN 29.2 PG (27.0-34.0); MEAN CORPUSCULAR HGB CONC 34.8 % (32.0-36.0); MEAN PLATELET VOLUME 5.9 FL (7.0-11.0); MONO % 6.3 % (0.0-8.0); MONOCYTE # 0.6 TH/MM3 (0-0.9); NEUT % 79.6 % (16.0-70.0); PLATELET COUNT 384 TH/MM3 (150-450); RED BLOOD COUNT 3.56 MIL/MM3 (4.50-5.90); RED CELL DISTRIBUTION WIDTH 14.9 % (11.6-17.2); WHITE BLOOD COUNT 9.4 TH/MM3 (4.0-11.0)
[2018-02-09 11:04] LABS: ALBUMIN 3.2 GM/DL (3.4-5.0); ALT (GPT) 21 U/L (12-78); AST (GOT) 17 U/L (15-37); BICARBONATE 25.9 MEQ/L (21.0-32.0); BLOOD UREA NITROGEN 39 MG/DL (7-18); CALCIUM 8.5 MG/DL (8.5-10.1); CHLORIDE 97 MEQ/L (98-107); CREATININE 1.89 MG/DL (0.60-1.30); GLOMERULAR FILTRATION RATE 36 ML/MIN (>89); GLUCOSE,RANDOM 130 MG/DL (74-106); SODIUM (NA) 133 MEQ/L (136-145)
[2018-02-09 11:06] LABS: ALKALINE PHOSPHATASE 92 U/L (45-117); TOTAL BILIRUBIN ADULT 0.4 MG/DL (0.2-1.0); TOTAL PROTEIN 7.4 GM/DL (6.4-8.2)
[2018-02-09] MEDS ORDERED: DOXY100T PO (12:03)
[2018-02-09] MEDS ORDERED: LACTTAB8 PO (12:03)
[2018-02-09] MEDS ORDERED: CLAR500T PO (12:03)
--- NOTE | 2018-02-09 12:06 | HHI.DCPOC ---
Discharge Care Plan Diagnosis: (1) Mycobacterial disease, pulmonary Goals to Promote Your Health * To prevent worsening of your condition and complications * To maintain your health at the optimal level Directions to Meet Your Goals Take your medications as prescribed Follow your dietary instruction Follow activity as directed Keep your appointments as scheduled Take your immunizations and boosters as scheduled If your symptoms worsen call your PCP, if no PCP go to Urgent Care Center or Emergency Room Smoking is Dangerous to Your Health. Avoid second hand smoke Call the 24-hour hour crisis hotline for domestic abuse at Tatiana Clark MD R1 Feb 09, 2018 12:06
[2018-02-09 12:34] VITALS: BP 113/63; PULSE 81; RESP 20; TEMP 97.6; O2SAT 94
[2018-02-09] MEDS: RESP: ALBUTEROL 2.5 MG/3 ML NEB (PRN) INH (13:18)
--- NOTE | 2018-02-09 14:06 | HHI.PR ---
Addendum to Inpatient Note Addendum Reason: Additional Documentation Additional Information Dw FM attending Gloria Chiu MD Ok to DC from ID standpoint on Doxy oral and Clarithro. Recommend 12 lead EKG for QT interval documentation. Recommend drinking plenty of water and sitting upright for an hour after Doxy. Follow up with Dr.Reba Medeiros. Will sign off please call back if any change in clinical condition or questions. Brenda Neves MD Feb 09, 2018 14:06
--- NOTE | 2018-02-11 09:23 | EKG ---
Date Performed: 02/09/2018 Time Performed: 12:44:08 PTAGE: 62 years EKG: Sinus rhythm LOW QRS VOLTAGE IN PRECORDIAL LEADS POSSIBLE ANTERIOR MYOCARDIAL INFARCTION ABNORMAL ECG PREVIOUS TRACING : 02/06/2018 12.29 DOCTOR: Rishi Cuadra Interpretating Date/Time 02/11/2018 09:17:20
== END 2018-02-09 16:40 | disposition home or self-care (01) | DRG 178 ==
LOC: NEPC 10:27 → NEDA 13:57 → NEPGCP 16:43 → OBSVTOIN 02-08 08:54
PROVIDERS: ADMIT Family Medicine; ATTEND Family Medicine
DX: A31.0 Pulmonary mycobacterial infection (principal); N17.9 Acute kidney failure, unspecified; Q89.3 Situs inversus; I31.3 Pericardial effusion (noninflammatory); J47.0 Bronchiectasis with acute lower respiratory infection; E87.1 Hypo-osmolality and hyponatremia; I50.9 Heart failure, unspecified; I89.0 Lymphedema, not elsewhere classified; G47.30 Sleep apnea, unspecified; E78.00 Pure hypercholesterolemia, unspecified; I25.10 Atherosclerotic heart disease of native coronary artery without angina pectoris; E78.5 Hyperlipidemia, unspecified; Z77.22 Contact with and (suspected) exposure to environmental tobacco smoke (acute) (chronic); E66.9 Obesity, unspecified; Z68.30 Body mass index [BMI] 30.0-30.9, adult; Z91.19 Patient's noncompliance with other medical treatment and regimen; I25.2 Old myocardial infarction; Z79.82 Long term (current) use of aspirin; Z87.01 Personal history of pneumonia (recurrent); Z86.79 Personal history of other diseases of the circulatory system
CPT/HCPCS: 70450; 71046; 71250; 76775; 76937; 80048; 80053; 81001; 82533; 82550; 82552; 82570; 82948; 83735; 83880; 83930; 83935; 84300; 84443; 84484; 85025; 85027; 87015; 87040; 87070; 87081; 87205; 87804; 87880; 93005; 94640; 94664; G8987-GP; G8988-GP; G8989-GP; J1644; J2405; J7030; J7613

== ENCOUNTER 2018-07-21 21:50 | Observation (INO) ==
--- NOTE | 2018-07-21 23:43 | ED ---
HPI General Chief Complaint: Shortness of Breath/Dyspnea Stated Complaint: SOB Time Seen by Provider: 07/21/18 23:30 History of Present Illness 63-year-old man with known history of COPD and heart failure, has had progressive shortness of breath over the past several weeks, indeterminate. Time, which she attributes to the heat in his home, which is on air- conditioned. He uses albuterol and ipratropium 4 times per day by nebulizer, but does not notice that this seems to help. His legs are very swollen, much worse in the past few days to weeks than previously, and patient reports that he supposed to take a water pill, which he believes is been taking at the highest dose, but swelling has continued. Patient has no fever chills or diaphoresis, no chest pain, no cough or congestion. He denies pains elsewhere other than from swelling in the extremities. Related Data Home Medications Medication Instructions Recorded Confirmed multivitamin 1 tab PO DAILY 07/21/18 07/21/18 omega 9-fze-rka-fish oil [Fish Oil] 1,000 mg PO DAILY 07/21/18 07/21/18 Allergies Allergy/AdvReac Type Severity Reaction Status Date / Time No Known Allergies Allergy Unverified 07/21/18 22:48 [facility] Medical History Medical History Seizure (Acute) Situs inversus with dextrocardia (Acute) Social History Social History Substance History: No History of Abuse Smoking Status: Never smoker How Often Do You Have a Drink Containing Alcohol: Never Recent Travel in [facility] within the Last 8 Weeks: No Recent Out of Country Travel within the Last 8 Weeks: No Immunization History Tetanus Immunization: <5 Years Hx Influenza Vaccine This Season: Yes Exam Narrative Exam Narrative: GENERAL: Chronically ill-appearing elderly man, but resting comfortably on stretcher, patient actually has a stable oxygen saturation on room air, as nasal cannula had come unhooked prior to my examination, the patient was in no respiratory distress, with O2 sat of 94%. Vital signs stable at 124/63, pulse is 78. Patient is no acute distress, resting fairly comfortably. SKIN: Focused skin assessment warm/dry. Chronic skin changes noted in lower extremities secondary to chronic edema HEAD: Atraumatic. Normocephalic. EYES: Pupils equal and round. No scleral icterus. No injection or drainage. ENT: No nasal bleeding or discharge. Mucous membranes pink and moist. NECK: Trachea midline. No JVD. CARDIOVASCULAR: Regular rate and rhythm. No murmur appreciated. RESPIRATORY: Bilateral posterior crackles, mild to moderate in intensity, no wheezes, no rhonchi. No accessory muscle use. Clear to auscultation. Breath sounds equal bilaterally. GASTROINTESTINAL: Abdomen soft, non-tender, nondistended. Hepatic and splenic margins not palpable. MUSCULOSKELETAL: 4+ pedal edema bilaterally, with chronic skin changes, no bony tenderness, no joint effusions. NEUROLOGICAL: Awake and alert. No obvious cranial nerve deficits. Motor grossly within normal limits. Normal speech. PSYCHIATRIC: Appropriate mood and affect; insight and judgment normal. Course Initial Documented Vital Signs Pulse Rate 79 07/21/18 22:41 Respiratory Rate 18 07/21/18 22:41 Blood Pressure 124/63 07/21/18 22:41 Pulse Oximetry 93 L 07/21/18 22:41 Last Documented Vital Signs Pulse Rate 78 07/21/18 22:51 Respiratory Rate 20 07/21/18 22:51 Blood Pressure 124/63 07/21/18 22:41 Pulse Oximetry 97 07/21/18 22:51 Medical Decision Making MDM Narrative Medical decision making narrative: Patient has fluid overload, although BNP is normal, chest x-ray is clear. He also has signs of COPD, as he has a significant history of smoking, and has done well with bronchodilation with DuoNeb, but is primarily of failure of oral diuretics, will need hospitalization for IV diuretics in order to decrease his pedal edema. Medical Screen Exam Complete: Yes Emergency Medical Condition: Yes Differential Diagnosis Differential Diagnosis: Heart failure, myocardial infarction, COPD exacerbation , bronchitis, pneumonia Lab Data Result diagrams: 07/21/18 23:50 07/21/18 23:50 Lab Results 07/21/18 07/21/18 07/21/18 Range/Units 23:50 23:50 23:50 WBC 8.7 (4.0-11.0) th/mm3 RBC 3.69 L (4.50-5.90) mil/mm3 Hgb 11.0 L (13.0-17.0) gm/dL Hct 32.3 L (39.0-51.0) % MCV 87.6 (80.0-100.0) fL MCH 29.9 (27.0-34.0) pg MCHC 34.1 (32.0-36.0) % RDW 14.9 (11.6-17.2) % Plt Count 280 (150-450) th/mm3 MPV 7.0 (7.0-11.0) fL Neut % (Auto) 80.0 H (16.0-70.0) % Lymph % (Auto) 9.2 (9.0-44.0) % [place] % (Auto) 8.4 H (0.0-8.0) % Eos % (Auto) 1.5 (0.0-4.0) % Baso % (Auto) 0.9 (0.0-2.0) % Neut # (Auto) 6.9 (1.8-7.7) th/mm3 Lymph # (Auto) 0.8 L (1.0-4.8) th/mm3 [place] # (Auto) 0.7 (0.0-0.9) th/mm3 Eos # (Auto) 0.1 (0.0-0.4) th/mm3 Baso # (Auto) 0.1 (0.0-0.2) th/mm3 WBC Differential . Differential Comment Auto diff final PT (9.8-11.6) sec INR Ratio Sodium 138 (136-145) meq/L Potassium 3.9 (3.5-5.1) meq/L Chloride 100 (98-107) meq/L Carbon Dioxide 26.1 (21.0-32.0) meq/L Anion Gap 12 (5-15) meq/L BUN 33 H (7-18) mg/dL Creatinine 1.90 H (0.60-1.30) mg/dL Estimated GFR 36 L (>89) mL/min Random Glucose 109 H (74-106) mg/dL Calcium 8.2 L (8.5-10.1) mg/dL Magnesium 2.1 (1.5-2.5) mg/dL Total Bilirubin 0.4 (0.2-1.0) mg/dL AST 18 (15-37) U/L ALT 25 (12-78) U/L Alkaline Phosphatase 116 (45-117) U/L Troponin I Less than 0.02 L (0.02-0.05) ng/mL B-Natriuretic Peptide 27 (0-100) pg/mL Total Protein 7.2 (6.4-8.2) g/dL Albumin 3.2 L (3.4-5.0) g/dL Urine Color (Yellw/Straw) Urine Clarity (Clear) Urine pH (5.0-8.5) Ur Specific [place] (1.002-1.035) Urine Protein (Neg-Trace) mg/dL Urine Glucose (UA) (Negative) mg/dL Urine Ketones (Negative) mg/dL Urine Occult Blood (Negative) Urine Nitrate (Negative) Urine Bilirubin (Negative) Urine Urobilinogen (Less than 2) mg/dL Ur Leukocyte Esterase (Negative) Urine RBC (0-3) /hpf Urine WBC (0-5) /hpf Ur Squamous Epith Cells (0-5) /hpf Urine Mucus (Occasional) /lpf Ur Microscopic Review 07/21/18 07/22/18 Range/Units 23:50 00:50 WBC (4.0-11.0) th/mm3 RBC (4.50-5.90) mil/mm3 Hgb (13.0-17.0) gm/dL Hct (39.0-51.0) % MCV (80.0-100.0) fL MCH (27.0-34.0) pg MCHC (32.0-36.0) % RDW (11.6-17.2) % Plt Count (150-450) th/mm3 MPV (7.0-11.0) fL Neut % (Auto) (16.0-70.0) % Lymph % (Auto) (9.0-44.0) % [place] % (Auto) (0.0-8.0) % Eos % (Auto) (0.0-4.0) % Baso % (Auto) (0.0-2.0) % Neut # (Auto) (1.8-7.7) th/mm3 Lymph # (Auto) (1.0-4.8) th/mm3 [place] # (Auto) (0.0-0.9) th/mm3 Eos # (Auto) (0.0-0.4) th/mm3 Baso # (Auto) (0.0-0.2) th/mm3 WBC Differential Differential Comment PT 10.7 (9.8-11.6) sec INR 1.1 Ratio Sodium (136-145) meq/L Potassium (3.5-5.1) meq/L Chloride (98-107) meq/L Carbon Dioxide (21.0-32.0) meq/L Anion Gap (5-15) meq/L BUN (7-18) mg/dL Creatinine (0.60-1.30) mg/dL Estimated GFR (>89) mL/min Random Glucose (74-106) mg/dL Calcium (8.5-10.1) mg/dL Magnesium (1.5-2.5) mg/dL Total Bilirubin (0.2-1.0) mg/dL AST (15-37) U/L ALT (12-78) U/L Alkaline Phosphatase (45-117) U/L Troponin I (0.02-0.05) ng/mL B-Natriuretic Peptide (0-100) pg/mL Total Protein (6.4-8.2) g/dL Albumin (3.4-5.0) g/dL Urine Color Yellow (Yellw/Straw) Urine Clarity Clear (Clear) Urine pH 5.0 (5.0-8.5) Ur Specific [place] 1.015 (1.002-1.035) Urine Protein Negative (Neg-Trace) mg/dL Urine Glucose (UA) Negative (Negative) mg/dL Urine Ketones Negative (Negative) mg/dL Urine Occult Blood Negative (Negative) Urine Nitrate Negative (Negative) Urine Bilirubin Negative (Negative) Urine Urobilinogen 2.0 H (Less than 2) mg/dL Ur Leukocyte Esterase Negative (Negative) Urine RBC Less than 1 (0-3) /hpf Urine WBC 1 (0-5) /hpf Ur Squamous Epith Cells <1 (0-5) /hpf Urine Mucus Few H (Occasional) /lpf Ur Microscopic Review Not Reportable Imaging Data Radiologist's impression: Chest X-Ray 07/21/18 23:38 CONCLUSION: Bibasilar areas of consolidation or atelectasis being worse on the left. Dextrocardia. Discharge Plan Discharge Disposition Patient Disposition: 30 Still Patient Discharge Condition Condition: Stable Discharge Details Diagnosis: Heart failure, Fluid overload, COPD exacerbation Physicians Team ED Provider: Trevon Sommer Primary Care Provider: Tatiana Mehta Rxs /Orders / Referrals /Forms Prescriptions: No Action multivitamin Tablet 1 tab PO DAILY RF: 0 omega 4-nwx-iky-fish oil [Fish Oil] 1,000 mg (120 mg-180 mg) Capsule 1,000 mg PO DAILY RF: 0 Discharge Interventions Interventions: Vital Signs Last Done: 07/21/18 22:51 Status ED Status: With Doctor
[2018-07-22 00:01] LABS: Baso # (Auto) 0.1 th/mm3 (0.0-0.2); Baso % (Auto) 0.9 % (0.0-2.0); Eos # (Auto) 0.1 th/mm3 (0.0-0.4); Eos % (Auto) 1.5 % (0.0-4.0); Hematocrit 32.3 % (39.0-51.0); Lymph # (Auto) 0.8 th/mm3 (1.0-4.8); Lymph % (Auto) 9.2 % (9.0-44.0); Mean Corpuscular HGB Conc 34.1 % (32.0-36.0); Mean Corpuscular Hemoglobin 29.9 pg (27.0-34.0); Mean Corpuscular Volume 87.6 fL (80.0-100.0); Mono # (Auto) 0.7 th/mm3 (0.0-0.9); Mono % (Auto) 8.4 % (0.0-8.0); Neut # (Auto) 6.9 th/mm3 (1.8-7.7); Platelet Count 280 th/mm3 (150-450); Red Blood Count 3.69 mil/mm3 (4.50-5.90); Red Cell Distribution Width 14.9 % (11.6-17.2); White Blood Count 8.7 th/mm3 (4.0-11.0)
--- NOTE | 2018-07-22 00:07 | XR ---
EXAM DATE: 07/21/2018 11:38 PM EDT AGE/SEX: 63 years / Male INDICATIONS: Dyspnea. CLINICAL DATA: This is the patient's initial encounter. Patient reports that signs and symptoms have been present for 1 day and indicates a pain score of 0/10. MEDICAL/SURGICAL HISTORY: Chronic obstructive pulmonary disease. Seizures. Situs inversus. Cole cardial infarction. . Bilateral lobectomy. Brain aneurysm with shunt. Multiple cervical spine. Bila teral knees. [place] [facility] [place] [facility] [place]. . FINDINGS: There is dextrocardia with a right-sided aortic arch. This increased density at the medial left base. There appears to be some consolidation at the medial right base in the retrocardiac region. The mid and upper lungs are clear. Significant effusions are not clearly seen. There is an anterior cervical fusion plate present. CONCLUSION: Bibasilar areas of consolidation or atelectasis being worse on the left. Dextrocardia. Electronically signed by: Jack Perez MD 07/22/2018 12:05 AM EDT
[2018-07-22 00:21] LABS: INR 1.1 Ratio; Prothrombin Time 10.7 sec (9.8-11.6)
[2018-07-22 00:30] LABS: Albumin 3.2 g/dL (3.4-5.0); Anion Gap 12 meq/L (5-15); Aspartate Aminotransferase 18 U/L (15-37); Blood Urea Nitrogen 33 mg/dL (7-18); Calcium 8.2 mg/dL (8.5-10.1); Carbon Dioxide 26.1 meq/L (21.0-32.0); Chloride 100 meq/L (98-107); Glomerular Filtration Rate 36 mL/min (>89); Glucose,Random 109 mg/dL (74-106); Magnesium 2.1 mg/dL (1.5-2.5); Potassium 3.9 meq/L (3.5-5.1); Sodium 138 meq/L (136-145)
[2018-07-22 00:31] LABS: Alanine Aminotransferase 25 U/L (12-78)
[2018-07-22 00:35] LABS: Alkaline Phosphatase 116 U/L (45-117); Total Protein 7.2 g/dL (6.4-8.2)
[2018-07-22 01:32] LABS: Bilirubin,Urine Negative (Negative); Clarity,Urine Clear (Clear); Color,Urine Yellow (Yellw/Straw); Glucose,Urine (UA) Negative (Negative); Leukocyte Esterase,Urine Negative (Negative); Mucus,Urine Few /lpf (Occasional); Nitrite,Urine Negative (Negative); Specific Gravity,Urine 1.015 (1.002-1.035); Squamous Epithelial Cell,Urine <1 /hpf (0-5)
--- NOTE | 2018-07-22 02:23 | P.HPFP ---
History of Present Illness Primary Care Physician: Tatiana Mehta MD, R2 <Yolette Cash R - 07/22/18 10:52> Tatiana Mehta MD, R2 <Marline Arreguin B - 07/22/18 02:22> Chief Complaint: BLE swelling <Marline Arreguin B - 07/22/18 04:17> History of Present Illness: 63 y/o history of CHF, COPD, sidus inversus with dextrocardia, and chronic lymphedema presents to the emergency department for gradually worsening swelling and pain in bilateral lower extremities for the last couple of months. Patient states that the swelling is so bad that he is unable to put pants on. He states that he is still able to walk with a walker, but is in significant pain when he bears weight on his leg.. He notes no discoloration, change in temperature, or loss of sensation in his legs. He does note intermittent tingling in bilateral legs which abates on its own. He also notes that his the toenail on his left great toe "needs to come off now". He states that his toenail has been leading, bruised, and falling off for the past month or so. He has seen podiatry in the past for this chronic lymphedema , however not recently. Patient also complains of chronic shortness of breath for the past 4-5 years following a lung surgery, bilateral lower lobectomy in 2000, following years of secondhand smoke exposure. Patient states that for the past week he is been experiencing increased shortness of breath and inability to take a deep breath due to lack of air conditioning in his home, which is caused "stuffiness". He also admits to a chronic cough, sometimes with green phlegm production. He has not coughed up any blood and denies pink or frothy phlegm production. No known history of clots in lungs or legs. Denies fever, nasal discharge, nasal congestion, sore throat, chest pain, nausea, vomiting, abdominal pain, diarrhea , dysuria, or sick contacts. He has been hospitalized for shortness of breath in the past year at [place], but is unsure of his diagnosis at that time. Upon review of prior records, patient was found to have a cavitary lesion and patient placed on antibiotics for chronic organizing pneumonia, following lung biopsy. Tuberculosis PCR was negative. He is previously seen residential support specialist, Dr. Shanks. Last echocardiogram performed on 12/09/17, showed EF 55% and a small pericardial effusion. 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 Past medical history: Pmhx: CHF COPD Sidus inversus with dextrocardia. HDL anemia insomnia DE in 1993 Medications: albuterol and duoneb breathing treatments symbicort as needed bumetanide 1mg daily spironolactone ferrous sulfate 325 mg daily losartan 25 mg daily rosuvastatin 40 mg daily Surgical history: Bilateral lower lobectomy in 2000 History of aneurysm repair in childhood Family history: Mother at age 79. Hx of unknown heart problems. Father at age 80. Hx of unknown heart problems. <Marline Arreguin 07/22/18 04:17> - Diagnosis (1) Edema of both lower extremities (2) ANUP (acute kidney injury) (3) Anemia (4) History of CHF (congestive heart failure) (5) COPD (chronic obstructive pulmonary disease) (6) Hyperlipemia (7) Hypertension (8) Dextrocardia (9) History of DE (myocardial infarction) (10) Nutrition, metabolism, and development symptoms (11) DVT prophylaxis <Yolette Cash 07/22/18 10:52> (1) Edema of both lower extremities (2) ANUP (acute kidney injury) (3) Anemia (4) History of CHF (congestive heart failure) (5) COPD (chronic obstructive pulmonary disease) (6) Hyperlipemia (7) Hypertension (8) Dextrocardia (9) History of DE (myocardial infarction) (10) Nutrition, metabolism, and development symptoms (11) DVT prophylaxis <Marline Arreguin 07/22/18 04:17> Review of Systems Constitutional: Denies chills, Denies fever(s) <Marline Arreguin 07/22/18 04: 17> Eyes: Denies change in vision <Marline Arreguin 07/22/18 04:17> Ears, Nose, Mouth, and Throat: Denies dental pain, Denies nasal congestion, Denies nasal discharge, Denies pain with swallowing, Denies sore throat <Marline Arreguin 07/22/18 04:17> Cardiovascular: Reports leg swelling, Reports shortness of breath (chronic, worse at home), Reports shortness of breath with activity, Denies chest pain < Marline Arreguin 07/22/18 04:17> Respiratory: Reports cough (occassional green phlegm), Reports shortness of breath with activity, Denies stridor <Marline Arreguin 07/22/18 04:17> Gastrointestinal: Denies abdominal pain, Denies change in stools, Denies nausea , Denies vomiting <Marline Arreguin 07/22/18 04:17> Genitourinary: Reports urinary frequency (on diuretic), Denies blood in urine, Denies painful urination <Marline Arreguin 07/22/18 04:17> Musculoskeletal: Reports abnormal walking (due to pain and swelling of legs, walks with a walker at home), Reports tingling (occassional in BLE ) <Marline Arreguin 07/22/18 04:17> PMFSH - History History Provided By: Patient <Marline Arreguin 07/22/18 02:22> - Medical History Medical History: Medical History (Last Reviewed 07/22/18 @ 04:07 by Marline Arreguin DO, R1) Seizure Situs inversus with dextrocardia <Yolette Cash - 07/22/18 10:52> Medical History (Last Reviewed 07/22/18 @ 04:07 by Marline Arreguin DO, R1) Seizure Situs inversus with dextrocardia <Marline Arreguin 07/22/18 04:17> - Social History I have reviewed the patient's Social History: Yes <Marline Arreguin 07/22/18 02:46> - Tobacco History Second Hand Smoke Exposure: Yes <Marline Arreguin 07/22/18 02:46> Smoking Status: Never smoker <Marline Arreguin 07/22/18 02:22> - Alcohol History How Often Do You Have a Drink Containing Alcohol: Never <Marline Arreguin 02:22> - Substance Use History Substance History: No History of Abuse <Marline Arreguin 07/22/18 02:22> - Travel History Recent Travel in the [facility] Within the Last 8 Weeks: No <Marline Arreguin 02:22> Recent Travel Out of the Country Within the Last 8 Weeks: No <RodríguezTheresaMarline B 07/22/18 02:22> - Immunization History Tetanus Immunization: <5 Years <Marline Arreguin 07/22/18 02:22> Hx Influenza Vaccine This Season: Yes <Marline Arreguin 07/22/18 02:22> Medications and Allergies Allergies Allergy/AdvReac Type Severity Reaction Status Date / Time No Known Allergies Allergy Unverified 07/21/18 22:48 <Yolette Cash 07/22/18 10:52> Home Medications Medication Instructions Recorded Confirmed Type multivitamin 1 tab PO DAILY 07/21/18 07/21/18 History omega 5-eyr-mjy-fish oil [Fish Oil] 1,000 mg PO DAILY 07/21/18 07/21/18 History <Yolette Cash 07/22/18 10:52> Active Medications: Active Medications Albuterol (Duoneb Neb (Al)) 1 ampul NEB Q4HR NEB [facility] Last Admin: 07/22/18 07:35 Dose: 1 ampul Aspirin (Aspirin Chew) 81 mg PO DAILY AL Cetirizine HCl (Zyrtec) 10 mg PO DAILY [facility] Ferrous Sulfate (Ferosul) 325 mg PO DAILY [facility] Heparin Sodium (Porcine) (Heparin Inj) 5,000 units SQ Q8H AL Last Admin: 07/22/18 04:02 Dose: 5,000 units Losartan Potassium (Cozaar) 25 mg PO DAILY AL Pantoprazole Sodium (Protonix) 40 mg PO DAILY AL Sodium Chloride (Ns Flush) 2 ml IV.FLUSH BID AL Sodium Chloride (Ns Flush) 2 ml IV.FLUSH PRN PRN PRN Reason: FLUSH AFTER USING IV ACCESS <Yolette Cash 07/22/18 10:52> Exam Vital signs: Vital Signs 07/21/18 22:41 07/21/18 22:51 07/22/18 04:00 Temperature 97.6 F Pulse Rate 79 78 75 Respiratory Rate 18 20 20 Blood Pressure 124/63 109/58 L Pulse Oximetry 93 L 97 93 L 07/22/18 04:04 07/22/18 04:49 07/22/18 07:37 Temperature Pulse Rate 72 72 66 Respiratory Rate 20 18 Blood Pressure 115/57 L Pulse Oximetry 94 L 93 L 07/22/18 08:00 Temperature 97.8 F Pulse Rate 77 Respiratory Rate 16 Blood Pressure 113/64 Pulse Oximetry 94 L Intake & Output 07/21/18 07/22/18 07/22/18 18:59 06:59 18:59 Weight 92 kg Other: # Voids 1 Weight On Admission 92 kg <Yolette Cash R - 07/22/18 10:52> Vital Signs 07/21/18 22:41 07/21/18 22:51 Pulse Rate 79 78 Respiratory Rate 18 20 Blood Pressure 124/63 Pulse Oximetry 93 L 97 Intake & Output 07/21/18 07/21/18 07/22/18 06:59 18:59 06:59 Weight 99.79 kg <Marline Arreguin - 07/22/18 02:22> Narrative: GENERAL: 62-year-old male, well-developed, well-nourished. Sitting up in bed watching TV in no acute distress. HEENT: NCAT, PERRLA, EOMI, no scleral icterus, no conjunctival injection or pallor. MMM. Airway patent. TMs WNL bilaterally. NECK: Supple, no meningeal signs. No notable LAD. CV: RRR, S1 S2. No murmurs. Auscultated on right side of chest. CHEST/PULM: CTAB, no crackles, no wheezes. Decreased lung sounds in bilateral bases. ABD/GI: +BS in all 4 quadrants, soft, nontender, nondistended. EXT: Significant for plus pitting edema of bilateral lower extremities to the knee. Unable to palpate posterior tibial or dorsalis pedis pulses bilaterally. Normal sensation. Muscle strength 4+/5 in lower extremities due to pain. No significant warmth, erythema or purulent drainage notable on examination. 4-5 inch well-healed surgical scar consistent with knee replacement. Left great toe with significantly thickened toenail with surrounding erythema and dried blood at the cuticle. NEURO: Awake, alert, oriented to self, time, and place. Normal muscle tone. Grossly nonfocal. <Marline Arreguin - 07/22/18 04:17> Results - Labs Result diagrams: 07/22/18 05:33 07/22/18 05:33 <Yolette Cash R - 07/22/18 10:52> Abnormal lab results 07/21/18 07/21/18 07/22/18 Range/Units 23:50 23:50 00:50 RBC 3.69 L (4.50-5.90) mil/mm3 Hgb 11.0 L (13.0-17.0) gm/dL Hct 32.3 L (39.0-51.0) % MPV (7.0-11.0) fL Neut % (Auto) 80.0 H (16.0-70.0) % Lymph % (Auto) (9.0-44.0) % [place] % (Auto) 8.4 H (0.0-8.0) % Lymph # (Auto) 0.8 L (1.0-4.8) th/mm3 Sodium (136-145) meq/L Chloride (98-107) meq/L BUN 33 H (7-18) mg/dL Creatinine 1.90 H (0.60-1.30) mg/dL Estimated GFR 36 L (>89) mL/min Random Glucose 109 H (74-106) mg/dL Calcium 8.2 L (8.5-10.1) mg/dL Troponin I Less than 0.02 L (0.02-0.05) ng/mL Albumin 3.2 L (3.4-5.0) g/dL Urine Urobilinogen 2.0 H (Less than 2) mg/dL Urine Mucus Few H (Occasional) /lpf 07/22/18 07/22/18 Range/Units 05:33 05:33 RBC 3.77 L (4.50-5.90) mil/mm3 Hgb 11.3 L (13.0-17.0) gm/dL Hct 33.4 L (39.0-51.0) % MPV 6.8 L (7.0-11.0) fL Neut % (Auto) 95.2 H (16.0-70.0) % Lymph % (Auto) 3.8 L (9.0-44.0) % [place] % (Auto) (0.0-8.0) % Lymph # (Auto) 0.2 L (1.0-4.8) th/mm3 Sodium 133 L (136-145) meq/L Chloride 96 L (98-107) meq/L BUN 35 H (7-18) mg/dL Creatinine 2.01 H (0.60-1.30) mg/dL Estimated GFR 34 L (>89) mL/min Random Glucose 217 H D (74-106) mg/dL Calcium 8.4 L (8.5-10.1) mg/dL Troponin I (0.02-0.05) ng/mL Albumin (3.4-5.0) g/dL Urine Urobilinogen (Less than 2) mg/dL Urine Mucus (Occasional) /lpf Short CBC 07/21/18 07/22/18 Range/Units 23:50 05:33 WBC 8.7 5.9 (4.0-11.0) th/mm3 Hgb 11.0 L 11.3 L (13.0-17.0) gm/dL Hct 32.3 L 33.4 L (39.0-51.0) % Plt Count 280 295 (150-450) th/mm3 BMP 07/21/18 07/22/18 23:50 05:33 Sodium 138 133 L Potassium 3.9 3.9 Chloride 100 96 L Carbon Dioxide 26.1 26.2 BUN 33 H 35 H Creatinine 1.90 H 2.01 H Calcium 8.2 L 8.4 L Cardiac Enzymes 07/21/18 Range/Units 23:50 Troponin I Less than 0.02 L (0.02-0.05) ng/mL Liver Function 07/21/18 Range/Units 23:50 Total Bilirubin 0.4 (0.2-1.0) mg/dL AST 18 (15-37) U/L ALT 25 (12-78) U/L Alkaline Phosphatase 116 (45-117) U/L Albumin 3.2 L (3.4-5.0) g/dL Urine 07/22/18 Range/Units 00:50 Urine Color Yellow (Yellw/Straw) Urine Clarity Clear (Clear) Urine pH 5.0 (5.0-8.5) Ur Specific [place] 1.015 (1.002-1.035) Urine Protein Negative (Neg-Trace) mg/dL Urine Glucose (UA) Negative (Negative) mg/dL <Yolette Cash R - 07/22/18 10:52> Abnormal lab results 07/21/18 07/21/18 07/22/18 Range/Units 23:50 23:50 00:50 RBC 3.69 L (4.50-5.90) mil/mm3 Hgb 11.0 L (13.0-17.0) gm/dL Hct 32.3 L (39.0-51.0) % Neut % (Auto) 80.0 H (16.0-70.0) % [place] % (Auto) 8.4 H (0.0-8.0) % Lymph # (Auto) 0.8 L (1.0-4.8) th/mm3 BUN 33 H (7-18) mg/dL Creatinine 1.90 H (0.60-1.30) mg/dL Estimated GFR 36 L (>89) mL/min Random Glucose 109 H (74-106) mg/dL Calcium 8.2 L (8.5-10.1) mg/dL Troponin I Less than 0.02 L (0.02-0.05) ng/mL Albumin 3.2 L (3.4-5.0) g/dL Urine Urobilinogen 2.0 H (Less than 2) mg/dL Urine Mucus Few H (Occasional) /lpf Short CBC 07/21/18 Range/Units 23:50 WBC 8.7 (4.0-11.0) th/mm3 Hgb 11.0 L (13.0-17.0) gm/dL Hct 32.3 L (39.0-51.0) % Plt Count 280 (150-450) th/mm3 BMP 07/21/18 23:50 Sodium 138 Potassium 3.9 Chloride 100 Carbon Dioxide 26.1 BUN 33 H Creatinine 1.90 H Calcium 8.2 L Cardiac Enzymes 07/21/18 Range/Units 23:50 Troponin I Less than 0.02 L (0.02-0.05) ng/mL Liver Function 07/21/18 Range/Units 23:50 Total Bilirubin 0.4 (0.2-1.0) mg/dL AST 18 (15-37) U/L ALT 25 (12-78) U/L Alkaline Phosphatase 116 (45-117) U/L Albumin 3.2 L (3.4-5.0) g/dL Urine 07/22/18 Range/Units 00:50 Urine Color Yellow (Yellw/Straw) Urine Clarity Clear (Clear) Urine pH 5.0 (5.0-8.5) Ur Specific [place] 1.015 (1.002-1.035) Urine Protein Negative (Neg-Trace) mg/dL Urine Glucose (UA) Negative (Negative) mg/dL <Marline Arreguin 07/22/18 02:22> - Imaging Impressions Chest X-Ray 07/21/18 23:38 CONCLUSION: Bibasilar areas of consolidation or atelectasis being worse on the left. Dextrocardia. <Yolette Cash - 07/22/18 10:52> Impressions Chest X-Ray 07/21/18 23:38 CONCLUSION: Bibasilar areas of consolidation or atelectasis being worse on the left. Dextrocardia. <Marline Arreguin 07/22/18 02:22> Caprini VTE Risk Assessment Caprini VTE Risk Assessment: Moderate/High Risk (score >= 2) <Marline Arreguin 07/22/18 04:17> Caprini Risk Assessment Model: Point Value = 1 Point Value = 2 Point Value = 3 Point Value = 5 Age 41-60 Minor surgery BMI > 25 kg/m2 Swollen legs Varicose veins or History of unexplained or recurrent spontaneous Oral contraceptives or hormone replacement Sepsis (< 1 month) Serious lung disease, including pneumonia (< 1 month) Abnormal pulmonary function Acute myocardial infarction Congestive heart failure (< 1 month) History of inflammatory bowel disease Medical patient at bed rest Age 61-74 Arthroscopic surgery Major open surgery (> 45 min) Laparoscopic surgery (> 45 min) Malignancy Confined to bed (> 72 hours) Immobilizing plaster cast Central venous access Age >= 75 History of VTE Family history of VTE Factor V Leiden Prothrombin [id number] Lupus anticoagulant Anticardiolipin antibodies Elevated serum homocysteine Heparin-induced thrombocytopenia Other congenital or acquired thrombophilia Stroke (< 1 month) Elective arthroplasty Hip, pelvis, or leg fracture Acute spinal cord injury (< 1 month) <Yolette Cash 07/22/18 10:52> Point Value = 1 Point Value = 2 Point Value = 3 Point Value = 5 Age 41-60 Minor surgery BMI > 25 kg/m2 Swollen legs Varicose veins or History of unexplained or recurrent spontaneous Oral contraceptives or hormone replacement Sepsis (< 1 month) Serious lung disease, including pneumonia (< 1 month) Abnormal pulmonary function Acute myocardial infarction Congestive heart failure (< 1 month) History of inflammatory bowel disease Medical patient at bed rest Age 61-74 Arthroscopic surgery Major open surgery (> 45 min) Laparoscopic surgery (> 45 min) Malignancy Confined to bed (> 72 hours) Immobilizing plaster cast Central venous access Age >= 75 History of VTE Family history of VTE Factor V Leiden Prothrombin [id number] Lupus anticoagulant Anticardiolipin antibodies Elevated serum homocysteine Heparin-induced thrombocytopenia Other congenital or acquired thrombophilia Stroke (< 1 month) Elective arthroplasty Hip, pelvis, or leg fracture Acute spinal cord injury (< 1 month) <Marline Arreguin B - 07/22/18 04:17> Prophylaxis Regimen: Total Risk Factor Score Risk Level Prophylaxis Regimen 0-1 Low Early ambulation 2 Moderate Order ONE of the following: *Sequential Compression Device (SCD) *Heparin 5000 units SQ BID 3-4 Higher Order ONE of the following medications: *Heparin 5000 units SQ TID *Enoxaparin/Lovenox 40 mg SQ daily (WT < 150 kg, CrCl > 30 mL/min) *Enoxaparin/Lovenox 30 mg SQ daily (WT < 150 kg, CrCl > 10-29 mL/min) *Enoxaparin/Lovenox 30 mg SQ BID (WT < 150 kg, CrCl > 30 mL/min) AND/OR *Sequential Compression Device (SCD) 5 or more Highest Order ONE of the following medications: *Heparin 5000 units SQ TID (Preferred with Epidurals) *Enoxaparin/Lovenox 40 mg SQ daily (WT < 150 kg, CrCl > 30 mL/min) *Enoxaparin/Lovenox 30 mg SQ daily (WT < 150 kg, CrCl > 10-29 mL/min) *Enoxaparin/Lovenox 30 mg SQ BID (WT < 150 kg, CrCl > 30 mL/min) AND *Sequential Compression Device (SCD) <Yolette Cash R - 07/22/18 10:52> Total Risk Factor Score Risk Level Prophylaxis Regimen 0-1 Low Early ambulation 2 Moderate Order ONE of the following: *Sequential Compression Device (SCD) *Heparin 5000 units SQ BID 3-4 Higher Order ONE of the following medications: *Heparin 5000 units SQ TID *Enoxaparin/Lovenox 40 mg SQ daily (WT < 150 kg, CrCl > 30 mL/min) *Enoxaparin/Lovenox 30 mg SQ daily (WT < 150 kg, CrCl > 10-29 mL/min) *Enoxaparin/Lovenox 30 mg SQ BID (WT < 150 kg, CrCl > 30 mL/min) AND/OR *Sequential Compression Device (SCD) 5 or more Highest Order ONE of the following medications: *Heparin 5000 units SQ TID (Preferred with Epidurals) *Enoxaparin/Lovenox 40 mg SQ daily (WT < 150 kg, CrCl > 30 mL/min) *Enoxaparin/Lovenox 30 mg SQ daily (WT < 150 kg, CrCl > 10-29 mL/min) *Enoxaparin/Lovenox 30 mg SQ BID (WT < 150 kg, CrCl > 30 mL/min) AND *Sequential Compression Device (SCD) <Marline Arreguin - 07/22/18 02:22> Assessment and Plan - Assessment (1) Edema of both lower extremities Code(s): R60.0 - Localized edema Status: Acute (2) ANUP (acute kidney injury) Code(s): N17.9 - Acute kidney failure, unspecified Status: Acute (3) Anemia Code(s): D64.9 - Anemia, unspecified Status: Acute (4) History of CHF (congestive heart failure) Code(s): Z86.79 - Personal history of other diseases of the circulatory system Status: Chronic (5) COPD (chronic obstructive pulmonary disease) Code(s): J44.9 - Chronic obstructive pulmonary disease, unspecified Status: Chronic (6) Hyperlipemia Code(s): E78.5 - Hyperlipidemia, unspecified Status: Chronic (7) Hypertension Code(s): I10 - Essential (primary) hypertension Status: Chronic (8) Dextrocardia Code(s): Q24.0 - Dextrocardia Status: Chronic (9) History of DE (myocardial infarction) Code(s): I25.2 - Old myocardial infarction Status: Chronic (10) Nutrition, metabolism, and development symptoms Code(s): R63.8 - Other symptoms and signs concerning food and fluid intake Status: Acute (11) DVT prophylaxis Status: Acute <Vandemark,Yolette R - 07/22/18 10:52> (1) Edema of both lower extremities Code(s): R60.0 - Localized edema Status: Acute Plan: Patient with history of chronic lymphedema of bilateral lower extremities, worsening for the last couple of months. Patient with 4+ pitting bilaterally in lower extremities to the knee on exam. No erythema, tenderness, purulent drainage, or warmth. Unable to palpate posterior tibialis or dorsalis pedis pulses bilaterally. Consider lymphedema versus venous stasis. -CBC: WBC 8.7. -Repeat CBC in a.m. -Patient received Lasix 40 mg IV in the ED -Consult podiatry -Consider consult to vascular surgery for further evaluation (2) ANUP (acute kidney injury) Code(s): N17.9 - Acute kidney failure, unspecified Status: Acute Plan: Patient with acute kidney injury on admission. CMP showed BUN 33 and Cr 1.9. -Will hold IVF due to CHF -Continue to monitor with repeat CMP in a.m. (3) Anemia Code(s): D64.9 - Anemia, unspecified Status: Acute Plan: Patient with history of anemia. Patient takes ferrous sulfate at home. Hemoglobin 11.0 on admission. -Continue home ferrous sulfate 325 mg p.o. daily. -Repeat CBC in a.m. (4) History of CHF (congestive heart failure) Code(s): Z86.79 - Personal history of other diseases of the circulatory system Status: Chronic Plan: Patient with history of CHF, on Bumex 1 mg daily. Patient complains of chronic shortness of breath that could also be associated with long-standing history of COPD. No notable crackles on auscultation of lungs. Chest x-ray showed no notable effusions. Echocardiogram last performed in November 2017, which showed ejection fraction of 55%. -BNP 27 on admission -Given Lasix 40 mg IV in ED (5) COPD (chronic obstructive pulmonary disease) Code(s): J44.9 - Chronic obstructive pulmonary disease, unspecified Status: Chronic Plan: Patient with chronic shortness of breath, worsened at home due to lack of air conditioning. Patient currently on a regimen of albuterol, DuoNeb breathing treatments, and Symbicort. -Chest x-ray performed in ED showed: Bibasilar areas of consolidation or atelectasis, worse on the left. Dextrocardia. -Scheduled albuterol breathing treatments every 4 hours -Hold home Symbicort and DuoNeb for now -Continue Zyrtec 10 mg p.o. daily (6) Hyperlipemia Code(s): E78.5 - Hyperlipidemia, unspecified Status: Chronic Plan: Patient with history of hyperlipidemia. -Hold home rosuvastatin for now. (7) Hypertension Code(s): I10 - Essential (primary) hypertension Status: Chronic Plan: Patient with history of hypertension, well controlled on losartan. -Continue home losartan 25 mg p.o. daily (8) Dextrocardia Code(s): Q24.0 - Dextrocardia Status: Chronic Plan: Patient with history of dextrocardia, as shown on chest x-ray. (9) History of DE (myocardial infarction) Code(s): I25.2 - Old myocardial infarction Status: Chronic Plan: Patient with history of DE back in the . Denies chest pain currently. -Continue home ASA 81 mg p.o. daily (10) Nutrition, metabolism, and development symptoms Code(s): R63.8 - Other symptoms and signs concerning food and fluid intake Status: Acute Plan: Fluids: Hold IVF due to history of CHF Electrolytes: No significant electrolyte abnormalities noted at this time. We will continue to monitor and replete as necessary. Nutrition: Regular diet (11) DVT prophylaxis Status: Acute Plan: DVT prophylaxis -Heparin 5000 units subcutaneously every 8 hours <Marline Arreguin - 07/22/18 04:17> - Attending Attestation The exam, history, and the medical decision-making described in the above note were completed with the assistance of the resident physician. I reviewed and agree with the findings presented. I attest that I had a [id number] encounter with the patient on the same day, and personally performed and documented my assessment and findings in the medical record. Patient was seen and examined at 9:30am. Patient is well known to me as I have seen him in our outpatient clinic in the past. He reports the reason he came to the hospital this time was that for 4 days he had some increase in SOB and cough with some greenish sputum that was a little more frequent than in the the past. Denies fever/chills/no CP. He states he has no air conditioning at home and he thinks it was just so hot and this is what caused his SOB. He also has concerns about his left great toe -- states this is painful and he wants to have this addressed. He also wants to have his chronic lymphedema addressed. GENERAL: SKIN: Warm and dry -- he it not on oxygen, talking without SOB or any sign of respiratory distress. HEAD: Normocephalic. EYES: No scleral icterus. No injection or drainage. NECK: Supple, trachea midline. No JVD or lymphadenopathy. CARDIOVASCULAR: Regular rate and rhythm with 2/6 BARBARA RESPIRATORY: Breath sounds equal bilaterally. No accessory muscle use, no crackles GASTROINTESTINAL: Abdomen soft, non-tender, nondistended. MUSCULOSKELETAL: Chronic lymphedema changes to lower extremities bilaterally. Unchanged from previous exam only 2 weeks ago left great toe with injury to nail BACK: Nontender without obvious deformity. No CVA tenderness. ap 1. SOB/Cough -- likely this is just symptoms related to heat/allergy. However on the CXR, possible consolidation -- so will treat with PO antibiotics and continue his home neb treatment. 2. CHF -- stable -- continue his home meds -- no evidence of CHF exacerbation on labs, cxr or exam 3. COPD -- stable - satting well on room air, no evidence of COPD exacerbation 4. Left toenail injury -- this is not infected, appears that the patient may have hit his toen on something -- will need outpatient podiatry. 5. Lymphedema -- again stressed with patient this is not a reason to come to the hospital -- he has been referref to the lymphedema clinic many times and has had appointments. He has limited resources and also limited understanding of his health. He has [employer] for transportation. He has been offered compression stockings as well but will not wear them. At this time without the patients cooperation there is not really anything we can do for him. Patient has been stable in OBS, there is no reason for inpatient admission at this time -- he issues are stable, he has referrals and transportation should he choose to follow through for his treatments. DC to home now with fu with podiatry, lymphedema clinic and PCP Seen and dw Dr. Montiel <Yolette Cash - 07/22/18 10:52>
[2018-07-22] MEDS: Heparin - SQ 10,000 UNITS/ML Vial SQ SCH ×2 (04:02→12:31)
[2018-07-22 06:20] LABS: Baso % (Auto) 0.2 % (0.0-2.0); Hematocrit 33.4 % (39.0-51.0); Hemoglobin 11.3 gm/dL (13.0-17.0); Lymph # (Auto) 0.2 th/mm3 (1.0-4.8); Lymph % (Auto) 3.8 % (9.0-44.0); Mean Corpuscular HGB Conc 33.8 % (32.0-36.0); Mean Corpuscular Hemoglobin 29.9 pg (27.0-34.0); Mean Corpuscular Volume 88.4 fL (80.0-100.0); Mean Platelet Volume 6.8 fL (7.0-11.0); Mono % (Auto) 0.8 % (0.0-8.0); Neut # (Auto) 5.6 th/mm3 (1.8-7.7); Neut % (Auto) 95.2 % (16.0-70.0); Platelet Count 295 th/mm3 (150-450); Red Blood Count 3.77 mil/mm3 (4.50-5.90); Red Cell Distribution Width 15.1 % (11.6-17.2); White Blood Count 5.9 th/mm3 (4.0-11.0)
[2018-07-22 06:40] LABS: Calcium 8.4 mg/dL (8.5-10.1); Carbon Dioxide 26.2 meq/L (21.0-32.0); Potassium 3.9 meq/L (3.5-5.1)
[2018-07-22 08:17] VITALS: BP 113/64; PULSE 77; RESP 16; TEMP 97.8; O2SAT 94
[2018-07-22] MEDS ORDERED: Ferrous Sulfate 325 MG Tablet PO SCH (09:00)
== END 2018-07-22 11:58 | disposition home or self-care (01) ==
LOC: NEPC 21:50 → NEDA 21:50 → NEPFCDU 07-22 04:42
PROVIDERS: ADMIT Family Medicine; ATTEND Family Medicine

== ENCOUNTER 2018-07-30 18:06 | Observation (INO) ==
[2018-07-30 20:00] LABS: Baso % (Auto) 0.7 % (0.0-2.0); Eos # (Auto) 0.1 th/mm3 (0.0-0.4); Eos % (Auto) 2.2 % (0.0-4.0); Hematocrit 33.9 % (39.0-51.0); Hemoglobin 11.4 gm/dL (13.0-17.0); Lymph # (Auto) 0.9 th/mm3 (1.0-4.8); Lymph % (Auto) 15.3 % (9.0-44.0); Mean Corpuscular HGB Conc 33.7 % (32.0-36.0); Mean Corpuscular Hemoglobin 29.7 pg (27.0-34.0); Mean Corpuscular Volume 88.4 fL (80.0-100.0); Mean Platelet Volume 6.6 fL (7.0-11.0); Mono % (Auto) 15.5 % (0.0-8.0); Neut # (Auto) 4.1 th/mm3 (1.8-7.7); Neut % (Auto) 66.3 % (16.0-70.0); Platelet Count 317 th/mm3 (150-450); Red Blood Count 3.83 mil/mm3 (4.50-5.90); Red Cell Distribution Width 14.3 % (11.6-17.2); White Blood Count 6.2 th/mm3 (4.0-11.0)
--- NOTE | 2018-07-30 20:03 | ED ---
HPI General Chief Complaint: Shortness of Breath/Dyspnea Stated Complaint: breathing, neausus Time Seen by Provider: 07/30/18 19:26 History of Present Illness 63 y/o history of CHF, COPD, chronic lymphedema LOWER LEGS BILATERAL presents to the emergency department for gradually worsening shortness of breath and also continued swelling and pain in bilateral lower extremities for the last couple days , He took a nebulizer in AM and is coughing up frothy sputum .. Patient states that the swelling is bad and coughing , He was taken off his Lasix yesterday ( possibly for increasing creatinine level ) last I saw was 2.27 . is in significant pain when he bears weight on his leg.. Coughing sputum production worseining .. Related Data Home Medications Medication Instructions Recorded Confirmed multivitamin 1 tab PO DAILY 07/21/18 07/30/18 omega [id number] oil [Fish Oil] 1,000 mg PO DAILY 07/21/18 07/30/18 albuterol sulfate [ProAir HFA] 2 puff INHALATION Q4-6H 07/30/18 07/30/18 benzonatate 100 mg PO TID 07/30/18 07/30/18 budesonide-formoterol [Symbicort] 2 puff INHALATION BID 07/30/18 07/30/18 bumetanide 1 mg PO BID 07/30/18 07/30/18 doxycycline hyclate 100 mg PO DAILY 07/30/18 07/30/18 fluticasone-vilanterol [Breo 1 inh INHALATION DAILY 07/30/18 07/30/18 Ellipta] spironolactone 50 mg PO BID 07/30/18 07/30/18 Previous Rx's Medication Instructions Recorded aspirin 81 mg PO DAILY tab 07/22/18 azithromycin [Zithromax Z-Otis] See Label Instructions .ROUTE 07/22/18 .COMPLEX #6 tab cetirizine 10 mg PO DAILY tab 07/22/18 ferrous sulfate [FeroSul] 325 mg PO DAILY tab 07/22/18 losartan [Cozaar] 25 mg PO DAILY tab 07/22/18 Allergies Allergy/AdvReac Type Severity Reaction Status Date / Time No Known Allergies Allergy Verified 07/30/18 18:58 Review of Systems ROS: all other systems reviewed are negative [facility] Medical History Medical History CHF (congestive heart failure) (Acute) COPD (chronic obstructive pulmonary disease) (Acute) Carpal tunnel syndrome on both sides (Acute) Cavitary lesion of lung (Acute) Cervical spinal cord compression (Acute) Diabetes (Acute) Lumbar spinal cord injury (Acute) Lymphedema of both lower extremities (Acute) Seizure (Acute) Situs inversus with dextrocardia (Acute) Surgical History Surgical History H/O cerebral aneurysm repair (Acute) History of lobectomy of lung (Acute) Social History Social History Substance History: No History of Abuse Second Hand Smoke Exposure: No (Longstanding secondhand smoke exposure as child , non currenlty) Smoking Status: Never smoker How Often Do You Have a Drink Containing Alcohol: Never Hx Recent Travel: No Recent Travel in [facility] within the Last 8 Weeks: No Recent Out of Country Travel within the Last 8 Weeks: No Immunization History Tetanus Immunization: >5 Years Exam Narrative Exam Narrative: GENERAL: coughing sputum in cup during my exam , slight dyspnea presentation A0X3 SKIN: Warm and dry. HEAD: Atraumatic. Normocephalic. EYES: Pupils equal and round. No scleral icterus. No injection or drainage. ENT: No nasal bleeding or discharge. Mucous membranes pink and moist. NECK: Trachea midline. No JVD. CARDIOVASCULAR: Regular rate and rhythm. RESPIRATORY: mild rales bibasilar GASTROINTESTINAL: Abdomen soft, non-tender, nondistended. Hepatic and splenic margins not palpable. MUSCULOSKELETAL: Extremities severe swelling chronic edema appearance , no active cellulitis, No deformities. NEUROLOGICAL: Awake and alert. No obvious cranial nerve deficits. Motor grossly within normal limits. Five out of 5 muscle strength in the arms and legs. Normal speech. PSYCHIATRIC: Appropriate mood and affect; insight and judgment normal. Course Initial Documented Vital Signs Temperature 98.6 F 07/30/18 18:28 Pulse Rate 79 07/30/18 18:28 Respiratory Rate 18 07/30/18 18:28 Blood Pressure 114/57 L 07/30/18 18:28 Pulse Oximetry 93 L 07/30/18 18:28 Last Documented Vital Signs Temperature 97.8 F 07/31/18 07:59 Pulse Rate 104 H 07/31/18 08:00 Respiratory Rate 18 07/31/18 07:59 Blood Pressure 100/60 07/31/18 07:59 Pulse Oximetry 95 07/31/18 07:59 Medical Decision Making MDM Narrative Medical decision making narrative: Discussed case with inpatient Hospitalist she felt he did not meet admission critieria , pt was adamant that he was SOB CT shows linear opacifications possible infectious but she refused admit I placed pt in obs CDU CP admit for further eval . Medical Screen Exam Complete: Yes Emergency Medical Condition: Yes Differential Diagnosis Differential Diagnosis: CHF vs COPD vs PNA vs PTX vs edema peripheral vascular ACS NM other cause of edema and SOB and CP Lab Data Result diagrams: 07/30/18 19:20 07/30/18 19:20 Lab Results 07/30/18 07/30/18 07/30/18 Range/Units 19:20 19:20 19:20 WBC 6.2 (4.0-11.0) th/mm3 RBC 3.83 L (4.50-5.90) mil/mm3 Hgb 11.4 L (13.0-17.0) gm/dL Hct 33.9 L (39.0-51.0) % MCV 88.4 (80.0-100.0) fL MCH 29.7 (27.0-34.0) pg MCHC 33.7 (32.0-36.0) % RDW 14.3 (11.6-17.2) % Plt Count 317 (150-450) th/mm3 MPV 6.6 L (7.0-11.0) fL Neut % (Auto) 66.3 (16.0-70.0) % Lymph % (Auto) 15.3 (9.0-44.0) % Morris % (Auto) 15.5 H (0.0-8.0) % Eos % (Auto) 2.2 (0.0-4.0) % Baso % (Auto) 0.7 (0.0-2.0) % Neut # (Auto) 4.1 (1.8-7.7) th/mm3 Lymph # (Auto) 0.9 L (1.0-4.8) th/mm3 Morris # (Auto) 1.0 H (0.0-0.9) th/mm3 Eos # (Auto) 0.1 (0.0-0.4) th/mm3 Baso # (Auto) 0.0 (0.0-0.2) th/mm3 WBC Differential . Differential Comment Auto diff final Puncture Site Patient Temperature O2 Saturation (90-100) % ABG pH (7.380-7.420) ABG pCO2 (38-42) mmHg ABG pO2 (61-120) mmHg ABG HCO3 (22-26) mmol/L ABG O2 Content (12.0-20.0) Vol % ABG Base Excess (-2-2) mmol/L ABG Methemoglobin (0-2) % Jose Test Hemoglobin (12.0-16.0) G/DL Carboxyhemoglobin (0-4) % Inspired O2 % Critical Value Sodium 135 L (136-145) meq/L Potassium 3.7 (3.5-5.1) meq/L Chloride 96 L (98-107) meq/L Carbon Dioxide 28.6 (21.0-32.0) meq/L Anion Gap 10 (5-15) meq/L BUN 24 H (7-18) mg/dL Creatinine 1.68 H (0.60-1.30) mg/dL Estimated GFR 41 L (>89) mL/min Random Glucose 85 (74-106) mg/dL Calcium 8.9 (8.5-10.1) mg/dL Total Bilirubin 0.8 (0.2-1.0) mg/dL AST 16 (15-37) U/L ALT 25 (12-78) U/L Alkaline Phosphatase 106 (45-117) U/L Total Creatine Kinase (39-308) U/L Troponin I Less than 0.02 L (0.02-0.05) ng/mL B-Natriuretic Peptide 33 (0-100) pg/mL Total Protein 7.6 (6.4-8.2) g/dL Albumin 3.2 L (3.4-5.0) g/dL 07/31/18 07/31/18 07/31/18 Range/Units 01:40 04:38 08:08 WBC (4.0-11.0) th/mm3 RBC (4.50-5.90) mil/mm3 Hgb (13.0-17.0) gm/dL Hct (39.0-51.0) % MCV (80.0-100.0) fL MCH (27.0-34.0) pg MCHC (32.0-36.0) % RDW (11.6-17.2) % Plt Count (150-450) th/mm3 MPV (7.0-11.0) fL Neut % (Auto) (16.0-70.0) % Lymph % (Auto) (9.0-44.0) % Morris % (Auto) (0.0-8.0) % Eos % (Auto) (0.0-4.0) % Baso % (Auto) (0.0-2.0) % Neut # (Auto) (1.8-7.7) th/mm3 Lymph # (Auto) (1.0-4.8) th/mm3 Morris # (Auto) (0.0-0.9) th/mm3 Eos # (Auto) (0.0-0.4) th/mm3 Baso # (Auto) (0.0-0.2) th/mm3 WBC Differential Differential Comment Puncture Site Left radial Patient Temperature 98.6 O2 Saturation 90 (90-100) % ABG pH 7.49 H (7.380-7.420) ABG pCO2 38 (38-42) mmHg ABG pO2 61 (61-120) mmHg ABG HCO3 28 H (22-26) mmol/L ABG O2 Content 13.7 (12.0-20.0) Vol % ABG Base Excess 4.9 H (-2-2) mmol/L ABG Methemoglobin 0.4 (0-2) % Jose Test Present Hemoglobin 10.7 L (12.0-16.0) G/DL Carboxyhemoglobin 1.5 (0-4) % Inspired O2 21 % Critical Value No Sodium (136-145) meq/L Potassium (3.5-5.1) meq/L Chloride (98-107) meq/L Carbon Dioxide (21.0-32.0) meq/L Anion Gap (5-15) meq/L BUN (7-18) mg/dL Creatinine (0.60-1.30) mg/dL Estimated GFR (>89) mL/min Random Glucose (74-106) mg/dL Calcium (8.5-10.1) mg/dL Total Bilirubin (0.2-1.0) mg/dL AST (15-37) U/L ALT (12-78) U/L Alkaline Phosphatase (45-117) U/L Total Creatine Kinase 118 127 (39-308) U/L Troponin I Less than 0.02 L Less than 0.02 L (0.02-0.05) ng/mL B-Natriuretic Peptide (0-100) pg/mL Total Protein (6.4-8.2) g/dL Albumin (3.4-5.0) g/dL Imaging Data Radiologist's impression: Chest X-Ray 07/30/18 19:43 CONCLUSION: No acute findings. No acute infiltrates in the left lower lung adjacent to the lower lobectomy site. Chest CT 07/30/18 22:40 CONCLUSION: 1. Chronic bronchiectasis that is a lower lung zone predominant with mild patchy airspace opacity in both lower lobes which could represent an infectious process. However, the appearance is similar to the prior examination. 2. Stable 9 mm left lower lobe pulmonary nodule. Suggest continued attention to this at follow-up imaging in approximately 6 months. 3. Nonacute findings include situs inversus totalis, cholelithiasis, and bilateral gynecomastia. Discharge Plan Discharge Disposition Patient Disposition: 30 Still Patient Discharge Condition Condition: Stable Discharge Order Discharge Orders: Discharge Order (Routine); Ordered 07/31/18 Ordered By: Mariama Meza Physicians Team ED Provider: Nde Byers Primary Care Provider: UNKNOWN, Attending Provider: Luis Latif Status ED Status: Left Department Discharge Information Discharge Date/Time: 07/31/18 02:26
[2018-07-30 20:19] LABS: Albumin 3.2 g/dL (3.4-5.0); Anion Gap 10 meq/L (5-15); Aspartate Aminotransferase 16 U/L (15-37); Blood Urea Nitrogen 24 mg/dL (7-18); Calcium 8.9 mg/dL (8.5-10.1); Carbon Dioxide 28.6 meq/L (21.0-32.0); Chloride 96 meq/L (98-107); Glomerular Filtration Rate 41 mL/min (>89); Glucose,Random 85 mg/dL (74-106); Potassium 3.7 meq/L (3.5-5.1); Sodium 135 meq/L (136-145)
[2018-07-30 20:21] LABS: Alanine Aminotransferase 25 U/L (12-78)
--- NOTE | 2018-07-30 20:21 | XR ---
EXAM DATE: 07/30/2018 7:43 PM EDT AGE/SEX: 63 years / Male INDICATIONS: Cough CLINICAL DATA: This is the patient's initial encounter. Patient reports that signs and symptoms have been present for 2 days and indicates a pain score of 0/10. MEDICAL/SURGICAL HISTORY: . Chronic obstructive pulmonary disease. Seizures. Situs inversus. M yocardial infarction. . Bilateral lobectomy. Brain aneurysm with shunt. Multiple cervical spine. B ilateral knees. COMPARISON: [facility], XR CHEST PA AND LAT, 07/27/2018. C, CHEST 1V SINGLE AP, 07/21/2018. [facility], CHES T PA & LAT, 02/06/2018. . FINDINGS: Situs inversus. Patchy area of opacity in the left lower lung at site of prior lobectomy is less prom inent than on prior examination. The heart is moderately enlarged. Both hemidiaphragms are fairly wel l delineated. Anterior plate in the lower cervical region. CONCLUSION: No acute findings. No acute infiltrates in the left lower lung adjacent to the lower lobectomy site. Electronically signed by: Chance Nunez MD 07/30/2018 8:19 PM EDT
[2018-07-30 20:24] LABS: Alkaline Phosphatase 106 U/L (45-117); Total Protein 7.6 g/dL (6.4-8.2)
--- NOTE | 2018-07-30 23:37 | CT ---
EXAM DATE: 07/30/2018 11:12 PM EDT AGE/SEX: 63 years / Male INDICATIONS: Cough past 2 days. CLINICAL DATA: This is the patient's initial encounter. Patient reports that signs and symptoms have been present for 1 day and indicates a pain score of 2/10. MEDICAL/SURGICAL HISTORY: Cardiovascular disease. Chronic obstructive pulmonary disease. Diabetes mellitus type II. Situs inversus Lobectomy. RADIATION DOSE: 8.94 CTDI (mGy) COMPARISON: [facility] [place]AX [place]AST, 02/07/2018. . TECHNIQUE: Multiple contiguous axial images were obtained through the chest without contrast. Image s were obtained in suspended respiration using multiple row detector helical technique. Using automa lesli exposure control and adjustment of the mA and/or kV according to patient size, radiation dose was kept as low as reasonably achievable to obtain optimal diagnostic quality images. DICOM format imag e data is available electronically for review and comparison. FINDINGS: Lungs: There is respiratory motion artifact in the lower lung zones bilaterally. Lung staple line is visualized in at the anterior left lung base. There is bronchiectasis bilaterally primarily in the l ower lung zones bilaterally with patchy airspace opacity at both lung bases. There is a stable 9 mm p ulmonary nodule in the left lower lobe on image 42. Stable traction bronchiectasis and fibrosis is pr esent at the anterior left lung base. No pneumothorax is present. Mediastinum: There is situs inversus with dextrocardia and right-sided aortic arch with mirror image branching of the great vessels. No lymphadenopathy is identified. There are calcified left hilar lym ph nodes. Pleurae: No pleural effusion or pleural thickening. Axillae: No lymphadenopathy. Musculoskeletal: The bones and soft tissues demonstrate no acute abnormality. There are degenerativ e changes of the thoracic spine and there is anterior inferior cervical plate again identified. Other: Situs inversus is present within the liver in the left upper quadrant. There are high density stones in the gallbladder. Bilateral gynecomastia is present. CONCLUSION: 1. Chronic bronchiectasis that is a lower lung zone predominant with mild patchy airspace opacity in both lower lobes which could represent an infectious process. However, the appearance is similar to the prior examination. 2. Stable 9 mm left lower lobe pulmonary nodule. Suggest continued attention to this at follow-up im aging in approximately 6 months. 3. Nonacute findings include situs inversus totalis, cholelithiasis, and bilateral gynecomastia. Electronically signed by: Jack Chavez MD 07/30/2018 11:35 PM EDT
[2018-07-31 02:19] LABS: Creatine Kinase 118 U/L (39-308)
[2018-07-31 03:35] VITALS: RESP 18
[2018-07-31 06:41] LABS: Creatine Kinase 127 U/L (39-308)
[2018-07-31 08:02] VITALS: BP 100/60; TEMP 97.8; O2SAT 95
[2018-07-31 08:14] LABS: ABG Base Excess 4.9 mmol/L (-2-2); ABG PCO2 38 mmHg (38-42); ABG PO2 61 mmHg (61-120)
--- NOTE | 2018-07-31 08:46 | P.HPCA ---
History of Present Illness Primary Care Physician: Dr. Alea Shepard Chief Complaint: Shortness of breath History of Present Illness: 63 year old male with history of CHF, COPD, chronic lymphedema bilateral lower legs, and situs inversus with dextrocardia presents to ER for further evaluation of worsening shortness of breath and bilateral lower leg edema. Onset Tuesday evening after electric went out leaving him without air conditioning. Since Tuesday evening developed worsening shortness of breath. Duration constant. Relates worsening shortness of breath due to lack of air conditioning since Tuesday. Chronic cough with green sputum production for "at least 1 year." States "for months cough seems to be getting worse." Denies hematuria. Deep inspiration causes moderate to severe discomfort. Reports using x2 different inhalers with increase use of home nebulizer treatments without relief. Lifelong nonsmoker. Longstanding history of second hand smoker exposure. Denies chest pain/tightness/heaviness other than during inspiration. No recent fever, chills, or known illness. Chronic lymphedema, noting an increase since Tuesday evening. No known CAD, diabetes, or hyperlipidemia. Requesting admission to hospital stating if discharged dyspnea will likely return. Past cardiac testing 12/09/17 Echocardiogram-EF 55%, small pericardial effusion Seen by photo checker, Dr. Shanks, during November 2017 admission. Social history No known CAD, hypertension, diabetes, or hyperlipidemia. Lifelong nonsmoker. Longstanding secondhand smoke exposure since childhood. No alcohol or recreational drug use. - Diagnosis (1) Chronic shortness of breath (2) Edema of both lower extremities (3) History of CHF (congestive heart failure) (4) COPD (chronic obstructive pulmonary disease) (5) Situs inversus with dextrocardia (6) Anemia (7) Renal insufficiency (8) Cavitary lesion of lung Review of Systems All other systems reviewed negative except as stated in HPI PMFSH - History History Provided By: Patient - Medical History Medical History: Medical History (Last Updated 07/31/18 @ 10:00 by MINDA Dorantes) CHF (congestive heart failure) COPD (chronic obstructive pulmonary disease) Carpal tunnel syndrome on both sides Cavitary lesion of lung Cervical spinal cord compression Diabetes Lumbar spinal cord injury Lymphedema of both lower extremities Seizure Situs inversus with dextrocardia - Surgical History Surgical History: Surgical History (Last Updated 07/31/18 @ 10:00 by MINAD Dorantes) H/O cerebral aneurysm repair History of lobectomy of lung - Tobacco History Second Hand Smoke Exposure: No (Longstanding secondhand smoke exposure as child , non currenlty) Tobacco Use In Past 30 Days: No Smoking Status: Never smoker - Alcohol History How Often Do You Have a Drink Containing Alcohol: Never - Substance Use History Substance History: No History of Abuse - Travel History History of Recent Travel: No Recent Travel in the [place] Within the Last 8 Weeks: No Recent Travel Out of the Country Within the Last 8 Weeks: No - Immunization History Tetanus Immunization: >5 Years Medications and Allergies Active Medications: Active Medications Sodium Chloride (Ns Flush) 2 ml IV.FLUSH BID EDNA Sodium Chloride (Ns Flush) 2 ml IV.FLUSH PRN PRN PRN Reason: FLUSH AFTER USING IV ACCESS Allergies Allergy/AdvReac Type Severity Reaction Status Date / Time No Known Allergies Allergy Verified 07/30/18 18:58 Home Medications Medication Instructions Recorded Confirmed Type multivitamin 1 tab PO DAILY 07/21/18 07/30/18 History omega [id number]-fish oil [Fish Oil] 1,000 mg PO DAILY 07/21/18 07/30/18 History albuterol sulfate [ProAir HFA] 2 puff INHALATION Q4-6H 07/30/18 07/30/18 History benzonatate 100 mg PO TID 07/30/18 07/30/18 History budesonide-formoterol [Symbicort] 2 puff INHALATION BID 07/30/18 07/30/18 History bumetanide 1 mg PO BID 07/30/18 07/30/18 History doxycycline hyclate 100 mg PO DAILY 07/30/18 07/30/18 History fluticasone-vilanterol [Breo 1 inh INHALATION DAILY 07/30/18 07/30/18 History Ellipta] spironolactone 50 mg PO BID 07/30/18 07/30/18 History Exam Vital signs: Vital Signs 07/30/18 18:28 07/30/18 18:55 07/30/18 19:17 Temperature 98.6 F Pulse Rate 79 76 78 Respiratory Rate 18 22 22 Blood Pressure 114/57 L 118/60 120/55 L Pulse Oximetry 93 L 93 L 96 07/30/18 20:09 07/30/18 22:47 07/30/18 23:57 Temperature Pulse Rate 76 67 74 Respiratory Rate 20 18 20 Blood Pressure 95/56 L Pulse Oximetry 94 L 93 L 07/30/18 23:58 07/31/18 02:13 07/31/18 03:34 Temperature 97.7 F Pulse Rate 75 76 70 Respiratory Rate 22 20 18 Blood Pressure 102/53 L 130/57 L 107/57 L Pulse Oximetry 94 L 93 L 96 07/31/18 07:59 Temperature 97.8 F Pulse Rate 64 Respiratory Rate 18 Blood Pressure 100/60 Pulse Oximetry 95 Intake & Output 07/30/18 07/31/18 07/31/18 18:59 06:59 18:59 Intake Total 150 / 150 Balance 150 / 150 Weight 95.254 kg 94.7 kg Intake: IV 150 / 150 Levaquin 750 mg Premix Inj 150 150 / 150 ML @ 100 mls/hr IV.SIG ONCE ONE Rx#:[id number] Other: Date of Last Bowel Movement 07/30/18 Weight On Admission 95.254 kg Narrative: GENERAL: Alert WN, WD, NAD, , obese male who appears older than stated age. Easily awakens from sleep. HEAD: NC, AT EYES: Sclera clear, conjunctiva without injection, pupils equal and round ENT: Mucous membranes pink and moist NECK: Supple, no masses, trachea midline CV: Auscultated on right side of chest. RRR, without murmur, rub, gallop, no JVD, S1-S2. RESP: Clear lungs upper bilateral, decreased lungs tones bilateral bases, no crackles, wheeze, or rhonchi, symmetrical chest rise, nonlabored, able to speak in full sentences ABD: Soft, NT, ND, no masses, positive bowel tones EXT: Bilateral lower extremity significant edema from knee extending to feet, pitting. No redness,drainage, or warmth. MS: Normal tone x4 extremities, nontender, no obvious deformities, full range of motion NEURO: CN II through CN XII grossly intact, motor strength 5/5 PSYCH: A+O x3, pleasant affect, appropriate speech, mood, questionable insight and judgment SKIN: Normal turgor, normal texture, no lesions, no rashes Results 07/30/18 19:20 07/30/18 19:20 Cardiac Enzymes 07/30/18 07/30/18 07/31/18 Range/Units 19:20 19:20 01:40 AST 16 (15-37) U/L Troponin I Less than 0.02 L Less than 0.02 L (0.02-0.05) ng/mL B-Natriuretic Peptide 33 (0-100) pg/mL 07/31/18 Range/Units 04:38 AST (15-37) U/L Troponin I Less than 0.02 L (0.02-0.05) ng/mL B-Natriuretic Peptide (0-100) pg/mL Coagulation 07/30/18 Range/Units 19:20 B-Natriuretic Peptide 33 (0-100) pg/mL CBC 07/30/18 Range/Units 19:20 WBC 6.2 (4.0-11.0) th/mm3 RBC 3.83 L (4.50-5.90) mil/mm3 Hgb 11.4 L (13.0-17.0) gm/dL Hct 33.9 L (39.0-51.0) % Plt Count 317 (150-450) th/mm3 Neut # (Auto) 4.1 (1.8-7.7) th/mm3 Lymph # (Auto) 0.9 L (1.0-4.8) th/mm3 [place] # (Auto) 1.0 H (0.0-0.9) th/mm3 Eos # (Auto) 0.1 (0.0-0.4) th/mm3 Baso # (Auto) 0.0 (0.0-0.2) th/mm3 Comprehensive Metabolic Panel 07/30/18 Range/Units 19:20 Sodium 135 L (136-145) meq/L Potassium 3.7 (3.5-5.1) meq/L Chloride 96 L (98-107) meq/L Carbon Dioxide 28.6 (21.0-32.0) meq/L BUN 24 H (7-18) mg/dL Creatinine 1.68 H (0.60-1.30) mg/dL Calcium 8.9 (8.5-10.1) mg/dL AST 16 (15-37) U/L ALT 25 (12-78) U/L Alkaline Phosphatase 106 (45-117) U/L Total Protein 7.6 (6.4-8.2) g/dL Albumin 3.2 L (3.4-5.0) g/dL Intake and Output 07/30/18 07/31/18 07/31/18 22:59 06:59 14:59 Intake Total 150 / 150 Balance 150 / 150 Intake: IV 150 / 150 Levaquin 750 mg Premix Inj 150 150 / 150 ML @ 100 mls/hr IV.SIG ONCE ONE Rx#:[id number] Other: Date of Last Bowel Movement 07/30/18 Weight 95.254 kg 94.7 kg Weight On Admission 95.254 kg - Imaging and Cardiology Imaging: Impressions Chest X-Ray 07/30/18 19:43 CONCLUSION: No acute findings. No acute infiltrates in the left lower lung adjacent to the lower lobectomy site. Chest CT 07/30/18 22:40 CONCLUSION: 1. Chronic bronchiectasis that is a lower lung zone predominant with mild patchy airspace opacity in both lower lobes which could represent an infectious process. However, the appearance is similar to the prior examination. 2. Stable 9 mm left lower lobe pulmonary nodule. Suggest continued attention to this at follow-up imaging in approximately 6 months. 3. Nonacute findings include situs inversus totalis, cholelithiasis, and bilateral gynecomastia. EKG interpretations - EKG EKG results cardiology: sinus rhythm (EKG appears to be limb lead reversed, however patient dextrocardiac, no st t segment changes), normal axis Caprini VTE Risk Assessment Caprini VTE Risk Assessment: Moderate/High Risk (score >= 2) Caprini Risk Assessment Model: Point Value = 1 Point Value = 2 Point Value = 3 Point Value = 5 Age 41-60 Minor surgery BMI > 25 kg/m2 Swollen legs Varicose veins or History of unexplained or recurrent spontaneous Oral contraceptives or hormone replacement Sepsis (< 1 month) Serious lung disease, including pneumonia (< 1 month) Abnormal pulmonary function Acute myocardial infarction Congestive heart failure (< 1 month) History of inflammatory bowel disease Medical patient at bed rest Age 61-74 Arthroscopic surgery Major open surgery (> 45 min) Laparoscopic surgery (> 45 min) Malignancy Confined to bed (> 72 hours) Immobilizing plaster cast Central venous access Age >= 75 History of VTE Family history of VTE Factor V Leiden Prothrombin [id number] Lupus anticoagulant Anticardiolipin antibodies Elevated serum homocysteine Heparin-induced thrombocytopenia Other congenital or acquired thrombophilia Stroke (< 1 month) Elective arthroplasty Hip, pelvis, or leg fracture Acute spinal cord injury (< 1 month) Prophylaxis Regimen: Total Risk Factor Score Risk Level Prophylaxis Regimen 0-1 Low Early ambulation 2 Moderate Order ONE of the following: *Sequential Compression Device (SCD) *Heparin 5000 units SQ BID 3-4 Higher Order ONE of the following medications: *Heparin 5000 units SQ TID *Enoxaparin/Lovenox 40 mg SQ daily (WT < 150 kg, CrCl > 30 mL/min) *Enoxaparin/Lovenox 30 mg SQ daily (WT < 150 kg, CrCl > 10-29 mL/min) *Enoxaparin/Lovenox 30 mg SQ BID (WT < 150 kg, CrCl > 30 mL/min) AND/OR *Sequential Compression Device (SCD) 5 or more Highest Order ONE of the following medications: *Heparin 5000 units SQ TID (Preferred with Epidurals) *Enoxaparin/Lovenox 40 mg SQ daily (WT < 150 kg, CrCl > 30 mL/min) *Enoxaparin/Lovenox 30 mg SQ daily (WT < 150 kg, CrCl > 10-29 mL/min) *Enoxaparin/Lovenox 30 mg SQ BID (WT < 150 kg, CrCl > 30 mL/min) AND *Sequential Compression Device (SCD) Assessment and Plan - Assessment (1) Chronic shortness of breath Code(s): R06.02 - Shortness of breath Status: Acute Plan: Admitted to chest pain center. ACS ruled out overnight with 3 sets of EKGs and cardiac enzymes. Seen and evaluated by Dr. Ahsan Castanon. Obtain ABG now. No further cardiac testing. Denies chest pain. Call will be placed to resident to discuss possible hospital admission for reported symptoms. [address] Mehta. [address]. Mehta on site manager for resident service and patient is also follows MD in outpatient setting. Discussed current 23 hour observation admission. Informed by Dr. Mehta patient admitted last week for similar symptoms. Patient also has known RUL cavitary lesion, negative for TB, however is prescribed one year treatment of antibiotics and follows with Dr. Palacios. Dr. Mehta will discuss case with her attending. Awaiting further recommendations. [address] Mehta received after MD spoke with attending physician. Discussed unless we ([facility] providers) feel there is a reason to admit patient, both agree to discharge home with follow up with them in office. ABG reviewed, anemia and creatinine improving. Spo2 95-96% on room air, afebrile. Discussed with Dr. Castanon. Will discharge home with close follow up with his PCP. [id number]-Discussed planned discharge with patient and via telephone. Patient extremely upset about being discharged. Stating once he returns home, shortness of breath will worsen due to air conditioner unit being broken. Made aware he cannot remain in hospital until A/C fixed. Encouraged finding a relative or friend with A/C until unit working properly. Made aware currently labs, chest x- ray, and vitals stable and in fact improved from last admission. Instructed to follow up with PCP and farmworkers this week if dyspnea returns. RN at bedside and aware of plan of care. (2) Edema of both lower extremities Code(s): R60.0 - Localized edema Status: Chronic Plan: Continue spironolactone and Bumex. (3) History of CHF (congestive heart failure) Code(s): Z86.79 - Personal history of other diseases of the circulatory system Status: Chronic Plan: Continue spironolactone and Bumex. (4) COPD (chronic obstructive pulmonary disease) Code(s): J44.9 - Chronic obstructive pulmonary disease, unspecified Status: Chronic Plan: Continue Breo inhaler and albuterol. Lungs actually clear, SPO2 95-96%. No acute respiratory noted, sleeping quietly upon entering room. Able to speak in full (5) Situs inversus with dextrocardia Code(s): Q89.3 - Situs inversus Status: Chronic (6) Anemia Code(s): D64.9 - Anemia, unspecified Status: Chronic Plan: Continue ferrous sulfate, hemoglobin improving from January 2018. Reviewed last visits laboratory studies. January 2018 H/H 10.4/29.9, 07/22/18 H/H 11/32.3. Current H/H 11.4/33.9. (7) Renal insufficiency Code(s): N28.9 - Disorder of kidney and ureter, unspecified Status: Chronic Plan: Follow up with primary care provider. Creatinine levels improved. 07/22/2018 creatinine level 2.01, currently creatinine level of 1.68. (8) Cavitary lesion of lung Code(s): J98.4 - Other disorders of lung Status: Chronic Plan: Continue azithromycin and doxycycline. Keep follow-up appointments with PCP and infectious disease as previously instructed. H&P: Quality - VTE Deep Vein Thrombosis/Pulmonary Embolism Present on Admission: No (4) COPD (chronic obstructive pulmonary disease) Qualifiers: Emphysema type: unspecified (6) Anemia Qualifiers: Anemia type: iron deficiency
[2018-07-31] MEDS ORDERED: Azithromycin 250 MG Tablet PO ONE (09:15)
[2018-07-31] MEDS ORDERED: Ferrous Sulfate 325 MG Tablet PO SCH (09:15)
[2018-07-31] MEDS ORDERED: Spironolactone 50 MG Tablet PO SCH (09:15)
[2018-07-31] MEDS ORDERED: Budesonide-Formoterol 160/4.5 MCG 6 GM Inhaler INH SCH (10:00)
[2018-07-31 11:24] VITALS: PULSE 104
[2018-07-31] MEDS ORDERED: Benzonatate 100 MG Capsule PO SCH (13:00)
[2018-08-01] MEDS ORDERED: Azithromycin 250 MG Tablet PO SCH (09:00)
--- NOTE | 2018-08-02 06:47 | ECG ---
Date Performed: 07/31/2018 Time Performed: 01:38:29 PTAGE: 63 years EKG: Sinus rhythm ARM LEADS REVERSED ATYPICAL ECG Since PREVIOUS TRACING , no significant change noted PREVIOUS TRACIN02/09/2018 12.44 DOCTOR: Ju Mixon Interpretating Date/Time 08/02/2018 06:46:32
--- NOTE | 2018-08-02 06:47 | ECG ---
Date Performed: 07/31/2018 Time Performed: 04:37:12 PTAGE: 63 years EKG: Sinus rhythm POSSIBLE RIGHT VENTRICULAR HYPERTROPHY POSSIBLE ANTERIOR MYOCARDIAL INFARCTION MODERATE T-WAVE ABNOR MALITY, CONSIDER LATERAL ISCHEMIA ABNORMAL ECG Since PREVIOUS TRACING , no significant change noted PREVIOUS TRACIN07/31/2018 01.38 DOCTOR: Ju Mixon Interpretating Date/Time 08/02/2018 06:46:03
== END 2018-07-31 11:46 | disposition home or self-care (01) ==
LOC: NEDA 18:06 → NEPC 18:06 → NEPHCDU 07-31 02:21